=== PATIENT | female | born 1980 | race Caucasian/White ===

== ENCOUNTER 2019-12-17 11:31 | Outpatient (CLI) | payer OTHER, SELFPAY ==
--- NOTE | ~2019-12-17 | XR_ITS ---
EXAMINATION: XR hysterosalpingogram EXAM DATE: 12/17/2019 12:21 INDICATION: Infertility. TECHNIQUE: Hysterosalpingogram was performed by Dr. Lola Weinberg MD with fluoroscopic guidance. I was present to obtain fluoroscopic images. The DAP for this procedure was 0.8 Gycm2. FINDINGS: Top Cutter radiograph demonstrates an unremarkable pelvis. Fluoroscopic images demonstrates nor mal appearing endometrial cavity which has been cannulated. Upon injection of contrast, both fallopi an tubes opacify and are normal in appearance. There is free spillage bilaterally. Uterus is withou t evidence of synechia. IMPRESSION: Patent fallopian tubes. Reviewed, dictated and finalized at location A. IMPRESSION: Patent fallopian tubes.
--- NOTE | 2019-12-17 13:33 | PM.PROC ---
Procedure Note - Detailed Date of procedure: 12/17/19 Pre-op diagnosis: FEMALE INFERTILE Post-op diagnosis: same Procedure performed: HSG Description of procedure: Speculum was placed and cervix swabbed with Betadine. Catheter inserted and balloon inflated. Speculum removed. Per radiologist's instructions, dye injected through intracervical catheter. X ray showed bilateral patent tubes and normal uterine cavity per brief view at that time Anesthesia: none Surgeon: Lola Weinberg MD Estimated blood loss (mL): 0 Drains: No Packing: No Pathology: none sent Complications: No immediate complications Condition: stable Disposition: other (home) Findings: Bilateral patent tubes and normal uterine cavity (preliminary)
== END 2019-12-17 11:32 | disposition home or self-care (01) ==
PROVIDERS: Visit Provider Obstetrics & Gynecology
DX: N97.9 Female infertility, unspecified (principal)
CPT/HCPCS: 58340; 74740; Q9966

== ENCOUNTER 2020-02-11 09:59 | Outpatient (CLI) | payer OTHER, SELFPAY ==
[2020-02-11 11:03] LABS: Beta HCG Quantitative 12.99 mIU/ML
== END 2020-02-11 10:00 | disposition home or self-care (01) ==
LOC: ANHLAB 10:00
PROVIDERS: Visit Provider Obstetrics & Gynecology
DX: Z87.59 Personal history of other complications of pregnancy, childbirth and the puerperium (principal)
CPT/HCPCS: 36415; 84702

== ENCOUNTER 2021-04-25 10:35 | Outpatient (CLI) | payer OTHER, SELFPAY ==
--- NOTE | ~2021-04-25 | XR_ITS ---
EXAMINATION: XR hysterosalpingogram EXAM DATE: 04/25/2021 12:22 INDICATION: Irregular menstruation. TECHNIQUE: Hysterosalpingogram was performed by Dr. Hayden Cordova MD with fluoroscopic guidance. Rad iologist Leandro Brewer M.D. was present to obtain fluoroscopic images. Pulsed dose reduction fluorosco py was used with fluoroscopic time of 0.2 minutes. The DAP for this procedure was 0.5 Gycm2. A tota l of 23 images obtained for the exam. 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 Fluoroscopic images demonstrates nor mal appearing endometrial cavity which has been cannulated. Upon injection of contrast, both fallopi an tubes opacify and are normal in appearance. There is free spillage bilaterally. Uterus is withou t evidence of synechia. IMPRESSION: Patent fallopian tubes. Reviewed, dictated and finalized at location A. PUMPER IMPRESSION: Patent fallopian tubes.
[2021-04-25 11:39] LABS: Beta HCG Quantitative < 2.39 mIU/ML
--- NOTE | 2021-04-25 12:42 | W.PM.PROC2 ---
Procedure Note - Detailed Date of Procedure 04/25/21 Pre-op Diagnosis unexplained infertility Post-op Diagnosis same Procedure Performed Hysterosalpingogram Surgeon Hayden Cordova MD Anesthesia none Indications unexplained infertility Findings normal hysterosalpingogram Description of Procedure the patient was placed on the fluoroscopy table. A speculum was placed in the vagina. Cervix was grasped with a tenaculum. The catheter was placed the uterine cavity and the bulb was inflated. The speculum was removed with the angiocath still placed in the intrauterine cavity. Dye was then removed. The catheter. Fluoroscopic images obtained this process. Patient experienced some moderate to severe discomfort. The balloon of the catheter was deflated and the catheter was removed while the images were being obtained. The procedure was terminated. Patient tolerated the procedure well. There were no complications. Estimated Blood Loss 0 Complications No immediate complications Condition stable Disposition other
== END 2021-04-25 10:36 | disposition home or self-care (01) ==
LOC: ANHIMG 10:39
PROVIDERS: Visit Provider Obstetrics & Gynecology
DX: N92.6 Irregular menstruation, unspecified (principal)
CPT/HCPCS: 36415; 58340; 74740; 84702; Q9966

== ENCOUNTER 2021-05-04 14:20 | Outpatient (CLI) | payer OTHER, SELFPAY ==
--- NOTE | ~2021-05-04 | MM_ITS ---
EXAMINATION: MM screening charu BI w mary HISTORY: Screening TECHNIQUE: Craniocaudal and mediolateral oblique 3-D tomosynthesis images were obtained and synthetic 2-D images were generated. CAD analysis was submitted and interpreted. COMPARISON: No prior mammogram is available for comparison at this institution. BREAST PARENCHYMAL COMPOSITION: There are scattered areas of fibroglandular density. FINDINGS: There is no evidence of suspicious mass, calcification, or architectural distortion to sugg est malignancy in either breast. There has been no suspicious interval change. IMPRESSION: 1. No mammographic evidence of malignancy. 2. Recommend routine screening mammography in one year. BI-RADS Category 1: Negative Reviewed, dictated and finalized at location A. [employer]
== END 2021-05-04 14:21 | disposition home or self-care (01) ==
LOC: ANHIMG 14:22
PROVIDERS: PCP Family Medicine; Visit Provider Advanced Practice Midwife
DX: Z12.31 Encounter for screening mammogram for malignant neoplasm of breast (principal)
CPT/HCPCS: 77063; 77067

== ENCOUNTER 2021-07-23 11:29 | Outpatient (CLI) | payer OTHER, SELFPAY ==
[2021-07-23 12:54] LABS: Beta HCG Quantitative 80.53 mIU/ML
== END 2021-07-23 11:30 | disposition home or self-care (01) ==
LOC: ANHLAB 11:31
PROVIDERS: PCP Family Medicine; Visit Provider Obstetrics & Gynecology
DX: N91.2 Amenorrhea, unspecified (principal)
CPT/HCPCS: 36415; 84702

== ENCOUNTER 2021-07-25 10:51 | Outpatient (CLI) | payer OTHER, SELFPAY ==
[2021-07-25 12:13] LABS: Beta HCG Quantitative 407.31 mIU/ML
== END 2021-07-25 10:52 | disposition home or self-care (01) ==
LOC: ANHLAB 10:53
PROVIDERS: PCP Family Medicine; Visit Provider Obstetrics & Gynecology
DX: N91.2 Amenorrhea, unspecified (principal)
CPT/HCPCS: 36415; 84702

== ENCOUNTER 2021-07-27 12:17 | Outpatient (CLI) | payer OTHER, SELFPAY | END 2021-07-27 12:18 | disposition home or self-care (01) | LOC: ANHLAB 12:20 | PROVIDERS: PCP Family Medicine; Visit Provider Obstetrics & Gynecology | DX: Z31.0 Encounter for reversal of previous sterilization (principal) | CPT/HCPCS: 36415; 84702 ==

== ENCOUNTER 2021-07-30 13:13 | Outpatient (CLI) | payer OTHER, SELFPAY | END 2021-07-30 13:14 | disposition home or self-care (01) | LOC: ANHLAB 13:14 | PROVIDERS: PCP Family Medicine; Visit Provider Obstetrics & Gynecology | DX: Z31.0 Encounter for reversal of previous sterilization (principal) | CPT/HCPCS: 36415; 84702 ==

== ENCOUNTER 2021-08-01 12:12 | Outpatient (CLI) | payer OTHER, SELFPAY ==
[2021-08-01 13:06] LABS: Beta HCG Quantitative 315.55 mIU/ML
== END 2021-08-01 12:13 | disposition home or self-care (01) ==
LOC: ANHLAB 12:14
PROVIDERS: PCP Family Medicine; Visit Provider Obstetrics & Gynecology
DX: O20.0 Threatened abortion (principal)
CPT/HCPCS: 36415; 84702

== ENCOUNTER 2022-06-27 15:32 | Outpatient (CLI) | payer OTHER, SELFPAY ==
--- NOTE | ~2022-06-27 | MM_ITS ---
EXAMINATION: MM screening charu BI w mary HISTORY: Screening TECHNIQUE: Craniocaudal and mediolateral oblique 3-D tomosynthesis images were obtained and synthetic 2-D images were generated. CAD analysis was submitted and interpreted. COMPARISON: 05/04/2021 BREAST PARENCHYMAL COMPOSITION: There are scattered areas of fibroglandular density. FINDINGS: There is no evidence of suspicious mass, calcification, or architectural distortion to sugg est malignancy in either breast. There has been no suspicious interval change. IMPRESSION: 1. No mammographic evidence of malignancy. 2. Recommend routine screening mammography in one year. BI-RADS Category 1: Negative Reviewed, dictated and finalized at location A.
== END 2022-06-27 15:33 | disposition home or self-care (01) ==
PROVIDERS: PCP Family Medicine; Visit Provider Family Medicine
DX: Z12.31 Encounter for screening mammogram for malignant neoplasm of breast (principal)
CPT/HCPCS: 77063; 77067

== ENCOUNTER 2023-05-31 13:27 | Outpatient (RCR) | payer OTHER, SELFPAY | END 2023-08-27 23:59 | disposition home or self-care (01) | LOC: ANHLAB 13:27 | PROVIDERS: PCP Family Medicine; Visit Provider Obstetrics & Gynecology | DX: Z32.01 Encounter for pregnancy test, result positive (principal) | CPT/HCPCS: 36415; 84702 ==

== ENCOUNTER 2023-06-02 16:44 | Outpatient (CLI) | payer OTHER, SELFPAY | END 2023-06-02 16:45 | disposition home or self-care (01) | LOC: ANHLAB 16:46 | PROVIDERS: PCP Family Medicine; Visit Provider Obstetrics & Gynecology | DX: Z32.01 Encounter for pregnancy test, result positive (principal) | CPT/HCPCS: 36415; 84702 ==

== ENCOUNTER 2023-06-05 16:42 | Outpatient (RCR) | payer OTHER, SELFPAY | END 2023-09-03 23:59 | disposition home or self-care (01) | LOC: ANHLAB 16:42 | PROVIDERS: PCP Family Medicine; Visit Provider Obstetrics & Gynecology | DX: Z31.42 Aftercare following sterilization reversal (principal) | CPT/HCPCS: 36415; 84702 ==

== ENCOUNTER 2023-06-07 13:07 | Outpatient (CLI) | payer OTHER, SELFPAY | END 2023-06-07 13:08 | disposition home or self-care (01) | LOC: ANHLAB 13:10 | PROVIDERS: PCP Family Medicine; Visit Provider Obstetrics & Gynecology | DX: O36.80X9 Pregnancy with inconclusive fetal viability, other fetus (principal); Z3A.00 Weeks of gestation of pregnancy not specified | CPT/HCPCS: 36415; 84702 ==

== ENCOUNTER → 2023-07-04 14:45 | Day surgery (SDC) | payer OTHER, SELFPAY ==
[2023-07-04 09:54] VITALS: BMI 26.1
--- NOTE | 2023-07-04 09:57 | PC.NURSE ---
Report to the Outpatient Waiting Room, entrance under the green pavilion located off [facility], at time 1100 on date 07/04/23. Planned Procedure Time: 1300. Time changes happen often and if your time is changed the preop area will call you the afternoon before. - You and your visitor will be asked to self-screen and do not enter if you have any COVID symptoms. - A mask is optional within the hospital at this time. Patients may have clear liquids (water, carbonated beverages, clear teas, apple juice) until 3 hours prior to surgery with a maximum of 20 ounces. - No food from midnight until time of surgery Take the following medications with a SIP of water the morning of surgery: NONE DO NOT STOP ANY OF YOUR OTHER PRESCRIPTION MEDICATIONS PRIOR TO SURGERY ?EXCEPT THE FOLLOWING Medications to discontinue per physician: N/A - SURGERY TODAY Date to take last dose: N/A Please no make-up, nail moldovan, hairspray, perfume, deodorant, or body powder the day of surgery. No jewelry (including any body piercings) or valuables the day of surgery, leave them at home. Please take a shower or bath the night before, or the morning of, surgery with an antibacterial soap. Wear comfortable, loose fitting clothing. - Jewelry must be removed prior to entering the operating room. Rings and piercings that are not removed may be cut off. - The hospital will not accept responsibility for valuables. - Please leave all valuables, including medications, at home the day of surgery. If you are going home after surgery, a licensed transit driver must drive you home. - NO public transportation without another adult if you receive anesthesia. - We recommend that an adult stay with you for 24 hours following discharge. - We also recommend that you do not drive, make important decision, drink alcoholic beverages, or take any drugs that were not prescribed by your health care provider for at least 24 hours after your discharge time. Follow any additional instructions given to you from your surgeon. If you or anyone in your household have experienced Covid symptoms in the past week, please notify your surgeon or the nurse liaison at the phone number below for possible testing. Telephone instructions given to RAVI BREWSTER and asked if any additional questions and then verbalized understanding. Patient advised to call surgeon office or pre surgery nurse liaison [phone] if any additional questions.
[2023-07-04 11:55] VITALS: BP 106/63; PULSE 73; RESP 14; TEMP 37.1; O2SAT 100
[2023-07-04] MEDS: LACTATED RINGERS 1,000 ML 30 ML IV CONT (11:55)
[2023-07-04] MEDS: ACETAMINOPHEN 500 MG TABLET 1000 MG PO (11:55)
--- NOTE | 2023-07-04 11:59 | P.PNAN_ITS ---
Anes - Initial Pre Proc Eval Procedure: Operation Date: 07/04/23 13:00 Proposed Procedures p Suction Dilatation and Curettage - Hayden Cordova MD Date/Time: 07/04/23 11:59 Surgeon: Hayden Cordova MD Pre Op Diagnosis: missed AB Patient Data Age: 43 Gender: F Height: 1.65 m Weight: 71.22 kg Allergies Allergy/AdvReac Type Severity Reaction Status Date / Time No Known Allergies Allergy Verified 07/04/23 09:54 Home Medications Medication Instructions Recorded Confirmed Type clomiphene citrate 50 mg tablet 50 mg PO DAILY 5 days #5 tabs 11/03/19 11/03/19 Rx lactobacillus combo no.11 15 1 cap PO DAILY 11/03/19 History billion cell sprinkle capsule (Probiotic) multivitamin 1 cap PO DAILY 11/03/19 History omega-3 fatty acids 1,000 mg 1,000 mg PO DAILY 11/03/19 History capsule (Fish Oil Concentrate) Patient hx anesthesia problems: none Family hx anesthesia problems: none Results Review: All pre-operative results and documents have been reviewed as part of the pre- operative evaluation. [facility] Past Medical History Medical History (Updated 11/10/19 @ 15:01 by Lola WeinbergMD) delivery delivered X3 12/03/06 full term female 6lbs 11oz 07/02/04 full term male 6lbs 14oz 12/10/01 pre-term TWINS male 5lbs 07/24/99 full term female 6lbs 14oz Irritable bowel Mitral valve disorder Tubal reversal surgical follow up 05/07/19 Surgical History Surgical History H/O tubal ligation 12/03/06 [place] teeth removed Family History Family History Other Breast cancer Other Carcinoma of colon Grandparent Diabetes mellitus Father Heart attack Hypertension Hyperlipidemia Social History Social History Smoking status: Never smoker Alcohol intake: never Substance use: never Substance use type: does not use Living arrangements: with family Spiritual care concerns: No Anes - Eval Final PreProcedure Day of Procedure 07/04/23 11:59 Patient weight: overweight Heart: regular rate and rhythm Lungs: clear to auscultation Airway: Mallampati scale class II Neurological: alert and oriented Last oral intake: >/= 8 hours ASA classification: II Emergent: no Anesthetic plan: proceed Anesthesia type and monitoring: general GIVS and standard monitoring Results Review: All pre-operative results and documents have been reviewed as part of the pre- operative evaluation. Informed Consent: The patient's anesthetic plan and its attendant risks and benefits were discussed with the patient/family/POA. Questions were solicited and answers provided to the satisfaction of the patient/family/POA.
--- NOTE | 2023-07-04 12:42 | WPDHPUPDATE1 ---
History and Physical Update Update Date/Time: 07/04/23 12:42 History and Physical has been reviewed, including an updated exam of the patient. There are NO changes in the patient's condition. Risks, benefits, and alternatives have been discussed and questions answered. Patient agrees to proceed with procedure.
[2023-07-04 13:03] VITALS: BP 103/61; PULSE 83; O2SAT 93
--- NOTE | 2023-07-04 13:11 | P.OP_ITS ---
Procedure Note - Detailed Date of Procedure 07/04/23 Pre-op Diagnosis missed AB Post-op Diagnosis Same Procedure Performed Suction D&C Surgeon Hayden Cordova MD Anesthesia MAC Indications missed Findings normal-appearing vulva vagina and cervix to. Moderate amount of products conception within the uterus. 8 cm uterus Description of Procedure the patient was taken the operating room. She was prepped and draped in dorsal lithotomy position after induction of mac anesthesia. A speculum was placed in the vagina. Cervix grasped with tenaculum. The cervix was dilated to about 1 cm Using Padilla dilators. A 8. Faroese curved curette was used to perform suction D&C. The curette was introduced and vacuum was applied. The curette was removed over all surfaces of the intrauterine cavity multiple times. This was done until all the surfaces were clear and had the familiar grainy texture they can be felt through the instrument. A sharp curette was then used to curettage all the surfaces. The suction cup was then reapplied 1 more time to remove any debris. The instruments were removed. The speculum and tenaculum were removed. The patient tolerated the procedure well. She was taken recovery room stable condition. Estimated Blood Loss 50 Drains No Packing No Pathology Yes Complications No immediate complications Condition Stable Disposition PACU
[2023-07-04 13:30] VITALS: BP 104/73; PULSE 63; O2SAT 100
[2023-07-04 14:00] VITALS: BP 111/75; PULSE 62; O2SAT 100
[2023-07-04 14:30] VITALS: BP 110/70; PULSE 62
== END | disposition home or self-care (01) ==
LOC: ANHSURGERY 14:46
PROVIDERS: PCP Family Medicine; Visit Provider Obstetrics & Gynecology
PROC: (CPT 59820; principal; 2023-07-04 13:00)
DX: O02.1 Missed abortion (principal)
CPT/HCPCS: 59820; 36415; 85461; 86850; 86900; 86901; 88305; A9270; J1100; J2405; J2704; J7120

== ENCOUNTER 2023-08-29 14:15 | Outpatient (CLI) | payer OTHER, SELFPAY ==
--- NOTE | ~2023-08-29 | MM_ITS ---
EXAMINATION: MM screening charu BI w mary HISTORY: Screening TECHNIQUE: Craniocaudal and mediolateral oblique 3-D tomosynthesis images were obtained and synthetic 2-D images were generated. CAD analysis was submitted and interpreted. COMPARISON: Comparison to multiple prior studies sequentially, with oldest reviewed study dated 06/2021. BREAST PARENCHYMAL COMPOSITION: Not dense: There are scattered areas of fibroglandular density. FINDINGS: There is no evidence of suspicious mass, calcification, or architectural distortion to sugg est malignancy in either breast. There has been no suspicious interval change. IMPRESSION: 1. No mammographic evidence of malignancy. 2. Recommend routine screening mammography in one year. BI-RADS Category 1: Negative Reviewed, dictated and finalized at location B.
== END 2023-08-29 14:16 | disposition home or self-care (01) ==
LOC: ANHIMG 14:17
PROVIDERS: PCP Family Medicine; Visit Provider Obstetrics & Gynecology
DX: Z12.31 Encounter for screening mammogram for malignant neoplasm of breast (principal)
CPT/HCPCS: 77063; 77067

== ENCOUNTER 2024-10-13 11:19 | Outpatient (RCR) | payer OTHER, SELFPAY ==
[2024-10-11 13:14] LABS: Beta HCG Quantitative 1697.80 mIU/ML
[2024-10-13 16:44] LABS: Beta HCG Quantitative 2990.50 mIU/ML
== END 2025-01-09 23:59 | disposition home or self-care (01) ==
LOC: ANHLAB 11:19
PROVIDERS: PCP Family Medicine; Visit Provider Obstetrics & Gynecology
DX: N96 Recurrent pregnancy loss (principal)
CPT/HCPCS: 36415; 84144; 84702

== ENCOUNTER 2024-10-15 09:51 | Outpatient (CLI) | payer OTHER, SELFPAY ==
--- OUTSIDE RECORDS SUMMARY | 2024-10-15 09:58 | XMS_ITS ---
Author Name MARLO VERDIN Address [address] [place] [address] Phone [facility] Address [address] [place] [address] Phone Care Team Providers Care Service Team Leader Name Role Phone DO MARLO VERDIN Unavailable ALLERGIES, ADVERSE REACTIONS AND ALERTS Allergy Name Allergy Date Allergy Status Allergy Severity Allergy Reaction Acetaminophen, [RxNorm: 161] 05/14/2012 Current Mental Status Changes and Insomnia Oxycodone, [RxNorm: 7804] 05/14/2012 Current Mental Status Changes and Insomnia zoloft, [RxNorm: 76670] 12/06/2013 Current rash MEDICATIONS RxNorm Brand Name Prescription Ordered Value Order Unit Start Date Date Status Fill Status Indications 023111 Xopenex 1.25 mg/3 mL Solution for Nebuliza tion XopenexSi.25 mg/3 mL, Solution for Nebulization, Every 8 hours , Routine, Inhalation, Dispense #, 0 Refills Solutio n for Nebuliz ation 2011 Historic [id number] albutero l sulfate 90 mcg/actu ation HFA Aerosol Inhaler albuterol sulfateSi mcg/actuation, HFA Aerosol Inhaler, Every 4-6 hours as needed (# per day: 4.00), Routine, Inhalation, Dispense #, 0 Refills HFA Aerosol Inhaler 2011 Historic Multiple Vitamins tablet Multiple VitaminsSig: tablet, QD (# per day: 1.00), Routine, Oral, Dispense #, 0 Refills tablet 2011 Historic [id number] Vitamin B-12 5,000 mcg tablet, sublingu al Vitamin B-12Si,000 mcg, tablet, sublingual, QD (# per day: 1.00), Routine, Sublingual, Dispense #, 0 Refills tablet, subling ual 2011 Historic [id number] Benzac AC 5 % Gel Benzac ACSi %, Gel, Apply every day to affected areas, Routine, Topical, Dispense #, 0 Refills Gel 2011 Historic [id number] Combiven t Respimat 20-100 mcg/actu ation Aerosol Combivent RespimatSi-100 mcg/actuation, Aerosol, 2 puffs every 4 hours, PRN, Inhalation, 30 daysDispense #1, 0 Refills 1 Aerosol 2012 013 Historic [id number] Medrol (Paul) 4 mg tablets, dose pack Medrol (Paul)Si mg, tablets,dose pack, as directed, Routine, Oral, 5 daysDispense #1, 0 Refills 1 tablets ,dose pack 2012 013 Historic [id number] Augmenti n 875-125 mg tablet AugmentinSi-125 mg, tablet, BID (# per day: 2.00)BID, Routine, Oral, 14 daysDispense #28, 0 Refills 28 tablet 2012 013 Historic [id number] Combiven t Respimat 20-100 mcg/actu ation Aerosol Combivent RespimatSi-100 mcg/actuation, Aerosol, 1 puff four times per day, PRN, Inhalation, 30 daysDispense #1, 0 Refills 1 Aerosol 2012 013 Historic [id number] Ventolin HFA 90 mcg/actu ation HFA aerosol inhaler Ventolin HFASi mcg/actuation, HFA aerosol inhaler, two puff every 4 hours , PRN, inhalation, Dispense #1, 1 Refill 1 HFA aerosol inhaler 2013 014 Historic [id number] Singulai r 10 mg tablet SingulairSi mg, tablet, QD (# per day: 1.00), Routine, oral, 30 daysDispense #30, 2 Refills 30 tablet 2013 014 Historic [id number] ProAir HFA 90 mcg/actu ation HFA aerosol inhaler ProAir HFASi mcg/actuation, HFA aerosol inhaler, two puff every 4 hours, PRN, inhalation, Dispense #1, 0 Refills 1 HFA aerosol inhaler 2013 014 Historic [id number] predniso ne 10 mg tablet prednisoneSi mg, tablet, taper: 4 tablets per day for 3 days, then 3 tablets per day for 3 days, then 2 tablets per day for 3 days, then 1 tablet per day for 3 days, Routine, oral, 12 daysDispense #30, 0 Refills 30 tablet 2013 014 Historic [id number] Benzac AC 5 % Gel SIG: Benzac AC 5 % Gel, 0 days, Dispense #1 Tube, 0 RefillsDirecti ons: Apply daily to affected areas 1 Gel 2013 Historic [id number] Singulai r 10 mg tablet SIG: Singulair 10 mg tablet, 30 days, Dispense #30 Tablet, 5 RefillsDirecti ons: Take 1 oral tablet once a day 30 tablet 2013 Historic [id number] Zoloft 50 mg tablet SIG: Zoloft 50 mg tablet, days, Dispense #60 Tablet, 0 RefillsDirecti ons: take 0.5 tablet for at least 3 days then increase to 1 tablet, increase to 1.5 tablets if tolerable 60 tablet 2013 Historic [id number] doxycycl ine hyclate 100 mg tablet SIG: doxycycline hyclate 100 mg tablet, 30 days, Dispense #30 Tablet, 5 RefillsDirecti ons: Take 1 oral tablet once a day 30 tablet 2013 Historic [id number] Medrol (Paul) 4 mg tablets, dose pack SIG: Medrol (Paul) 4 mg tablets,dose pack, 5 days, Dispense #1 Pack, 0 RefillsDirecti ons: as directed 1 tablets ,dose pack 2013 Historic [id number] Lexapro 10 mg tablet SIG: Lexapro 10 mg tablet, 30 days, Dispense #30 Tablet, 1 RefillsDirecti ons: Take 1 oral tablet once a day 30 tablet 2013 Historic [id number] Singulai r 10 mg tablet SIG: Singulair 10 mg tablet, 30 days, Dispense #30 Tablet, 5 RefillsDirecti ons: Take 1 oral tablet once a day 30 tablet 2013 Historic [id number] Singulai r 10 mg tablet SIG: Singulair 10 mg tablet, 30 days, Dispense #30 Tablet, 5 RefillsDirecti ons: Take 1 oral tablet once a day 30 tablet 2014 Historic [id number] Ventolin HFA 90 mcg/actu ation HFA aerosol inhaler SIG: Ventolin HFA 90 mcg/actuation HFA aerosol inhaler, 0 days, Dispense #1 Inhaler, 0 RefillsDirecti ons: two puffs every 4 hours 1 HFA aerosol inhaler 2014 Historic [id number] clobetas ol 0.05 % cream SIG: clobetasol 0.05 % cream, days, Dispense #30 Gram, 0 RefillsDirecti ons: apply twice daily to upper abdomen as needed 30 cream 2014 Historic [id number] Augmenti n 875-125 mg tablet SIG: Augmentin 875-125 mg tablet, 14 days, Dispense #28 Tablet, 0 RefillsDirecti ons: Take 1 oral tablet 2 times a day 28 tablet 2014 015 Historic [id number] Singulai r 10 mg tablet SIG: Singulair 10 mg tablet, 30 days, Dispense #30 Tablet, 5 RefillsDirecti ons: Take 1 oral tablet once a day 30 tablet 2014 Historic [id number] Macrobid 100 mg capsule SIG: Macrobid 100 mg capsule, 5 days, Dispense #10 Capsule, 0 RefillsDirecti ons: Take 1 oral capsule 2 times a day 10 capsule 2014 Historic [id number] Medrol (Paul) 4 mg tablets, dose pack SIG: Medrol (Paul) 4 mg tablets,dose pack, 5 days, Dispense #1 Pack, 0 RefillsDirecti ons: as directed 1 tablets ,dose pack 2014 015 Historic [id number] monteluk ast 10 mg tablet SIG: montelukast 10 mg tablet, Dispense # 30, 5 RefillsDirecti ons: TAKE ONE TABLET BY MOUTH ONCE DAILY 30 tablet 2015 016 Historic [id number] Flonase Allergy Relief 50 mcg/actu ation spray,lowe spension SIG: Flonase Allergy Relief 50 mcg/actuation spray,suspensi on, 1 days, Dispense #1 [place], 0 RefillsDirecti ons: 2 squirts into each nostril daily 1 spray,s uspensi on 2015 Historic [id number] Vitamin D3 1,000 unit tablet SIG: Vitamin D3 1,000 unit tablet, 30 days, Dispense #30 Tablet, 0 RefillsDirecti ons: Take 1 oral tablet once a day 30 tablet 2015 Historic [id number] fluticas one 50 mcg/actu ation spray,lowe spension SIG: fluticasone 50 mcg/actuation spray,suspensi on, Dispense # 16, 2 RefillsDirecti ons: USE TWO SPRAY(S) IN EACH NOSTRIL ONCE DAILY 16 spray,s uspensi on 2015 016 Historic [id number] Wellbutr in XL 150 mg tablet extended release 24 hr SIG: Wellbutrin XL 150 mg tablet extended release 24 hr, 30 days, Dispense #30 Tablet, 1 RefillsDirecti ons: Take 1 oral tablet every morning 30 tablet extende d release 24 hr 2015 Historic [id number] monteluk ast 10 mg tablet SIG: montelukast 10 mg tablet, Dispense # 30, 5 RefillsDirecti ons: TAKE ONE TABLET BY MOUTH ONCE DAILY 30 tablet 2015 016 Historic [id number] Medrol (Paul) 4 mg tablets, dose pack SIG: Medrol (Paul) 4 mg tablets,dose pack, 5 days, Dispense #1 Pack, 0 RefillsDirecti ons: as directed 1 tablets ,dose pack 2015 Historic [id number] fluticas one 50 mcg/actu ation spray,lowe spension SIG: fluticasone 50 mcg/actuation spray,suspensi on, Dispense # 16, 1 RefillsDirecti ons: USE TWO SPRAY(S) IN EACH NOSTRIL ONCE DAILY 16 spray,s uspensi on 2015 016 Historic [id number] Temovate 0.05 % cream SIG: Temovate 0.05 % cream, 5 days, Dispense #10 Gram, 0 RefillsDirecti ons: apply to left neck twice a day 10 cream 2016 Historic [id number] clobetas ol 0.05 % cream SIG: clobetasol 0.05 % cream, days, Dispense #10 Gram, 0 RefillsDirecti ons: apply to left neck twice a day 10 cream 2016 Historic [id number] betameth asone valerate 0.1 % cream SIG: betamethasone valerate 0.1 % cream, 30 days, Dispense #15 Gram, 0 RefillsDirecti ons: Apply topically to left neck twice daily 15 cream 2016 Historic [id number] monteluk ast 10 mg tablet SIG: montelukast 10 mg tablet, 30 days, Dispense #30 Tablet, 5 RefillsDirecti ons: TAKE ONE TABLET BY MOUTH ONCE DAILY 30 tablet 2016 Historic B Complex 1 tablet SIG: B Complex 1 tablet, 30 days, Dispense #30 Tablet, 0 RefillsDirecti ons: Take 1 oral tablet once a day 30 tablet 2016 Historic [id number] Madeleine Allergy 180 mg tablet SIG: Madeleine Allergy 180 mg tablet, 30 days, Dispense #30 Tablet, 0 RefillsDirecti ons: Take 1 oral tablet once a day 30 tablet 2016 Historic calcium carb-mag ox-zinc gluc 333-133- 5 mg tablet SIG: calcium carb-mag ox-zinc gluc 333-133-5 mg tablet, 30 days, Dispense #30 Tablet, 0 RefillsDirecti ons: Take 1 oral tablet once a day 30 tablet 2016 Historic [id number] monteluk ast 10 mg tablet SIG: montelukast 10 mg tablet, Dispense # 30, 2 RefillsDirecti ons: TAKE ONE TABLET BY MOUTH ONCE DAILY 30 tablet 2017 018 Historic [id number] fluticas one 50 mcg/actu ation spray,lowe spension SIG: fluticasone 50 mcg/actuation spray,suspensi on, Dispense # 16, 1 RefillsDirecti ons: USE TWO SPRAY(S) IN EACH NOSTRIL ONCE DAILY 16 spray,s uspensi on 2017 018 Historic [id number] Adacel(T dap Adolesn/ Adult)(P F) 2 Lf-(2.5- 5-3-5 mcg)-5Lf /0.5 mL suspensi on SIG: Adacel(Tdap Adolesn/Adult) (PF) 2 Lf-(2.5-5-3-5 mcg)-5Lf/0.5 mL intramuscular suspension, 1 days, Dispense #1 Syringe, 0 RefillsDirecti ons: Inject 1 dose syringe via intramuscular one time 1 suspens ion 2017 Historic [id number] fluticas one 50 mcg/actu ation spray,lowe spension SIG: fluticasone 50 mcg/actuation spray,suspensi on, Dispense # 16, 1 RefillsDirecti ons: USE TWO SPRAY(S) IN EACH NOSTRIL ONCE DAILY 16 spray,s uspensi on 2017 018 Historic [id number] Augmenti n 875-125 mg tablet SIG: Augmentin 875-125 mg oral tablet, 42 days, Dispense #84 Tablet, 0 RefillsDirecti ons: Take 1 oral tablet 2 times a day 84 tablet 2017 019 Historic [id number] Ultram 50 mg tablet SIG: Ultram 50 mg oral tablet, 7 days, Dispense #20 Tablet, 0 RefillsDirecti ons: Take 1 oral tablet every 8 hours as needed for moderate to severe pain 20 tablet 2018 Historic [id number] Microges tin FE /20 (28) 1 mg-20 mcg (21)/75 mg (7) tablet SIG: Microgestin FE /20 (28) 1 mg-20 mcg (21)/75 mg (7) oral tablet, 30 days, Dispense #30 Tablet, 0 RefillsDirecti ons: Take 1 oral tablet once a day 30 tablet 2018 Historic [id number] Imitrex 50 mg tablet SIG: Imitrex 50 mg oral tablet, 10 days, Dispense #10 Tablet, 0 RefillsDirecti ons: Take 1 tablet by mouth at onset of headache, may repeat after 1 hour if headache still present; no more than 4 doses in 24 hours 10 tablet 2020 Historic [id number] Augmenti n 875-125 mg tablet SIG: Augmentin 875-125 mg oral tablet, 14 days, Dispense #28 Tablet, 0 RefillsDirecti ons: Take 1 oral tablet 2 times a day 28 tablet 2020 Historic [id number] Imitrex 50 mg tablet SIG: Imitrex 50 mg oral tablet, 10 days, Dispense #10 Tablet, 4 RefillsDirecti ons: Take 1 tablet by mouth at onset of headache, may repeat after 1 hour if headache still present; no more than 4 doses in 24 hours 10 tablet 2020 Historic Vitamin -- capsule SIG: Vitamin -- oral capsule, 30 days, Dispense #30 -, 0 RefillsDirecti ons: Take 1 oral capsule once daily 30 capsule 2022 Current [id number] triamcin olone acetonid e 0.1 % cream SIG: triamcinolone acetonide 0.1 % topical cream, 14 days, Dispense #30 Gram, 0 RefillsDirecti ons: Apply topical cream to affected areas as needed until resolution or up to 2 weeks 30 cream 2022 023 Historic [id number] meloxica m 15 mg tablet SIG: meloxicam 15 mg oral tablet, 30 days, Dispense #30 Tablet, 0 Refills, Directions: Take 1 oral tablet once a day 30 tablet 2023 Historic PROBLEMS Problem Code Problem Description Problem Status Problem Da te Problem End Date E78.5-HYPERLIPIDEMIA , UNSPECIFIED HYPERLIPIDEMIA, UNSPECIFIED Chronic 02/28/2015 F41.0-PANIC DISORDER [EPISODIC PAROXYSMAL ANXIETY] WITHOUT AGORAPHOBIA PANIC DISORDER [EPISODIC PAROXYSMAL ANXIETY] WITHOUT AGORAPHOBIA Chronic 02/28/2015 F41.1-GENERALIZED ANXIETY DISORDER GENERALIZED ANXIETY DISORDER Chronic 02/28/2015 F51.04-PSYCHOPHYSIOL OGIC INSOMNIA PSYCHOPHYSIOLOGIC INSOMNIA Chronic 02/28/2015 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 Chronic 02/28/2015 J45.20-MILD INTERMITTENT ASTHMA, UNCOMPLICATED MILD INTERMITTENT ASTHMA, UNCOMPLICATED Chronic 02/28/2015 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 Chronic 02/28/2015 E78.6-LIPOPROTEIN DEFICIENCY LIPOPROTEIN DEFICIENCY Chronic 02/28/2015 J30.9-ALLERGIC RHINITIS, UNSPECIFIED ALLERGIC RHINITIS, UNSPECIFIED Chronic 06/11/2016 E55.9-VITAMIN D DEFICIENCY, UNSPECIFIED VITAMIN D DEFICIENCY, UNSPECIFIED Chronic 03/26/2018 E53.8-DEFICIENCY OF OTHER SPECIFIED B GROUP VITAMINS DEFICIENCY OF OTHER SPECIFIED B GROUP VITAMINS Chronic 03/26/2018 M25.572-PAIN IN LEFT ANKLE AND JOINTS OF LEFT FOOT PAIN IN LEFT ANKLE AND JOINTS OF LEFT FOOT Chronic 07/22/2018 M25.552-PAIN IN LEFT HIP PAIN IN LEFT HIP Chronic 07/22/2018 M79.642-PAIN IN LEFT HAND PAIN IN LEFT HAND Chronic 07/22/2018 K90.54-JYZ-IZKLQJ GLUTEN SENSITIVITY NON-CELIAC GLUTEN SENSITIVITY Chronic 10/12/2018 Z91.018-ALLERGY TO OTHER FOODS ALLERGY TO OTHER FOODS Chronic 10/12/2018 M25.512-PAIN IN LEFT SHOULDER PAIN IN LEFT SHOULDER Chronic 03/29/2019 M25.551-PAIN IN RIGHT HIP PAIN IN RIGHT HIP Chronic 03/29/2019 R10.11-RIGHT UPPER QUADRANT PAIN RIGHT UPPER QUADRANT PAIN Chronic 04/28/2019 G43.109-MIGRAINE WITH AURA, NOT INTRACTABLE, WITHOUT STATUS MIGRAINOSUS MIGRAINE WITH AURA, NOT INTRACTABLE, WITHOUT STATUS MIGRAINOSUS Chronic 01/10/2021 M79.641-PAIN IN RIGHT HAND PAIN IN RIGHT HAND Chronic 04/08/2021 M19.041-Primary osteoarthritis, right hand Primary osteoarthritis, right hand Chronic 05/10/2021 M19.042-Primary osteoarthritis, left hand Primary osteoarthritis, left hand Chronic 05/10/2021 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, RIGHT HIP OTHER ARTICULAR CARTILAGE DISORDERS, RIGHT HIP Chronic 11/06/2021 H81.11-Benign paroxysmal vertigo, right ear Benign paroxysmal vertigo, right ear Chronic 11/11/2022 PROCEDURES Procedure Description Date Notes NO PROCEDURES PERFORMED ASSESSMENTS Assessment None PLAN OF TREATMENT Assessment Planned Activity LOINC Planned [facility] None CONSULTATION NOTE Note Author Date None HISTORY AND PHYSICAL NOTE Note Author Date None PROGRESS NOTE Note Author Date None DISCHARGE SUMMARY Note Author Date None CHIEF COMPLAINT AND REASON FOR VISIT FUNCTIONAL STATUS Functional or Cognitive Find ing None MENTAL STATUS Cognitive Finding None ENCOUNTERS Encounter Type Provider Diagnoses Start Date Location Disc harged to None SOCIAL HISTORY Social Status Observation Never Smoker Sex: Female CARE TEAM INFORMATION Service Team Leader Provider ID Role Location Phone MARLO VERDIN [id number] PHYSICIAN [address] [place] [address] INSURANCE PROVIDERS Payer Name Policy type / Coverage type Covered green party ID Policy [employer] [facility] Unavailable / Unknown [id number] SELF
--- OUTSIDE RECORDS SUMMARY | 2024-10-15 09:58 | XMS_ITS | Clinical Summary ---
Author Organization [facility] Address [address] [place], [address] [address] Phone Care Team Providers Care Yacht Rigger Name Role Phone ArnieWin em Valentin MATIAS Primary Care Provider [phone] Allergies Active Allergy Reactions Criticality Noted Date Comments Other Unknown 12/10/2016 Seasonal Allergies Penicillins Shortness of Breath 12/10/2016 Pt not sure of allergy but thinks had shortness of breath after taking pcn as a child. Sertraline Hcl Rash 12/10/2016 Medications montelukast (SINGULAIR) 10 MG Tablet Take 10 mg by mouth daily. Active Fluticasone Propionate (FLONASE NA) 2 Sprays by Nasal route daily. Active cetirizine (ZYRTEC ALLERGY) 10 MG Tablet Take 10 mg by mouth daily. Active vitamin D (CHOLECALCIFEROL ) 1000 UNIT Tablet Take 1,000 Units by mouth daily. Active B Complex Vitamins (VITAMIN B COMPLEX PO) Take by mouth. Active CALCIUM/MAGNESIU M/ZINC FORMULA PO Take by mouth. Active Loratadine (CLARITIN) 10 MG Capsule Take by mouth daily. Active Active Problems No known active problems Family History Medical History Relation Name Comments Cancer Father Bladder Colon Polyps Father High Cholesterol Father Hypertension Father Other-comment Father stomach ulcers No Known Problems Mother Cancer Sister Eye Relation Name Status Comments Father Alive Mother Alive Sister Social History Tobacco Use Types Packs/Day Years Used Date Smoking Tobacco: Never Smokeless Tobacco: Never Alcohol Use Standard Drinks/Week Comments No 0 (1 standard drink = 0.6 oz pur e alcohol) Comments No Sex and Gender Information Value Date Recorded Sex Assigned at Not on file Legal Sex Female 11:04 PM CDT Gender Identity Not on file Sexual Orientation Not on file 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 on file Not on file Not on file Last Filed Vital Signs Vital Sign Reading Time Taken Comments Blood Pressure 100/60 04/17/2021 1:02 PM [employer] Pulse 85 04/17/2021 1:02 PM [employer] Temperature 36.6 C (97.9 F) 04/17/2021 1:02 PM [employer] Respiratory Rate 16 04/17/2021 1:02 PM [employer] Oxygen Saturation 99% 04/17/2021 1:02 PM [employer] Inhaled Oxygen Concentration - - Weight 70.3 kg (155 lb) 04/17/2021 1:02 PM [employer] Height 165.1 cm (5' 5) 03/22/2018 11:41 AM [employer] Body Mass Index 25.79 03/22/2018 11:41 AM [employer] Plan of Treatment Health Maintenance Due Date Last Done Comments Hepatitis C Virus (HCV) Screening 1980 TdaP Immunization 1980 Human Papillomavirus (HPV) Immunization (1 - 3-dose series) 1995 Hepatitis B Immunization (1 of 3 - 19+ 3-dose series) 1999 Pap Smear 2001 Cervical Cancer Screening (CCS) 2010 HPV/Cotest 2010 SARS-COV-2 Immunization ( season) 2023 01/01/2021, 12/11/2020 Influenza Immunization (#1) 2024 04/19/2008 Respiratory Syncytial Virus (RSV) Immunization (Adult) (1 - 1-dose 75+ series) 2055 Meningococcal Immunization (ACWY) Aged Out No longer eligible b ased on patient's age to complete this topic Pneumococcal Immunization Combined Aged Out No longer eligible b ased on patient's age to complete this topic Rotavirus Immunization Aged Out No lo nger eligible based on patient's age to complete this topic Insurance MEDICAID [employer] Care Teams Yacht Rigger Relationship Specialty Start Date End Date Win Feng DO [address] [place] [id number] PCP - General Family Medicine 01/07/17
--- OUTSIDE RECORDS SUMMARY | 2024-10-15 09:58 | XMS_ITS | Data Portability ---
Author Organization MICAH BRIANRitesh Sterling Address [address] [facility] [place] [address] Care Team Providers Care Historian Research Assistant Name Role Phone JONY GEORGE Shiftman Assessment Encounter Date Assessment Date Assessment LastModified by Organization Details LastModified Time 07/29/2016 07/29/2016 discussed a variety of menstrual issues. 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 Most likely ovarian - driven, be it ovulation-rel ated or possible endometriosis . Will start OCPs after much discussion. Back in 4 mos to re-evaluate progress Not available 11/03/2018 16:33:06 12/10/2018 12/10/2018 Discussed 3 week hx of unusual vaginal DC white, then orange, clear, funny smell, etc will check Vag+ Not available 12/10/2018 15:10:42 Plan of Treatment Reminders Order Date Submit Date Provider Last Modified By Organization Details Last Modified Time Details Appointments ANY 30 2024 03:10P Ron TORRESNARCISA CYRUS, DO Not available Not available Not available Lab bacterial vaginosis + vaginitis panel, vaginal 2018 019 [facility], [address] [facility] [address] [facility] [address], [address], [place], [address], 12/14/2018 07:07:03 unlisted lab - igp, rfx aptima HPV ascu 2018 019 [facility], [address] [facility] [address], [address], [place], [address], 05/12/2018 07:13:33 pap, LB + reflex to HR HPV if ASC-U 2016 017 [facility], [address] [facility] [address], [address], [place], [address], 03/14/2017 15:14:01 Referral None recorded. Procedures None recorded. Surgeries None recorded. Imaging None recorded. Medication Orders Microgest in 24 FE 1 mg-20 mcg (24)/75 mg (4) tablet [address] [facility], [place], [address], 11/03/2018 16:33:18 Sprintec (28) 0.25 mg-0.035 mg tablet [address] [facility] [address], [place], [address], 07/29/2016 15:07:35 Patient TargetsNo targets recorded. Patient Instructions Encounter Date Encounter Id Patient Instructions Last Modified By Organization Details Last Modified Time 07/29/2016 [id number] painful menstrua l cramps: care instructions [email or web address] Not available 07/29/2016 15:10:52 11/03/2018 [id number] painful menstrua l cramps: care instructions Not available 11/03/2018 16:33:11 Reason for Referral None Reported. Results Created Date Observation Date Name Description Value Unit Range Abnormal Flag Note LastModifiedBy Organization Detail LastModifiedTime 03/11/20 17 03/14/2017 pap, IG + refle x HR HPV diagnosis: Svitlana RAMSEY MATTHEW FOR INTRA EPITH ELIAL ZEYNEP Ritter AND FOREIGN WILLIAM . Not Available [facility] ([facility]) [address] [place], [address], 03/14/2017 15:14:01 03/11/20 17 03/14/2017 pap, IG + refle x HR HPV specimen adequacy: Svitlana t Satis facto ry for evalu ation . Endoc ervic al and/o r squam ous metap lasti c cells (endo cervi eusebia compo nent) are prese nt. Not Available [facility] ([facility]) [address] [place], [address], 03/14/2017 15:14:01 03/11/20 17 03/14/2017 pap, IG + refle x HR HPV clinician provided ICD10: Svitlana funk Z01.4 19 Not Available [facility] ([facility]) [address] [place], [address], 03/14/2017 15:14:01 03/11/20 17 03/14/2017 pap, IG + refle x HR HPV performed by: Svitlana Perez, Cytot bisi funk (ASCP ) Not Available [facility] ([facility]) [address] [place], [address], 03/14/2017 15:14:01 03/11/20 17 03/14/2017 pap, IG + refle x HR HPV . . Not Available [facility] ([facility]) [address] [place], [address], 03/14/2017 15:14:01 03/11/20 17 03/14/2017 pap, IG + refle x HR HPV note: Commen t The Pap smear is a scree antoinette test desig artem to aid in the detec tion of isidro ligna nt and malig nant condi tions of the uteri ne cervi x. It is not a diagn ostic proce dure and shoul d not be used as the sole means of detec ting cervi eusebia cance r. Both false -posi tive and false -nega tive repor ts do occur . Not Available [facility] ([facility]) [address] [facility], [place], [address], 03/14/2017 15:14:01 03/11/20 17 03/14/2017 pap, IG + refle x HR HPV test methodology: Commen t This liqui d based ThinP rep(R ) pap test was scree artem with the use of an image guide steve armando. Not Available [facility] ([facility]) [address] [place], [address], 03/14/2017 15:14:01 03/11/20 17 03/14/2017 pap, IG + refle x HR HPV . Commen t The HPV DNA refle x crite alexa were not met with this speci men resul t there fore, no HPV testi ng was perfo rmed. Not Available [facility] ([facility]) [address] [facility], [place], [address], 03/14/2017 15:14:01 05/08/19 19 05/11/2018 pap, IG + refle x HR HPV diagnosis: Commen t NEGAT MATTHEW FOR INTRA EPITH ELIAL LESIO N OR MALIG NATALIIA . Not Available [facility] ([facility]) [address] [facility], [place], [address], 05/12/2018 07:13:33 05/08/19 19 05/11/2018 pap, IG + refle x HR HPV specimen adequacy: Commen t Satis facto ry for evalu ation . Endoc ervic al and/o r squam ous metap lasti c cells (endo cervi eusebia compo nent) are prese nt. Not Available [facility] ([facility]) [address] [place], [address], 05/12/2018 07:13:33 05/08/19 19 05/11/2018 pap, IG + refle x HR HPV clinician provided ICD10: Svitlana funk Z01.4 19 Not Available [facility] ([facility]) [address] [place], [address], 05/12/2018 07:13:33 05/08/19 19 05/11/2018 pap, IG + refle x HR HPV performed by: Steve Beatty (ASCP ) Not Available [facility] ([facility]) [address] [place], [address], 05/12/2018 07:13:33 05/08/19 19 05/11/2018 pap, IG + refle x HR HPV . . Not Available [facility] ([facility]) [address] [place], [address], 05/12/2018 07:13:33 05/08/1905/11/2018 pap, IG + refle x HR HPV note: Svitlana funk The Pap smear is a scree antoinette test desig artem to aid in the detec tion of isidro ligna nt and malig nant condi tions of the uteri ne cervi x. It is not a diagn ostic proce dure and shoul d not be used as the sole means of detec ting cervi eusebia cance r. Both false -posi tive and false -nega tive repor ts do occur . Not Available [facility] ([facility]) [address] [place], [address], 05/12/2018 07:13:33 05/08/19 19 05/11/2018 pap, IG + refle x HR HPV test methodology: Svitlana funk This liqui d based ThinP rep(R ) pap test was scree artem with the use of an image guide steve hernandez m. Not Available [facility] ([facility]) [address] [facility], [place], [address], 05/12/2018 07:13:33 05/08/1905/11/2018 pap, IG + refle x HR HPV . Commen t The HPV DNA refle x crite alxea were not met with this speci men resul t there fore, no HPV testi ng was perfo rmed. Not Available [facility] ([facility]) [address] [facility], [place], [address], 05/12/2018 07:13:33 12/11/1912/13/2018 bacte rial vagin osis + vagin itis panel , vagin al atopobium vaginae Low - 0 score Not Available [facility] ([facility]) [address] [place], [address], 12/14/2018 07:07:03 12/11/19 19 12/13/2018 bacte rial vagin osis + vagin itis panel , vagin al bvab 2 Low - 0 score Not Available [facility] ([facility]) [address] [place], [address], 12/14/2018 07:07:03 12/11/1912/13/2018 bacte rial vagin osis + vagin itis panel , vagin al megasphaera 1 Low - 0 score Calcu late total score by mireya g the 3 indiv idual bacte rial vagin osis (BV) marke r score s toget her. Total score is inter prete d as follo ws: Total score 0-1: Indic ates the absen ce of BV. Total score 2: Indet ermin ate for BV. Addit ional clini eusebia data shoul d be evalu ated to estab brian a diagn osis. Total score 3-6: Indic ates the prese nce of BV. This test was devel oped and its perfo rmanc e herbie cteri stics deter mined by [facility]. It has not been clear ed or appro sully by the Food and Drug Admin istra tion. The FDA has deter mined that such clear ance or appro louie is not neces keven. Not Available [facility] ([facility]) [address] [place], [address], 12/14/2018 07:07:03 12/11/1912/13/2018 bacte rial vagin osis + vagin itis panel , vagin al asha albicans, BAILEY Negati ve negati ve Not Available [facility] ([facility]) [address] [place], [address], 12/14/2018 07:07:03 12/11/1912/13/2018 bacte rial vagin osis + vagin itis panel , vagin al asha glabrata, BAILEY Negati ve negati ve This test was devel oped and its perfo rmanc e herbie cteri stics deter mined by [facility]. It has not been clear ed or appro sully by the Food and Drug Admin istra tion. The FDA has deter mined that such clear ance or appro louie is not neces keven. Not Available [facility] ([facility]) [address] [facility], [place], [address], 12/14/2018 07:07:03 12/11/1912/13/2018 bacte rial vagin osis + vagin itis panel , vagin al trich vag by BAILEY Negati ve negati ve Not Available [facility] ([facility]) [address] [place], [address], 12/14/2018 07:07:03 12/11/1912/13/2018 bacte rial vagin osis + vagin itis panel , vagin al chlamydia trachomatis, BAILEY Negati ve negati ve Not Available [facility] ([facility]) [address] [place], [address], 12/14/2018 07:07:03 12/11/19 19 12/13/2018 bacte rial vagin osis + vagin itis panel , vagin al neisseria gonorrhoeae, BAILEY Negati ve negati ve Not Available [facility] ([facility]) [address] [facility], [place], [address], 12/14/2018 07:07:03 Result Notes None recorded. Problems Name Problem SNOMED Code Status Onset Date Resolution Date Notes Provider Name and Address Organization Details Recorded Time Dysmenorrhea 320961486 Active CHANTAL Canales [facility] 6 14:36:30 Problem Notes None recorded. Procedures Surgical History Date Name Laterality Status Provider Name and Address Organization Details Recorded Time 9 Date of Last Pap Smear completed Kinga Cardona MA [facility] 05/12/2018 08:00:08 7 Tubal Ligation completed Kinga Cardona MA [facility] 08/25/2014 09:30:56 7 Caesarean Section completed Kinga Cardona MA [facility] 08/25/2014 09:30:56 2 Caesarean Section completed Kinga Cardona MA [facility] 08/25/2014 09:30:56 Imaging Results None recorded. Procedure Notes None recorded. Medical Equipment None Reported. Allergies Allergen ID Allergen Name Allergen Category Reaction Reaction Severity Criticality Documentation Date Start Date Code Code System Note Provider Name and Address Organization Details Recorded Time 948361 Zoloft medicatio n Not available Not available Not available 03/11/2017 96909 RxNorm CHANTAL Canales [place] [facility] 7 12:28:18 151600 Product containin g penicilli n (product) medicatio n Not available Not available Not available 03/11/2017 99887 8001 SNOMED CHANTAL Canales [facility] 7 12:28:33 Medications Name Sig Start Date Stop Date Status Note LastModified by Organization Details LastModified Time fluconazole 150 mg tablet Take 1 tablet by oral route for 1 day. active Not Available Not Available No t Available clobetasol 0.05 % topical cream active Not Available Not Availa ble Not Available sulfamethoxazole 800 mg-trimethoprim 160 mg tablet active Not Available Not Availabl e Not Available alprazolam 0.5 mg tablet active Not Available Not Available No t Available betamethasone valerate 0.1 % topical cream active Not Available Not Availabl e Not Available montelukast 10 mg tablet active Not Available Not Available No t Available methylprednisolo ne 4 mg tablets in a dose pack active Not Available Not Availab le Not Available fluticasone propionate 50 mcg/actuation nasal spray,suspension active Not Available Not Avail able Not Available amoxicillin 875 mg-potassium clavulanate 125 mg tablet active Not Available Not Available No t Available Ventolin HFA 90 mcg/actuation aerosol inhaler active Not Available Not Availa ble Not Available escitalopram 10 mg tablet active Not Available Not Available No t Available Sprintec (28) 0.25 mg-0.035 mg tablet Take 1 tablet every day by oral route. active Not Available Not Available No t Available bupropion HCl XL 150 mg 24 hr tablet, extended release active Not Available Not Available Not Available nitrofurantoin monohydrate/macr ocrystals 100 mg capsule active Not Available Not Available Not Available Aerospan 80 mcg/actuation HFA aerosol inhaler active Not Available Not Available Not Available Microgestin 24 FE 1 mg-20 mcg (24)/75 mg (4) tablet Take 1 tablet every day by oral route. 2018 active Not Available Not Available Not Avai lable Vitals Date Recorded Body height Body mass index (BMI) Body weight Systolic And Diastolic Provider Name and Address Organization Details Last Updated DateTime 05/08/2018 167.64 cm 26.2 kg/m2 68931.4 g 106/75 mm[Hg] Kinga Cardona [place] [facility] 05/08/2018 11:45:23 Date Recorded Body height Body weight Body mass index (BMI) Systolic And Diastolic Provider Name and Address Organization Details Last Updated DateTime 07/29/2016 167.64 cm 98794.41 g 25.2 kg/m2 106/76 mm[Hg] Kinga Cardona [place] [facility] 07/29/2016 14:48:39 Date Recorded Body height Body mass index (BMI) Body weight Systolic And Diastolic Provider Name and Address Organization Details Last Updated DateTime 11/03/2018 167.64 cm 26.4 kg/m2 79927.43 g 102/74 mm[Hg] Kinga Cardona MA [facility] 11/03/2018 16:05:06 Date Recorded Body height Body mass index (BMI) Body weight Systolic And Diastolic Provider Name and Address Organization Details Last Updated DateTime 12/10/2018 167.64 cm 26.5 kg/m2 08143.15 g 106/72 mm[Hg] Kinga Cardona MA [facility] 12/10/2018 14:56:21 Date Recorded Body height Body mass index (BMI) Body weight Systolic And Diastolic Provider Name and Address Organization Details Last Updated DateTime 03/11/2017 167.64 cm 24.9 kg/m2 94346.3 g 95/73 mm[Hg] Kinga Cardona MA [facility] 03/11/2017 12:27:00 Social History Question Answer Notes LastModified by Organizat ion Details LastModified Time Tobacco Smoking Status Never Smoker Kinga Cardona MA null, [facility] 08/25/2014 09:30:57 How Many Children Do You Have? 4 Information not available 08/25/2014 What Is Your Relationship Status? Information not available 08/25/2014 Sex: Unknown Functional Status Question Answer Note LastModified by Organization D etails LastModified Time What is your level of alcohol consumption? None Information not available 08/25/2014 Mental Status None recorded. Family History Nothing Reported. Medical History Condition Response Coronary Artery Disease N Blood Diseases N Kidney Cyst N Hyperthyroidism N Blood disorders N MRSA N Blood Transfusion N Emphysema N Blood Clots N COPD N Depression N Pneumonia N Peripheral Arterial Disease N Premature N Edema N TIA N Headaches/Migraines N Anxiety Disorder N Obesity N Infertility N Polyps N Acid Reflux (GERD) N Hematuria N Stroke N Neck Injury N Polio N Hospital Admission other than N Neurologic Disorder N Other Sleep Disorders N Rheumatoid Arthritis N Fibromyalgia N Abdominal Aortic Aneurysm Repair N Kidney Disease N Heart Conditions N Heart Disease/Heart Problems N Hospitalizations N Brain Tumors N Acne N Eating Disorder N Skin Problems N Constipation N Meningitis N Tuberculosis N Cerebral Palsy N Myocardial Infarction N Asthma N Substance Abuse N Peripheral Vascular Disease N Vertigo N Sleep Disorder N Cirrhosis N Pulmonary Embolism N Chicken Pox N Flomax Use Past or Present N Hematologic Disease N Anxiety/Depression N Thyroid Disease N Colon Cancer N Glaucoma N Lung Disease N Developmental or Behavioral Disorders N Bipolar N Pacemaker N Diverticulitis/Diverticulosis N Anesthesia Complications N Orthopedic Problems N Orthotics N Head Injury/Concussion N Congenital Anomalies N Patricia Bite N Chronic Kidney Disease N Endometriosis N Liver Disease N Dialysis N Schizophrenia N Speech Delay N Chronic Obstructive Pulmonary Disease N Parkinson's Disease N Thyroid Problems N GI Problems N Developmental Delay N Anemia N Immune System Disorder N Multiple Sclerosis N Colon Polyps N Heart Attack ([place]) N Diabetes N Cardiomyopathy N Blood Transfusions N Heart Problems/Murmur N Eye Trauma N Congestive Heart Failure (CHF) N Valvular Heart Disease N Hyperlipidemia N Double Vision N Abuse/Domestic Violence N Hepatitis B N Lupus N Epilepsy/Seizures N Reflux/GERD N Aneurysm N Bronchitis N Heart Disease N Hypertension N Pre-Eclampsia N Heart Failure N Other N Gout N High Blood Pressure N Atrial Fibrillation N Kidney Stones N Head Trauma/Injury N Congenital Heart Disease N Spine Problems N Gastrointestinal Disease N Lung Mass N Sinusitis N Obstructive Sleep Apnea N Muscle, Joint, or Bone Problems N Autoimmune disease N Vision or Eye Problems N Arthritis N Blood Clot N Cancer N Seasonal allergies N Leg or Foot Ulcers N Raynaud's Disease N Aortic Aneurysm N Arrhythmia N Headaches N Heart Problems N Ambloypia N Ear or Hearing Problems N Hyperparathyroidism N Migraines N Artificial Joints N Kidney or Bladder Problems N NSAID Use N Encephalitis N PTSD N Ulcers N Prostate Hypertrophy N Bleeding Disorder N AIDS/HIV N Urinary Tract Infection N Back Problems N Allergies N Atrial Flutter N GERD/Reflux N Hepatitis N Autism Spectrum Disorder (ASD) N Breast Cancer N Hernia N Hypothyroidism N Breast Problem N Genitourinary Disease N Deep Vein Thrombosis N Varicose Veins N Cystic Fibrosis N Hearing Loss N Developmental Problems N Carotid Disease N Vitamin D Deficiency N ADHD N Bladder or Kidney Problems N High Cholesterol N [place]iers N Valvular Abnormalities N Psychiatric/Mental Health Condition N Organ Transplant N Foot Deformity N Allergies/Hayfever N Dyslipidemia N Hyponatremia N Diabetic Eye Disease N Osteoporosis/Osteopenia N Back Pain N Proteinuria N Mental Illness N Neurological Problems N Ovarian Cancer N Bedwetting N Seizures/Epilepsy N Kidney Failure N Ocular trauma N Dementia N Diverticulitis N Sleep Apnea N Mental Problems N Warfarin Management N Osteoporosis N Gynecological History Statement/Question Response Menses Monthly Y Abnormal Pap N Date of Last Pap Smear 05/08/2018 Current Control Method Tubal Ligat ion LMP Definite Obstetrics History GPAL:G 4 P 3 1 0 5 Type Value Multiple Births 1 Full Term 3 Premature 1 Living 5 Total 4 Past Encounters Encounter ID Performer Location Encounter Start Date Encounter Closed Date Diagnosis/Indication Diagnosis SNOMED-CT Code Diagnosis ICD10 Code Diagnosis Note [id number] MD Brinda Phoenix ([facility]) [address] [facility] [place] [address] 08/29/2014 10:36:43 08/29/2014 17:13:38 Dysmenorrhea [id number] MD Brinda Phoenix ([facility]) [address] [facility] [place] [address] 11/28/2014 14:21:22 11/28/2014 15:15:32 Gynecologic examination [id number] MD Brinda Phoenix ([facility]) [address] [facility] [place] [address] 12/12/2015 14:22:46 12/12/2015 15:21:50 Gynecologic examination 33045299 Z01.681 [id number] MD Brinda Phoenix ([facility]) [address] [facility] [place] [address] 07/29/2016 14:42:50 07/30/2016 14:17:48 Dysmenorrhea 395865083 N94.6 [id number] MD Brinda Phoenix ([facility]) [address] [facility] [place] [address] 03/11/2017 11:48:41 03/11/2017 14:52:21 Body mass index 20-24 - normal 753552408 Z68.24 Gynecologi c examination 25340505 Z01.087 [id number] MD Brinda Phoenix 14 OB [address] [facility] [address] [place] [address] 05/08/2018 11:30:45 05/08/2018 15:52:35 Gynecologic examination 25061253 Z01.226 [id number] MD Brinda Phoenix 14 OB [address] [facility] [place] [place] [address] 11/03/2018 15:49:46 11/04/2018 08:41:03 Dysmenorrhea 350939767 N94.6 [id number] MD Brinda Phoenix 14 OB 4 [facility] [address] [place] [address] 12/10/2018 14:33:37 12/10/2018 16:08:03 Vaginal discharge 385004461 N89.8 Health Concerns Section Related Observation LastModified by Organization Detai ls LastModified Time None Recorded Concern Status LastModified by Organization Details LastModified Time None Recorded Advance Directives Directive None Recorded Payers Insurance Date Sequence Insurance Name Policy Number Policy Mancera Covered Member ID Mancera Member ID Guarantor Name 09/24/2024 1 [facility] (HMO) ILONEX Narcisa Tracy Ollenbittle [id number] Narcisa Tracy Ollenbittle 11/28/2014 1 [place] [employer] Narcisa Ollenbittle [id number] Narcisa Tracy Ollenbittle 09/24/2024 1 [facility] - DOS PRIOR TO 2020 (MEDICAID REPLACEMENT - HMO) Narcisa Ollenbittle [id number] Narcisa Tracy Ollenbittle Notes Date Note Type Note Provider Name and Address Organization Details Recorded Time 03/11/2017 text/html Annual GYNReport ed bypatient.Menstrua l cycle:Normal menses Urinary symptoms:No hematuria; No incontinence Vulva:No genital lesion Vagina:Normal vaginal discharge Breast:No breast pain; No breast lump; No nipple discharge Current Contraception:Tuba l ligation Sexual complaints:No sexual complaints; No pain during intercourse; Normal libido Menopausal Symptoms:No menopausal symptoms; Normal vaginal lubrication Psychological symptoms:No depression; No anxiety; No PMDD Jony George MD Attn: [address] [place], [address], [place] [facility] 03/11/2017 12:46:31 05/08/2018 text/html Annual GYNReport ed bypatient.Menstrua l cycle:Normal menses Urinary symptoms:No hematuria; No incontinence Vulva:No genital lesion Vagina:Normal vaginal discharge Breast:No breast pain; No breast lump; No nipple discharge Current Contraception:Tuba l ligation Sexual complaints:No sexual complaints; No pain during intercourse; Normal libido Menopausal Symptoms:No menopausal symptoms; Normal vaginal lubrication Psychological symptoms:No depression; No anxiety; No PMDD Jony George MD Attn: [address] [facility], [place], [address], [facility] 05/08/2018 12:06:13 OBGyn Episode Ob Episode Information Episode Created Date Number of Fetuses Patient Bloodtype Patient rh Status Prepregnancy Weight lbs Domestic Partner Domestic Partner Phone Father Name Binder Cutter Hand Status 08/26/19 15 1 CLOSED Fetus Data First Name Last Name Admitted to NICU Weight (g) Sex Living Outcome Pediatric Complications Fetus ID Race Codes Race Delivery Type 2975.56 352 M Full Term [id number] Hai Calculation Initial Hai Date Initial Exam Date Initial Exam Provider Initial Ultrasound Date Last Menstrual Period Date Ultra Sound Weeks Gestation 0 Eighteen To Twenty Week Hai Update Ultra Sound Date Fundal Height At Umbil Quickening Date Ultra Sound Latest Weeks Gestation Final Hai Confirmed By Final Hai Confirmed Date Final Hai Date Ultra Sound Latest Days Gestation 0 0 Menstrual History Last Menstrual Date Menses Monthly On Bcp Conception Prior Menses Frequency Hcg Plus Date Menarche Onset Age Delivery Information Delivery Date Delivery Type Labor Anesthesia Weeks Gestation Incision Type Labor Labor Length Hrs Delivered By Post Complications Tubal Sterilization Discharge Date Comments 5 Regional- idural 40 GT Discharge Information Feeding Method Contraceptive Method Maternal HG B and HCT Levels Ob Episode Information Episode Created Date Number of Fetuses Patient Bloodtype Patient rh Status Prepregnancy Weight lbs Domestic Partner Domestic Partner Phone Father Name Binder Cutter Hand Status 08/26/19 15 2 CLOSED Fetus Data First Name Last Name Admitted to NICU Weight (g) Sex Living Outcome Pediatric Complications Fetus ID Race Codes Race Delivery Type 2267.96 M Prematur e 51731 2267.96 M Prematur e 86460 Hai Calculation Initial Hai Date Initial Exam Date Initial Exam Provider Initial Ultrasound Date Last Menstrual Period Date Ultra Sound Weeks Gestation 0 Eighteen To Twenty Week Hai Update Ultra Sound Date Fundal Height At Umbil Quickening Date Ultra Sound Latest Weeks Gestation Final Hai Confirmed By Final Hai Confirmed Date Final Hai Date Ultra Sound Latest Days Gestation 0 0 Menstrual History Last Menstrual Date Menses Monthly On Bcp Conception Prior Menses Frequency Hcg Plus Date Menarche Onset Age Delivery Information Delivery Date Delivery Type Labor Anesthesia Weeks Gestation Incision Type Labor Labor Length Hrs Delivered By Post Complications Tubal Sterilization Discharge Date Comments 2 34 [address] in [place] Discharge Information Feeding Method Contraceptive Method Maternal HG B and HCT Levels Ob Episode Information Episode Created Date Number of Fetuses Patient Bloodtype Patient rh Status Prepregnancy Weight lbs Domestic Partner Domestic Partner Phone Father Name Binder Cutter Hand Status 08/26/19 15 1 CLOSED Fetus Data First Name Last Name Admitted to NICU Weight (g) Sex Living Outcome Pediatric Complications Fetus ID Race Codes Race Delivery Type 3120.71 296 F Full Term [id number] Vaginal Hai Calculation Initial Hai Date Initial Exam Date Initial Exam Provider Initial Ultrasound Date Last Menstrual Period Date Ultra Sound Weeks Gestation 0 Eighteen To Twenty Week Hai Update Ultra Sound Date Fundal Height At Umbil Quickening Date Ultra Sound Latest Weeks Gestation Final Hai Confirmed By Final Hai Confirmed Date Final Hai Date Ultra Sound Latest Days Gestation 0 0 Menstrual History Last Menstrual Date Menses Monthly On Bcp Conception Prior Menses Frequency Hcg Plus Date Menarche Onset Age Delivery Information Delivery Date Delivery Type Labor Anesthesia Weeks Gestation Incision Type Labor Labor Length Hrs Delivered By Post Complications Tubal Sterilization Discharge Date Comments 0 40 [place] in [place] Discharge Information Feeding Method Contraceptive Method Maternal HG B and HCT Levels Ob Episode Information Episode Created Date Number of Fetuses Patient Bloodtype Patient rh Status Prepregnancy Weight lbs Domestic Partner Domestic Partner Phone Father Name Binder Cutter Hand Status 08/26/19 15 2 DELETED Hai Calculation Initial Hai Date Initial Exam Date Initial Exam Provider Initial Ultrasound Date Last Menstrual Period Date Ultra Sound Weeks Gestation 0 Eighteen To Twenty Week Hai Update Ultra Sound Date Fundal Height At Umbil Quickening Date Ultra Sound Latest Weeks Gestation Final Hai Confirmed By Final Hai Confirmed Date Final Hai Date Ultra Sound Latest Days Gestation 0 0 Menstrual History Last Menstrual Date Menses Monthly On Bcp Conception Prior Menses Frequency Hcg Plus Date Menarche Onset Age Delivery Information Delivery Date Delivery Type Labor Anesthesia Weeks Gestation Incision Type Labor Labor Length Hrs Delivered By Post Complications Tubal Sterilization Discharge Date Comments 2 34 Discharge Information Feeding Method Contraceptive Method Maternal HG B and HCT Levels Ob Episode Information Episode Created Date Number of Fetuses Patient Bloodtype Patient rh Status Prepregnancy Weight lbs Domestic Partner Domestic Partner Phone Father Name Binder Cutter Hand Status 08/26/19 15 1 CLOSED Fetus Data First Name Last Name Admitted to NICU Weight (g) Sex Living Outcome Pediatric Complications Fetus ID Race Codes Race Delivery Type 2921.13 248 F Full Term Hai Calculation Initial Hai Date Initial Exam Date Initial Exam Provider Initial Ultrasound Date Last Menstrual Period Date Ultra Sound Weeks Gestation 0 Eighteen To Twenty Week Hai Update Ultra Sound Date Fundal Height At Umbil Quickening Date Ultra Sound Latest Weeks Gestation Final Hai Confirmed By Final Hai Confirmed Date Final Hai Date Ultra Sound Latest Days Gestation 0 0 Menstrual History Last Menstrual Date Menses Monthly On Bcp Conception Prior Menses Frequency Hcg Plus Date Menarche Onset Age Delivery Information Delivery Date Delivery Type Labor Anesthesia Weeks Gestation Incision Type Labor Labor Length Hrs Delivered By Post Complications Tubal Sterilization Discharge Date Comments 7 Regional-Ep idural GT Discharge Information Feeding Method Contraceptive Method Maternal HG B and HCT Levels
--- OUTSIDE RECORDS SUMMARY | 2024-10-15 09:59 | XMS_ITS | Clinical Summary ---
Author Organization [facility] Address [address] [place] [address] Care Team Providers Care Hat Copyist Name Role Phone Pia Fengbaltazar Moreau DO Primary Care Provider Source Comments [facility],non-owned Affiliates and Associated Physician Practices is amultiple site organization consisting of ambulatory clinics and hospital sitesin [place], [place], [place] and [place]. This disclosure is being madepursuant to the Care Everywhere program and may not contain all information available regarding this patient. Last updated 17.[facility] [employer] Allergies Active Allergy Reactions Criticality Noted Date Comments Penicillins Shortness of Breath High 12/10/2016 Pt not sure of allergy but thinks had shortness of breath after taking pcn as a child. Sertraline Rash Medium 04/05/2016 Medications * Be aware that medications may not be up to date on this document. Alwaysverify current medications with the patient. Flunisolide HFA (AEROSPAN) 80 MCG/ACT Inhale 4 puffs by mouth BID PRN. 1 Inhaler 3 7 Active Additional Information Patient not taking.Reported on 08/14/2017 albuterol HFA (PROVENTIL;VENT MULUGETA;PROAIR) 108 (90 BASE) MCG/ACT inhaler 2 puffs every 4-6 hours prn cough, wheeze, sob 7 Active fluticasone propionate (FLONASE) 50 MCG/ACT nasal spray [place] 1 spray into the nose 7 Active loratadine (CLARITIN) 10 MG tablet Take 10 mg by mouth Active montelukast (SINGULAIR) 10 MG tablet Take 10 mg by mouth 7 Active Fexofenadine HCl (ALBERTA PO) Active fluticasone propionate (FLONASE) 50 MCG/ACT nasal spray [place] 1 spray into each nostril BID. 1 bottles 5 7 Active albuterol HFA (PROVENTIL HFA) 108 (90 BASE) MCG/ACT inhaler 1 Inhaler 5 7 Active loratadine (CLARITIN) 10 MG tablet Take 10 mg by mouth. 7 Active montelukast (SINGULAIR) 10 MG tablet Take 10 mg by mouth DAILY. 30 tablet 5 7 Active Active Problems Problem Noted Date Diagnosed Date Mild persistent asthma, uncomplicated 10/13/2016 Allergic rhinitis due to pollen 10/13/2016 Family History Medical History Relation Name Comments Cancer - Bladder Father Hypertension Father Diabetes - Type 2 Maternal Grandmother Cancer - Other Sister Relation Name Status Comments Father Maternal Grandmother Sister Social History Tobacco Use Types Packs/Day Years Used Date Smoking Tobacco: Never Smokeless Tobacco: Never Alcohol Use Standard Drinks/Week Comments No 0 (1 standard drink = 0.6 oz pur e alcohol) Comments Unknown Sex and Gender Information Value Date Recorded Sex Assigned at Not on file 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 Gender Identity Not on file Sexual Orientation Not on file Last Filed Vital Signs Vital Sign Reading Time Taken Comments Blood Pressure 118/72 08/14/2017 9:34 AM CDT Pulse 87 08/14/2017 9:34 AM CDT Temperature 36.6 C (97.8 F) 08/14/2017 9:34 AM CDT Respiratory Rate - - Oxygen Saturation 97% 08/14/2017 9:34 AM CDT Inhaled Oxygen Concentration - - Weight 73 kg (161 lb) 08/14/2017 9:34 AM CDT Height 167.6 cm (5' 6) 08/14/2017 9:34 AM CDT Body Mass Index 25.99 08/14/2017 9:34 AM CDT Plan of Treatment Health Maintenance Due Date Last Done Comments LIPID TESTING 1980 MAMMOGRAM 1980 HIV SCREENING 1995 HEPATITIS C SCREENING 03/16/1998 DTAP/TDAP/TD VACCINES (1 - Tdap) 1999 HEPATITIS B VACCINE (1 of 3 - 19+ 3-dose series) 1999 PNEUMOCOCCAL VACCINE (1 of 2 - PCV) 1999 PAP SMEAR 2001 HPV VACCINE (1 - 3-dose SCDM series) 2007 COVID-19 VACCINE (2023-2 5 season) 2023 DEPRESSION SCREENING 03/31/2024 INFLUENZA VACCINE (#1) 2024 ZOSTER VACCINE (1 of 2) 2030 HIB VACCINE Aged Out No longer eligi ble based on patient's age to complete this topic MENINGOCOCCAL (Group B) VACC INE SHARED DECISION-MAKING Aged Out No longer eligibl e based on patient's age to complete this topic MENINGOCOCCAL GROUPS A/C/Y/W VACCINE Aged Out No longer eligible b ased on patient's age to complete this topic Insurance MEDICAID - OUT OF STATE [facility] SELF PAY NO INSURANCE Member Subscriber Plan / Payer (Ef fective for All Dates) Name:Narcisa Fernandes R Member ID:Not on file Relation to Subscriber:Not on file Name:NARCISA FERNANDES Subscriber ID:Not on file Address: [address] [place] [address] Payer ID:Not on file Group ID:Not on file Type:Self Pay Address: [place], [place] [facility] SELF PAY NO INSURANCE Member Subscriber Plan / Payer (Ef fective for All Dates) Name:Narcisa Fernandes R Member ID:Not on file Relation to Subscriber:Not on file Name:HARRYNARCISA ESTEVEZ Subscriber ID:Not on file Address: [address] [place] [address] Payer ID:Not on file Group ID:Not on file Type:Self Pay Address: [place], [place] [facility] SELF PAY NO INSURANCE Member Subscriber Plan / Payer (Ef fective for All Dates) Name:Narcisa Fernandes Member ID:Not on file Relation to Subscriber:Not on file Name:NARCISA FERNANDES Subscriber ID:Not on file Address: [address] [place] [address] Payer ID:Not on file Group ID:Not on file Type:Self Pay Address: [place], [place] Care Teams Hat Copyist Relationship Specialty Start Date End Date Win Feng DO [address] [place] [id number] PCP - General 02/05/16
--- OUTSIDE RECORDS SUMMARY | 2024-10-15 09:59 | XMS_ITS | Data Portability ---
Author Organization [facility] Address [address] [place] [address] Care Team Providers Care Shipping Assistant Name Role Phone MARLO VERDIN Primary Care Provider Assessment No assessment recorded. Plan of Treatment Reminders Order Date Submit Date Provider Last Modified By Organization Details Last Modified Time Details Appointments None recorded. Lab lupus anticoagula nt, plasma 2023 024 [facility] (Lab), [address] [place], [address], 4 13:39:12 anticardiol ipin igg+igm Ab, serum 2023 024 [facility] (Lab), [address] [facility], [place], [address], 4 13:39:10 beta-2 glycoprotei n 1 igm Ab, serum 2023 024 [facility] (Lab), [address] [facility], [place], [address], 4 13:39:11 beta-2 glycoprotei n 1 igg Ab, serum 2023 024 [facility] (Lab), [address] [place], [address], 4 13:39:11 prolactin, serum 2023 024 [facility] (Lab), [address], [place], [address], 4 13:39:08 TSH, serum or plasma 2023 024 [facility] (Lab), [address], [place], [address], 4 13:39:09 thyroid peroxidase (tpo) Ab, serum 2023 024 [facility] (Lab), [address], [place], [address], 4 13:39:10 Referral None recorded. Procedures None recorded. Surgeries None recorded. Imaging US, transvagina l [address], [address], [place], [address], 5 10:55:25 US, pelvis [address], [address], [place], [address], 4 21:33:29 US, transvagina l [address], [address], [place], [address], 4 21:33:29 US, transvagina l [address] [facility], [address], [facility], [place], [address], 4 17:09:28 Medication Orders None recorded. Patient TargetsNo targets recorded. Patient InstructionsNo instructions recorded. Reason for Referral None Reported. Results Created Date Observation Date Name Description Value Unit Range Abnormal Flag Note LastModifiedBy Organization Detail LastModifiedTime 11/10/19 24 11/10/2023 IMAGE GUIDE D PAP AND HPV REGAR DLESS image guided Pap, HPV regardless of Pap result SEE RESULT S BELOW CASE REPOR T: Cytol ogy Gynec ologi eusebia Repor t Case: [id number] Autho pio young Provi kamran: Jose Cordova MD Colle cted: 11/09 1712 Order ing Locat ion: [place] Patho log[facility] Recei sully: 11/10 0807 First Scree n: Lana Ely ret, CT Speci men: Tex curry Pap - Image d, Cervi x STATE MENT OF ADEQU ACY: Satis facto ry for evalu ation Trans forma tion zone compo nent prese nt ----- ----- ----- ----- ----- ----- ----- ----- ----- ----- ----- ----- ----- ----- ----- ----- ----- ---- FINAL DIAGN OSIS: Negat elle for Intra epith elial Lesio n or Trey byrd (NIL) . Elect ana lee d by Lana Ely ret, CT on 2023 at 5:35 AM ----- ----- ----- ----- ----- ----- ----- ----- ----- ----- ----- ----- ----- ----- ----- ----- ----- ---- HPV RESUL TS: HPV mRNA E6/E7 : No HPV mRNA Detec linette NOTE: This high risk HPV mRNA assay detec ts fourt een high- risk HPV types (16, 18, 31, 33, 35, 39, 45, 51, 52, 56, 58, 59, 66, 68) witho ut diffe renti ation . COMME NT: This speci men was revie wed by a Cytot echno logis t and/o r Patho logis t (as indic ated in this repor t) after evalu ation using the Thinp rep Imagi ng Syste m. CLINI EUSEBIA INFOR MATIO N: Menst rual Statu s: LMP (if appli cable ): Clini eusebia Histo ry/Pr eviou s Pap: Type of Neopl tony (if appli cable ): Signi fican t Clini eusebia Findi ngs: Other Histo ry: Hormo santo (if appli cable ): PAP EDUCA ABNER L NOTE: The Pap Test is a scree antoinette test with an inher ent false negat elle rate. Liqui d-bas ed sampl ing may decre ase, but will not elimi pedro, false negat elle resul ts. A negat elle resul t does not precl ude the prese nce and/o r devel opmen t of disea se, since the prese nce of abnor mal cells in the sampl e depen ds on the locat ion of the lesio n and sampl ing techn ique. Chika nued regul ar scree antoinette is the best metho d of cance r preve ntion . If repor linette cytol ogic findi ng do not corre late with physi eusebia and/o r histo rical findi ngs, furth er inves tigat ion is recom dioni d, as clini kahlil garner nted. Not Available [facility] (Lab) [address], [place], [address], 11/16/2023 06:38:43 11/10/19 24 11/10/2023 pregn siobhan test, urine HCG positi ve Not Available [facility] [address], [place], [address], 11/10/2023 16:05:46 11/17/19 24 11/17/2023 PROLA CTIN prolactin, total 13.70 NG/mL 4.79-2 3.30 This assay was perfo rmed using [employer] ratio n reage nts and test kits. Value s obtai artem with other assay metho ds or kits canno t be used inter jorgensen eably . Not Available [facility] (Lab) [address], [place], [address], 11/18/2023 13:39:08 11/17/19 24 11/17/2023 TSH, REFLE X FREE T4 TSH 1.68 uIU/m L 0.30-5 .33 Not Available [facility] (Lab) [address] [facility], [place], [address], 11/18/2023 13:39:09 11/17/19 24 11/17/2023 TPO ANTIB ABDIFATAH thyroperoxid ase antibodies 0.3 IU/mL 0.0-9. 0 Not Available [facility] (Lab) [address] [facility], [place], [address], 11/18/2023 13:39:09 11/17/19 24 11/17/2023 CARDI OLIPI N IGG/I GM ANTIB ODIES cardiolipin IgG <1.6 gpl_U /mL 0.0-19 .9 Not Available [facility] (Lab) [address] [facility], [place], [address], 11/18/2023 13:39:10 11/17/19 24 11/17/2023 CARDI OLIPI N IGG/I GM ANTIB ODIES cardiolipin IgG, qual Negati ve negati ve Not Available [facility] (Lab) [address] [place], [address], 11/18/2023 13:39:10 11/17/19 24 11/17/2023 CARDI OLIPI N IGG/I GM ANTIB ODIES cardiolipin IgM <1.5 mpl_U /mL 0.0-19 .9 Not Available [facility] (Lab) [address] [facility], [place], [address], 11/18/2023 13:39:10 11/17/19 24 11/17/2023 CARDI OLIPI N IGG/I GM ANTIB ODIES cardiolipin IgM, qual Negati ve negati ve Not Available [facility] (Lab) [address] [place], [address], 11/18/2023 13:39:10 11/17/19 24 11/17/2023 BETA- 2-GLY COPRO TEIN1 ANTIB ABDIFATAH IGG beta-2 glycoprotein I Ab, IgG <1.4 U/mL 0.0-19 .9 Not Available [facility] (Lab) [address] [place], [address], 11/18/2023 13:39:11 11/17/19 24 11/17/2023 BETA- 2-GLY COPRO TEIN1 ANTIB ABDIFATAH IGG beta-2 glycoprotein I Ab, IgG, qual Negati ve negati ve Not Available [facility] (Lab) [address], [place], [address], 11/18/2023 13:39:11 11/17/19 24 11/17/2023 BETA- 2-GLY COPRO TEIN1 ANTIB ABDIFATAH IGM beta-2 glycoprotein I Ab, IgM <1.5 U/mL 0.0-19 .9 Not Available [facility] (Lab) [address], [place], [address], 11/18/2023 13:39:11 11/17/19 24 11/17/2023 BETA- 2-GLY COPRO TEIN1 ANTIB ABDIFATAH IGM beta-2 glycoprotein I Ab, IgM, qual Negati ve negati ve Not Available [facility] (Lab) [address], [place], [address], 11/18/2023 13:39:11 11/17/19 24 11/17/2023 LUPUS ANTIC OAGUL ANT EVALU ATION lupus anticoagulan t Negati ve negati ve Not Available [facility] (Lab) [address], [place], [address], 11/18/2023 13:39:12 11/17/19 24 11/17/2023 LUPUS ANTIC OAGUL ANT EVALU ATION prothrombin time (PT) 11.1 secon ds 10.5-1 3.5 Not Available [facility] (Lab) [address], [place], [address], 11/18/2023 13:39:12 11/17/19 24 11/17/2023 LUPUS ANTIC OAGUL ANT EVALU ATION INR 1.0 . 0.8-1. 2 Not Available [facility] (Lab) [address] [facility], [place], [address], 11/18/2023 13:39:12 11/17/19 24 11/17/2023 LUPUS ANTIC OAGUL ANT EVALU ATION APTT 29.1 secon ds 24.8-3 8.4 Not Available [facility] (Lab) [address] [facility], [place], [address], 11/18/2023 13:39:12 11/17/19 24 11/17/2023 LUPUS ANTIC OAGUL ANT EVALU ATION thrombin time 13.8 secon ds 11.5-1 6.5 Not Available [facility] (Lab) [address] [facility], [place], [address], 11/18/2023 13:39:12 11/17/19 24 11/17/2023 LUPUS ANTIC OAGUL ANT EVALU ATION dilute brianna viper venom time (drvvt) test ratio 0.94 ratio <=1.19 Not Available [facility] (Lab) [address] [facility], [place], [address], 11/18/2023 13:39:12 11/17/19 24 11/17/2023 LUPUS ANTIC OAGUL ANT EVALU ATION silica clotting time (sct) test ratio 0.84 ratio <=1.16 Not Available [facility] (Lab) [address] [facility], [place], [address], 11/18/2023 13:39:12 11/17/19 24 11/17/2023 LUPUS ANTIC OAGUL ANT INTER PRETA TION lupus anticoagulan t interpretati on A lupus antico agulan t is not detect ed. Inter prete d By: Jaclyn cleary MD 2023 12:36 1. Negat elle resul ts do not rule out the prese nce of lupus antic oagul ant due to the limit ation of DRVVT and SCT senst iviti es. 2. Posit elle resul ts may confi rm the prese nce of lupus antic oagul ant but also may occur in cases with certa in inter ferin g subst ances such as antic oagul ant thera py. 3. Clini eusebia histo ry as well as other lab resul ts must be caref ully evalu ated befor e makin g a diagn osis. 4. If the Lupus Evalu ation is negat elle, and PTT or PT are prolo nged, mixin g studi es shoul d be sough t to inves tigat e facto r defic ienci es or inhib itors . If mixin g studi es are still prolo nged, it may indic ate the prese nce of an inhib itor other than lupus antic oagul ent, or it may sugge st false negat elle lupus antic oagul ant resul ts. Not Available [facility] (Lab) [address], [place], [address], 11/18/2023 13:39:13 03/29/20 24 03/29/2024 US, marina s No observ ation record ed. [email or web address] [facility] [address], [place], [address], 03/29/2024 18:24:34 03/29/20 24 03/29/2024 US, trans titoin al No observ ation record ed. [email or web address] [facility] [address], [place], [address], 03/29/2024 18:24:42 03/29/20 24 03/29/2024 US, pelvi s No observ ation record ed. [email or web address] [address] [facility], [place], [address], 04/01/2024 13:57:11 06/11/19 25 06/10/2024 US, trans vagin al No observ ation record ed. jillian [facility] [address], [place], [address], 06/10/2024 16:47:09 06/11/19 25 06/10/2024 US, trans vagin al No observ ation record ed. [email or web address] [address], [place], [address], 06/13/2024 23:18:08 Result Notes None recorded. Problems Name Problem SNOMED Code Status Onset Date Resolution Date Notes Provider Name and Address Organization Details Recorded Time Lesion of ovary Completed 201912/14/2020 Other ovarian cyst, left side;Victor Manuel rded Elsewhere : No Locati on: [facility] So urce: EHR Chron ic: N Practic e ID: [id number] Bill able Time: 02:00:00 PM Nuria ness [facility] 1 11:44:14 Uterine leiomyom a [id number] Completed 201912/14/2020 Leiomyoma of uterus, unspecifi ed;Record ed Elsewhere : No Locati on: [facility] So urce: EHR Chron ic: N Practic e ID: [id number] Bill able Time: 02:00:00 PM Nuria ness [facility] 1 11:44:16 Finding of menstrua l bleeding Completed 201905/02/2020 Excessive and frequent menstruat ion with regular cycle;Rec orded Elsewhere : No Locati on: [facility] So urce: EHR Chron ic: N Practic e ID: [id number] Bill able Time: 11:00:00 AM Arline ness [facility] 1 15:25:04 Reproduc tive care manageme nt Completed 201905/02/2020 Encounter for other procreati ve managemen t;Recorde d Elsewhere : No Locati on: [facility] So urce: EHR Chron ic: N Practic e ID: [id number] Bill able Time: 11:00:00 AM Arline ness [facility] 15:25:07 Urinary tract infectio us disease [id number] Completed 201905/02/2020 Urinary tract infection , site not specified ;Recorded Elsewhere : No Locati on: [facility] So urce: EHR Chron ic: N Practic e ID: [id number] Bill able Time: 11:45:00 AM Arline ness [facility] 15:25:09 Problem Notes None recorded. Procedures Surgical History Date Name Laterality Status Provider Name and Address Organization Details Recorded Time 2023 Date of Last Pap Smear completed Dariela [facility] 03/12/2024 15:18:44 2023 Date of Last Mammogram completed Dariela [facility] 11/10/2023 16:00:35 2023 DILATION & CURETTAGE (SURG) completed Yolis Raza [facility] 07/07/2023 18:01:19 2021 [facility] 10:16:26 2021 hysterosalpingography completed Arline Tejeda [facility] 05/01/2021 10:16:45 2020 artificial insemination completed Carolyn Tejeda [facility] 05/01/2021 10:16:23 2019 hysterosalpingography completed Arline Tejeda [facility] 05/01/2021 10:16:39 2018 open reversal of female sterilization completed Arline Tejeda [facility] 03/21/2021 18:17:23 2006 Tubal Ligation completed Arline Tejeda [facility] 06/08/2020 11:58:14 2006 section completed Arline Tejeda [facility] 06/03/2020 09:22:53 2004 section completed Arline Tejeda [facility] 06/03/2020 09:22:45 2001 section completed Arline Tejeda [facility] 06/03/2020 09:22:38 1989 Tonsillectomy completed Radha Maguire [facility] 10/21/2019 13:13:02 Imaging Results None recorded. Procedure Notes None recorded. Medical Equipment None Reported. Allergies No known drug allergies Medications Name Sig Start Date Stop Date Status Note LastModified by Organization Details LastModified Time doxycycline hyclate 100 mg capsule TAKE 1 CAPSULE BY MOUTH TWICE DAILY FOR 5 DAYS 03/02 completed Not Available Not Available Not Available nystatin 100,000 unit/gram topical ointment APPLY OINTMENT TOPICALLY TO AFFECTED AREA TWICE DAILY 07/02 completed Not Available Not Available Not Available clomiphene citrate 50 mg tablet TAKE 1 TABLET BY MOUTH ONCE DAILY FOR 5 DAYS ON DAYS 3 7 OF MENSTRUAL CYCLE 03/02 completed Not Available Not Available Not Available fluconazole 200 mg tablet TAKE 1 TABLET BY MOUTH EVERY OTHER DAY FOR 3 DOSES 03/12 completed Not Available Not Available Not Available meloxicam 15 mg tablet TAKE 1 TABLET BY MOUTH ONCE DAILY 03/12 completed Not Available Not Available Not Available Pregnyl 10,000 unit intramuscul ar solution Inject 1 unit by intramusc ular route as directed for 1 day. 11/06 completed Not Available Not Available Not Available sumatriptan 50 mg tablet 11/06 completed Not Available Not Available Not Available triamcinolo ne acetonide 0.1 % topical cream 03/19 completed Not Available Not Available Not Available nystatin-tr iamcinolone 100,000 unit/gram-0 .1 % topical ointment APPLY TO THE AFFECTED AREA(S) BY TOPICAL ROUTE 2 TIMES PER DAY x 7 days PRN 07/02 completed Not Available Not Available Not Available triamcinolo ne acetonide 0.1 % topical ointment APPLY A THIN LAYER OF OINTMENT TOPICALLY TO AFFECTED AREA TWICE DAILY 07/02 completed Not Available Not Available Not Available nystatin 100,000 unit/gram topical cream APPLY CREAM TOPICALLY TWICE DAILY 11/06 completed Not Available Not Available Not Available progesteron e micronized 200 mg capsule INSERT 1 CAPSULE VAGINALLY TWICE A DAY PEAK 3 12 12/14 completed Not Available Not Available Not Available letrozole 2.5 mg tablet TAKE 2 TABLETS BY MOUTH ONCE DAILY ON DAYS 5-9 OF CYCLE 11/06 completed Not Available Not Available Not Available methylpredn isolone 4 mg tablets in a dose pack USE DIRECTED 04/08 completed Not Available Not Available Not Available dicyclomine 10 mg capsule 10/17 completed Not Available Not Available Not Available progesteron e micronized 100 mg capsule Take 1 capsule every day by oral route as directed. 2024 active Not Available Not Available Not Avai lable Clotrimazol e-3 2 % vaginal cream Insert 1 applicato rful every day by vaginal route at bedtime for 3 days. 11/06 completed Not Available Not Available Not Available active Not Available Not Avai lable Not Available Novarel 5,000 unit intramuscul ar solution give 1 5,000 units into each hip 12/14 completed Not Available Not Available Not Available ID NOW COVID-19 Test Kit TEST DIRECTED 12/14 completed Not Available Not Available Not Available Vitals Date Recorded Body height Body mass index (BMI) Body weight Systolic And Diastolic Provider Name and Address Organization Details Last Updated DateTime 04/08/2024 162.56 cm 28 kg/m2 25380.56 g 118/78 mm[Hg] Dariela [facility] 04/08/2024 12:10:49 Date Recorded Body height Body mass index (BMI) Body weight Systolic And Diastolic Provider Name and Address Organization Details Last Updated DateTime 11/17/2023 162.56 cm 27.6 kg/m2 61843.37 g 111/75 mm[Hg] Dariela [facility] 11/17/2023 17:50:19 Date Recorded Body height Body mass index (BMI) Body weight Systolic And Diastolic Provider Name and Address Organization Details Last Updated DateTime 03/12/2024 162.56 cm 28 kg/m2 32932.56 g 113/75 mm[Hg] Dariela Kumar [facility] 03/12/2024 15:18:00 Social History Question Answer Notes LastModified by Organizat ion Details LastModified Time Tobacco Smoking Status Never Smoker Ron Boland grover, [facility] 05/28/2021 11:03:21 Do You Have An Advance Directive? No [email or web address] Information n ot available 05/01/2021 If You Are , What Was Your Level Of Alcohol Consumption Prior To ? None [email or web address] Information not available 05/28/2021 Are You Blind Or Do You Have Difficulty Seeing? No [email or web address] Information n ot available 06/03/2020 What Is Your Level Of Caffeine Consumption? Moderate [email or web address] Information not available 05/02/2020 In The 14 Days Before Symptom Onset, Have You Had Close Contact With A Laboratory-confirm ed COVID-19 While That Case Was Ill? No [email or web address] Information n ot available 06/03/2020 In The 14 Days Before Symptom Onset, Have You Had Close Contact With A Person Who Is Under Investigation For COVID-19 While That Person Was Ill? No [email or web address] Information not available 06/03/2020 Have You Been To An Area Known To Be High Risk For COVID-19? No [email or web address] Information not available 06/03/2020 Are You Deaf Or Do You Have Serious Difficulty Hearing? No [email or web address] Information not available 06/03/2020 What Type Of Diet Are You Following? REGULAR Information n ot available 06/03/2020 What Is The Highest Grade Or Level Of School You Have Completed Or The Highest Degree You Have Received? [id number] [email or web address] Information not available 05/01/2021 How Many Days Of Moderate To Strenuous Exercise, Like A Brisk Walk, Did You Do In The Last 7 Days? 2 [email or web address] Information not available 05/28/2021 On Those Days That You Engage In Moderate To Strenuous Exercise, How Many Minutes, On Average, Do You Exercise? 60 [email or web address] Information not available 05/28/2021 Are There Any Guns Present In Your Home? No [email or web address] Information not available 05/01/2021 Do You Use Your Seat Belt Or Car Seat Routinely? Yes [email or web address] Information not available 06/03/2020 Do You Have Smoke And Carbon Monoxide Detectors In Your Home? Yes [email or web address] Information not available 06/03/2020 How Much Tobacco Do You Smoke? No [email or web address] Information not available 05/01/2021 Do You Use Sunscreen Routinely? Yes Information not available 06/03/2020 Has Tobacco Cessation Counseling Been Provided? No [email or web address] Information not available 05/28/2021 Have You Used IV Drugs? No [email or web address] Information not available 05/01/2021 Do You Have Difficulty Walking Or Climbing Stairs? No Information not available 06/29/2021 Sex: Unknown Functional Status Question Answer Note LastModified by Organizat ion Details LastModified Time Do you use any illicit or recreational drugs? No [email or web address] Information not available 05/02/2020 Do you or have you ever used any other forms of tobacco or nicotine? No [email or web address] Information not available 05/28/2021 What is your level of alcohol consumption? None [email or web address] Information not available 05/02/2020 Are you able to walk? YESWOREST [email or web address] Information not available 06/03/2020 Are you able to care for yourself? Yes Information n ot available 06/29/2021 Do you have difficulty dressing or bathing? No Information not available 06/29/2021 What is your exercise level? Occasional [email or web address] Information not available 05/02/2020 Mental Status Question Answer Note LastModified by Organization D etails LastModified Time Do you feel stressed (tense, restless, nervous, or anxious, or unable to sleep at night)? [id number] [email or web address] Information not available 05/01/2021 Family History Relationship Description Onset Age of this Age Resolved Age Notes LastModified by Organization Details LastModified Time Father Hypercholest erolemia [email or web address] Not available 2019 13:11:19 Father Hypertensive disorder [email or web address] Not available 2019 13:11:31 Father Heart disease [email or web address] Not available 2019 13:11:38 Maternal Grandmother Diabetes mellitus [email or web address] Not available 2019 13:11:51 Paternal Grandmother Diabetes mellitus [email or web address] Not available 2019 13:11:51 Medical History Condition Response Allergies (Food, seasonal, environmental ) Y Other Y Breast Cancer N Drug/Latex Allergies/Reactions Y Blood Transfusion N Dermatologic Disorders N Lung Disease N Defects or Inherited Disease N Breast Problem N Gestational Diabetes N Hematologic disorders N Anesthesia Complications N History of STI N Deep Vein Thrombosis N Polycystic ovary syndrome N Anxiety Disorder Y Autoimmune disease N Arthritis N Infertility Y Polyps N Acid Reflux (GERD) N History of abnormal pap N Cancer N Stroke N Varicosities N Neurologic/Epilepsy N Endometriosis N High Cholesterol N Headaches Y Fibromyalgia N Kidney Disease N Heart Problems N Kidney or Bladder Problems N Thyroid Problems N GI Problems N Eating Disorder N Anemia N Art (IVF or FET) Y Psychiatric Illness N Ovarian Cancer N Diabetes N Pulmonary (TB, Asthma) N Hepatitis/Liver Disease N No Past Medical History N Eczema N Urinary Tract Infection N Abuse/Domestic Violence N Asthma Y Trauma/Violence N Depression/ depression N Heart Disease N Pre-Eclampsia N Hypertension N Osteoporosis N Thrombophilias N Gynecological History Statement/Question Response Abnormal Pap N Date of Last Mammogram 08/29/2023 Flow Moderate Date of LMP 03/15/2024 Was last menstrual period normal Y STIs/STDs N HPV Vaccine N Duration of Flow (days) 2 Current Control Method None Age at First Child 19 Are cycles usually normal Y Frequency of Cycle (Q days) 30 Sexually Active? Y Menses Monthly Y Age of first menstrual cycle 12 Date of Last Pap Smear 11/10/2023 Sexual Problems? N LMP Definite Obstetrics History GPAL:G 8 P 3 0 4 5 Type Value Multiple Births 1 Full Term 3 Spontaneous 4 Living 5 Total 8 Past Encounters Encounter ID Performer Location Encounter Start Date Encounter Closed Date Diagnosis/Indication Diagnosis SNOMED-CT Code Diagnosis ICD10 Code Diagnosis Note [id number] Carolyn Jones [facility] [place] [address] [address] 10/18/2019 14:47:42 10/18/2019 15:32:13 Pain in pelvis 02419395 R10.2 TVUS ordered test negative [id number] Z32.02 [id number] Sixto Cordova MD [facility] [address],[place] [address] 10/21/2019 12:26:15 10/21/2019 13:18:19 Pain in pelvis 48344289 R10.2 [id number] [facility] [address],[place] [address] 10/21/2019 12:26:47 11/03/2019 14:20:18 Pain in pelvis 95027364 R10.2 Here to f/u for TVUS. We reviewed results which require MD consult. She has switched her care to Dr. Gretchen Weinberg. These results were given to her staff & appts made to address this issue. Time spent in visit is a total of 15 mins with at least 50% of visit consisting of counseling and review of plan of care. [id number] Sixto Cordova MD [facility] [address],[place] [address] 11/11/2019 17:24:14 11/14/2019 23:05:41 Pain in pelvis [id number] R10.2 N97.9 [id number] Sixto Cordova MD [facility] [address],[place] [address] 03/02/2020 11:55:55 03/02/2020 13:34:50 Pain in pelvis 76190045 R10.2 N97.9 this patient is a 39-year-ol d female with a recent chemical . She has had tubal reanastomo sis. She has not felt well since the chemical . She has had pelvic pain. It is described in the notes. We agreed to repeat pelvic ultrasound and to discuss the results and possible treatment plan. [id number] Sixto Cordova MD [facility] [address],[place] [address] 03/13/2020 15:39:12 03/13/2020 16:08:37 Pain in pelvis [id number] R10.2 this patient is a 39-year-ol d female with a recent chemical . She has had tubal reanastomo sis. She has not felt well since the chemical . She has had pelvic pain. It is described in the notes. We agreed to repeat pelvic ultrasound and to discuss the results and possible treatment plan. [id number] Sixto Cordova MD [facility] [address],[place] [address] 03/13/2020 15:39:41 03/13/2020 16:44:43 Cyst of ovary [id number] N83.209 this patient is a 39-year-ol d female who presents for follow-up on pelvic pain. She had an episode of pelvic pain. It was subsequent to a recent chemical . The patient has tubal reanastomo sis and is trying to become . She has a 4.5 cm hemorrhagi c cyst on the right ovary. We reviewed those findings today. We discussed ovarian torsion she was given precaution s. She does not have any pain anymore. We spent 15 minutes face-to-fa ce. More than 50% was counseling . We talked about future . We talked about etiology, natural history, treatment of ovarian cysts and follicles. Will follow-up on the complex hemorrhagi c cyst in 8 weeks. I will see her after that. she intends to become soon as she can. She will need a ultrasound to confirm intrauteri ne gestation. [id number] Sixto Cordova MD [facility] [address],[place] [address] 04/27/2020 15:59:39 04/27/2020 17:33:40 Cyst of ovary 46101592 N83.209 Anovular menstruation 27 552366 N93.8 This patient is a 40-year-ol d female presents for follow-up on ovarian cyst. She had a 4 cm hemorrhagi c ovarian cyst. She had repeat ultrasound today. The cysts have resolved. Both ovaries appear normal. The patient is trying to get . We spent considerab le amount of time talking about the menstrual cycle, ovulation, ovulation induction, Intrauteri ne inseminati on. We discussed to complex issues. We reviewed ovarian cyst. We reviewed the menstrual cycle and ovulation. We reviewed cyst formation. 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 [id number] Sixto Cordova MD [facility] [address],[place] [address] 04/27/2020 16:00:48 04/27/2020 16:48:04 Cyst of right ovary [id number] N83.201 [id number] Gretchen Figueroa [facility] [address],[place] [address] 05/02/2020 15:00:06 05/04/2020 10:12:04 Trying to conceive [id number] Z31.9 [id number] Sixto Cordova MD [facility] [address],[place] [address] 06/02/2020 16:23:41 06/04/2020 21:38:12 Female infertility 9377629 N97.9 [id number] Sixto Cordova MD [facility] [address],[place] [address] 06/02/2020 18:17:13 06/04/2020 21:38:35 Female infertility [id number] N97.9 [id number] Gretchen Figueroa [facility] [address],[place] [address] 06/03/2020 08:32:09 06/04/2020 22:49:57 Artificial insemination [id number] Z31.83 35065 [place] Nieves [facility] [address],[place] [address] 12/14/2020 16:13:59 12/15/2020 15:07:18 Gynecologic examination 10506634 Z01.419 Z11.51 Suggested Calcium with Vitamin D 1200-1500m g daily. Patient advised to get an annual flu shot in the fall and she could obtain at [facility] or [facility] take care clinic. Also to obtain TDap vaccinatio n if you have not had one in the last 10 years. Recommend yearly mammograms . Encouraged monthly self breast exams. Encourage safe sexual practices, to use condoms and limit partners if not already in a monogamous relationsh ip. Engage in daily exercise of low impact aerobic exercise 45-60 minutes 4-5 times weekly. Avoid tobacco and illicit drugs as well as using moderation with alcohol intake less than 1-2 8 oz beverages daily. This lifestyle behavior pattern will lead to less health conditions and longer life span. If BMI greater than 25 weight watchers or dietary consult advised. Wants repeat hsg. All questions have been answered. Patient appears to understand informatio n, but if you have any questions please call or respond to this email. Female infertility 34053 08 N97.9 Pt has been seen by SP and specialist for infertilit y. Informed patient I do not manage infertilit y. Pt desires repeat hsg. Message sent to Gretchen. [id number] [facility] [address],[place] [address] 03/21/2021 17:59:43 03/26/2021 12:01:41 Irregular periods [id number] N92.6 [id number] Sixto Cordova MD [facility] [address],[place] [address] 04/26/2021 10:09:19 04/26/2021 10:10:18 [id number] Sixto Cordova MD [facility] [address],[place] [address] 04/30/2021 13:29:33 04/30/2021 14:26:28 Female infertility 3487101 N97.9 [id number] [facility] [address],[place] [address] 04/30/2021 16:52:18 04/30/2021 17:16:53 Trying to conceive [id number] Z31.9 [id number] Gretchen Figueroa [facility] [address] [place] [address] 05/01/2021 09:37:33 05/01/2021 10:38:44 Artificial insemination [id number] Z31.83 [id number] Sixto Cordova MD [facility] [address] [place] [address] 05/28/2021 11:02:56 05/28/2021 11:56:45 Female infertility 9306483 N97.9 [id number] Sixto Cordova MD [facility] [address],[place] [address] 06/07/2021 14:21:06 06/07/2021 14:49:59 Pain in pelvis 61897975 R10.2 this patient is a 39-year-ol d female with a recent chemical . She has had tubal reanastomo sis. She has not felt well since the chemical . She has had pelvic pain. It is described in the notes. We agreed to repeat pelvic ultrasound and to discuss the results and possible treatment plan. [id number] Gretchen Figueroa CNM [facility] [address],[place] [address] 06/29/2021 14:43:27 06/29/2021 15:53:38 Pain in pelvis 58502206 R10.2 [id number] Sixto Cordova MD [facility] [address],[place] [address] 06/29/2021 15:49:09 06/29/2021 15:54:32 Pain in pelvis 33510757 R10.2 this patient is a 39-year-ol d female with a recent chemical . She has had tubal reanastomo sis. She has not felt well since the chemical . She has had pelvic pain. It is described in the notes. We agreed to repeat pelvic ultrasound and to discuss the results and possible treatment plan. [id number] Sixto Cordova MD [facility] [address],[place] [address] 07/12/2021 14:55:51 07/12/2021 15:29:52 Pain in pelvis 24805193 R10.2 this patient is a 39-year-ol d female with a recent chemical . She has had tubal reanastomo sis. She has not felt well since the chemical . She has had pelvic pain. It is described in the notes. We agreed to repeat pelvic ultrasound and to discuss the results and possible treatment plan. [id number] Sixto Cordova MD [facility] [address],[place] [address] 07/23/2021 11:01:18 07/23/2021 15:25:15 Pain in pelvis 81342088 R10.2 This patient is a 41-year-ol d female presents for follow-up on pelvic pain. The patient had a positive test over the weekend. I reviewed pelvic pain whether. I reviewed her pelvic ultrasound . Patient had a recent chemical . She has concerns about the viability of the . We agreed to serial HCGs. We spent more than 15 minutes talking about pelvic pain, other treatment, evaluation , etiologies . We will follow-up on the serial HCGs. [id number] FIFI Jeronimo [facility] [address],[place] [address] 11/22/2021 15:57:31 11/22/2021 17:26:59 Urinary symptoms [id number] R39.9 Vaginitis 32754780 N76.0 Suspect yeastVagin itis panel sentUA today unremarkab leUrine hcg (-) todayTT currently, would only like safe medication optionsTak ing daily PNVWe discussed treatment optionsRx sentVulvar care guidelines discussed in-depth Time spent in visit is a total of 20 mins with at least 50% of visit consisting of counseling and review of plan of care. Irregular periods 800803 07 N92.6 Venereal d isease screening 139133263 Z11.3 [id number] Sixto Cordova MD [facility] [address],[place] [address] 06/24/2022 14:54:16 06/24/2022 15:34:53 Pain in pelvis 21475968 R10.2 N97.9 This patient is a 41-year-ol d female presents for follow-up on pelvic pain. The patient had a positive test over the weekend. I reviewed pelvic pain whether. I reviewed her pelvic ultrasound . Patient had a recent chemical . She has concerns about the viability of the . We agreed to serial HCGs. We spent more than 15 minutes talking about pelvic pain, other treatment, evaluation , etiologies . We will follow-up on the serial HCGs. [id number] Sixto Cordova MD [facility] [address],[place] [address] 07/08/2022 16:02:24 07/08/2022 17:26:18 Cyst of ovary 45874697 N83.209 this patient is a 42-year-ol d female presents for follow-up on ultrasound . She had a corpus luteum cyst on her ovary. It did not correspond temporally to her ovulation predictor kit. Reviewed images together. We talked about the findings. Talked about her menstrual cycle. Talked about her current menstrual cycle in detail. Talked about ovarian cyst-etiol ogy, natural history,, treatment. We spent 20 face-to-fa ce. More than 50% was counseling . She is discontinu ing fertility treatment [id number] Carolyn Jones [facility] [address],[place] [address] 11/06/2022 15:16:11 11/06/2022 15:42:44 Gynecologic examination 48914397 Z01.419 Suggested Calcium with Vitamin D 1200-1500m g daily. Patient advised to get an annual flu shot in the fall and she could obtain at [facility] or [facility] care clinic. Also to obtain TDap vaccinatio n if you have not had one in the last 10 years. Recommend yearly mammograms . Encouraged monthly self breast exams. Encourage safe sexual practices, to use condoms and limit partners if not already in a monogamous relationsh ip. Engage in daily exercise of low impact aerobic exercise 45-60 minutes 4-5 times weekly. Avoid tobacco and illicit drugs as well as using moderation with alcohol intake less than 1-2 8 oz beverages daily. This lifestyle behavior pattern will lead to less health conditions and longer life span. If BMI greater than 25 weight watchers or dietary consult advised. All questions have been answered. Patient appears to understand informatio n, but if you have any questions please call or respond to this email. Pap/hpv sentSTD Screen declinedGe netic Screen discussedC olon Screen naDexa Screen naRoutine Labs PCP Vaginitis 59887142 N76.0 Suspect yeast on examRx sent Screening mammography 24 514256 Z12.31 [id number] Carolyn Jones [facility] [address],[place] [address] 03/19/2023 17:55:20 03/19/2023 18:16:12 Vaginitis 34129495 N76.0 Suspect yeast on examIf recurrent issue will consider Boric acid vaginal regimenMig ht consider estrogen vagShaves- might be residual of that.Rx sent Reviewed VCG's, sheet given for additional home reference; Daily moisturize r. Time spent in visit is a total of 20 mins with at least 50% of visit consisting of counseling and review of plan of care. [id number] Sixto Cordova MD [facility] [address],[place] [address] 06/05/2023 16:23:19 06/05/2023 17:20:57 screening 563309930 Z36.87 Z3A.01 [id number] Sixto Cordova MD [facility] [address],[place] [address] 06/12/2023 16:00:04 06/12/2023 16:50:52 Uncertain viability of 052643388 O36.80X0 O02.81 Z3A.01 [id number] Sixto Cordova MD [facility] [address],[place] [address] 06/17/2023 12:30:58 06/17/2023 13:42:21 Uncertain viability of 010850613 O36.80X0 O02.81 Z3A.01 [id number] JW LAUREN MD [facility] [address],[place] [address] 06/17/2023 13:15:53 06/19/2023 13:36:50 Threatened miscarriage 72088044 O20.0 - hx of tubal reversal, no evidence of ectopic - Slow increase of hCG over 2 weeks- US today demonstrat es FP with continued cardiac activity, however no growth of CRL from 5 days ago- discussed concern for threatened miscarriag e- recommend repeat US in 2 weeks for further evaluation of early - return precaution s given [id number] Sixto Cordova MD [facility] [address],[place] [address] 07/03/2023 16:28:06 07/03/2023 16:58:54 Missed miscarriage 31696357 O02.1 Z3A.01 [id number] Sixto Cordova MD [facility] [address] [address] 07/03/2023 16:43:08 07/04/2023 04:56:03 Missed miscarriage 77079641 O02.1 This patient is a 43-year-ol d female with a missed miscarriag e who desires a suction D& C. We agreed to perform suction D&C. She understand s the risks, benefits, and alternativ es. She is completed informed consent process and is ready to proceed. [id number] Sixto Cordova MD [facility] [address] [address] 07/11/2023 14:39:04 07/11/2023 15:59:16 Missed miscarriage 97535328 O02.1 this patient presents for postop follow-up. She is 1 week postop from a suction D&C. She is recovering normally. Her bleeding is minimal. She has no foul-smell ing vaginal discharge. She denies any nausea, vomiting, fever, chills. We discussed contracept ion. We discussed future . She will follow up for a repeat test. [id number] Sixto Cordova MD [facility] [address] [address] 11/10/2023 15:36:33 11/10/2023 16:30:19 Amenorrhea 93958491 N91.2 Gynecologi c examination 30888359 Z01.419 Annual gynecologi eusebia exam performed. Patient will come back in a year unless there are new symptoms. Suggest Calcium with Vitamin D if not eating in diet. Patient advised to get annual flu shot. Recommend yearly physicals and preform monthly breast exams. Genetic testing is available for patients with family history of cancer. Engage in safe sexual practices, use condoms. Encouraged to have daily exercise. Avoid tobacco and illicit drugs, moderation of alcohol. If BMI greater than 25 dietary consult advised. If you have any questions please call or email. mammogram -done Pap smear- laboratory evaluation - [place] [id number] Sixto Cordova MD [facility] [address],[place] [address] 11/17/2023 17:11:32 11/18/2023 09:12:27 Recurrent miscarriage 928626554 N96 this patient is a 43-year-ol d female presents for follow-up on recurrent miscarriag e. We agreed to do the evaluation for recurrent miscarriag e. She has had multiple ultrasound s in the uterus appears to be normal. We are going to obtain the laboratory evaluation . We discussed causes of recurrent miscarriag e. We talked about the genetics. [id number] Sixto Cordova MD [facility] [address],[place] [address] 03/12/2024 14:58:17 03/12/2024 16:03:21 Pain in pelvis 74524830 R10.2 N97.9 This patient is a 41-year-ol d female presents for follow-up on pelvic pain. T agreed to obtain pelvic ultrasound and to discuss. Patient may have bleeding at the time of ovulation that causes her pain. I spent over 20 minutes on this patient's care in total. We discussed multiple issues. We including recurrent miscarriag e, genetic evaluation , progestero ne and baby aspirin. [id number] Sixto Cordova MD [facility] [address],[place] [address] 03/29/2024 17:46:38 03/30/2024 06:22:04 Pain in pelvis 16842627 R10.2 This patient is a 41-year-ol d female presents for follow-up on pelvic pain. T agreed to obtain pelvic ultrasound and to discuss. Patient may have bleeding at the time of ovulation that causes her pain. I spent over 20 minutes on this patient's care in total. We discussed multiple issues. We including recurrent miscarriag e, genetic evaluation , progestero ne and baby aspirin. [id number] Sixto Cordova MD [facility] [address],[place] [address] 04/08/2024 11:51:57 04/09/2024 05:54:19 Pain in pelvis 31498629 R10.2 Cyst of ovary 64082184 N 83.209 this patient is a 44-year-ol d female who presents for follow-up on pelvic ultrasound and pelvic pain. We reviewed the ultrasound together. We reviewed images. We reviewed the appearance of a ovarian cyst is present. We agreed that we needed follow-up on the ovarian cyst. We agreed to repeat ultrasound in 6 weeks. We talked about treatment and evaluation of pelvic pain in detail. Talked about treating medical treatments with presumptiv e diagnosis of female pelvic pain. We also talked about surgical evaluation . Spent over 30 minutes with the patient. We agreed to observe with repeat ultrasound the ovarian cyst. [id number] Sixto Cordova MD [facility] [address] [address] 06/10/2024 14:44:27 06/10/2024 15:40:12 Cyst of left ovary [id number] N83.202 Health Concerns Section Related Observation LastModified by Organization Detai ls LastModified Time None Recorded Concern Status LastModified by Organization Details LastModified Time None Recorded Advance Directives Directive N: Payers Insurance Date Sequence Insurance Name Policy Number Policy Mancera Covered Member ID Mancera Member ID Guarantor Name 04/28/2024 1 *SELF PAY* Je ssica Ollenbittle 05/25/2024 1 [place] Arin Ollenbittle [id number] Arin Ollenbittle 05/13/2024 1 [employer] [id number] Arin Ollenbittle [id number] Arin Ollenbittle 06/10/2024 1 [facility] (HMO) [place] Arin Ollenbittle [id number] Arin Ollenbittle 11/09/2023 1 [facility] PRIOR TO 09/28/2020 (MEDICAID REPLACEMENT - HMO) Arin Ollenbittle [id number] Arin Ollenbittle 05/25/2024 1 [facility] ON OR AFTER 09/28/20 (MEDICAID REPLACEMENT - HMO) Arin Ollenbittle [id number] Arin Ollenbittle Notes Date Note Type Note Provider Name and Address Organization Details Recorded Time 11/17/2023 text/html this patient is a 43-year-old female presents for follow-up on recurrent miscarriage. We agreed to do the evaluation for recurrent miscarriage. She has had multiple ultrasounds in the uterus appears to be normal. We are going to obtain the laboratory evaluation. We discussed causes of recurrent miscarriage. We talked about the genetics. Sixto Cordova MD [address], [place], [address], [facility] 11/17/2023 22:47:58 03/12/2024 text/html this patient is a 43-year-old female with pelvic pain. Patient has sharp unilateral pelvic pain at the time of ovulation. He has alternated sides but predominance on the left. Currently is on the right side. It is sharp and it has been present for 3 weeks. It is constant. It is not changed over time and intensity. Nothing is palliative and nothing is palliative. She denies any abnormal vaginal discharge. She denies any irregular vaginal bleeding. She denies any nausea, vomiting, fever, chills. Sixto Cordova MD [address], [place], [address], [facility] 03/12/2024 16:00:51 04/08/2024 text/html this patient is a 44-year-old female who presents for follow-up on pelvic ultrasound and pelvic pain. We reviewed the ultrasound together. We reviewed images. We reviewed the appearance of a ovarian cyst is present. We agreed that we needed follow-up on the ovarian cyst. We agreed to repeat ultrasound in 6 weeks. We talked about treatment and evaluation of pelvic pain in detail. Talked about treating medical treatments with presumptive diagnosis of female pelvic pain. We also talked about surgical evaluation. Spent over 30 minutes with the patient. We agreed to observe with repeat ultrasound the ovarian cyst. Sixto Cordova MD [address], [place], [address], [facility] 04/08/2024 19:12:28 OBGyn Episode Ob Episode Information Episode Created Date Number of Fetuses Patient Bloodtype Patient rh Status Prepregnancy Weight lbs Domestic Partner Domestic Partner Phone Father Name International Relations Teacher Status 10/18/19 20 1 CLOSED Fetus Data First Name Last Name Admitted to NICU Weight (g) Sex Living Outcome Pediatric Complications Fetus ID Race Codes Race Delivery Type 2919.77 1704 F Full Term 3007 Primary Hai Calculation Initial Hai Date Initial Exam [...] Complications Tubal Sterilization Discharge Date Comments 7 38 Discharge Information Feeding Method Contraceptive Method Maternal HG B and HCT Levels Ob Episode Information Episode Created Date Number of Fetuses Patient Bloodtype Patient rh Status Prepregnancy Weight lbs Domestic Partner Domestic Partner Phone Father Name International Relations Teacher Status 10/18/19 20 2 CLOSED Fetus Data First Name Last Name Admitted to NICU Weight (g) Sex Living Outcome Pediatric Complications Fetus ID Race Codes Race Delivery Type 2296.08 2704 M Prematur e 3005 Primary 2296.08 2704 M Prematur e 8318 Primary Hai Calculation Initial Hai Date Initial Exam [...] Tubal Sterilization Discharge Date Comments 2 34 true Discharge Information Feeding Method Contraceptive Method Maternal HG B and HCT Levels Ob Episode Information Episode Created Date Number of Fetuses Patient Bloodtype Patient rh Status Prepregnancy Weight lbs Domestic Partner Domestic Partner Phone Father Name International Relations Teacher Status 10/18/19 20 1 CLOSED Fetus Data First Name Last Name Admitted to NICU Weight (g) Sex Living Outcome Pediatric Complications Fetus ID Race Codes Race Delivery Type 2976.47 0704 M Full Term 3006 Repeat Hai Calculation Initial Hai Date Initial Exam [...] Complications Tubal Sterilization Discharge Date Comments 5 38 Discharge Information Feeding Method Contraceptive Method Maternal HG B and HCT Levels Ob Episode Information Episode Created Date Number of Fetuses Patient Bloodtype Patient rh Status Prepregnancy Weight lbs Domestic Partner Domestic Partner Phone Father Name International Relations Teacher Status 06/04/19 21 1 CLOSED Fetus Data First Name Last Name Admitted to NICU Weight (g) Sex Living Outcome Pediatric Complications Fetus ID Race Codes Race Delivery Type 3118.44 5 F Full Term 8319 Vaginal Delivery Hai Calculation Initial Hai Date Initial Exam [...] Complications Tubal Sterilization Discharge Date Comments 0 38 Discharge Information Feeding Method Contraceptive Method Maternal HG B and HCT Levels Ob Episode Information Episode Created Date Number of Fetuses Patient Bloodtype Patient rh Status Prepregnancy Weight lbs Domestic Partner Domestic Partner Phone Father Name International Relations Teacher Status 11/13/19 24 1 CLOSED Fetus Data First Name Last Name Admitted to NICU Weight (g) Sex Living Outcome Pediatric Complications Fetus ID Race Codes Race Delivery Type , Spontane ous 16443 Hai Calculation Initial Hai Date Initial Exam [...] Post Complications Tubal Sterilization Discharge Date Comments 4 Discharge Information Feeding Method Contraceptive Method Maternal HG B and HCT Levels Ob Episode Information Episode Created Date Number of Fetuses Patient Bloodtype Patient rh Status Prepregnancy Weight lbs Domestic Partner Domestic Partner Phone Father Name International Relations Teacher Status 07/03/19 24 1 CLOSED Fetus Data First Name Last Name Admitted to NICU Weight (g) Sex Living Outcome Pediatric Complications Fetus ID Race Codes Race Delivery Type , Spontane ous 79663 Hai Calculation Initial Hai Date Initial Exam [...] Post Complications Tubal Sterilization Discharge Date Comments 4 Discharge Information Feeding Method Contraceptive Method Maternal HG B and HCT Levels Ob Episode Information Episode Created Date Number of Fetuses Patient Bloodtype Patient rh Status Prepregnancy Weight lbs Domestic Partner Domestic Partner Phone Father Name International Relations Teacher Status 10/12/19 25 1 CLOSED Fetus Data First Name Last Name Admitted to NICU Weight (g) Sex Living Outcome Pediatric Complications Fetus ID Race Codes Race Delivery Type , Spontane ous [id number] Hai Calculation Initial Hai Date Initial Exam [...] Complications Tubal Sterilization Discharge Date Comments 2 Discharge Information Feeding Method Contraceptive Method Maternal HG B and HCT Levels
--- OUTSIDE RECORDS SUMMARY | 2024-10-15 09:59 | XMS_ITS | Referral Summary ---
Author Organization [facility] Address [address] [place] [address] Care Team Providers Care Marketing Programs Specialist Name Role Phone Arniemaria antonia Win Hanson DO Primary Care Provider [phone]- [phone] Christiana Scott PT Unavailable Unavailable Allergies Active Allergy Reactions Criticality Noted Date Comments Sertraline Rash Medium 12/06/2013 Medications multivitamin capsule Take 1 capsule by mouth daily Active letrozole (FEMARA) 2.5 mg tablet Take by mouth daily Active meloxicam (MOBIC) 15 mg tabletIndicatio ns:Right hip pain Take 1 tablet (15 mg total) by mouth daily 30 tablet 1 11/23/2021 Active Active Problems Problem Noted Date Diagnosed Date Female infertility 07/18/2021 History of reversal of tubal ligation 07/18/2021 Family history of colon cancer in father 021 Assessment & Plan (07/16/2020 10:13 AM CDT): Last colonoscopy 2011. Need colonoscopy for screening. Will schedule for this year. Dysmenorrhea 06/29/2020 Allergic rhinitis due to pollen 10/13/2016 Mild persistent asthma, uncomplicated 10/13/2016 Chronic fatigue syndrome 06/01/2009 Overview (07/04/2016): Chronic fatigue syndrome Generalized anxiety disorder 10/21/2008 Overview (07/05/2016): GENERALIZED ANXIETY DIS Daytime somnolence 03/28/2008 Overview (07/05/2016): daytime somnolence Resolved Problems Problem Noted Date Diagnosed Date Resolved Date Generalized abdominal pain 06/24/2019 1 Assessment & Plan (07/16/2020 10:17 AM CDT): Feels good now and no more pain. Can use Dicyclomine as needed. Assessment & Plan (06/24/2019 11:58 AM CDT): Pain that occurs in different areas. Pt says occurs most days and can be sharp but sometimes aching. It is intermittent. Pt denies correlation with food but thinks may get better after she has BM. She had colonoscopy in 2017 that was normal. She has had workup for gallbladder with US, CT, and HIDA scan that were all normal. Could be related to colonic spasms. Start probiotics and use dicyclomine prn abdominal pain. Keep food journal to see if she can pinpoint what foods cause the symptoms. Will f/u in several week to re-eval. Immunizations Immunization Administration Dates Next Due Influenza, Trivalent, IM (MDV) 04/19/2008 Social History Tobacco Use Types Packs/Day Years Used Date Smoking Tobacco: Never Smokeless Tobacco: Never Tobacco Cessation:Counseling Given: Not Answered Alcohol Use Standard Drinks/Week Comments Not Currently 0 (1 standard drink = 0.6 oz pur e alcohol) AUDIT-C Answer Date Recorded Q1: How often do you have a drink containing alcohol? Never 03/12/2024 Q2: How many drinks containi ng alcohol do you have on a typical day when you are drinking? Patient does not drink Q3: How often do you have si x or more drinks on one occasion? Never 03/12/2024 Comments No Sex and Gender Information Value Date Recorded Sex Assigned at Not on file Legal Sex Female 7:25 PM SALES PRODUCT MANAGER Gender Identity Not on file Sexual Orientation Not on file Last Filed Vital Signs Vital Sign Reading Time Taken Comments Blood Pressure 115/77 03/12/2024 3:15 PM SALES PRODUCT MANAGER Pulse 68 03/12/2024 3:15 PM SALES PRODUCT MANAGER Temperature 37.1 C (98.7 F) 09/30/2023 2:47 PM CDT Respiratory Rate 16 03/12/2024 3:15 PM SALES PRODUCT MANAGER Oxygen Saturation 98% 12/04/2023 2:32 PM CDT Inhaled Oxygen Concentration - - Weight 73.1 kg (161 lb 3.2 oz) 03/12/2024 3:15 P M SALES PRODUCT MANAGER Height 165.1 cm (5' 5) 03/12/2024 3:15 PM SALES PRODUCT MANAGER Body Mass Index 26.83 03/12/2024 3:15 PM SALES PRODUCT MANAGER Plan of Treatment Not on file Insurance [facility] Care Teams Marketing Programs Specialist Relationship Specialty Start Date End Date Win Feng DO PCP - General 01/06/09 Christiana Scott PT Physical Therapist Physical Therapy 02/04/24
--- OUTSIDE RECORDS SUMMARY | 2024-10-15 09:59 | XMS_ITS | Clinical Summary ---
Author Organization [facility] Address [address] [place] [address] Care Team Providers Care Starter Cup Powder Mixer Name Role Phone Arniemaria antonia Win Hanson DO Primary Care Provider +1- [phone] Christiana Scott PT Unavailable Unavailable Allergies Active [...] Next Due Influenza, Trivalent, IM (MDV) 04/19/2008 Surgical History Surgery Date Site/Laterality Comments SECTION 03/31/2006 - 03/30/2007 section TUBAL LIGATION 03/31/2006 - 03/30/2007 Bilateral tubal ligation TONSILLECTOMY 03/31/1989 - 03/30/1990 Tonsillectomy TONSILLECTOMY Tonsillectomy SECTION section SECTION TONSILLECTOMY Medical History Medical History Date Comments Migraines Family History Medical History Relation Name Comments Other Daughter Merlyn Congenital CMV; Cancer Father Heart disease Father Hypertension Father Other Father adenomatous col on polyps; Diabetes type II Maternal Grandmother Sue betes -Type II; Cancer Other 1 Family history of Cancer -; Diabetes Other 1 grandmother COPD Other 2 Family history of COPD; Hypertension Other 3 Family history of Hypertension; Heart disease Paternal Grandfather Heart disease; Diabetes type II Paternal Grandmother Sue betes -Type II; Cancer Sister 2 Cancer -; eye t umor Relation Name Status Comments Daughter Merlyn Rankin Maternal Grandmother Other 1 Other 2 Other 3 Paternal Grandfather Paternal Grandmother Sister 1 Alive Sister 2 Social History Tobacco Use Types Packs/Day Years [...] on file Legal Sex Female 7:25 PM PROTECTION MGR Gender Identity Not on file Sexual Orientation Not on file Obstetrics History Para Term AB IAB SAB Ectopic Multiple Livin g Live Births 5 4 3 1 1 1 1 5 5 Date Outcome GA Total Labor Labor/2nd/3rd Weight Sex Type Anes PTL Alysia A1 A5 Name Clin 000 Term 39w 0d F Vag-S pont Living 002 M Vag-S pont Living 002 M CS-Un spec Living 005 Term M CS-Un spec Living 007 Term F CS-Un spec Living 2019 SAB Comments:Chemical preg rochelle Last Filed Vital Signs Vital Sign Reading Time Taken Comments Blood Pressure 115/77 03/12/2024 3:15 PM PROTECTION MGR Pulse 68 03/12/2024 3:15 PM PROTECTION MGR Temperature 37.1 C (98.7 F) 09/30/2023 2:47 PM CDT Respiratory Rate 16 03/12/2024 3:15 PM PROTECTION MGR Oxygen Saturation 98% 12/04/2023 2:32 PM CDT Inhaled Oxygen Concentration - - Weight 73.1 kg (161 lb 3.2 oz) 03/12/2024 3:15 P M PROTECTION MGR Height 165.1 cm (5' 5) 03/12/2024 3:15 PM PROTECTION MGR Body Mass Index 26.83 03/12/2024 3:15 PM PROTECTION MGR Plan of Treatment Health Maintenance Due Date Last Done Comments Cervical Cancer Screening 1980 Depression Screening 1980 Hepatitis C Screening 1980 DTaP/Tdap/Td Vaccine (1 - Tdap) 1991 Varicella Vaccines (1 of 2 - 13+ 2-dose series) 1993 Hepatitis B Screening 1998 Regular Well Visit/Exam 18-64 1998 Pneumococcal vaccine <65 (1 of 2 - PCV) 1999 Zoster Vaccine (1 of 2) 1999 Covid-19 Vaccine (3 - Pfizer risk series) 01/29/2021 01/01/2021, 12/11/2020 Breast Cancer Screening-Mammogram 08/28/2024 08/29/2023, 05/10/2021 Influenza Vaccine (#1) 2024 04/19/2008 HPV Vaccines Aged Out No longer eligi ble based on patient's age to complete this topic Insurance [facility] Care Teams Starter Cup Powder Mixer Relationship Specialty Start Date End Date Win Feng DO PCP - General 01/06/09 Christiana Scott PT Physical Therapist Physical Therapy 02/04/24
[2024-10-15 11:04] LABS: Beta HCG Quantitative 3775.10 mIU/ML
== END 2024-10-15 09:52 | disposition home or self-care (01) ==
LOC: ANHLAB 09:56
PROVIDERS: PCP Family Medicine; Visit Provider Obstetrics & Gynecology
DX: O13.9 Gestational [pregnancy-induced] hypertension without significant proteinuria, unspecified trimester (principal); Z87.59 Personal history of other complications of pregnancy, childbirth and the puerperium; Z3A.00 Weeks of gestation of pregnancy not specified
CPT/HCPCS: 36415; 84702

== ENCOUNTER 2024-10-18 15:25 | Outpatient (CLI) | payer OTHER, SELFPAY ==
--- OUTSIDE RECORDS SUMMARY | 2024-10-18 15:30 | XMS_ITS | Continuity of Care Document ---
Author Organization [facility] [place] Address [address] [place] [address] Care Team Providers Care Chief Payroll Clerk Name Role Phone MARLO VERDIN Primary Care Provider [phone] Assessment No assessment recorded. Plan of Treatment Reminders Order Date Submit Date Provider Last Modified By Organization Details Last Modified Time Details Appointments U/S OB DATING/ VIABILI TY 2024 02:30P M ULTRASOUND Not available Not available Not available U/ OB DATING/ VIABILI TY 2024 01:00P M ULTRASOUND Not available Not available Not available Lab None recorde d. Referral None recorde d. Procedures None recorde d. Surgeries None recorde d. Imaging US, obstetr ic, transva ginal 2024 025 [email or web address] [place], [address], [place], [address], 10/18/2024 16:16:37 Medication Orders None recorde d. Patient TargetsNo targets recorded. Patient InstructionsNo instructions recorded. Reason for Referral None Reported. Results Created Date Observation Date Name Description Value Unit Range Abnormal Flag Note LastModifiedBy Organization Detail LastModifiedTime 10/19/19 25 US, obste tric, trans vagin al No observ ation record ed. [email or web address] [place] [address], [place], [address], 10/18/2024 16:11:50 10/19/19 25 10/18/2024 US, obste tric, trans vagin al No observ ation record ed. [email or web address], [place], [address], 10/18/2024 16:16:13 Result Notes None recorded. Problems Name Problem SNOMED Code Status Onset Date Resolution Date Notes Provider Name and Address Organization Details Recorded Time Lesion of ovary Completed 201912/14/2020 Other ovarian cyst, left side;Victor Manuel rded Elsewhere : No Locati on: [facility] So urce: EHR Chron ic: N Practic e ID: [id number] Bill able Time: 02:00:00 PM Nuria ness [facility] 1 11:44:14 Uterine leiomyom a [id number] Completed 201912/14/2020 Leiomyoma of uterus, unspecifi ed;Record ed Elsewhere : No Locati on: [facility] So urce: EHR Chron ic: N Practic e ID: [id number] Bill able Time: 02:00:00 PM Nuria ness [facility] 1 11:44:16 Finding of menstrua l bleeding Completed 201905/02/2020 Excessive and frequent menstruat ion with regular cycle;Rec orded Elsewhere : No Locati on: [facility] So urce: EHR Chron ic: N Practic e ID: [id number] Bill able Time: 11:00:00 AM Arline ness [facility] 1 15:25:04 Reproduc tive care manageme nt Completed 201905/02/2020 Encounter for other procreati ve managemen t;Recorde d Elsewhere : No Locati on: [facility] So urce: EHR Chron ic: N Practic e ID: [id number] Bill able Time: 11:00:00 AM Arline ness [facility] 1 15:25:07 Urinary tract infectio us disease [id number] Completed 201905/02/2020 Urinary tract infection , site not specified ;Recorded Elsewhere : No Locati on: [facility] So urce: EHR Chron ic: N Practic e ID: [id number] Bill able Time: 11:45:00 AM Arline ness [facility] 15:25:09 Problem Notes None recorded. Procedures Surgical History Date Name Laterality Status Provider Name and Address Organization Details Recorded Time 2023 Date of Last Pap Smear completed Dariela Kumar [facility] 03/12/2024 15:18:44 2023 Date of Last Mammogram completed Dariela Kumar [facility] 11/10/2023 16:00:35 2023 DILATION & CURETTAGE (SURG) completed Yolis Raza [facility] 07/07/2023 18:01:19 2021 artificial insemination completed Carolyn Tejeda [facility] 05/01/2021 10:16:26 2021 hysterosalpingography completed Arline Tejeda [facility] 05/01/2021 10:16:45 2020 artificial insemination completed Carolyn Tejeda [facility] 05/01/2021 10:16:23 2019 hysterosalpingography completed Arline Tejeda [facility] 05/01/2021 10:16:39 2018 open reversal of female sterilization completed Arline Tejeda [facility] 03/21/2021 18:17:23 2006 Tubal Ligation completed Arline Tejeda [facility] 06/08/2020 11:58:14 2006 section completed Arline Tejeda [facility] 06/03/2020 09:22:53 2004 section completed Arline Tejeda [facility] 06/03/2020 09:22:45 2001 section completed Arline Tejeda [facility] 06/03/2020 09:22:38 1989 Tonsillectomy completed Radha Maguire [facility] 10/21/2019 13:13:02 Imaging Results None recorded. [...] Not Available Not Available Not Available Vitals None Recorded Social History Question Answer Notes LastModified by Organizat ion Details LastModified Time Tobacco Smoking Status Never Smoker Ron ness, [facility] 05/28/2021 11:03:21 Do You Have An Advance Directive? No [email or web address] Information n ot available 05/01/2021 If You Are , What Was Your Level Of Alcohol Consumption Prior To ? None [email or web address] Information not available 05/28/2021 Are You Blind Or Do You Have Difficulty Seeing? No Information n ot available 06/03/2020 What Is Your Level Of Caffeine Consumption? Moderate [email or web address] Information not available 05/02/2020 In The 14 Days Before Symptom Onset, Have You Had Close Contact With A Laboratory-confirm ed COVID-19 While That Case Was Ill? No [email or web address] Information n ot available 06/03/2020 In The 14 Days Before Symptom Onset, Have You Had Close Contact With A Person Who Is Under Investigation For COVID-19 While That Person Was Ill? No [email or web address] Information not available 06/03/2020 Have You Been To An Area Known To Be High Risk For COVID-19? No Information not available 06/03/2020 Are You Deaf Or Do You Have Serious Difficulty Hearing? No [email or web address] Information not available 06/03/2020 What Type Of Diet Are You Following? REGULAR [email or web address] Information n ot available 06/03/2020 What Is The Highest Grade Or Level Of School You Have Completed Or The Highest Degree You Have Received? [id number] Information not available 05/01/2021 How Many Days Of Moderate To Strenuous Exercise, Like A Brisk Walk, Did You Do In The Last 7 Days? 2 [email or web address] Information not available 05/28/2021 On Those Days That You Engage In Moderate To Strenuous Exercise, How Many Minutes, On Average, Do You Exercise? 60 Information not available 05/28/2021 Are There Any Guns Present In Your Home? No [email or web address] Information not available 05/01/2021 Do You Use Your Seat Belt Or Car Seat Routinely? Yes [email or web address] Information not available 06/03/2020 Do You Have Smoke And Carbon Monoxide Detectors In Your Home? Yes [email or web address] Information not available 06/03/2020 How Much Tobacco Do You Smoke? No [email or web address] Information not available 05/01/2021 Do You Use Sunscreen Routinely? Yes [email or web address] Information not available 06/03/2020 Has Tobacco Cessation Counseling Been Provided? No [email or web address] Information not available 05/28/2021 Have You Used IV Drugs? No [email or web address] Information not available 05/01/2021 Do You Have Difficulty Walking Or Climbing Stairs? No Information not available 06/29/2021 Sex: Unknown Functional Status Question Answer Note LastModified by Organizat ion Details LastModified Time Do you use any illicit or recreational drugs? No [email or web address] Information not available 05/02/2020 Do you or have you ever used any other forms of tobacco or nicotine? No [email or web address] Information not available 05/28/2021 What is your level of alcohol consumption? None [email or web address] Information not available 05/02/2020 Are you able to walk? YESWOREST [email or web address] Information not available 06/03/2020 Are you able to care for yourself? Yes Information n ot available 06/29/2021 Do you have difficulty dressing or bathing? No Information not available 06/29/2021 What is your exercise level? Occasional [email or web address] Information not available 05/02/2020 Mental Status Question Answer Note LastModified by Organization D etails LastModified Time Do you feel stressed (tense, restless, nervous, or anxious, or unable to sleep at night)? [id number] [email or web address] Information not available 05/01/2021 Family History Relationship [...] SNOMED-CT Code Diagnosis ICD10 Code Diagnosis Note [id number] Sixto Cordova MD [place] [address] [address] 10/18/2024 15:31:26 10/18/2024 16:16:37 Uncertain viability of [id number] O36.80X0 O02.81 Z3A.01 Health Concerns Section Related Observation LastModified by Organization Detai ls LastModified Time None Recorded Concern Status LastModified by Organization Details LastModified Time None Recorded Payers Encounter Date Sequence Insurance Name Policy Number Policy [employer] Covered Member ID Mancera Member ID Guarantor Name 10/18/2024 1 [facility] ([facility]) [id number] Arin Infante [id number] Arin Infante OBGyn Episode No OBEpisode recorded.
--- OUTSIDE RECORDS SUMMARY | 2024-10-18 15:30 | XMS_ITS | Data Portability ---
Author Organization MICAH BRIANRitesh Sterling Address [address] [facility] [place] [address] Care Team Providers Care Plasma Processing Technician Name Role Phone JONY GEORGE Keeler Polygraph Operator Assessment Encounter Date Assessment Date Assessment LastModified by Organization Details LastModified Time 07/29/2016 07/29/2016 discussed a variety of menstrual issues. First day flooding, ovulatory pressure, PMS all hopefully to helped with some OCPs 9 y.o, daughter serious leg break at [employer] + 3 weeks ago Not available 07/29/2016 15:07:04 03/11/2017 03/11/2017 outside cutter hand exam normal - period returned to normal without OCPs after July visit daughter who broke leg on [employer] almost back to normal Not available 03/11/2017 12:46:08 05/08/2018 05/08/2018 outside cutter hand exam normal some painful ovulation and heavy first day of cycle may eventually have her try some OCPs ( has BTL) Oldest of 5 at [employer] - wants to work at [employer] Youngest (11) has autism Not available [...] vaginosis + vaginitis panel, vaginal 2018 019 [facility], [address], [address], [place], [address], 12/14/2018 07:07:03 unlisted lab - igp, rfx aptima HPV ascu 2018 019 [facility], [address], [address], [place], [address], 05/12/2018 07:13:33 pap, LB + reflex to HR HPV if ASC-U 2016 017 [facility], [address], [address], [place], [address], 03/14/2017 15:14:01 Referral None recorded. Procedures None recorded. Surgeries None recorded. Imaging None recorded. Medication Orders Microgest in 24 FE 1 mg-20 mcg (24)/75 mg (4) tablet 2018 019 [facility], [address], [place], [address], 11/03/2018 16:33:18 Sprintec (28) 0.25 mg-0.035 mg tablet 2016 017 [facility], [address], [place], [address], 07/29/2016 15:07:35 Patient TargetsNo targets recorded. Patient Instructions Encounter Date Encounter Id Patient Instructions Last Modified By Organization Details Last Modified Time 07/29/2016 [id number] painful menstrua l cramps: care instructions [email or web address] Not available 07/29/2016 15:10:52 11/03/2018 [id number] painful menstrua l cramps: care instructions Not available 11/03/2018 16:33:11 Reason for Referral None Reported. Results Created Date Observation Date Name Description Value Unit Range Abnormal Flag Note LastModifiedBy Organization Detail LastModifiedTime 03/11/20 17 03/14/2017 pap, IG + refle x HR HPV diagnosis: Sivtlana RAMSEY MATTHEW FOR INTRA EPITH ELIAL ZEYNEP Ritter AND FOREIGN WILLIAM . Not Available [facility] ([facility]) [address] [place], [address], 03/14/2017 15:14:01 03/11/20 17 03/14/2017 pap, IG + refle x HR HPV specimen adequacy: Svitlana t Satis facto ry for evalu ation . Endoc ervic al and/o r squam ous metap lasti c cells (endo cervi eusebia compo nent) are prese nt. Not Available [facility] ([facility]) [address] [place], [address], 03/14/2017 15:14:01 03/11/20 17 03/14/2017 pap, IG + refle x HR HPV clinician provided ICD10: Svitlana funk Z01.4 19 Not Available [facility] ([facility]) [address] [place], [address], 03/14/2017 15:14:01 03/11/20 17 03/14/2017 pap, IG + refle x HR HPV performed by: Svitlana Perez, Cytot bisi funk (ASCP ) Not Available [facility] ([facility]) [address] [place], [address], 03/14/2017 15:14:01 03/11/20 17 03/14/2017 pap, IG + refle x HR HPV . . Not Available [facility] ([facility]) [address] [place], [address], 03/14/2017 15:14:01 03/11/20 17 03/14/2017 pap, IG [...] ts do occur . Not Available [facility] ([facility]) [address] [facility], [place], [address], 03/14/2017 15:14:01 03/11/20 17 03/14/2017 pap, IG + refle x HR HPV test methodology: Commen t This liqui d based ThinP rep(R ) pap test was scree artem with the use of an image guide steve armando. Not Available [facility] ([facility]) [address] [place], [address], 03/14/2017 15:14:01 03/11/20 17 03/14/2017 pap, IG + refle x HR HPV . Commen t The HPV DNA refle x crite alexa were not met with this speci men resul t there fore, no HPV testi ng was perfo rmed. Not Available [facility] ([facility]) [address] [facility], [place], [address], 03/14/2017 15:14:01 05/08/19 19 05/11/2018 pap, IG + refle x HR HPV diagnosis: Commen t NEGAT MATTHEW FOR INTRA EPITH ELIAL LESIO N OR MALIG NATALIIA . Not Available [facility] ([facility]) [address] [facility], [place], [address], 05/12/2018 07:13:33 05/08/19 19 05/11/2018 pap, IG + refle x HR HPV specimen adequacy: Commen t Satis facto ry for evalu ation . Endoc ervic al and/o r squam ous metap lasti c cells (endo cervi eusebia compo nent) are prese nt. Not Available [facility] ([facility]) [address] [place], [address], 05/12/2018 07:13:33 05/08/19 19 05/11/2018 pap, IG + refle x HR HPV clinician provided ICD10: Svitlana funk Z01.4 19 Not Available [facility] ([facility]) [address] [place], [address], 05/12/2018 07:13:33 05/08/19 19 05/11/2018 pap, IG + refle x HR HPV performed by: Steve Beatty (ASCP ) Not Available [facility] ([facility]) [address] [place], [address], 05/12/2018 07:13:33 05/08/19 19 05/11/2018 pap, IG + refle x HR HPV . . Not Available [facility] ([facility]) [address] [place], [address], 05/12/2018 07:13:33 05/08/1905/11/2018 pap, IG + refle [...] ts do occur . Not Available [facility] ([facility]) [address] [place], [address], 05/12/2018 07:13:33 05/08/19 19 05/11/2018 pap, IG + refle x HR HPV test methodology: Svitlana funk This liqui d based ThinP rep(R ) pap test was scree artem with the use of an image guide steve hernandez m. Not Available [facility] ([facility]) [address] [facility], [place], [address], 05/12/2018 07:13:33 05/08/1905/11/2018 pap, IG + refle x HR HPV . Commen t The HPV DNA refle x crite alexa were not met with this speci men resul t there fore, no HPV testi ng was perfo rmed. Not Available [facility] ([facility]) [address] [facility], [place], [address], 05/12/2018 07:13:33 12/11/1912/13/2018 bacte rial vagin osis + vagin itis panel , vagin al atopobium vaginae Low - 0 score Not Available [facility] ([facility]) [address] [place], [address], 12/14/2018 07:07:03 12/11/19 19 12/13/2018 bacte rial vagin osis + vagin itis panel , vagin al bvab 2 Low - 0 score Not Available [facility] ([facility]) [address] [place], [address], 12/14/2018 07:07:03 12/11/1912/13/2018 bacte rial vagin osis [...] e herbie cteri stics deter mined by [employer]. It has not been clear ed or appro sully by the Food and Drug Admin istra tion. The FDA has deter mined that such clear ance or appro louie is not neces keven. Not Available [facility] ([facility]) [address] [place], [address], 12/14/2018 07:07:03 12/11/1912/13/2018 bacte rial vagin osis + vagin itis panel , vagin al asha albicans, BAILEY Negati ve negati ve Not Available [facility] ([facility]) [address] [place], [address], 12/14/2018 07:07:03 12/11/1912/13/2018 bacte rial vagin osis + vagin itis panel , vagin al asha glabrata, BAILEY Negati ve negati ve This test was devel oped and its perfo rmanc e herbie cteri stics deter mined by [employer]. It has not been clear ed or appro sully by the Food and Drug Admin istra tion. The FDA has deter mined that such clear ance or appro louie is not neces keven. Not Available [facility] ([facility]) [address] [facility], [place], [address], 12/14/2018 07:07:03 12/11/1912/13/2018 bacte rial vagin osis + vagin itis panel , vagin al trich vag by BAILEY Negati ve negati ve Not Available [facility] ([facility]) [address] [place], [address], 12/14/2018 07:07:03 12/11/1912/13/2018 bacte rial vagin osis + vagin itis panel , vagin al chlamydia trachomatis, BAILEY Negati ve negati ve Not Available [facility] ([facility]) [address] [place], [address], 12/14/2018 07:07:03 12/11/19 19 12/13/2018 bacte rial vagin osis + vagin itis panel , vagin al neisseria gonorrhoeae, BAILEY Negati ve negati ve Not Available [facility] ([facility]) [address] [facility], [place], [address], 12/14/2018 07:07:03 Result Notes None recorded. Problems Name Problem SNOMED Code Status Onset Date Resolution Date Notes Provider Name and Address Organization Details Recorded Time Dysmenorrhea 028531259 Active CHANTAL Canales [facility] 6 14:36:30 Problem Notes None recorded. Procedures Surgical History Date Name Laterality Status Provider Name and Address Organization Details Recorded Time 9 Date of Last Pap Smear completed Kinga Cardona MA [facility] 05/12/2018 08:00:08 7 Tubal Ligation completed Kinga Cardona MA [facility] 08/25/2014 09:30:56 7 Caesarean Section completed Kinga Cardona MA [facility] 08/25/2014 09:30:56 2 Caesarean Section completed Kinga Cardona MA [facility] 08/25/2014 09:30:56 Imaging Results None recorded. Procedure Notes None recorded. Medical Equipment None Reported. Allergies Allergen ID Allergen Name Allergen Category Reaction Reaction Severity Criticality Documentation Date Start Date Code Code System Note Provider Name and Address Organization Details Recorded Time 373643 Zoloft medicatio n Not available Not available Not available 03/11/2017 20593 RxNorm CHANTAL Canales [place] - [facility] 7 12:28:18 066519 Product containin g penicilli n (product) medicatio n Not available Not available Not available 03/11/2017 45346 8001 SNOMED CHANTAL Canales [facility] 7 12:28:33 Medications Name Sig Start [...] Updated DateTime 05/08/2018 167.64 cm 26.2 kg/m2 02892.4 g 106/75 mm[Hg] Kinga Cardona [place] [facility] 05/08/2018 11:45:23 Date Recorded Body height Body weight Body mass index (BMI) Systolic And Diastolic Provider Name and Address Organization Details Last Updated DateTime 07/29/2016 167.64 cm 16855.41 g 25.2 kg/m2 106/76 mm[Hg] Kinga Cardona [place] [facility] 07/29/2016 14:48:39 Date Recorded Body height Body mass index (BMI) Body weight Systolic And Diastolic Provider Name and Address Organization Details Last Updated DateTime 11/03/2018 167.64 cm 26.4 kg/m2 99506.43 g 102/74 mm[Hg] Kinga Cardona MA [facility] 11/03/2018 16:05:06 Date Recorded Body height Body mass index (BMI) Body weight Systolic And Diastolic Provider Name and Address Organization Details Last Updated DateTime 12/10/2018 167.64 cm 26.5 kg/m2 97083.15 g 106/72 mm[Hg] Kinga Cardona MA [facility] 12/10/2018 14:56:21 Date Recorded Body height Body mass index (BMI) Body weight Systolic And Diastolic Provider Name and Address Organization Details Last Updated DateTime 03/11/2017 167.64 cm 24.9 kg/m2 38843.3 g 95/73 mm[Hg] Kinga Cardona MA [facility] 03/11/2017 12:27:00 Social History Question Answer Notes LastModified by Organizat ion Details LastModified Time Tobacco Smoking Status Never Smoker Kinga Cardona MA null, [facility] 08/25/2014 09:30:57 How Many Children Do [...] N Kidney Cyst N Hyperthyroidism N Blood Transfusion N MRSA N Blood disorders N Emphysema N COPD N Blood Clots N Depression N Pneumonia N Peripheral Arterial [...] Sclerosis N Colon Polyps N Heart Attack ([place]) N Diabetes N Cardiomyopathy N Blood Transfusions [...] SNOMED-CT Code Diagnosis ICD10 Code Diagnosis Note [id number] MD Brinda Phoenix ([facility] [address]) [address] [place] [address] 08/29/2014 10:36:43 08/29/2014 17:13:38 Dysmenorrhea [id number] MD Brinda Phoenix ([facility] [address]) [address] [place] [address] 11/28/2014 14:21:22 11/28/2014 15:15:32 Gynecologic examination [id number] MD Brinda Phoenix ([facility] [address]) [address] [place] [address] 12/12/2015 14:22:46 12/12/2015 15:21:50 Gynecologic examination 41665065 Z01.825 [id number] MD Brinda Phoenix ([facility] [address]) [address] [place] [address] 07/29/2016 14:42:50 07/30/2016 14:17:48 Dysmenorrhea 023105614 N94.6 [id number] MD Brinda Phoenix ([facility] [address]) [address] [place] [address] 03/11/2017 11:48:41 03/11/2017 14:52:21 Body mass index 20-24 - normal 969908707 Z68.24 Gynecologi c examination [id number] Z01.484 [id number] MD Brinda Phoenix [address] [place] [address] 05/08/2018 11:30:45 05/08/2018 15:52:35 Gynecologic examination [id number] Z01.386 [id number] MD Brinda Phoenix [address] [place] [address] 11/03/2018 15:49:46 11/04/2018 08:41:03 Dysmenorrhea 160808197 N94.6 [id number] MD Brinda Phoenix 14 OB 4 [facility] [address] [place] [address] 12/10/2018 14:33:37 12/10/2018 16:08:03 Vaginal discharge 129547024 N89.8 Health Concerns Section Related Observation LastModified by Organization Detai ls LastModified Time None Recorded Concern Status LastModified by Organization Details LastModified Time None Recorded Advance Directives Directive None Recorded Payers Insurance Date Sequence Insurance Name Policy Number Policy Mancera Covered Member ID Mancera Member ID Guarantor Name 09/24/[address] [facility] (HMO) [employer] Narcisa Tracy Ollenbittle [id number] Narcisa Tracy Ollenbittle 11/28/2014 1 [place] [employer] Narcisa Ollenbittle [id number] Narcisa Tracy Ollenbittle 09/24/2024 1 [facility] - DOS PRIOR TO 2020 (MEDICAID REPLACEMENT - HMO) Narcisa Ollenbittle [id number] Narcisa Tracy Ollenbittle Notes Date Note Type [...] PMDD Jony George MD Attn: [address] [place], [address], [place] [facility] 03/11/2017 12:46:31 05/08/2018 text/html [...] Jony George MD Attn: [address] [facility], [place], [address], [facility] 05/08/2018 12:06:13 OBGyn Episode Ob Episode Information Episode Created Date Number of Fetuses Patient Bloodtype Patient rh Status Prepregnancy Weight lbs Domestic Partner Domestic Partner Phone Father Name Business Solution Analyst Status 08/26/19 15 1 CLOSED Fetus Data First Name Last Name Admitted to NICU Weight (g) Sex Living Outcome Pediatric Complications Fetus ID Race Codes Race Delivery Type 2975.56 352 M Full Term 53533 Hai Calculation Initial Hai Date Initial Exam [...] Domestic Partner Domestic Partner Phone Father Name Business Solution Analyst Status 08/26/19 15 2 CLOSED Fetus Data First Name Last Name Admitted to NICU Weight (g) Sex Living Outcome Pediatric Complications Fetus ID Race Codes Race Delivery Type 2267.96 M Prematur e 43821 2267.96 M Prematur e 94448 Hai Calculation Initial Hai Date Initial Exam [...] Domestic Partner Domestic Partner Phone Father Name Business Solution Analyst Status 08/26/19 15 1 CLOSED Fetus Data First Name Last Name Admitted to NICU Weight (g) Sex Living Outcome Pediatric Complications Fetus ID Race Codes Race Delivery Type 3120.71 296 F Full Term 74293 Vaginal Hai Calculation Initial Hai Date Initial [...] Domestic Partner Domestic Partner Phone Father Name Business Solution Analyst Status 08/26/19 15 2 DELETED Hai Calculation [...] Domestic Partner Domestic Partner Phone Father Name Business Solution Analyst Status 08/26/19 15 1 CLOSED Fetus Data [...]
--- OUTSIDE RECORDS SUMMARY | 2024-10-18 15:30 | XMS_ITS | Clinical Summary ---
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 Not on file Not on file Last Filed Vital Signs Vital Sign Reading Time Taken Comments Blood Pressure 100/60 04/17/2021 1:02 PM BUSPERSON Pulse 85 04/17/2021 1:02 PM BUSPERSON Temperature 36.6 C (97.9 F) 04/17/2021 1:02 PM BUSPERSON Respiratory Rate 16 04/17/2021 1:02 PM BUSPERSON Oxygen Saturation 99% 04/17/2021 1:02 PM BUSPERSON Inhaled Oxygen Concentration - - Weight 70.3 kg (155 lb) 04/17/2021 1:02 PM BUSPERSON Height 165.1 cm (5' 5) 03/22/2018 11:41 AM BUSPERSON Body Mass Index 25.79 03/22/2018 11:41 AM BUSPERSON Plan of Treatment Health Maintenance Due Date [...] Insurance MEDICAID [employer] Care Teams Babysitter Relationship Specialty Start Date End Date Win Feng DO [address] [place] [address] PCP - General Family Medicine 01/07/17
--- OUTSIDE RECORDS SUMMARY | 2024-10-18 15:30 | XMS_ITS | Clinical Summary ---
Author Organization [facility] Address [address] [place] [address] Care Team Providers Care Director Orange Name Role Phone Pia Fengbaltazar Moreau DO Primary Care Provider [phone] Source Comments [facility],non-owned Affiliates and Associated Physician Practices is amultiple site organization consisting of ambulatory clinics and hospital sitesin [place], [place], [place] and [place]. This disclosure is being madepursuant to the Care Everywhere program and may not contain all information available regarding this patient. Last updated 17.[facility] Allergies Active Allergy Reactions Criticality Noted Date [...] fluticasone propionate (FLONASE) 50 MCG/ACT nasal spray Benedicta 1 spray into the nose 7 Active loratadine (CLARITIN) 10 MG tablet Take 10 mg by mouth Active montelukast (SINGULAIR) 10 MG tablet Take 10 mg by mouth 7 Active Fexofenadine HCl (ALBERTA PO) Active fluticasone propionate (FLONASE) 50 MCG/ACT nasal spray Benedicta 1 spray into each nostril BID. 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 Gender Identity Not on file Sexual Orientation [...] topic Insurance MEDICAID - OUT OF STATE [facility] SELF PAY NO INSURANCE Member Subscriber Plan / Payer (Ef fective for All Dates) Name:Narcisa Fernandes R Member ID:Not on file Relation to Subscriber:Not on file Name:NARCISA FERNANDES Subscriber ID:Not on file Address: [address] [place] [address] Payer ID:Not on file Group ID:Not on file Type:Self Pay Address: [place], [place] [facility] SELF PAY NO INSURANCE Member Subscriber Plan / Payer (Ef fective for All Dates) Name:Narcisa Fernandes R Member ID:Not on file Relation to Subscriber:Not on file Name:HARRYNARCISA ESTEVEZ Subscriber ID:Not on file Address: [address] [place] [address] Payer ID:Not on file Group ID:Not on file Type:Self Pay Address: [place], [place] [facility] SELF PAY NO INSURANCE Member Subscriber Plan / Payer (Ef fective for All Dates) Name:Narcisa Fernandes Member ID:Not on file Relation to Subscriber:Not on file Name:NARCISA FERNANDES Subscriber ID:Not on file Address: [address] [place] [address] Payer ID:Not on file Group ID:Not on file Type:Self Pay Address: [place], [place] Care Teams Director Orange Relationship Specialty Start Date End Date Win Feng DO [address] [place] [id number] PCP - General 02/05/16
--- OUTSIDE RECORDS SUMMARY | 2024-10-18 15:30 | XMS_ITS | Clinical Summary ---
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 Gender Identity Not on file Sexual Orientation [...] Comments Blood Pressure 115/77 03/12/2024 3:15 PM TELEPHONE ANSWERING SERVICE OPERATOR Pulse 68 03/12/2024 3:15 PM TELEPHONE ANSWERING SERVICE OPERATOR Temperature 37.1 C (98.7 F) 09/30/2023 2:47 PM CDT Respiratory Rate 16 03/12/2024 3:15 PM TELEPHONE ANSWERING SERVICE OPERATOR Oxygen Saturation 98% 12/04/2023 2:32 PM CDT Inhaled Oxygen Concentration - - Weight 73.1 kg (161 lb 3.2 oz) 03/12/2024 3:15 P M TELEPHONE ANSWERING SERVICE OPERATOR Height 165.1 cm (5' 5) 03/12/2024 3:15 PM TELEPHONE ANSWERING SERVICE OPERATOR Body Mass Index 26.83 03/12/2024 3:15 PM TELEPHONE ANSWERING SERVICE OPERATOR Plan of Treatment Health Maintenance Due Date [...] patient's age to complete this topic Insurance [facility] Care Teams Photonic Laboratory Technician Relationship Specialty Start Date End Date Win Fneg DO PCP - General 01/06/09 Christiana Scott PT Physical Therapist Physical Therapy 02/04/24
--- OUTSIDE RECORDS SUMMARY | 2024-10-18 15:30 | XMS_ITS ---
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 Phone DO MARLO VERDIN Unavailable ALLERGIES, ADVERSE REACTIONS AND ALERTS Allergy Name Allergy Date Allergy Status Allergy Severity Allergy Reaction Acetaminophen, [RxNorm: 161] 05/14/2012 Current Mental Status Changes and Insomnia Oxycodone, [RxNorm: 7804] 05/14/2012 Current Mental Status Changes and Insomnia zoloft, [RxNorm: 83872] 12/06/2013 Current rash MEDICATIONS RxNorm Brand Name Prescription Ordered Value Order Unit Start Date Date Status Fill Status Indications 916316 Xopenex 1.25 mg/3 mL Solution for Nebuliza tion XopenexSi.25 mg/3 mL, Solution for Nebulization, Every 8 hours , Routine, Inhalation, Dispense #, 0 Refills Solutio n for Nebuliz ation 2011 Historic [id number] albutero l sulfate 90 mcg/actu ation HFA [...] 0 Refills tablet, subling ual 2011 Historic [id number] Benzac AC 5 % Gel Benzac ACSi %, Gel, Apply every day to affected areas, Routine, Topical, Dispense #, 0 Refills Gel 2011 Historic [id number] Combiven t Respimat 20-100 mcg/actu ation Aerosol Combivent RespimatSi-100 mcg/actuation, Aerosol, 2 puffs every 4 hours, PRN, Inhalation, 30 daysDispense #1, 0 Refills 1 Aerosol 2012 013 Historic [id number] Medrol (Paul) 4 mg tablets, dose pack Medrol (Paul)Si mg, tablets,dose pack, as directed, Routine, Oral, 5 daysDispense #1, 0 Refills 1 tablets ,dose pack 2012 013 Historic [id number] Augmenti n 875-125 mg tablet AugmentinSi-125 mg, tablet, BID (# per day: 2.00)BID, Routine, Oral, 14 daysDispense #28, 0 Refills 28 tablet 2012 013 Historic [id number] Combiven t Respimat 20-100 mcg/actu ation Aerosol Combivent RespimatSi-100 mcg/actuation, Aerosol, 1 puff four times per day, PRN, Inhalation, 30 daysDispense #1, 0 Refills 1 Aerosol 2012 013 Historic [id number] Ventolin HFA 90 mcg/actu ation HFA aerosol inhaler Ventolin HFASi mcg/actuation, HFA aerosol inhaler, two puff every 4 hours , PRN, inhalation, Dispense #1, 1 Refill 1 HFA aerosol inhaler 2013 014 Historic [id number] Singulai r 10 mg tablet SingulairSi mg, tablet, QD (# per day: 1.00), Routine, oral, 30 daysDispense #30, 2 Refills 30 tablet 2013 014 Historic [id number] ProAir HFA 90 mcg/actu ation HFA aerosol inhaler ProAir HFASi mcg/actuation, HFA aerosol inhaler, two puff every 4 hours, PRN, inhalation, Dispense #1, 0 Refills 1 HFA aerosol inhaler 2013 014 Historic [id number] predniso ne 10 mg tablet prednisoneSi mg, tablet, taper: 4 tablets per day for 3 days, then 3 tablets per day for 3 days, then 2 tablets per day for 3 days, then 1 tablet per day for 3 days, Routine, oral, 12 daysDispense #30, 0 Refills 30 tablet 2013 014 Historic [id number] Benzac AC 5 % Gel SIG: Benzac AC 5 % Gel, 0 days, Dispense #1 Tube, 0 RefillsDirecti ons: Apply daily to affected areas 1 Gel 2013 Historic [id number] Singulai r 10 mg tablet SIG: Singulair 10 mg tablet, 30 days, Dispense #30 Tablet, 5 RefillsDirecti ons: Take 1 oral tablet once a day 30 tablet 2013 Historic [id number] Zoloft 50 mg tablet SIG: Zoloft 50 mg tablet, days, Dispense #60 Tablet, 0 RefillsDirecti ons: take 0.5 tablet for at least 3 days then increase to 1 tablet, increase to 1.5 tablets if tolerable 60 tablet 2013 Historic [id number] doxycycl ine hyclate 100 mg tablet SIG: doxycycline hyclate 100 mg tablet, 30 days, Dispense #30 Tablet, 5 RefillsDirecti ons: Take 1 oral tablet once a day 30 tablet 2013 Historic [id number] Medrol (Paul) 4 mg tablets, dose pack SIG: Medrol (Paul) 4 mg tablets,dose pack, 5 days, Dispense #1 Pack, 0 RefillsDirecti ons: as directed 1 tablets ,dose pack 2013 Historic [id number] Lexapro 10 mg tablet SIG: Lexapro 10 mg tablet, 30 days, Dispense #30 Tablet, 1 RefillsDirecti ons: Take 1 oral tablet once a day 30 tablet 2013 Historic [id number] Singulai r 10 mg tablet SIG: Singulair 10 mg tablet, 30 days, Dispense #30 Tablet, 5 RefillsDirecti ons: Take 1 oral tablet once a day 30 tablet 2013 Historic [id number] Singulai r 10 mg tablet SIG: Singulair 10 mg tablet, 30 days, Dispense #30 Tablet, 5 RefillsDirecti ons: Take 1 oral tablet once a day 30 tablet 2014 Historic [id number] Ventolin HFA 90 mcg/actu ation HFA aerosol inhaler SIG: Ventolin HFA 90 mcg/actuation HFA aerosol inhaler, 0 days, Dispense #1 Inhaler, 0 RefillsDirecti ons: two puffs every 4 hours 1 HFA aerosol inhaler 2014 Historic [id number] clobetas ol 0.05 % cream SIG: clobetasol 0.05 % cream, days, Dispense #30 Gram, 0 RefillsDirecti ons: apply twice daily to upper abdomen as needed 30 cream 2014 Historic [id number] Augmenti n 875-125 mg tablet SIG: Augmentin 875-125 mg tablet, 14 days, Dispense #28 Tablet, 0 RefillsDirecti ons: Take 1 oral tablet 2 times a day 28 tablet 2014 015 Historic [id number] Singulai r 10 mg tablet SIG: Singulair 10 mg tablet, 30 days, Dispense #30 Tablet, 5 RefillsDirecti ons: Take 1 oral tablet once a day 30 tablet 2014 Historic [id number] Macrobid 100 mg capsule SIG: Macrobid 100 mg capsule, 5 days, Dispense #10 Capsule, 0 RefillsDirecti ons: Take 1 oral capsule 2 times a day 10 capsule 2014 Historic [id number] Medrol (Paul) 4 mg tablets, dose pack SIG: Medrol (Paul) 4 mg tablets,dose pack, 5 days, Dispense #1 Pack, 0 RefillsDirecti ons: as directed 1 tablets ,dose pack 2014 015 Historic [id number] monteluk ast 10 mg tablet SIG: montelukast 10 mg tablet, Dispense # 30, 5 RefillsDirecti ons: TAKE ONE TABLET BY MOUTH ONCE DAILY 30 tablet 2015 016 Historic [id number] Flonase Allergy Relief 50 mcg/actu ation spray,lowe spension SIG: Flonase Allergy Relief 50 mcg/actuation spray,suspensi on, 1 days, Dispense #1 [place], 0 RefillsDirecti ons: 2 squirts into each nostril daily 1 spray,s uspensi on 2015 Historic [id number] Vitamin D3 1,000 unit tablet SIG: Vitamin D3 1,000 unit tablet, 30 days, Dispense #30 Tablet, 0 RefillsDirecti ons: Take 1 oral tablet once a day 30 tablet 2015 Historic [id number] fluticas one 50 mcg/actu ation spray,lowe spension SIG: fluticasone 50 mcg/actuation spray,suspensi on, Dispense # 16, 2 RefillsDirecti ons: USE TWO SPRAY(S) IN EACH NOSTRIL ONCE DAILY 16 spray,s uspensi on 2015 016 Historic [id number] Wellbutr in XL 150 mg tablet extended release 24 hr SIG: Wellbutrin XL 150 mg tablet extended release 24 hr, 30 days, Dispense #30 Tablet, 1 RefillsDirecti ons: Take 1 oral tablet every morning 30 tablet extende d release 24 hr 2015 Historic [id number] monteluk ast 10 mg tablet SIG: montelukast 10 mg tablet, Dispense # 30, 5 RefillsDirecti ons: TAKE ONE TABLET BY MOUTH ONCE DAILY 30 tablet 2015 016 Historic [id number] Medrol (Paul) 4 mg tablets, dose pack SIG: Medrol (Paul) 4 mg tablets,dose pack, 5 days, Dispense #1 Pack, 0 RefillsDirecti ons: as directed 1 tablets ,dose pack 2015 Historic [id number] fluticas one 50 mcg/actu ation spray,lowe spension SIG: fluticasone 50 mcg/actuation spray,suspensi on, Dispense # 16, 1 RefillsDirecti ons: USE TWO SPRAY(S) IN EACH NOSTRIL ONCE DAILY 16 spray,s uspensi on 2015 016 Historic [id number] Temovate 0.05 % cream SIG: Temovate 0.05 % cream, 5 days, Dispense #10 Gram, 0 RefillsDirecti ons: apply to left neck twice a day 10 cream 2016 Historic [id number] clobetas ol 0.05 % cream SIG: clobetasol 0.05 % cream, days, Dispense #10 Gram, 0 RefillsDirecti ons: apply to left neck twice a day 10 cream 2016 Historic [id number] betameth asone valerate 0.1 % cream SIG: [...] once a day 30 tablet 2016 Historic [id number] Madeleine Allergy 180 mg tablet SIG: Madeleine [...] ONCE DAILY 30 tablet 2017 018 Historic [id number] fluticas one 50 mcg/actu ation spray,lowe spension SIG: fluticasone 50 mcg/actuation spray,suspensi on, Dispense # 16, 1 RefillsDirecti ons: USE TWO SPRAY(S) IN EACH NOSTRIL ONCE DAILY 16 spray,s uspensi on 2017 018 Historic [id number] Adacel(T dap Adolesn/ Adult)(P F) 2 Lf-(2.5- 5-3-5 mcg)-5Lf /0.5 mL suspensi on SIG: Adacel(Tdap Adolesn/Adult) (PF) 2 Lf-(2.5-5-3-5 mcg)-5Lf/0.5 mL intramuscular suspension, 1 days, Dispense #1 Syringe, 0 RefillsDirecti ons: Inject 1 dose syringe via intramuscular one time 1 suspens ion 2017 Historic [id number] fluticas one 50 mcg/actu ation spray,lowe spension SIG: fluticasone 50 mcg/actuation spray,suspensi on, Dispense # 16, 1 RefillsDirecti ons: USE TWO SPRAY(S) IN EACH NOSTRIL ONCE DAILY 16 spray,s uspensi on 2017 018 Historic [id number] Augmenti n 875-125 mg tablet SIG: Augmentin 875-125 mg oral tablet, 42 days, Dispense #84 Tablet, 0 RefillsDirecti ons: Take 1 oral tablet 2 times a day 84 tablet 2017 019 Historic [id number] Ultram 50 mg tablet SIG: Ultram 50 mg oral tablet, 7 days, Dispense #20 Tablet, 0 RefillsDirecti ons: Take 1 oral tablet every 8 hours as needed for moderate to severe pain 20 tablet 2018 Historic [id number] Microges tin FE /20 (28) 1 mg-20 mcg (21)/75 mg (7) tablet SIG: Microgestin FE /20 (28) 1 mg-20 mcg (21)/75 mg (7) oral tablet, 30 days, Dispense #30 Tablet, 0 RefillsDirecti ons: Take 1 oral tablet once a day 30 tablet 2018 Historic [id number] Imitrex 50 mg tablet SIG: Imitrex 50 mg oral tablet, 10 days, Dispense #10 Tablet, 0 RefillsDirecti ons: Take 1 tablet by mouth at onset of headache, may repeat after 1 hour if headache still present; no more than 4 doses in 24 hours 10 tablet 2020 Historic [id number] Augmenti n 875-125 mg tablet SIG: Augmentin 875-125 mg oral tablet, 14 days, Dispense #28 Tablet, 0 RefillsDirecti ons: Take 1 oral tablet 2 times a day 28 tablet 2020 Historic [id number] Imitrex 50 mg tablet SIG: Imitrex 50 [...] capsule once daily 30 capsule 2022 Current [id number] triamcin olone acetonid e 0.1 % cream SIG: triamcinolone acetonide 0.1 % topical cream, 14 days, Dispense #30 Gram, 0 RefillsDirecti ons: Apply topical cream to affected areas as needed until resolution or up to 2 weeks 30 cream 2022 023 Historic [id number] meloxica m 15 mg tablet SIG: meloxicam [...] HAND PAIN IN LEFT HAND Chronic 07/22/2018 K90.29-NSA-YQTUIV GLUTEN SENSITIVITY NON-CELIAC GLUTEN SENSITIVITY Chronic 10/12/2018 [...] Never Smoker Sex: Female 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
--- OUTSIDE RECORDS SUMMARY | 2024-10-18 15:30 | XMS_ITS | Data Portability ---
Author Organization [facility] [place] Address [address] [place] [address] [place] [address] Care Team Providers Care [employer] Foreman Name Role Phone MARLO VERDIN Primary Care Provider [phone] Assessment No assessment recorded. Plan of Treatment Reminders Order Date Submit Date Provider Last Modified By Organization Details Last Modified Time Details Appointments U/S OB DATING/ VIABILI TY 2024 02:30P M ULTRASOUND Not available Not available Not available U/S OB DATING/ VIABILI TY 2024 01:00P M ULTRASOUND Not available Not available Not available Lab None recorde d. Referral None recorde d. Procedures None recorde d. Surgeries None recorde d. Imaging US, obstetr ic, transva ginal 2024 025 [email or web address] [place], [address], [place], [address], 10/18/2024 16:16:37 US, transva ginal [email or web address], [address], [place], [address], 06/12/2024 10:55:25 US, pelvis 2023 024 [email or web address] [place], [address], [place], [address], 03/29/2024 21:33:29 US, transva ginal 2023 024 [email or web address] [place], [address], [address], [place], [address], 03/29/2024 21:33:29 Medication Orders None recorde d. Patient TargetsNo targets recorded. Patient InstructionsNo instructions recorded. Reason for Referral None Reported. Results Created Date Observation Date Name Description Value Unit Range Abnormal Flag Note LastModifiedBy Organization Detail LastModifiedTime 03/29/20 24 03/29/2024 US, pelvi s No observ ation record ed. [email or web address] [place] [address], [place], [address], 03/29/2024 18:24:34 03/29/20 24 03/29/2024 US, trans vagin al No observ ation record ed. [email or web address] [place] [address], [place], [address], 03/29/2024 18:24:42 03/29/20 24 03/29/2024 US, pelvi s No observ ation record ed. [email or web address] [address], [place], [address], 04/01/2024 13:57:11 06/11/19 25 06/10/2024 US, trans vagin al No observ ation record ed. [facility] [address], [place], [address], 06/10/2024 16:47:09 06/11/19 25 06/10/2024 US, trans vagin al No observ ation record ed. [email or web address] [address], [place], [address], 06/13/2024 23:18:08 10/19/19 US, obste tric, trans vagin al No observ ation record ed. [email or web address] [place] [address], [place], [address], 10/18/2024 16:11:50 10/19/19 25 10/18/2024 US, obste tric, trans vagin al No observ ation record ed. [email or web address], [place], [address], 10/18/2024 16:16:13 Result Notes None recorded. Problems Name Problem SNOMED Code Status Onset Date Resolution Date Notes Provider Name and Address Organization Details Recorded Time Lesion of ovary Completed 201912/14/2020 Other ovarian cyst, left side;Victor Manuel rded Elsewhere : No Locati on: [facility] So urce: EHR Chron ic: N Practic e ID: 0001 Bill able Time: 02:00:00 PM Nuria ness [facility] 1 11:44:14 Uterine leiomyom a [id number] Completed 201912/14/2020 Leiomyoma of uterus, unspecifi ed;Record ed Elsewhere : No Locati on: [facility] So urce: EHR Chron ic: N Practic e ID: [id number] Bill able Time: 02:00:00 PM Nuria ness [facility] 1 11:44:16 Finding of menstrua l bleeding Completed 201905/02/2020 Excessive and frequent menstruat ion with regular cycle;Rec orded Elsewhere : No Locati on: [facility] So urce: EHR Chron ic: N Practic e ID: [id number] Bill able Time: 11:00:00 AM Arline ness [facility] 1 15:25:04 Reproduc tive care manageme nt Completed 201905/02/2020 Encounter for other procreati ve managemen t;Recorde d Elsewhere : No Locati on: [facility] So urce: EHR Chron ic: N Practic e ID: 0001 Bill able Time: 11:00:00 AM Arline ness [facility] 1 15:25:07 Urinary tract infectio us disease [id number] Completed 201905/02/2020 Urinary tract infection , site not specified ;Recorded Elsewhere : No Locati on: [facility] So urce: EHR Chron ic: N Practic e ID: [id number] Bill able Time: 11:45:00 AM Arline ness [facility] 15:25:09 Problem Notes None recorded. Procedures Surgical History Date Name Laterality Status Provider Name and Address Organization Details Recorded Time 2023 Date of Last Pap Smear completed Dariela [facility] 03/12/2024 15:18:44 2023 Date of Last Mammogram completed Dariela [facility] 11/10/2023 16:00:35 2023 DILATION & CURETTAGE (SURG) completed Yolis Raza [facility] 07/07/2023 18:01:19 2021 artificial insemination completed Carolyn Tejeda [facility] 05/01/2021 10:16:26 2021 hysterosalpingography completed Arline Tejeda [facility] 05/01/2021 10:16:45 2020 artificial insemination completed Carolyn Tejeda [facility] 05/01/2021 10:16:23 2019 hysterosalpingography completed Arline Tejeda [facility] 05/01/2021 10:16:39 2018 open reversal of female sterilization completed Arline Tejeda [facility] 03/21/2021 18:17:23 2006 Tubal Ligation completed Arline Tejeda [facility] 06/08/2020 11:58:14 2006 section completed Arline Tejeda [facility] 06/03/2020 09:22:53 2004 section completed Arline Tejeda [facility] 06/03/2020 09:22:45 2001 section completed Arline Tejeda [facility] 06/03/2020 09:22:38 1989 Tonsillectomy completed Radha Maguire [facility] 10/21/2019 13:13:02 Imaging Results None recorded. [...] Updated DateTime 04/08/2024 162.56 cm 28 kg/m2 60200.56 g 118/78 mm[Hg] [facility] 04[facility] 12:10:49 Date Recorded Body height Body mass index (BMI) Body weight Systolic And Diastolic Provider Name and Address Organization Details Last Updated DateTime 03/12/2024 162.56 cm 28 kg/m2 02222.56 g 113/75 mm[Hg] Adriela [facility] 03/12/2024 15:18:00 Social History Question Answer Notes LastModified by Organizat ion Details LastModified Time Tobacco Smoking Status Never Smoker Ron ness [facility] 05/28/2021 11:03:21 Do You Have An Advance Directive? No [email or web address] Information n ot available 05/01/2021 If You Are , What Was Your Level Of Alcohol Consumption Prior To ? None Information not available 05/28/2021 Are You Blind Or Do You Have Difficulty Seeing? No [email or web address] Information n ot available 06/03/2020 What Is Your Level Of Caffeine Consumption? Moderate [email or web address] Information not available 05/02/2020 In The 14 Days Before Symptom Onset, Have You Had Close Contact With A Laboratory-confirm ed COVID-19 While That Case Was Ill? No [email or web address] Information n ot available 06/03/2020 In The 14 Days Before Symptom Onset, Have You Had Close Contact With A Person Who Is Under Investigation For COVID-19 While That Person Was Ill? No [email or web address] Information not available 06/03/2020 Have You Been To An Area Known To Be High Risk For COVID-19? No [email or web address] Information not available 06/03/2020 Are You Deaf Or Do You Have Serious Difficulty Hearing? No [email or web address] Information not available 06/03/2020 What Type Of Diet Are You Following? REGULAR [email or web address] Information n ot available 06/03/2020 What Is The Highest Grade Or Level Of School You Have Completed Or The Highest Degree You Have Received? [id number] [email or web address] Information not available 05/01/2021 How Many Days Of Moderate To Strenuous Exercise, Like A Brisk Walk, Did You Do In The Last 7 Days? 2 Information not available 05/28/2021 On Those Days That You Engage In Moderate To Strenuous Exercise, How Many Minutes, On Average, Do You Exercise? 60 [email or web address] Information not available 05/28/2021 Are There Any Guns Present In Your Home? No [email or web address] Information not available 05/01/2021 Do You Use Your Seat Belt Or Car Seat Routinely? Yes [email or web address] Information not available 06/03/2020 Do You Have Smoke And Carbon Monoxide Detectors In Your Home? Yes [email or web address] Information not available 06/03/2020 How Much Tobacco Do You Smoke? No [email or web address] Information not available 05/01/2021 Do You Use Sunscreen Routinely? Yes [email or web address] Information not available 06/03/2020 Has Tobacco Cessation Counseling Been Provided? No [email or web address] Information not available 05/28/2021 Have You Used IV Drugs? No [email or web address] Information not available 05/01/2021 Do You Have Difficulty Walking Or Climbing Stairs? No Information not available 06/29/2021 Sex: Unknown Functional Status Question Answer Note LastModified by Organizat ion Details LastModified Time Do you use any illicit or recreational drugs? No [email or web address] Information not available 05/02/2020 Do you or have you ever used any other forms of tobacco or nicotine? No [email or web address] Information not available 05/28/2021 What is your level of alcohol consumption? None [email or web address] Information not available 05/02/2020 Are you able to walk? YESWOREST Information not available 06/03/2020 Are you able to care for yourself? Yes Information n ot available 06/29/2021 Do you have difficulty dressing or bathing? No Information not available 06/29/2021 What is your exercise level? Occasional [email or web address] Information not available 05/02/2020 Mental Status Question Answer Note LastModified by Organization D etails LastModified Time Do you feel stressed (tense, restless, nervous, or anxious, or unable to sleep at night)? [id number] [email or web address] Information not available 05/01/2021 Family History Relationship [...] SNOMED-CT Code Diagnosis ICD10 Code Diagnosis Note [id number] Carolyn Jones [facility] [address],[facility] [address] 10/18/2019 14:47:42 10/18/2019 15:32:13 Pain in pelvis 92461900 R10.2 TVUS ordered test negative 844662049 Z32.02 [id number] Sixto Cordova MD [place] [address] [address] 10/21/2019 12:26:15 10/21/2019 13:18:19 Pain in pelvis 69089044 R10.2 [id number] Carolyn Jones [facility] [address],[place] [address] 10/21/2019 12:26:47 11/03/2019 14:20:18 Pain in pelvis 91272493 R10.2 Here to f/u for TVUS. We reviewed results which require MD consult. She has switched her care to Dr. Gretchen Weinberg. These results were given to her staff & appts made to address this issue. Time spent in visit is a total of 15 mins with at least 50% of visit consisting of counseling and review of plan of care. [id number] Sixto Cordova MD [place] [address],[place] [address] 11/11/2019 17:24:14 11/14/2019 23:05:41 Pain in pelvis 27979455 R10.2 N97.9 [id number] Sixto Cordova MD [place] [address],[place] [address] 03/02/2020 11:55:55 03/02/2020 13:34:50 Pain in pelvis 34853434 R10.2 N97.9 this patient is a 39-year-ol d female with a recent chemical . She has had tubal reanastomo sis. She has not felt well since the chemical . She has had pelvic pain. It is described in the notes. We agreed to repeat pelvic ultrasound and to discuss the results and possible treatment plan. [id number] MD Sukhwinder Marquez [address],[place] [address] 03/13/2020 15:39:12 03/13/2020 16:08:37 Pain in pelvis 54196323 R10.2 this patient is a 39-year-ol d female with a recent chemical . She has had tubal reanastomo sis. She has not felt well since the chemical . She has had pelvic pain. It is described in the notes. We agreed to repeat pelvic ultrasound and to discuss the results and possible treatment plan. [id number] Sixto Cordova MD [place] [address],[place] [address] 03/13/2020 15:39:41 03/13/2020 16:44:43 Cyst of ovary 06760619 N83.209 this patient is a 39-year-ol d [...] a ultrasound to confirm intrauteri ne gestation. 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 [id number] Sixto Cordova MD [place] [address] [address] 04/27/2020 16:00:48 04/27/2020 16:48:04 Cyst of right ovary 5522790063 [id number] N83.201 99986 Gretchen Figueroa CNM [place] [address] [address] 05/02/2020 15:00:06 05/04/2020 10:12:04 Trying to conceive 077608580 Z31.9 [id number] Sixto Cordova MD [place] [address],[place] [address] 06/02/2020 16:23:41 06/04/2020 21:38:12 Female infertility 6743235 N97.9 [id number] Sixto Cordova MD [place] [address],[place] [address] 06/02/2020 18:17:13 06/04/2020 21:38:35 Female infertility 7331318 N97.9 [id number] Gretchen Figueroa [facility] [address],[place] [address] 06/03/2020 08:32:09 06/04/2020 22:49:57 Artificial insemination 74957858 Z31.83 79005 [place] Nieves [facility] [address],[place] [address] 12/14/2020 16:13:59 12/15/2020 15:07:18 Gynecologic examination 47040281 Z01.419 Z11.51 Suggested Calcium with Vitamin D 1200-1500m g daily. Patient advised to get an annual flu shot in the fall and she could obtain at [facility] or [facility] care clinic. Also to obtain TDap vaccinatio [...] or respond to this email. Female infertility 21119 08 N97.9 Pt has been seen by SP and specialist for infertilit y. Informed patient I do not manage infertilit y. Pt desires repeat hsg. Message [facility]. [id number] [facility] [address],[place] [address] 03/21/2021 17:59:43 03/26/2021 12:01:41 Irregular periods 88791806 N92.6 [id number] Sixto Cordova MD [place] [address],[place] [address] 04/26/2021 10:09:19 04/26/2021 10:10:18 [id number] Sixto Cordova MD [place] [address],[place] [address] 04/30/2021 13:29:33 04/30/2021 14:26:28 Female infertility 0574181 N97.9 35540 [facility] [address],[place] [address] 04/30/2021 16:52:18 04/30/2021 17:16:53 Trying to conceive 454591252 Z31.9 [id number] Gretchen Figueroa [facility] [address],[place] [address] 05/01/2021 09:37:33 05/01/2021 10:38:44 Artificial insemination 36121823 Z31.83 [id number] Sixto Cordova MD [place] [address],[place] [address] 05/28/2021 11:02:56 05/28/2021 11:56:45 Female infertility 7495287 N97.9 [id number] Sixto Cordova MD [place] [address],[place] [address] 06/07/2021 14:21:06 06/07/2021 14:49:59 Pain in pelvis 49670919 R10.2 this patient is a 39-year-ol d female with a recent chemical . She has had tubal reanastomo sis. She has not felt well since the chemical . She has had pelvic pain. It is described in the notes. We agreed to repeat pelvic ultrasound and to discuss the results and possible treatment plan. [id number] Gretchen Figueroa CNM [place] [address],[place] [address] 06/29/2021 14:43:27 06/29/2021 15:53:38 Pain in pelvis 35264694 R10.2 [id number] Sixto Cordova MD [place] [address],[place] [address] 06/29/2021 15:49:09 06/29/2021 15:54:32 Pain in pelvis 36119344 R10.2 this patient is a 39-year-ol d female with a recent chemical . She has had tubal reanastomo sis. She has not felt well since the chemical . She has had pelvic pain. It is described in the notes. We agreed to repeat pelvic ultrasound and to discuss the results and possible treatment plan. [id number] Sixto Cordova MD [place] [address],[place] [address] 07/12/2021 14:55:51 07/12/2021 15:29:52 Pain in pelvis 11125350 R10.2 this patient is a 39-year-ol d female with a recent chemical . She has had tubal reanastomo sis. She has not felt well since the chemical . She has had pelvic pain. It is described in the notes. We agreed to repeat pelvic ultrasound and to discuss the results and possible treatment plan. [id number] Sixto Cordova MD [place] [address],[place] [address] 07/23/2021 11:01:18 07/23/2021 15:25:15 Pain in pelvis 09604580 R10.2 This patient is a 41-year-ol d [...] We will follow-up on the serial HCGs. [id number] Yoli SolitariolucilaFIFI [place] [address] [address] 11/22/2021 15:57:31 11/22/2021 17:26:59 Urinary symptoms 952607243 R39.9 Vaginitis 24267677 N76.0 Suspect yeastVagin itis panel sentUA today unremarkab leUrine hcg (-) todayTT currently, would only like safe medication optionsTak ing daily PNVWe discussed treatment optionsRx sentVulvar care guidelines discussed in-depth Time spent in visit is a total of 20 mins with at least 50% of visit consisting of counseling and review of plan of care. Irregular periods 950946 07 N92.6 Venereal d isease screening 397117941 Z11.3 [id number] Sixto Cordova MD [place] [address],[place] [address] 06/24/2022 14:54:16 06/24/2022 15:34:53 Pain in pelvis 52609266 R10.2 N97.9 This patient is a 41-year-ol [...] We will follow-up on the serial HCGs. [id number] Sixto Cordova MD [place] [address],[facility] [place] [address] 07/08/2022 16:02:24 07/08/2022 17:26:18 Cyst of ovary 54235618 N83.209 this patient is a 42-year-ol d [...] . She is discontinu ing fertility treatment [id number] Carolyn Jones , [facility] [address],[place] [address] 11/06/2022 15:16:11 11/06/2022 15:42:44 Gynecologic examination 46461308 Z01.419 Suggested Calcium with Vitamin D 1200-1500m g daily. Patient advised to get an annual flu shot in the fall and she could obtain at [facility] or [facility]. Also to obtain TDap vaccinatio n if [...] Screen naDexa Screen naRoutine Labs PCP Vaginitis 16686305 N76.0 Suspect yeast on examRx sent Screening mammography 24 392733 Z12.31 [id number] Carolyn Jones , [facility] [address],[facility] [place] [place] [address] 03/19/2023 17:55:20 03/19/2023 18:16:12 Vaginitis 98876012 N76.0 Suspect yeast on examIf recurrent issue will consider Boric acid vaginal regimenMig ht consider estrogen vagShaves- might be residual of that.Rx sent Reviewed VCG's, sheet given for additional home reference; Daily moisturize r. Time spent in visit is a total of 20 mins with at least 50% of visit consisting of counseling and review of plan of care. [id number] Sixto Cordova MD [place] [address],[place] [address] 06/05/2023 16:23:19 06/05/2023 17:20:57 screening 749966783 Z36.87 Z3A.01 [id number] MD Sukhwinder Marquez [address],[place] [address] 06/12/2023 16:00:04 06/12/2023 16:50:52 Uncertain viability of 744825736 O36.80X0 O02.81 Z3A.01 [id number] Sixto Cordova MD [place] [address],[place] [address] 06/17/2023 12:30:58 06/17/2023 13:42:21 Uncertain viability of 709271532 O36.80X0 O02.81 Z3A.01 [id number] JW LAUREN MD [place] [address],[place] [address] 06/17/2023 13:15:53 06/19/2023 13:36:50 Threatened miscarriage 44016178 O20.0 - hx of tubal reversal, no evidence of ectopic - Slow increase of hCG over 2 weeks- US today demonstrat es FP with continued cardiac activity, however no growth of CRL from 5 days ago- discussed concern for threatened miscarriag e- recommend repeat US in 2 weeks for further evaluation of early - return precaution s given [id number] Sixto Cordova MD [place] [address],[place] [address] 07/03/2023 16:28:06 07/03/2023 16:58:54 Missed miscarriage 77609698 O02.1 Z3A.01 [id number] Sixto Cordova MD [place] [address],[place] [address] 07/03/2023 16:43:08 07/04/2023 04:56:03 Missed miscarriage 48357633 O02.1 This patient is a 43-year-ol d female with a missed miscarriag e who desires a suction D& C. We agreed to perform suction D&C. She understand s the risks, benefits, and alternativ es. She is completed informed consent process and is ready to proceed. [id number] Sixto Cordova MD [place] [address] [address] 07/11/2023 14:39:04 07/11/2023 15:59:16 Missed miscarriage 30088920 O02.1 this patient presents for postop follow-up. She is 1 week postop from a suction D&C. She is recovering normally. Her bleeding is minimal. She has no foul-smell ing vaginal discharge. She denies any nausea, vomiting, fever, chills. We discussed contracept ion. We discussed future . She will follow up for a repeat test. [id number] Sixto Cordova MD [place] [address] [address] 11/10/2023 15:36:33 11/10/2023 16:30:19 Amenorrhea 52662253 N91.2 Gynecologi c examination 72127419 Z01.419 Annual gynecologi eusebia exam performed. Patient [...] -done Pap smear- laboratory evaluation - na [id number] Sixto Cordova MD [place] [address] [address] 11/17/2023 17:11:32 11/18/2023 09:12:27 Recurrent miscarriage 605516707 N96 this patient is a 43-year-ol d female presents for follow-up on recurrent miscarriag e. We agreed to do the evaluation for recurrent miscarriag e. She has had multiple ultrasound s in the uterus appears to be normal. We are going to obtain the laboratory evaluation . We discussed causes of recurrent miscarriag e. We talked about the genetics. [id number] Sixto Cordova MD [place] [address] [address] 03/12/2024 14:58:17 03/12/2024 16:03:21 Pain in pelvis 28694088 R10.2 N97.9 This patient is a 41-year-ol [...] evaluation , progestero ne and baby aspirin. [id number] Sixto Cordova MD [place] [address],[place] [address] 03/29/2024 17:46:38 03/30/2024 06:22:04 Pain in pelvis 08520138 R10.2 This patient is a 41-year-ol d [...] evaluation , progestero ne and baby aspirin. [id number] Sixto Cordova MD [place] [address],[place] [address] 04/08/2024 11:51:57 04/09/2024 05:54:19 Pain in pelvis 58900453 R10.2 Cyst of ovary 04166966 N 83.209 this patient is a 44-year-ol [...] observe with repeat ultrasound the ovarian cyst. [id number] MD Sukhwinder Marquez [address] [address] 06/10/2024 14:44:27 06/10/2024 15:40:12 Cyst of left ovary [id number] 0231744 N83.202 [id number] Sixto Cordova MD [place] [address] [address] 10/18/2024 15:31:26 10/18/2024 16:16:37 Uncertain viability of 860228023 O36.80X0 O02.81 Z3A.01 Health Concerns Section Related Observation LastModified by Organization Detai ls LastModified Time None Recorded Concern Status LastModified by Organization Details LastModified Time None Recorded Advance Directives Directive N: Payers Insurance Date Sequence Insurance Name Policy Number Policy Mancera Covered Member ID Mancera Member ID Guarantor Name 04/28/2024 1 *SELF PAY* Je ssica Ollenbittle 05/25/2024 1 [place] [employer] Arin Ollenbittle [id number] Arin Ollenbittle 05/13/2024 1 [employer] [id number] Arin Ollenbittle [id number] Arin Ollenbittle 10/16/2024 1 [facility] (HMO) ILONEX Arin Ollenbittle [id number] Arin Ollenbittle 11/09/2023 1 [facility] PRIOR TO 09/28/2020 (MEDICAID REPLACEMENT - HMO) Arin Ollenbittle [id number] Arin Ollenbittle 05/25/2024 1 [facility] ON OR AFTER 09/28/20 (MEDICAID REPLACEMENT - HMO) Arin Ollenbittle [id number] Arin Ollenbittle Notes Date Note Type Note Provider Name and Address Organization Details Recorded Time 03/12/2024 text/html this patient is a 43-year-old [...] chills. Sixto Cordova MD [address] [place], [address], [facility] 03/12/2024 16:00:51 04/08/2024 text/html this patient [...] cyst. Sixto Cordova MD [address] Fam, [place], [address], [facility] 04/08/2024 19:12:28 OBGyn Episode Ob Episode Information Episode Created Date Number of Fetuses Patient Bloodtype Patient rh Status Prepregnancy Weight lbs Domestic Partner Domestic Partner Phone Father Name Enrollment Processor Status 10/18/19 20 1 CLOSED Fetus Data [...] Domestic Partner Domestic Partner Phone Father Name Enrollment Processor Status 10/18/19 20 2 CLOSED Fetus Data [...] Domestic Partner Domestic Partner Phone Father Name Enrollment Processor Status 10/18/19 20 1 CLOSED Fetus Data [...] Domestic Partner Domestic Partner Phone Father Name Enrollment Processor Status 06/04/19 21 1 CLOSED Fetus Data [...] Domestic Partner Domestic Partner Phone Father Name Enrollment Processor Status 11/13/19 24 1 CLOSED Fetus Data First Name Last Name Admitted to NICU Weight (g) Sex Living Outcome Pediatric Complications Fetus ID Race Codes Race Delivery Type , Spontane ous [id number] Hai Calculation Initial Hai Date Initial Exam [...] Domestic Partner Domestic Partner Phone Father Name Enrollment Processor Status 07/03/19 24 1 CLOSED Fetus Data First Name Last Name Admitted to NICU Weight (g) Sex Living Outcome Pediatric Complications Fetus ID Race Codes Race Delivery Type , Spontane ous [id number] Hai Calculation Initial Hai Date Initial Exam [...] Domestic Partner Domestic Partner Phone Father Name Enrollment Processor Status 10/12/19 25 1 CLOSED Fetus Data First Name Last Name Admitted to NICU Weight (g) Sex Living Outcome Pediatric Complications Fetus ID Race Codes Race Delivery Type , Spontane ous [id number] Hai Calculation Initial Hai Date Initial Exam [...]
--- OUTSIDE RECORDS SUMMARY | 2024-10-18 15:30 | XMS_ITS | Referral Summary ---
Author Organization [facility] Address [address] [place] [address] Care Team Providers Care Date Pitter Name Role Phone Arniemaria antonia Win Hanson DO Primary Care Provider +1- [phone] Christiana Scott PT Unavailable Unavailable Allergies Active [...] on file Legal Sex Female 7:25 PM HAIR TINTER Gender Identity Not on file Sexual Orientation Not on file Last Filed Vital Signs Vital Sign Reading Time Taken Comments Blood Pressure 115/77 03/12/2024 3:15 PM HAIR TINTER Pulse 68 03/12/2024 3:15 PM HAIR TINTER Temperature 37.1 C (98.7 F) 09/30/2023 2:47 PM CDT Respiratory Rate 16 03/12/2024 3:15 PM HAIR TINTER Oxygen Saturation 98% 12/04/2023 2:32 PM CDT Inhaled Oxygen Concentration - - Weight 73.1 kg (161 lb 3.2 oz) 03/12/2024 3:15 P M HAIR TINTER Height 165.1 cm (5' 5) 03/12/2024 3:15 PM HAIR TINTER Body Mass Index 26.83 03/12/2024 3:15 PM HAIR TINTER Plan of Treatment Not on file Insurance [facility] Care Teams Date Pitter Relationship Specialty Start Date End Date Win Feng DO PCP - General 01/06/09 Christiana Scott PT Physical Therapist Physical Therapy 02/04/24
[2024-10-18 16:31] LABS: Beta HCG Quantitative 5323.40 mIU/ML
== END 2024-10-18 15:26 | disposition home or self-care (01) ==
PROVIDERS: PCP Family Medicine; Visit Provider Obstetrics & Gynecology
DX: O36.80X0 Pregnancy with inconclusive fetal viability, not applicable or unspecified (principal); Z3A.00 Weeks of gestation of pregnancy not specified; I10 Essential (primary) hypertension
CPT/HCPCS: 36415; 84702

== ENCOUNTER 2024-11-01 10:49 | Outpatient (RCR) | payer OTHER, SELFPAY ==
[2024-10-29 17:16] LABS: Beta HCG Quantitative 11832.00 mIU/ML
[2024-11-01 12:04] LABS: Beta HCG Quantitative 13667.00 mIU/ML
== END 2025-01-27 23:59 | disposition home or self-care (01) ==
LOC: ANHLAB 10:49
PROVIDERS: PCP Family Medicine; Visit Provider Obstetrics & Gynecology
DX: O36.80X0 Pregnancy with inconclusive fetal viability, not applicable or unspecified (principal); Z3A.00 Weeks of gestation of pregnancy not specified
CPT/HCPCS: 36415; 84702

== ENCOUNTER 2024-11-04 03:15 | Day surgery (SDC) | payer OTHER, SELFPAY ==
[2024-11-03 11:26] VITALS: BMI 25.0
--- NOTE | 2024-11-03 11:31 | PC.NURSE ---
Report to the Outpatient Waiting Room, entrance under the green pavilion located off [facility], at time _0800_ on date _[id number]_. Planned Procedure Time: _1000_.? Time changes happen often and if your time is changed the preop area will call you the afternoon before. - You and your visitor will be asked to self-screen and do not enter if you have any COVID symptoms. Please call surgeon if you need to reschedule. - A mask is optional within the hospital at this time. Patients may have clear liquids (water, carbonated beverages, clear teas, apple juice) until 3 hours prior to surgery with a maximum of 20 ounces. - No food from midnight until time of surgery and no smoking, or chewing tobacco (or any form of nicotine). No chewing gum, candy or mints. Take only the following medications with a SIP of water on the morning of surgery: ___None____ DO NOT STOP ANY OF YOUR OTHER PRESCRIPTION MEDICATIONS PRIOR TO SURGERY EXCEPT THE FOLLOWING Hold all vitamins and supplements for 3 days per anesthesiologist. Medications to discontinue per physician Date to take last dose Please no make-up, nail turkish, hairspray, perfume, deodorant, or body powder the day of surgery.? No jewelry (including any body piercings) or valuables the day of surgery, leave them at home.? Please take a shower or bath the night before, or the morning of, surgery with an antibacterial soap.? Wear comfortable, loose fitting clothing.? - Jewelry must be removed prior to entering the operating room.? Rings and piercings that are not removed may be cut off. - The hospital will not accept responsibility for valuables.? - Please leave all valuables, including medications, at home the day of surgery. If you are going home after surgery, a licensed tier truck driver must drive you home.? - NO public transportation without another adult if you receive anesthesia. - We recommend that an adult stay with you for 24 hours following discharge. - We also recommend that you do not drive, make important decision, drink alcoholic beverages, or take any drugs that were not prescribed by your health care provider for at least 24 hours after your discharge time. Follow any additional instructions given to you from your surgeon. Telephone instructions given to __Arin__and asked if any additional questions and then verbalized understanding. Patient advised to call surgeon office or pre surgery nurse liaison [phone] if any additional questions.
--- OUTSIDE RECORDS SUMMARY | 2024-11-04 03:17 | XMS_ITS | Clinical Summary ---
Author Organization 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 on file Not on file Not on file Last Filed Vital Signs Vital Sign Reading Time Taken Comments Blood Pressure 100/60 04/17/2021 1:02 PM AIR CONDITIONING COIL ASSEMBLER Pulse 85 04/17/2021 1:02 PM AIR CONDITIONING COIL ASSEMBLER Temperature 36.6 C (97.9 F) 04/17/2021 1:02 PM AIR CONDITIONING COIL ASSEMBLER Respiratory Rate 16 04/17/2021 1:02 PM AIR CONDITIONING COIL ASSEMBLER Oxygen Saturation 99% 04/17/2021 1:02 PM AIR CONDITIONING COIL ASSEMBLER Inhaled Oxygen Concentration - - Weight 70.3 kg (155 lb) 04/17/2021 1:02 PM AIR CONDITIONING COIL ASSEMBLER Height 165.1 cm (5' 5) 03/22/2018 11:41 AM AIR CONDITIONING COIL ASSEMBLER Body Mass Index 25.79 03/22/2018 11:41 AM AIR CONDITIONING COIL ASSEMBLER Plan of Treatment Health Maintenance Due Date Last Done Comments Hepatitis C Virus (HCV) Screening 1980 TdaP Immunization 1980 Hepatitis B Immunization (1 of 3 - 19+ 3-dose series) 1999 Pap Smear 2001 Human Papillomavirus (HPV) Immunization (1 - 3-dose SCDM series) 2007 Cervical Cancer Screening (CCS) 2010 HPV/Cotest 2010 [...] Insurance MEDICAID [employer] Care Teams Acetone Button Paster Relationship Specialty Start Date End Date Win Feng DO [address] [place] [address] PCP - General Family Medicine 01/07/17
--- OUTSIDE RECORDS SUMMARY | 2024-11-04 03:17 | XMS_ITS ---
Author Name MARLO VERDIN Address [address] [place] [address] Phone [facility] Address [address] [place] [address] Phone Care Team Providers Care Product Assurance Engineer Name Role Phone DO MARLO VERDIN Unavailable ALLERGIES, ADVERSE REACTIONS AND ALERTS Allergy Name Allergy Date Allergy Status Allergy Severity Allergy Reaction Acetaminophen, [RxNorm: 161] 05/14/2012 Current Mental Status Changes and Insomnia Oxycodone, [RxNorm: 7804] 05/14/2012 Current Mental Status Changes and Insomnia zoloft, [RxNorm: 92038] 12/06/2013 Current rash MEDICATIONS RxNorm Brand Name Prescription Ordered Value Order Unit Start Date Date Status Fill Status Indications 931390 Xopenex 1.25 mg/3 mL Solution for Nebuliza tion XopenexSi.25 mg/3 mL, Solution for Nebulization, Every 8 hours , Routine, Inhalation, Dispense #, 0 Refills Solutio n for Nebuliz ation 2011 Historic [id number] albutero l sulfate 90 mcg/actu ation HFA [...] 0 Refills tablet, subling ual 2011 Historic [id number] Benzac AC 5 % Gel Benzac ACSi %, Gel, Apply every day to affected areas, Routine, Topical, Dispense #, 0 Refills Gel 2011 Historic [id number] Combiven t Respimat 20-100 mcg/actu ation Aerosol Combivent RespimatSi-100 mcg/actuation, Aerosol, 2 puffs every 4 hours, PRN, Inhalation, 30 daysDispense #1, 0 Refills 1 Aerosol 2012 013 Historic [id number] Medrol (Paul) 4 mg tablets, dose pack Medrol (Paul)Si mg, tablets,dose pack, as directed, Routine, Oral, 5 daysDispense #1, 0 Refills 1 tablets ,dose pack 2012 013 Historic [id number] Augmenti n 875-125 mg tablet AugmentinSi-125 mg, tablet, BID (# per day: 2.00)BID, Routine, Oral, 14 daysDispense #28, 0 Refills 28 tablet 2012 013 Historic [id number] Combiven t Respimat 20-100 mcg/actu ation Aerosol Combivent RespimatSi-100 mcg/actuation, Aerosol, 1 puff four times per day, PRN, Inhalation, 30 daysDispense #1, 0 Refills 1 Aerosol 2012 013 Historic [id number] Ventolin HFA 90 mcg/actu ation HFA aerosol inhaler Ventolin HFASi mcg/actuation, HFA aerosol inhaler, two puff every 4 hours , PRN, inhalation, Dispense #1, 1 Refill 1 HFA aerosol inhaler 2013 014 Historic [id number] Singulai r 10 mg tablet SingulairSi mg, tablet, QD (# per day: 1.00), Routine, oral, 30 daysDispense #30, 2 Refills 30 tablet 2013 014 Historic [id number] ProAir HFA 90 mcg/actu ation HFA aerosol inhaler ProAir HFASi mcg/actuation, HFA aerosol inhaler, two puff every 4 hours, PRN, inhalation, Dispense #1, 0 Refills 1 HFA aerosol inhaler 2013 014 Historic [id number] predniso ne 10 mg tablet prednisoneSi mg, tablet, taper: 4 tablets per day for 3 days, then 3 tablets per day for 3 days, then 2 tablets per day for 3 days, then 1 tablet per day for 3 days, Routine, oral, 12 daysDispense #30, 0 Refills 30 tablet 2013 014 Historic [id number] Benzac AC 5 % Gel SIG: Benzac AC 5 % Gel, 0 days, Dispense #1 Tube, 0 RefillsDirecti ons: Apply daily to affected areas 1 Gel 2013 Historic [id number] Singulai r 10 mg tablet SIG: Singulair 10 mg tablet, 30 days, Dispense #30 Tablet, 5 RefillsDirecti ons: Take 1 oral tablet once a day 30 tablet 2013 Historic [id number] Zoloft 50 mg tablet SIG: Zoloft 50 mg tablet, days, Dispense #60 Tablet, 0 RefillsDirecti ons: take 0.5 tablet for at least 3 days then increase to 1 tablet, increase to 1.5 tablets if tolerable 60 tablet 2013 Historic [id number] doxycycl ine hyclate 100 mg tablet SIG: doxycycline hyclate 100 mg tablet, 30 days, Dispense #30 Tablet, 5 RefillsDirecti ons: Take 1 oral tablet once a day 30 tablet 2013 Historic [id number] Medrol (Paul) 4 mg tablets, dose pack SIG: Medrol (Paul) 4 mg tablets,dose pack, 5 days, Dispense #1 Pack, 0 RefillsDirecti ons: as directed 1 tablets ,dose pack 2013 Historic [id number] Lexapro 10 mg tablet SIG: Lexapro 10 mg tablet, 30 days, Dispense #30 Tablet, 1 RefillsDirecti ons: Take 1 oral tablet once a day 30 tablet 2013 Historic [id number] Singulai r 10 mg tablet SIG: Singulair 10 mg tablet, 30 days, Dispense #30 Tablet, 5 RefillsDirecti ons: Take 1 oral tablet once a day 30 tablet 2013 Historic [id number] Singulai r 10 mg tablet SIG: Singulair 10 mg tablet, 30 days, Dispense #30 Tablet, 5 RefillsDirecti ons: Take 1 oral tablet once a day 30 tablet 2014 Historic [id number] Ventolin HFA 90 mcg/actu ation HFA aerosol inhaler SIG: Ventolin HFA 90 mcg/actuation HFA aerosol inhaler, 0 days, Dispense #1 Inhaler, 0 RefillsDirecti ons: two puffs every 4 hours 1 HFA aerosol inhaler 2014 Historic [id number] clobetas ol 0.05 % cream SIG: clobetasol 0.05 % cream, days, Dispense #30 Gram, 0 RefillsDirecti ons: apply twice daily to upper abdomen as needed 30 cream 2014 Historic [id number] Augmenti n 875-125 mg tablet SIG: Augmentin 875-125 mg tablet, 14 days, Dispense #28 Tablet, 0 RefillsDirecti ons: Take 1 oral tablet 2 times a day 28 tablet 2014 015 Historic [id number] Singulai r 10 mg tablet SIG: Singulair 10 mg tablet, 30 days, Dispense #30 Tablet, 5 RefillsDirecti ons: Take 1 oral tablet once a day 30 tablet 2014 Historic [id number] Macrobid 100 mg capsule SIG: Macrobid 100 mg capsule, 5 days, Dispense #10 Capsule, 0 RefillsDirecti ons: Take 1 oral capsule 2 times a day 10 capsule 2014 Historic [id number] Medrol (Paul) 4 mg tablets, dose pack SIG: Medrol (Paul) 4 mg tablets,dose pack, 5 days, Dispense #1 Pack, 0 RefillsDirecti ons: as directed 1 tablets ,dose pack 2014 015 Historic [id number] monteluk ast 10 mg tablet SIG: montelukast 10 mg tablet, Dispense # 30, 5 RefillsDirecti ons: TAKE ONE TABLET BY MOUTH ONCE DAILY 30 tablet 2015 016 Historic [id number] Flonase Allergy Relief 50 mcg/actu ation spray,lowe spension SIG: Flonase Allergy Relief 50 mcg/actuation spray,suspensi on, 1 days, Dispense #1 [place], 0 RefillsDirecti ons: 2 squirts into each nostril daily 1 spray,s uspensi on 2015 Historic [id number] Vitamin D3 1,000 unit tablet SIG: Vitamin D3 1,000 unit tablet, 30 days, Dispense #30 Tablet, 0 RefillsDirecti ons: Take 1 oral tablet once a day 30 tablet 2015 Historic [id number] fluticas one 50 mcg/actu ation spray,lowe spension SIG: fluticasone 50 mcg/actuation spray,suspensi on, Dispense # 16, 2 RefillsDirecti ons: USE TWO SPRAY(S) IN EACH NOSTRIL ONCE DAILY 16 spray,s uspensi on 2015 016 Historic [id number] Wellbutr in XL 150 mg tablet extended release 24 hr SIG: Wellbutrin XL 150 mg tablet extended release 24 hr, 30 days, Dispense #30 Tablet, 1 RefillsDirecti ons: Take 1 oral tablet every morning 30 tablet extende d release 24 hr 2015 Historic [id number] monteluk ast 10 mg tablet SIG: montelukast 10 mg tablet, Dispense # 30, 5 RefillsDirecti ons: TAKE ONE TABLET BY MOUTH ONCE DAILY 30 tablet 2015 016 Historic [id number] Medrol (Paul) 4 mg tablets, dose pack SIG: Medrol (Paul) 4 mg tablets,dose pack, 5 days, Dispense #1 Pack, 0 RefillsDirecti ons: as directed 1 tablets ,dose pack 2015 Historic [id number] fluticas one 50 mcg/actu ation spray,lowe spension SIG: fluticasone 50 mcg/actuation spray,suspensi on, Dispense # 16, 1 RefillsDirecti ons: USE TWO SPRAY(S) IN EACH NOSTRIL ONCE DAILY 16 spray,s uspensi on 2015 016 Historic [id number] Temovate 0.05 % cream SIG: Temovate 0.05 % cream, 5 days, Dispense #10 Gram, 0 RefillsDirecti ons: apply to left neck twice a day 10 cream 2016 Historic [id number] clobetas ol 0.05 % cream SIG: clobetasol 0.05 % cream, days, Dispense #10 Gram, 0 RefillsDirecti ons: apply to left neck twice a day 10 cream 2016 Historic [id number] betameth asone valerate 0.1 % cream SIG: [...] once a day 30 tablet 2016 Historic [id number] Madeleine Allergy 180 mg tablet SIG: Madeleine [...] ONCE DAILY 30 tablet 2017 018 Historic [id number] fluticas one 50 mcg/actu ation spray,lowe spension SIG: fluticasone 50 mcg/actuation spray,suspensi on, Dispense # 16, 1 RefillsDirecti ons: USE TWO SPRAY(S) IN EACH NOSTRIL ONCE DAILY 16 spray,s uspensi on 2017 018 Historic [id number] Adacel(T dap Adolesn/ Adult)(P F) 2 Lf-(2.5- 5-3-5 mcg)-5Lf /0.5 mL suspensi on SIG: Adacel(Tdap Adolesn/Adult) (PF) 2 Lf-(2.5-5-3-5 mcg)-5Lf/0.5 mL intramuscular suspension, 1 days, Dispense #1 Syringe, 0 RefillsDirecti ons: Inject 1 dose syringe via intramuscular one time 1 suspens ion 2017 Historic [id number] fluticas one 50 mcg/actu ation spray,lowe spension SIG: fluticasone 50 mcg/actuation spray,suspensi on, Dispense # 16, 1 RefillsDirecti ons: USE TWO SPRAY(S) IN EACH NOSTRIL ONCE DAILY 16 spray,s uspensi on 2017 018 Historic [id number] Augmenti n 875-125 mg tablet SIG: Augmentin 875-125 mg oral tablet, 42 days, Dispense #84 Tablet, 0 RefillsDirecti ons: Take 1 oral tablet 2 times a day 84 tablet 2017 019 Historic [id number] Ultram 50 mg tablet SIG: Ultram 50 mg oral tablet, 7 days, Dispense #20 Tablet, 0 RefillsDirecti ons: Take 1 oral tablet every 8 hours as needed for moderate to severe pain 20 tablet 2018 Historic [id number] Microges tin FE /20 (28) 1 mg-20 mcg (21)/75 mg (7) tablet SIG: Microgestin FE /20 (28) 1 mg-20 mcg (21)/75 mg (7) oral tablet, 30 days, Dispense #30 Tablet, 0 RefillsDirecti ons: Take 1 oral tablet once a day 30 tablet 2018 Historic [id number] Imitrex 50 mg tablet SIG: Imitrex 50 mg oral tablet, 10 days, Dispense #10 Tablet, 0 RefillsDirecti ons: Take 1 tablet by mouth at onset of headache, may repeat after 1 hour if headache still present; no more than 4 doses in 24 hours 10 tablet 2020 Historic [id number] Augmenti n 875-125 mg tablet SIG: Augmentin 875-125 mg oral tablet, 14 days, Dispense #28 Tablet, 0 RefillsDirecti ons: Take 1 oral tablet 2 times a day 28 tablet 2020 Historic [id number] Imitrex 50 mg tablet SIG: Imitrex 50 [...] capsule once daily 30 capsule 2022 Current [id number] triamcin olone acetonid e 0.1 % cream SIG: triamcinolone acetonide 0.1 % topical cream, 14 days, Dispense #30 Gram, 0 RefillsDirecti ons: Apply topical cream to affected areas as needed until resolution or up to 2 weeks 30 cream 2022 023 Historic [id number] meloxica m 15 mg tablet SIG: meloxicam [...] HAND PAIN IN LEFT HAND Chronic 07/22/2018 K90.46-NHE-UHTAEW GLUTEN SENSITIVITY NON-CELIAC GLUTEN SENSITIVITY Chronic 10/12/2018 [...] Never Smoker Sex: Female CARE TEAM INFORMATION Product Assurance Engineer Provider ID Role Location Phone MARLO VERDIN [id number] PHYSICIAN [address] [place] [address] INSURANCE PROVIDERS Payer Name Policy type / Coverage type Covered libertarian ID Policy [employer] [facility] Unavailable / Unknown [id number] SELF
--- OUTSIDE RECORDS SUMMARY | 2024-11-04 03:17 | XMS_ITS | Clinical Summary ---
Author Organization [facility] Address [address] [place] [address] Care Team Providers Care Coffee Grower Name Role Phone Arniemaria antonia Win Hanson DO Primary Care Provider +1- [phone] Christiana Scott PT Unavailable Unavailable Allergies Active [...] on file Legal Sex Female 7:25 PM SURGICAL COORDINATOR Gender Identity Not on file Sexual Orientation [...] Comments Blood Pressure 115/77 03/12/2024 3:15 PM SURGICAL COORDINATOR Pulse 68 03/12/2024 3:15 PM SURGICAL COORDINATOR Temperature 37.1 C (98.7 F) 09/30/2023 2:47 PM CDT Respiratory Rate 16 03/12/2024 3:15 PM SURGICAL COORDINATOR Oxygen Saturation 98% 12/04/2023 2:32 PM CDT Inhaled Oxygen Concentration - - Weight 73.1 kg (161 lb 3.2 oz) 03/12/2024 3:15 P M SURGICAL COORDINATOR Height 165.1 cm (5' 5) 03/12/2024 3:15 PM SURGICAL COORDINATOR Body Mass Index 26.83 03/12/2024 3:15 PM SURGICAL COORDINATOR Plan of Treatment Health Maintenance Due Date Last Done Comments Cervical Cancer Screening 1980 Depression Screening 1980 Hepatitis C Screening 1980 DTaP/Tdap/Td Vaccine (1 - Tdap) 1991 Varicella Vaccines (1 of 2 - 13+ 2-dose series) 1993 Hepatitis B Screening 1998 Regular Well Visit/Exam 18-64 1998 Pneumococcal vaccine <65 (1 of 2 - PCV) 1999 Zoster Vaccine (1 of 2) 1999 HPV Vaccines (1 - 3-dose SCDM series) 2007 Covid-19 Vaccine (3 - Pfizer risk series) 01/29/2021 01/01/2021, 12/11/2020 Breast Cancer Screening-Mammogram 08/28/2024 024, 05/10/2021 Influenza Vaccine (#1) 2024 04/19/2008 Insurance [facility] Care Teams Coffee Grower Relationship Specialty Start Date End Date Win Feng DO PCP - General 01/06/09 Christiana Scott, PT Physical Therapist Physical Therapy 02/04/24
--- OUTSIDE RECORDS SUMMARY | 2024-11-04 03:17 | XMS_ITS | Clinical Summary ---
Author Organization [facility] Address [address] [place] [address] Care Team Providers Care Paper Machine Operator Name Role Phone Pia Fengbaltazar Moreau DO Primary Care Provider Source Comments [facility],non-owned Affiliates and Associated Physician Practices is amultiple site organization consisting of ambulatory clinics and hospital sitesin [place], [place], [place] and [place]. This disclosure is being madepursuant to the Care Everywhere program and may not contain all information available regarding this patient. Last updated 17.[facility] [employer] Allergies Active Allergy Reactions Criticality Noted Date [...] fluticasone propionate (FLONASE) 50 MCG/ACT nasal spray [place] 1 spray into the nose 7 Active loratadine (CLARITIN) 10 MG tablet Take 10 mg by mouth Active montelukast (SINGULAIR) 10 MG tablet Take 10 mg by mouth 7 Active Fexofenadine HCl (ALBERTA PO) Active fluticasone propionate (FLONASE) 50 MCG/ACT nasal spray [place] 1 spray into each nostril BID. 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 Gender Identity Not on file Sexual [...] topic Insurance MEDICAID - OUT OF STATE [facility] SELF PAY NO INSURANCE Member Subscriber Plan / Payer (Ef fective for All Dates) Name:Narcisa Fernandes R Member ID:Not on file Relation to Subscriber:Not on file Name:NARCISA FERNANDES Subscriber ID:Not on file Address: [address] [place] [address] Payer ID:Not on file Group ID:Not on file Type:Self Pay Address: [place], [place] [facility] SELF PAY NO INSURANCE Member Subscriber Plan / Payer (Ef fective for All Dates) Name:Narcisa Fernandes R Member ID:Not on file Relation to Subscriber:Not on file Name:HARRYNARCISA ESTEVEZ Subscriber ID:Not on file Address: [address] [place] [address] Payer ID:Not on file Group ID:Not on file Type:Self Pay Address: [place], [place] [facility] SELF PAY NO INSURANCE Member Subscriber Plan / Payer (Ef fective for All Dates) Name:Narcisa Fernandes Member ID:Not on file Relation to Subscriber:Not on file Name:NARCISA FERNANDES Subscriber ID:Not on file Address: [address] [place] [address] Payer ID:Not on file Group ID:Not on file Type:Self Pay Address: [place], [place] Care Teams Paper Machine Operator Relationship Specialty Start Date End Date Win Feng DO [address] [id number] PCP - General 02/05/16
[2024-11-04 09:15] VITALS: BP 103/66; PULSE 67; RESP 16; TEMP 36.2; O2SAT 100
[2024-11-04] MEDS: ACETAMINOPHEN 500 MG TABLET 1000 MG PO (09:15)
--- NOTE | 2024-11-04 09:47 | P.PNAN_ITS ---
Anes - Initial Pre Proc Eval Procedure: Operation Date: 11/04/24 10:00 Proposed Procedures p Suction Dilatation and Curettage - Sixto Cordova MD Date/Time: 11/04/24 09:47 Surgeon: Sixto Cordova MD Pre Op Diagnosis: missed AB Patient Data Age: 44 Gender: F Height: 1.68 m Weight: 70.5 kg Allergies Allergy/AdvReac Type Severity Reaction Status Date / Time No Known Allergies Allergy Verified 11/03/24 11:25 Home Medications ?Medication ?Instructions ?Recorded ?Confirmed ?Type vit no.95-ferrous 1 tablet PO DAILY 07/04/23 11/03/24 History fumarate 28 mg-folic acid 800 mcg tablet () Patient hx anesthesia problems: none Family hx anesthesia problems: none Results Review: All pre-operative results and documents have been reviewed as part of the pre- operative evaluation. [facility] Past Medical History Medical History delivery delivered X3 12/03/06 full term female 6lbs 11oz 07/02/04 full term male 6lbs 14oz 12/10/01 pre-term TWINS male 5lbs 07/24/99 full term female 6lbs 14oz Tubal reversal surgical follow up 05/07/19 Irritable bowel Mitral valve disorder Surgical History Surgical History [place] teeth removed H/O tubal ligation 12/03/06 Family History Family History Other Breast cancer Other Carcinoma of colon Grandparent Diabetes mellitus Father Heart attack Hypertension Hyperlipidemia Social History Social History Smoking status: Never smoker Alcohol intake: never Substance use: never Substance use type: does not use Living arrangements: with family Spiritual care concerns: No Anes - Eval Final PreProcedure Day of Procedure 11/04/24 09:47 Patient weight: normal Heart: regular rate and rhythm Lungs: clear to auscultation Airway: Mallampati scale class 1 Neurological: alert and oriented Last oral intake: >/= 8 hours ASA classification: II Emergent: no Anesthetic plan: proceed Anesthesia type and monitoring: general GIVS Results Review: All pre-operative results and documents have been reviewed as part of the pre- operative evaluation. Informed Consent: The patient's anesthetic plan and its attendant risks and benefits were discussed with the patient/family/POA. Questions were solicited and answers provided to the satisfaction of the patient/family/POA.
--- NOTE | 2024-11-04 09:55 | P.PNAN_ITS ---
Anes - Eval Final PreProcedure Day of Procedure 11/04/24 09:55 Patient weight: normal Heart: regular rate and rhythm Lungs: clear to auscultation Airway: Mallampati scale class II Neurological: alert and oriented Last oral intake: >/= 8 hours ASA classification: II Emergent: no Anesthetic plan: proceed Anesthesia type and monitoring: general GIVS and standard monitoring Results Review: All pre-operative results and documents have been reviewed as part of the pre- operative evaluation. Informed Consent: The patient's anesthetic plan and its attendant risks and benefits were discussed with the patient/family/POA. Questions were solicited and answers provided to the satisfaction of the patient/family/POA.
--- NOTE | 2024-11-04 09:58 | PM.IMHP ---
H&P: HPI History of Present Illness Date/Time: 11/04/24 09:58 Chief Complaint: Miscarriage Narrative: This patient is a 44-year-old female with missed miscarriage. We have agreed to perform suction D&C. She understands risks, benefits, and alternatives. She has completed informed consent process and is ready to proceed The patient understands the details of the procedure. The procedure has been explained in detail. She understands the risks. She understands that injuries may occur that result in hospitalization, more surgery, and severe illness. She understands risk of hemorrhage and infection. She denies any chest pain or shortness of breath. She denies any nausea, vomiting, fever, chills. Review of Systems Review of Systems: All systems reviewed & are unremarkable except as noted in HPI and below Constitutional: Constitutional: Denies chills, Denies fatigue, Denies fever(s) and Denies weakness Eyes: Eyes: Denies blurry vision, Denies change in vision, Denies loss of peripheral vision, Denies loss of vision, Denies other visual disturbances and Denies eye pain ENT: Denies vertigo, Denies dizziness, Denies hearing loss, Denies mouth pain, Denies nasal obstruction, Denies neck mass and Denies neck pain Cardiovascular: Cardiovascular: Denies chest pain, Denies diaphoresis, Denies syncope, Denies leg edema and Denies dyspnea Respiratory: Respiratory: Denies chest congestion, Denies cough, Denies hemoptysis, Denies dyspnea and Denies wheezing Gastrointestinal: Gastrointestinal: Denies abdominal pain, Denies constipation, Denies diarrhea, Denies nausea and Denies vomiting Genitourinary: Genitourinary: Denies hematuria, Denies change in libido, Denies nocturia, Denies genital lesions, Denies flank pain and Denies urinary urgency Musculoskeletal: Musculoskeletal: Denies abnormal gait, Denies back pain, Denies myalgias, Denies arthralgias, Denies joint swelling, Denies muscle weakness and Denies neck pain Integumentary/Breasts: Skin/Breast: Denies swelling, Denies breast pain, Denies breast mass, Denies dry skin, Denies nipple discharge, Denies unusual bruising and Denies jaundice Neurologic: Denies Neuro-related abnormal movements, Denies Abnormal speech present, Denies abnormal gait, Denies behavioral changes, Denies confusion, Denies vertigo, Denies dizziness, Denies syncope, Denies loss of vision, Denies memory loss, Denies convulsions and Denies weakness Psychiatric: Psychiatric: Denies abnormal sleep pattern, Denies behavioral changes, Denies change in libido, Denies confusion, Denies depression, Denies anhedonia and Denies memory loss Endocrine: Endocrine: Reports no additional endocrine complaints, Denies change in libido and Denies fatigue Hematologic/Lymphatic: Hematologic/Lymphatic: Reports no additional hematologic/lymphatic complaints Allergic/Immunologic: Allergic/Immunologic: Reports no additional allergic/immunologic complaints and Denies wheezing PMFSH Past Medical History Medical History (Updated 11/04/24 @ 09:59 by Sixto Cordova MD) delivery delivered X3 12/03/06 full term female 6lbs 11oz 07/02/04 full term male 6lbs 14oz 12/10/01 pre-term TWINS male 5lbs 07/24/99 full term female 6lbs 14oz Tubal reversal surgical follow up 05/07/19 Irritable bowel Mitral valve disorder Surgical History Surgical History [place] teeth removed H/O tubal ligation 12/03/06 Family History Family History Other Breast cancer Other Carcinoma of colon Grandparent Diabetes mellitus Father Heart attack Hypertension Hyperlipidemia Social History Social History Smoking status: Never smoker Alcohol intake: never Substance use: never Substance use type: does not use Living arrangements: with family Spiritual care concerns: No Meds Home Medications and Allergies Home Medications ?Medication ?Instructions ?Recorded ?Confirmed ?Type vit no.95-ferrous 1 tablet PO DAILY 07/04/23 11/03/24 History fumarate 28 mg-folic acid 800 mcg tablet () Allergies Allergy/AdvReac Type Severity Reaction Status Date / Time No Known Allergies Allergy Verified 11/03/24 11:25 Exam Const: General: cooperative, healthy appearing, comfortable and no acute distress Orientation/consciousness: oriented to person, oriented to place and oriented to time HENMT: Head: normal to inspection Ears: external ears normal Face/Nose/Sinus: Normal external nose present and normal facial exam Face and sinus: normal facial exam Eyes: General: appearance normal, both eyes and all related structures Neck: Neck: normal visual inspection, trachea midline and supple Resp: Auscultation: clear to auscultation bilaterally, no crackles, no rales, no rhonchi and no wheezes Cardio: Rate: regular rate Rhythm: regular rhythm Heart sounds: no click, no murmurs and no rubs GI: GI Palp: No abdominal tenderness, No Soft to palpation, No Tenderness to palpation present (GI) and No Palpable mass present Auscultation: normal bowel sounds Skin: General skin exam: normal color and no rashes or lesions noted Neuro: General: oriented to person, oriented to place and oriented to time Extrem: General: normal to inspection, no joint enlargement, no clubbing, cyanosis or edema, no pedal edema and no calf tenderness Psych: Appearance: grossly normal Mental Status: mental status grossly normal Speech and movement: Normal speech and movement present Assessment and Plan Assessment and plan (1) Missed : Code(s): O02.1 - Missed Status: Acute Plan This patient is a 44-year-old female with missed miscarriage. We have agreed to perform suction D&C. She understands risks, benefits, and alternatives. She has completed informed consent process and is ready to proceed
--- NOTE | 2024-11-04 09:59 | WPDHPUPDATE1 ---
History and Physical Update Update Date/Time: 11/04/24 09:59 History and Physical has been reviewed, including an updated exam of the patient. There are NO changes in the patient's condition. Risks, benefits, and alternatives have been discussed and questions answered. Patient agrees to proceed with procedure.
--- NOTE | 2024-11-04 10:34 | S_PTH ---
PATIENT: Arin Infante LOC: [facility] U#:[id number] AGE/SX: 44/F ROOM: RE11/04/[address]: Sixto Cordova MD : 1980 BED: DIS: 11/04/2024 SPEC #: [id number] RECD: 11/04/24 13:12 STATUS: CAROLANN REQ #: [id number] ZORAN: 11/04/24 10:[address]: Sixto Cordova DEPT: [facility] Surgical RECD BY: Kelsie Bravo ENTERED: 11/04/24 13:13 SP TYPE: Surgical OTHR DR: OPERATIONS MANAGER/COORDINATOR PHYSICIAN Tissues: A - Uterine Contents Procedures: Hematoxylin and Eosin Stain Gross and Microscopic Level 4
[2024-11-04] MEDS: LIDOCAINE 1% LOCAL INJ 10 ML VIAL INFILTRATE (10:36)
[2024-11-04] MEDS: KETOROLAC 30 MG/ML VIAL (*BKC) IV PUSH (10:37)
[2024-11-04 10:41] VITALS: BP 99/68; PULSE 80; RESP 14; O2SAT 100
[2024-11-04] MEDS: LACTATED RINGERS 1,000 ML 30 ML IV CONT (10:41)
--- NOTE | 2024-11-04 10:45 | W.PM.PROC2 ---
Procedure Note - Detailed Date of Procedure 11/04/24 Pre-op Diagnosis missed AB Post-op Diagnosis Same Procedure Performed Suction D&C, with hysteroscopy Surgeon Sixto Cordova MD Anesthesia MAC Indications missed Findings normal-appearing vulva vagina and cervix to. Moderate amount of products conception within the uterus. 8 cm uterus Description of Procedure the patient was taken the operating room. She was prepped and draped in dorsal lithotomy position after induction of mac anesthesia. A speculum was placed in the vagina. Cervix grasped with tenaculum. Cervix could not be passed with dilators. Hysteroscope was then brought in used to find the internal os of the cervix. Scope was passed through the internal os the cervix. The intrauterine cavity was examined. Cervix then could be dilated to about 1 cm Using Padilla dilators. A 8. Portuguese curved curette was used to perform suction D&C. The curette was introduced and vacuum was applied. The curette was removed over all surfaces of the intrauterine cavity multiple times. This was done until all the surfaces were clear and had the familiar grainy texture they can be felt through the instrument. A sharp curette was then used to curettage all the surfaces. The suction cup was then reapplied 1 more time to remove any debris. Hysteroscope was inserted in the endometrium was found to be clear of any products. The instruments were removed. The speculum and tenaculum were removed. The patient tolerated the procedure well. She was taken recovery room stable condition. Estimated Blood Loss 50 Drains No Packing No Pathology Yes Complications No immediate complications Condition Stable Disposition PACU
[2024-11-04 11:00] VITALS: BP 110/66; PULSE 61
--- NOTE | 2024-11-04 11:02 | SUR.PREOP ---
PT DOCUMENTED TO HAVE A+ BLOOD TYPE. DR CORRAL WAIVED THE RHOGAM.
[2024-11-04] MEDS: oxyCODONE HCL (*CRX) 5 MG TAB IR PO (11:27)
[2024-11-04 11:30] VITALS: BP 100/62; PULSE 60
[2024-11-04 11:40] VITALS: BP 102/62; PULSE 58
== END 2024-11-04 11:50 | disposition home or self-care (01) ==
PROVIDERS: Visit Provider Obstetrics & Gynecology
PROC: (CPT 59820; principal; 2024-11-04 10:00)
DX: O02.1 Missed abortion (principal)
CPT/HCPCS: 59820; 88305; A9270; J1100; J1885; J2003; J2250; J2405; J2704; J3010; J7120

== ENCOUNTER 2025-03-26 10:56 | Outpatient (CLI) | payer OTHER, SELFPAY ==
--- OUTSIDE RECORDS SUMMARY | 2025-03-26 11:11 | XMS_ITS | Continuity of Care Document ---
Author Organization MICAH Brinda POLANCO [facility] IM Address [address] [facility] [address] [place] [address] Care Team Providers Care Aeronautical Engineer Name Role Phone NARCISA BRIDGES Primary Care Provider NURA CORRAL Biazzi Nitrator Operator Assessment Encounter Date Assessment Date Assessment LastModified by Organization Details LastModified Time 02/17/2025 02/17/2025 Return as needed for routine care/annual visit [email or web address] Not available 02/17/2025 19:09:21 Plan of Treatment Reminders Order Date Submit Date Provider Last Modified By Organization Details Last Modified Time Details Appointments NEW PATIENT 30 2025 03:00P DAVID Chavez Not available Not available Not available Lab test, urine 2024 025 [email or web address] In-Office Order, Internal Use Only DO Not Attach Compendium DO Not Attach Compendium, Do Not Delete/merge, [id number] 02/17/2025 16:02:34 Referral None recorded. Procedures None recorded. Surgeries None recorded. Imaging None recorded. Medication Orders Pyridium 200 mg tablet 2024 025 [facility], [place], [address], 02/27/2025 05:02:37 fluconazo le 150 mg tablet 2024 025 [facility], [address], [place], [address], 02/25/2025 05:02:26 Patient TargetsNo targets recorded. Patient Instructions Encounter Date Encounter Id Patient Instructions Last Modified By Organization Details Last Modified Time 02/17/2025 [id number] I was present in the clinic to discuss this patient at the time of the visit. I agree with the documented assessment and plan Kat Juarez MD [email or web address] Not available 02/17/2025 16:29:03 Reason for Referral None Reported. Results Created Date Observation Date Name Description Value Unit Range Abnormal Flag Note LastModifiedBy Organization Detail LastModifiedTime 02/18/2002/17/2025 pregn siobhan test, urine HCG negati ve Not Available In-Office Order Internal Use Only DO Not Attach Compendium DO Not Attach Compendium, Do Not Delete/merge, [id number] 02/17/2025 15:37:24 Result Notes None recorded. Problems Name Problem SNOMED Code Status Onset Date Resolution Date Notes Provider Name and Address Organization Details Recorded Time Dysmenorrhea 433720096 Active Kinga ledesma MA null, [facility] 6 14:36:30 Problem Notes None recorded. Procedures Surgical History Date Name Laterality Status Provider Name and Address Organization Details Recorded Time 01/11/20 25 tuboplasty for sterilization reversal completed CHANTAL Banda [facility] 01/10/2025 14:22:23 03/12/20 24 Date of Last Pap Smear completed RENUKA Castellon [facility] 10/26/2024 16:27:04 11/10/19 24 Date of Last Mammogram completed RENUKA Castellon [facility] 10/26/2024 16:27:08 12/04/19 07 Tubal Ligation completed CHANTAL Fishman [facility] 08/25/2014 09:30:56 12/04/19 07 Caesarean Section completed CHANTAL Fishman [facility] 08/25/2014 09:30:56 12/11/19 02 Caesarean Section completed CHANTAL Fishman [facility] 08/25/2014 09:30:56 section completed CHANTAL Banda [facility] 01/10/2025 14:21:54 Imaging Results None recorded. Procedure Notes None recorded. Medical Equipment None Reported. Allergies Allergen ID Allergen Name Allergen Category Reaction Reaction Severity Criticality Documentation Date Start Date Code Code System Note Provider Name and Address Organization Details Recorded Time 407678 Zoloft medicatio n rash Not available unabletoasse 03/11/2017 85535 RxNorm Kayla Fontanez MA [facility], [facility] 5 16:08:47 [id number] Product containin g penicilli n (product) medicatio n dyspnea Not available Not available 03/11/20172016 40196 8001 SNOMED Pt not sure of aller gy but think s had short ness of breat h after takin g pcn as a child . Gloria Manzanares MD Attn: Accountin g,[address] [facility], [place], [address], [facility] 5 16:52:38 [id number] sertralin e medicatio n rash Not available [facility] 10/26/20242013 86800 RxNorm Gloria Manzanares MD Attn: Accountin g,[address] [facility], [place], [address], [facility] 5 16:52:45 Medications Name Sig Start Date Stop Date Status Note LastModified by Organization Details LastModified Time amoxicilli n 500 mg capsule TAKE 1 CAPSULE BY MOUTH THREE TIMES DAILY 12/07 completed Not Available Not Available Not Available cetirizine 10 mg tablet Take 1 tablet every day by oral route as needed. 2024 active Not Available Not Available Not Avai lable fluconazol e 150 mg tablet Take 1 tablet by oral route for 1 day. 02/25 completed Not Available Not Available Not Available fluconazol e 200 mg tablet TAKE 1 TABLET BY MOUTH EVERY OTHER DAY FOR 3 DOSES 10/26 completed pt is not taking 10/26/24 Not Available Not Available Not Available meloxicam 15 mg tablet TAKE 1 TABLET BY MOUTH ONCE DAILY 10/26 completed pt is not taking 10/26/24 Not Available Not Available Not Available prednisone 20 mg tablet TAKE 3 TABLETS DAILY FOR 3 DAYS, TAKE 2 TABLETS DAILY FOR 3 DAYS, THEN TAKE 1 TABLET DAILY FOR 3 DAYS 01/10 completed Not Available Not Available Not Available Pyridium 200 mg tablet Take 1 tablet 3 times a day by oral route for 3 days. 02/27 completed Not Available Not Available Not Available clobetasol 0.05 % topical cream 10/26 completed pt is not taking 10/26/24 Not Available Not Available Not Available sulfametho xazole 800 mg-trimeth oprim 160 mg tablet 10/26 completed pt is not taking 10/26/24 Not Available Not Available Not Available alprazolam 0.5 mg tablet 10/26 completed pt is not taking 10/26/24 Not Available Not Available Not Available betamethas one valerate 0.1 % topical cream 10/26 completed pt is not taking 10/26/24 Not Available Not Available Not Available cephalexin 500 mg capsule TAKE 1 CAPSULE BY MOUTH TWICE DAILY active Not Available Not Available No t Available estradiol 2 mg tablet TAKE 1 TABLET BY MOUTH ONCE DAILY active Not Available Not Available No t Available montelukas t 10 mg tablet 10/26 completed pt is not taking 10/26/24 Not Available Not Available Not Available methylpred nisolone 4 mg tablets in a dose pack USE DIRECTED 10/26 completed pt is not taking 10/26/24 Not Available Not Available Not Available fluticason e propionate 50 mcg/actuat ion nasal spray,susp ension USE 2 SPRAY(S) IN EACH NOSTRIL TWICE DAILY NEEDED FOR COUGH 12/24 completed Not Available Not Available Not Available amoxicilli n 875 mg-potassi um clavulanat e 125 mg tablet Take 1 tablet every 12 hours by oral route as directed for 5 days, for sinusiti s. 12/19 completed Not Available Not Available Not Available Ventolin HFA 90 mcg/actuat ion aerosol inhaler 10/26 completed pt is not taking 10/26/24 Not Available Not Available Not Available escitalopr am 10 mg tablet 10/26 completed pt is not taking 10/26/24 Not Available Not Available Not Available Sprintec (28) 0.25 mg-0.035 mg tablet Take 1 tablet every day by oral route. 10/26 completed pt is not taking 10/26/24 Not Available Not Available Not Available cyclobenza ella 5 mg tablet TAKE 1 TABLET BY MOUTH THREE TIMES DAILY NEEDED FOR BACK PAIN active Not Available Not Available No t Available bupropion HCl XL 150 mg 24 hr tablet, extended release 10/26 completed pt is not taking 10/26/24 Not Available Not Available Not Available nitrofuran toin monohydrat e/macrocry stals 100 mg capsule 10/26 completed pt is not taking 10/26/24 Not Available Not Available Not Available Cepacol Sore Throat (benzocain e-menthol) 15 mg-2.6 mg lozenges Take 1 lozenge every 2 hours by mucous route as needed for 5 days. 01/05 completed Not Available Not Available Not Available Aerospan 80 mcg/actuat ion HFA aerosol inhaler 10/26 completed pt is not taking 10/26/24 Not Available Not Available Not Available Microgesti n 24 FE 1 mg-20 mcg (24)/75 mg (4) tablet Take 1 tablet every day by oral route. 10/26 completed pt is not taking 10/26/24 Not Available Not Available Not Available Vitals Date Recorded Body height Body mass index (BMI) Body weight Body temperature Heart rate Respiratory rate Systolic And Diastolic Provider Name and Address Organization Details Last Updated DateTime 5 165.1 cm 22.3 kg/m2 36474.3 8 g 97.1 [degF] 76 /min 16 /min 112/74 mm[Hg] Soraida Martinez [place] [facility] 5 14:49:14 Social History Question Answer Notes LastModified by [email or web address] Details LastModified Time Tobacco Smoking Status Never Smoker Kinga Cardona MA null, [place] [facility] 08/25/2014 09:30:57 Do You Have An Advance Directive? No Information not available 01/10/2025 Are You Blind Or Do You Have Difficulty Seeing? No Information not available 01/10/2025 What Is Your Level Of Caffeine Consumption? Moderate 3 Cans Of Soda A Day. Information not available 01/10/2025 In The 14 Days Before Symptom Onset, Have You Had Close Contact With A Laboratory-confi rmed COVID-19 While That Case Was Ill? No Information not available 10/26/2024 In The 14 Days Before Symptom Onset, Have You Had Close Contact With A Person Who Is Under Investigation For COVID-19 While That Person Was Ill? No Information not available 10/26/2024 Have You Been To An Area Known To Be High Risk For COVID-19? No Information not available 10/26/2024 Are You Deaf Or Do You Have Serious Difficulty Hearing? No Information not available 01/10/2025 Are There Any Guns Present In Your Home? No Information not available 01/10/2025 What Was The Date Of Your Most Recent Tobacco Screening? 02/17/2025 Information not available 02/17/2025 How Many Children Do You Have? 5 5 Biological Children And 2 Foster Children Information not available 01/10/2025 What Is Your Relationship Status? Information not available 08/25/2014 Do You Use Your Seat Belt Or Car Seat Routinely? Yes Information not available 01/10/2025 Do You Have Smoke And Carbon Monoxide Detectors In Your Home? Yes Information not available 10/26/2024 Are You Passively Exposed To Smoke? No Information not available 01/10/2025 Do You Use Sunscreen Routinely? Yes Information not available 01/10/2025 Has Tobacco Cessation Counseling Been Provided? No Information not available 02/17/2025 On What Date Was Tobacco Cessation Counseling Provided? 10/26/2024 Information not available 10/26/2024 Sex: Female Functional Status Question Answer Note LastModified by Organizat ion Details LastModified Time Do you use any illicit or recreational drugs? No Information not available 10/26/2024 Do you or have you ever used any other forms of tobacco or nicotine? No Information not available 10/26/2024 What is your level of alcohol consumption? None Information not available 08/25/2014 Are you currently employed? No Information not available 10/26/2024 Are you able to care for yourself independently? Yes Information not available 01/10/2025 Mental Status Question Answer Note LastModified by Organization D etails LastModified Time Do you feel stressed (tense, restless, nervous, or anxious, or unable to sleep at night)? [id number] Information not available 01/10/2025 Family History Relationship Description Onset Age of this Age Resolved Age Notes LastModified by Organization Details LastModified Time Maternal Grandmother Diabetes mellitus [email or web address] Not available 10/26 16:28:23 Maternal Grandfather Diabetes mellitus [email or web address] Not available 10/26 16:28:23 Paternal Grandmother Diabetes mellitus [email or web address] Not available 10/26 16:28:23 Paternal Grandfather Diabetes mellitus [email or web address] Not available 10/26 16:28:23 Father Hypertensive disorder kstagnerma Not available 10/26 16:28:33 Father Malignant neoplasm of urinary bladder [email or web address] Not available 10/26 16:28:52 Father Myocardial infarction kstagnerma Not available 09/29 16:29:31 Notes:updated 10/26/24, , 01/07/25 Medical History Condition Response Coronary Artery Disease [...] Sclerosis N Colon Polyps N Heart Attack ([place]) N Diabetes N Cardiomyopathy N Blood Transfusions [...] N Osteoporosis N Gynecological History Statement/Question Response Abnormal Pap N Date of Last Mammogram 11/10/2023 Date of LMP 02/05/2025 Menses Monthly Y Date of Last Pap Smear 03/12/2024 Current Control Method Tubal Ligat ion LMP Unknown Obstetrics History GPAL:G 4 P 3 1 0 5 Type Value Multiple Births 1 Full Term 3 Premature 1 Living 5 Total 4 Immunizations Vaccine Type Date Status Note Provider Nam e and Address Organization Details Recorded Time COVID-19, mRNA, LNP-S, PF, 30 mcg/0.3 mL dose 12/11/2020 completed Not Available [facility] 5 14:44:35 COVID-19, mRNA, LNP-S, PF, 30 mcg/0.3 mL dose 01/01/2021 completed Not Available [facility] 5 14:44:35 Influenza, recombinant, quadrivalent, PF 02/03/2023 completed Not Available [facility] 14:44:35 COVID-19, mRNA, LNP-S, PF, 50 mcg/0.5 mL 02/12/2023 completed Not Available [facility] 5 14:44:35 Tdap 07/15/2023 completed Not Available [facility] 02/17/2025 14:44:35 Influenza, recombinant, trivalent, PF 01/18/2025 completed Not Available [facility] 2024 14:44:35 Past Encounters Encounter ID Performer Location Encounter Start Date Encounter Closed Date Diagnosis/Indication Diagnosis SNOMED-CT Code Diagnosis ICD10 Code Diagnosis IMO Codes Diagnosis Note [id number] MD Brinda Truong [address] Lilly [address] [place], [place] [address] [address] 02/17/2025 14:39:51 02/23/2025 12:49:29 Acute urinary tract infection 881393408 N39.0 [id number] Acute, resolvingW as dx with UTI in the hospital. Was reporting sx but since resolved. Only mild discomfort with urination and back discomfort also resolving. Does report some mild vaginal itching. Recommendi ng probiotics yogurt or kombucha. Neg test today. Plan- Continue full course of antibiotic s given- Give pyridium for urinary symptoms- Will give dose of fluconazol e 150mg for probable yeast infection- ED/return precaution s given if symptoms don't fully resolve or worsen Health Concerns Section Related Observation LastModified by Organization Detai ls LastModified Time None Recorded Concern Status LastModified by Organization Details LastModified Time None Recorded Payers Encounter Date Sequence Insurance Name Policy Number Policy [employer] Covered Member ID Mancera Member ID Guarantor Name 02/17/2025 1 [facility] (HMO) ILONEX Narcisa Infante [id number] Narcisa Infante Notes Date Note Type Note Provider Name and Address Organization Details Recorded Time 02/17/2025 text/html ROS as noted in the HPI A 44 y/o female presents for a hospital follow-up. Went to hospital on 02/14-02/15 diagnosed with a UTI d/c with cephalexlin 500 mg bid has 4 more days left. Upset stomach yesterday. But reports that it has resolved. Is able eat and drink. Still has some discomfort around right kidney area and some resolving burning with urination. ROS negative for fever, chills, headaches, vision changes, SOB, chest pain, N/V, constipation, diarrhea, dysuria, abnormal bruising, or abnormal joint pain. Kat Juarez MD Attn: Accounting,[address] [facility], [place], [address], [facility] 02/22/2025 11:24:25 OBGyn Episode No OBEpisode recorded.
--- OUTSIDE RECORDS SUMMARY | 2025-03-26 11:11 | XMS_ITS | Data Portability ---
Author Organization MICAH BRIANRitesh Address [address] [place] [address] Care Team Providers Care Logistics Clerk Name Role Phone NARCISA BRIDGES Primary Care Provider [phone] NURA CORRAL Final Inspector Assessment Encounter Date Assessment Date Assessment LastModified by Organization Details LastModified Time 12/24/2024 12/24/2024 I personally saw and examined pt w/resident. Documentation was reviewed, and I agree w/resident's note. Dr. Fuentes [email or web address] Not available 12/27/2024 07:04:16 01/10/2025 01/10/2025 Female patient with 6-year history of intermittent right flank pain following tubal reversal surgery, now experiencing worsening symptoms with movement and weight-bearing. Chronic right flank pain Assessment: 6-year history of intermittent right flank pain since tubal reversal surgery. Pain is sharp with movement, minimal at rest. Recent exacerbation with pain on every step and weight-bearing. No radiation or electric sensation. Unresponsive to NSAIDs, heat, or ice. Occasionally resolves after sleep. Previous orthopedic evaluation revealed lower back arthritis on X-ray, deemed unrelated to current symptoms. Differential diagnoses include muscle strain/spasm, post-surgical complication, retroperitoneal mass (less likely given longstanding nature), and referred pain from intra-abdominal pathology. Plan: - Prescribe cyclobenzaprine 5 mg PO at bedtime, may increase to 10 mg if needed - Advised not to drive while taking medication due to sedation risk - Limit use to 3 weeks - Apply lidocaine patch to affected area as needed - Refer to orthopedics for evaluation - Order CT scan of abdomen/pelvis to rule out retroperitoneal pathology - Follow up in 1-2 weeks if no update on referral Not available 03/11/2025 18:37:39 02/17/2025 02/17/2025 Return as needed for routine care/annual visit [email or web address] Not available 02/17/2025 19:09:21 Plan of Treatment Reminders Order Date Submit Date Provider Last Modified By Organization Details Last Modified Time Details Appointments NEW PATIENT 30 2025 03:00P Ron Sarkar, WRAPPER OPERATOR- Not available Not available Not available Lab test, urine 2024 025 [email or web address] In-Office Order, Internal Use Only DO Not Attach Compendium DO Not Attach Compendium, Do Not Delete/merge, [id number] 02/17/2025 16:02:34 rapid strep group A, throat 2024 025 [email or web address] In-Office Order, Internal Use Only DO Not Attach Compendium DO Not Attach Compendium, Do Not Delete/merge, [id number] 12/27/2024 00:57:46 rapid strep group A, throat 2024 025 In-Office Order, Internal Use Only DO Not Attach Compendium DO Not Attach Compendium, Do Not Delete/merge, [id number] 12/07/2024 13:02:26 CBC 2024 025 [facility], [address], [address], [place], [address], 10/27/2024 08:25:51 CMP, serum or plasma 2024 025 [facility], [address], [address], [place], [address], 10/27/2024 08:25:49 lipid panel, serum 2024 025 [facility], [address], [address], [place], [address], 10/27/2024 08:25:48 Referral orthopedi c surgeon referral 2024 025 ATHENAERICA Law MD, [address] [place], [address], 03/14/2025 11:35:40 Procedures None recorded. Surgeries None recorded. Imaging None recorded. Medication Orders Pyridium 200 mg tablet 2024 [facility], [address] [place] [address], [place], [address], 02/27/2025 05:02:37 fluconazo le 150 mg tablet 2024 [facility], [address] [place] [address], [place], [address], 02/25/2025 05:02:26 cyclobenz aprine 5 mg tablet 2024 [facility], [address] [place] [address], [place], [address], 01/10/2025 14:55:48 Cepacol Sore Throat (benzocai ne-mentho l) 15 mg-2.6 mg lozenges 2024 [facility], [address] [place] [address], [place], [address], 01/05/2025 05:01:54 Flonase Allergy Relief 50 mcg/actua tion nasal spray,charles pension 2024 [facility], [address] [place] [address], [place], [address], 12/24/2024 16:12:18 amoxicill in 875 mg-potass ium clavulana te 125 mg tablet 2024 [facility] [address], [address] [place] [address], [place], [address], 12/19/2024 05:02:41 Patient TargetsNo targets recorded. Patient Instructions Encounter Date Encounter Id Patient Instructions Last Modified By Organization Details Last Modified Time 10/26/2024 [id number] I was present in the clinic to discuss this patient at the time of the visit. I agree with the documented assessment and plan Gloria Manzanares MD [email or web address] Not available 10/26/2024 16:54:27 12/07/2024 [id number] sore throat: car e instructions Not available 12/07/2024 13:02:26 fatigue: care instructions [email or web address] Not available 12/07/2024 13:02:27 Dear patient, Thank you for visiting today. Here is a summary of the alarcon instructions: Medications: - If symptoms don't improve after today and tomorrow, start the prescribed antibiotic (875 mg twice a day for 5 days) - Use Flonase nasal spray: 2 sprays twice a day while sick - Continue taking Tylenol and ibuprofen as needed, alternating between them - You may continue taking vitamin D, vitamin C, and zinc supplements Home Care: - Drink lots of fluids to stay hydrated - Try warm water, hot tea with honey, or lozenges for sore throat relief Follow-up: - If symptoms do not improve after finishing the antibiotics, return to the clinic Monitoring: - Watch for worsening symptoms over the next 4 days Please reach out if you have any questions or concerns. Best Regards, Gloria Manzanares MD Family Medicine Not available 12/29/2024 20:30:55 01/10/2025 [id number] Dear patient, Thank you for visiting today. Here is a summary of the alarcon instructions: Medications: - Take cyclobenzaprine (muscle relaxer) 5 mg at night to start - You can take 10 mg at night if needed, but start with 5 mg - You can take 5 mg during the day if needed, but do not drive as it can make you very sleepy - Do not take for more than 3 weeks - Consider trying a lidocaine patch over the painful area for localized pain relief Imaging: - CT scan will be ordered to check for any masses or cysts in your internal organs Referrals: - spine specialist referral will be placed Follow-up: - Follow up if you don't hear back about the referral in a week or two - Call or send a portal message about the referral status - Return if the muscle relaxer doesn't help or if pain continues Please reach out if you have any questions or concerns. Best Regards, Gloria Manzanares MD Family Medicine Not available 03/11/2025 18:37:42 02/17/2025 [id number] I was present in the clinic to discuss this patient at the time of the visit. I agree with the documented assessment and plan Kat Juarez MD [email or web address] Not available 02/17/2025 16:29:03 Reason for Referral Orthopedic Surgeon Referral for Chronic low back pain Progressive Right Sided back pain, Has done conservative NSAIDS and PT last year, however sxs worsen Referring Physician: Gloria Manzanares Family Medicine, Encounter Date: 01/10/2025 Results Created Date Observation Date Name Description Value Unit Range Abnormal Flag Note LastModifiedBy Organization Detail LastModifiedTime 10/27/1910/27/2024 LIPID PANEL cholesterol, total 127 mg/dL 100-19 9 Not Available [facility] ([facility]) [address] [place], [address], 10/27/2024 08:25:48 10/27/1910/27/2024 LIPID PANEL triglyceride s 94 mg/dL 0-149 Not Available [facility] ([facility]) [address] [place], [address], 10/27/2024 08:25:48 10/27/1910/27/2024 LIPID PANEL HDL cholesterol 38 mg/dL >39 below low normal Not Available [facility] ([facility]) [address] [place], [address], 10/27/2024 08:25:48 10/27/1910/27/2024 LIPID PANEL VLDL cholesterol eusebia 18 mg/dL 5-40 Not Available [facility] ([facility]) [address] [place], [address], 10/27/2024 08:25:48 10/27/1910/27/2024 LIPID PANEL LDL chol calc ([facility]) 71 mg/dL 0-99 Not Available [facility] ([facility]) [address] [place], [address], 10/27/2024 08:25:48 10/27/19 25 10/27/2024 COMP. METAB OLIC PANEL (14) glucose 88 mg/dL 70-99 Not Available [facility] ([facility]) [address] [place], [address], 10/27/2024 08:25:49 10/27/19 25 10/27/2024 COMP. METAB OLIC PANEL (14) BUN 8 mg/dL 6-24 Not Available [facility] ([facility]) [address] [place], [address], 10/27/2024 08:25:49 10/27/19 25 10/27/2024 COMP. METAB OLIC PANEL (14) creatinine 0.66 mg/dL 0.57-1 .00 Not Available [facility] ([facility]) [address] [place], [address], 10/27/2024 08:25:49 10/27/19 25 10/27/2024 COMP. METAB OLIC PANEL (14) eGFR 111 mL/mi n/1.7 3 >59 Not Available [facility] ([facility]) [address] [place], [address], 10/27/2024 08:25:49 10/27/19 25 10/27/2024 COMP. METAB OLIC PANEL (14) BUN/creatini ne ratio 12 9-23 Not Available [facility] ([facility]) [address] [place], [address], 10/27/2024 08:25:49 10/27/19 25 10/27/2024 COMP. METAB OLIC PANEL (14) sodium 139 mmol/ L 134-14 4 Not Available [facility] ([facility]) [address] [place], [address], 10/27/2024 08:25:49 10/27/19 25 10/27/2024 COMP. METAB OLIC PANEL (14) potassium 3.8 mmol/ L 3.5-5. 2 Not Available [facility] ([facility]) [address] [place], [id number], 10/27/2024 08:25:49 10/27/19 25 10/27/2024 COMP. METAB OLIC PANEL (14) chloride 105 mmol/ L 96-106 Not Available [facility] ([facility]) [address] [place], [id number], 10/27/2024 08:25:49 10/27/19 25 10/27/2024 COMP. METAB OLIC PANEL (14) carbon dioxide, total 23 mmol/ L 20-29 Not Available [facility] ([facility]) [address] [place], [id number], 10/27/2024 08:25:49 10/27/19 25 10/27/2024 COMP. METAB OLIC PANEL (14) calcium 9.1 mg/dL 8.7-10 .2 Not Available [facility] ([facility]) [address] [place], [id number], 10/27/2024 08:25:49 10/27/19 25 10/27/2024 COMP. METAB OLIC PANEL (14) protein, total 6.2 g/dL 6.0-8. 5 Not Available [facility] ([facility] [address] [place], [id number], 10/27/2024 08:25:49 10/27/19 25 10/27/2024 COMP. METAB OLIC PANEL (14) albumin 4.1 g/dL 3.9-4. 9 Not Available [facility] ([facility]) [address] [place], [id number], 10/27/2024 08:25:49 10/27/19 25 10/27/2024 COMP. METAB OLIC PANEL (14) globulin, total 2.1 g/dL 1.5-4. 5 Not Available [facility] ([facility]) [address] [facility], [place], [address], 10/27/2024 08:25:49 10/27/19 25 10/27/2024 COMP. METAB OLIC PANEL (14) bilirubin, total 0.3 mg/dL 0.0-1. 2 Not Available [facility] ([facility]) [address] [facility], [place], [address], 10/27/2024 08:25:49 10/27/19 25 10/27/2024 COMP. METAB OLIC PANEL (14) alkaline phosphatase 57 IU/L 44-121 Not Available [facility] ([facility]) [address] [facility], [place], [address], 10/27/2024 08:25:49 10/27/19 25 10/27/2024 COMP. METAB OLIC PANEL (14) AST (SGOT) 14 IU/L 0-40 Not Available [facility] ([facility]) [address] [place], [address], 10/27/2024 08:25:49 10/27/19 25 10/27/2024 COMP. METAB OLIC PANEL (14) ALT (SGPT) 13 IU/L 0-32 Not Available [facility] ([facility]) [address] [place], [address], 10/27/2024 08:25:49 10/27/19 25 10/27/2024 CBC, PLATE LET, NO DIFFE RENTI AL WBC 7.2 x10e3 /uL 3.4-10 .8 Not Available [facility] ([facility]) [address] [place], [address], 10/27/2024 08:25:51 07/2910/27/2024 CBC, PLATE LET, NO DIFFE RENTI AL RBC 3.98 x10e6 /uL 3.77-5 .28 Not Available [facility] ([facility]) [address] [facility], [place], [address], 10/27/2024 08:25:51 10/27/1910/27/2024 CBC, PLATE LET, NO DIFFE RENTI AL hemoglobin 12.5 g/dL 11.1-1 5.9 Not Available [facility] ([facility]) [address] [facility], [place], [address], 10/27/2024 08:25:51 10/27/1910/27/2024 CBC, PLATE LET, NO DIFFE RENTI AL hematocrit 38.7 % 34.0-4 6.6 Not Available [facility] ([facility]) [address] [facility], [place], [address], 10/27/2024 08:25:51 10/27/1910/27/2024 CBC, PLATE LET, NO DIFFE RENTI AL MCV 97 fL 79-97 Not Available [facility] ([facility]) [address] [facility], [place], [address], 10/27/2024 08:25:51 10/27/1910/27/2024 CBC, PLATE LET, NO DIFFE RENTI AL MCH 31.4 pg 26.6-3 3.0 Not Available [facility] ([facility]) [address] [place], [address], 10/27/2024 08:25:51 10/27/1910/27/2024 CBC, PLATE LET, NO DIFFE RENTI AL MCHC 32.3 g/dL 31.5-3 5.7 Not Available [facility] ([facility]) [address] [facility], [place], [address], 10/27/2024 08:25:51 10/27/1910/27/2024 CBC, PLATE LET, NO DIFFE RENTI AL RDW 12.9 % 11.7-1 5.4 Not Available [facility] ([facility]) [address] [facility], [place], [address], 10/27/2024 08:25:51 10/27/19 25 10/27/2024 CBC, PLATE LET, NO DIFFE RENTI AL platelets 185 x10e3 /uL 150-45 0 Not Available [facility] ([facility]) [address] [facility], [place], [address], 10/27/2024 08:25:51 10/27/1910/26/2024 Chori ogona dotro pin.b eta subun it [Unit s/vol ume] in Serum or Plasm a B-HCG text: 0.0-4. 9 high This assay was perfo rmed using [employer] ratio n reage nts and test kits. Value s obtai artem with other assay metho ds or kits canno t be used inter jorgensen eably . Refer ence Range s: Non-p regna nt, preme nopau umesh women : 0.0-4 .9 mIU/m L Postm enopa usal women : 0.0-7 .0 mIU/m L Mary l Pregn siobhan: Gesta manuel l Age bHCG Conc. - mIU/m L 3 Weeks 5.8 - 71.7 4 Weeks 9.5 - 750 5 Weeks 217-7 138 6 Weeks 158 - 31,79 5 7 Weeks 3,697 - 162,5 63 8 Weeks 32,06 5 - 149,5 71 9 Weeks 63,80 3 - 151,4 10 10 Weeks 46,50 9 - 186,9 77 12 Weeks 27,83 2 - 210,6 12 14 Weeks 13,95 0 - 62,53 0 15 Weeks 12,03 9 - 70,97 1 16 Weeks 9,040 - 56,45 1 17 Weeks 8,175 - 55,86 8 18 Weeks 8,099 - 58,17 6 Not Available Not Available 12/07/2024 11:54:34 12/08/19 25 12/07/2024 rapid strep group A, throa t Strep negati ve Not Available In-Office Order Internal Use Only DO Not Attach Compendium DO Not Attach Compendium, Do Not Delete/merge, [id number] 12/07/2024 12:11:33 12/25/1912/24/2024 rapid strep group A, throa t Strep negati ve Not Available In-Office Order Internal Use Only DO Not Attach Compendium DO Not Attach Compendium, Do Not Delete/merge, [id number] 12/24/2024 16:15:20 02/18/2002/17/2025 pregn siobhan test, urine HCG negati ve Not Available In-Office Order Internal Use Only DO Not Attach Compendium DO Not Attach Compendium, Do Not Delete/merge, [id number] 02/17/2025 15:37:24 Result Notes None recorded. Problems Name Problem SNOMED Code Status Onset Date Resolution Date Notes Provider Name and Address Organization Details Recorded Time Dysmenorrhea [id number] Active Kinga ledesma MA null, [facility] 6 14:36:30 Problem Notes None recorded. Procedures Surgical History Date Name Laterality Status Provider Name and Address Organization Details Recorded Time 01/11/20 25 tuboplasty for sterilization reversal completed Kayla Fontanez MA [facility] 01/10/2025 14:22:23 03/12/20 24 Date of Last Pap Smear completed RENUKA Castellon [facility] 10/26/2024 16:27:04 11/10/19 24 Date of Last Mammogram completed RENUKA Castellon [facility] 10/26/2024 16:27:08 12/04/19 07 Tubal Ligation completed Kinga Cardona MA [facility] 08/25/2014 09:30:56 12/04/19 07 Caesarean Section completed Kinga Cardona MA [facility] 08/25/2014 09:30:56 12/11/19 02 Caesarean Section completed Kinga Cardona MA [facility] 08/25/2014 09:30:56 section completed Kayla Fontanez MA [facility] 01/10/2025 14:21:54 Imaging Results None recorded. Procedure Notes None recorded. Medical Equipment None Reported. Allergies Allergen ID Allergen Name Allergen Category Reaction Reaction Severity Criticality Documentation Date Start Date Code Code System Note Provider Name and Address Organization Details Recorded Time 132254 Zoloft medicatio n rash Not available [facility] 03/11/2017 99106 RxNorm Kayla Fontanez MA [facility], [facility] 5 16:08:47 502928 Product containin g penicilli n (product) medicatio n dyspnea Not available Not available 03/11/20172016 12591 8001 SNOMED Pt not sure of aller gy but think s had short ness of breat h after takin g pcn as a child . Gloria Manzanares MD Attn: Accountin g,[address] [place], [address], [facility] 5 16:52:38 213149 sertralin e medicatio n rash Not available [facility] 10/26/20242013 62317 RxNorm Gloria Manzanares MD Attn: Accountin g[address] [place], [address], [facility] 5 16:52:45 Medications Name Sig [...] height Body mass index (BMI) Body weight Respiratory rate Body temperature Heart rate Oxygen saturation Systolic And Diastolic Provider Name and Address Organization Details Last Updated DateTime 5 165.1 cm 26.1 kg/m2 38099 g 16 /min 98.4 [degF] 72 /min 98 % 100/64 mm[Hg] RENUKA Castellon [place] - [facility] 5 16:32:40 Date Recorded Body height Body mass index (BMI) Body weight Body temperature Respiratory rate Oxygen saturation Heart rate Systolic And Diastolic Provider Name and Address Organization Details Last Updated DateTime 5 165.1 cm 25.5 kg/m2 08275.6 3 g 97.2 [degF] 16 /min 99 % 81 /min 105/73 mm[Hg] Soraida Martinez [place] - [facility] 5 12:11:39 Date Recorded Body height Body mass index (BMI) Body weight Heart rate Body temperature Respiratory rate Oxygen saturation Systolic And Diastolic Provider Name and Address Organization Details Last Updated DateTime 5 165.1 cm 31.5 kg/m2 46764.7 1 g 86 /min 97.1 [degF] 16 /min 100 % 98/65 mm[Hg] Kayla Fontanez MA [facility] 5 16:15:03 Date Recorded Body height Body mass index (BMI) Body weight Oxygen saturation Heart rate Respiratory rate Body temperature Systolic And Diastolic Provider Name and Address Organization Details Last Updated DateTime 5 165.1 cm 24.4 kg/m2 07752.2 9 g 98 % 83 /min 16 /min 96.4 [degF] 104/72 mm[Hg] Kayla Fontanez MA [facility] 5 14:24:13 Date Recorded Body height Body mass index (BMI) Body weight Body temperature Heart rate Respiratory rate Systolic And Diastolic Provider Name and Address Organization Details Last Updated DateTime 5 165.1 cm 22.3 kg/m2 74983.3 8 g 97.1 [degF] 76 /min 16 /min 112/74 mm[Hg] Soraida Martinez MA [facility] 5 14:49:14 Social History Question Answer Notes LastModified by Organizat ion Details LastModified Time Tobacco Smoking Status Never Smoker Kinga Cardona MA [facility], [facility] 08/25/2014 09:30:57 Do You Have An Advance [...] anxious, or unable to sleep at night)? [id number] Information not available 01/10/2025 Family History Relationship [...] Sclerosis N Colon Polyps N Heart Attack ([place]) N Diabetes N Cardiomyopathy N Blood Transfusions [...] Immunizations Vaccine Type Date Status Note Provider Torey fernandes and Address Organization Details Recorded Time COVID-19, mRNA, LNP-S, PF, 30 mcg/0.3 mL dose 12/11/2020 completed Not Available [facility] 14:44:35 COVID-19, mRNA, LNP-S, PF, 30 mcg/0.3 mL dose 01/01/2021 completed Not Available [facility] 14:44:35 Influenza, recombinant, quadrivalent, PF 02/03/2023 completed Not Available [facility] 14:44:35 COVID-19, mRNA, LNP-S, PF, 50 mcg/0.5 mL 02/12/2023 completed Not Available [facility] 14:44:35 Tdap 07/15/2023 completed Not Available [facility] 02/17/2025 14:44:35 Influenza, recombinant, trivalent, PF 01/18/2025 completed Not Available [facility] 2024 14:44:35 Past Encounters Encounter ID Performer Location Encounter Start Date Encounter Closed Date Diagnosis/Indication Diagnosis SNOMED-CT Code Diagnosis ICD10 Code Diagnosis IMO Codes Diagnosis Note [id number] MD Sarbjit Phoenix ([facility] [address]) [address] [facility] [place] [address] 08/29/2014 10:36:43 08/29/2014 17:13:38 Dysmenorrhea [id number] MD Sarbjit Phoenix ([facility] [address]) [address] [facility] [place] [address] 11/28/2014 14:21:22 11/28/2014 15:15:32 Gynecologic examination [id number] [id number] MD Sarbjit Phoenix ([facility] [address]) [address] [facility] [place] [address] 12/12/2015 14:22:46 12/12/2015 15:21:50 Gynecologic examination 52502399 Z01.796 [id number] MD Sarbjit Phoenix ([facility] 205) [address] [facility] [place] [address] 07/29/2016 14:42:50 07/30/2016 14:17:48 Dysmenorrhea [id number] N94.6 [id number] MD Sarbjit Phoenix ([facility] 205) [address] [facility] [place] [address] 03/11/2017 11:48:41 03/11/2017 14:52:21 Body mass index 20-24 - normal 978392292 Z68.24 Gynecologi c examination 31517106 Z01.463 [id number] MD Sarbjit Phoenix 14 OB [address] [facility] [place] [address] 05/08/2018 11:30:45 05/08/2018 15:52:35 Gynecologic examination 22691863 Z01.456 [id number] MD Sarbjit Phoenix 14 OB [address] [facility] [place] [address] 11/03/2018 15:49:46 11/04/2018 08:41:03 Dysmenorrhea [id number] N94.6 [id number] Miguelangel Dill MD Sarbjit 14 OB [address] [facility] [place] [address] 12/10/2018 14:33:37 12/10/2018 16:08:03 Vaginal discharge 201716081 N89.8 [id number] MD Sarbjit Frederick 14 IM [address] [facility] [place] [address] 10/26/2024 16:10:44 11/08/2024 10:13:03 Overweight in adulthood with body mass index of 25 or more but less than 30 386116663 Z68.26 [id number] 26.1 General ex amination of patient 974418349 Z00.00 [id number] No concerns today.MELODIE - 0 PHQ-9 - 0Follows with PI[employer]O INSTRUCTOR, states she is UTD on PAP smear and mammogram. Will work on obtaining records. PlanCheck cbc, cmp, and lipid todayObtai n SPACE SCIENCES DIRECTOR recordsFol low-up in 1 year or sooner if needed [id number] MD Sarbjit Frederick 14 IM [address] [facility] [place] [address] 12/07/2024 11:52:29 12/30/2024 11:10:13 Sore throat 705584989 J02.9 39504 -See above plan Acute cough 7668624640 56942747 R05.9 [id number] -See above plan Acute rhinosinusitis 431 850224 J01.90 B96.89 [id number] Acute, uncomplica tedPatient presented with prolonged upper respirator y symptoms and suspected bacterial sinusitis. - Prescribed Flonase nasal spray for symptomati c relief- Prescribed Amoxicilli n 875 mg PO BID for potential bacterial infection- Recommende d continued OTC symptom management - Advised increased fluid intake- Instructed to follow up if symptoms persist after antibiotic course [id number] MD Sarbjit Barber 14 IM [address] [facility] [place] [address] 12/24/2024 15:56:53 12/27/2024 07:53:36 Sore throat 254545401 J02.9 41906 Acute-unco mplicated. -Give hx of improvemen t with augmentin then feeling worse, presence of rhinorrhea and post nasal drip and no evidence of tonsil enlargemen t or exudates, likely pt has a viral URTI.-Stre p throat done-negat ivePlan- Start sore throat lozenges- start cetirizine 10mg dly PRN [id number] MD Sarbjit Frederick 14 IM [address] [facility] [place] [address] 01/10/2025 14:03:58 03/14/2025 10:38:05 HIV screening declined 4277996974 85155 Z53.20 0567938054 Body mass index 20-24 - normal 315659084 Z68.24 58749355 BMI=24.4 Chronic low back pain 27 1609635 M54.50 G89.29 [id number] lidocainem [facility] relaxORTHO referCT Abd Pelvis- Review previous SPACE SCIENCES DIRECTOR images Influenza vaccination declined 037065565 Z28.21 54235533 [id number] MD Sarbjit Truong 14 IM [address] [facility] [place] [address] 1 02/17/2025 14:39:51 02/23/2025 12:49:29 Acute urinary tract infection [id number] N39.0 [id number] Acute, resolvingW as dx with UTI in [...] Member ID [employer] Member ID Guarantor Name 03/15/2025 1 [employer] (HMO) [employer] Narcisa Molina Ollenbittle [id number] Narcisa Molina Ollenbittle 10/26/2024 1 [place] [employer] [place] [employer] Narcisa Corneliuslenbittle [id number] Narcisa Molina Ollenbittle 10/26/2024 1 [facility] - DOS PRIOR TO 2020 (MEDICAID REPLACEMENT - HMO) Narcisa Reyesbittle [id number] Narcisa Molina Ollenbittle Notes Date Note Type Note Provider Name and Address Organization Details Recorded Time 10/26/2024 text/html ROS as noted in the HPI A 44 y/o female with no reported significant past medical history presents to establish care. Has no specific questions or concerns today. Did have a history of breathing problems that went away on it's own, reports that she is not on any inhalers now. She states that she is not taking any medications at this time. Follows with Dr. Tasha DIAZ for well women. Does not exercise but reports that she is very active at home. Reports well balanced diet.Denies any nicotine, etoh, or recreational drugs. Reports occasional caffeine soda use. 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 ROS negative for fever, chills, headaches, vision changes, SOB, chest pain, N/V, constipation, diarrhea, dysuria, increased urinary frequency, hematuria, abnormal bruising, or abnormal joint pain. Gloria Manzanares MD Attn: [address] [place], [address], [place] [facility] 11/07/2024 13:28:59 12/07/2024 text/html 44 yo F with PMH of COVID-19 in early October who presents with: Sore Throat The patient reports a 6-day history of severe sore throat, describing it as the worst throat I've ever had. Although the throat pain has improved slightly, it remains her most distressing symptom. Cough and Respiratory Symptoms Four days after the onset of throat pain, she developed a cough productive of green sputum. She also notes green nasal discharge and experiences some shortness of breath. Fatigue and Fever The patient describes feeling exhausted and experiencing intermittent low-grade fever, with a maximum temperature of 99.3 deg F, though this may be masked by her use of antipyretics. Prior Medical Context Prior to this acute exacerbation, the patient had been experiencing a milder illness since early October, coinciding with a COVID outbreak in her household. She reports having a faint line on her COVID test at that time, while other family members had more definitive positive results. Social and Family Context As a mother of 7 children, she lives with her spouse and family. Some family members have required antibiotics for sinus infections, and one of her children (who will be 2 years old in 3 weeks) had an ear infection. Self-Medication Efforts The patient has been self-medicating with ibuprofen, Tylenol, Mucinex, Sudafed, extra vitamin D, vitamin C, and zinc. She has also used cough drops for her sore throat but found them minimally effective. Gloria Manzanares MD Attn: [address] [place], [address], [facility] 12/29/2024 20:33:21 12/24/2024 text/html Pt is a 44yr old F presenting today with complaints of sorethroat. Pt says she still feels pain in her throat when she swallows. pain fluctuates and may range from moderate to severe and sometimes feels some tickle in her throat and tries to cough to clear it out but doesn't produce any sputum. denies any difficulty swallowing. positive hx of rhinorrhea and post nasal drip. pt was recently seen in the clinic on 12/07/2024 for similar symptom and had a neg strep throat and started on augmentin for 5days. Pt says that she felt better once she started antibiotics then she started feeling worse after day 3 of augmentin. Pt denies any chest pain or shortness of breath. pt denies nausea or vomiting or fever. Associated fatigue but no headaches. pt denies hx of heart burn or cigarette smoking. She had no order concerns. Odilon Fuentes MD Attn: [employer],[address] , [place], [address], [place] [facility] 12/27/2024 07:04:25 01/10/2025 text/html ROS as noted in the HPI History of Present Illness The patient is a female with a history of tubal reversal surgery who presents with chronic right-sided back pain that has been ongoing for 6 years since her surgery. The pain began immediately upon waking from the tubal reversal surgery in 2018, which involved a full incision similar to a section. The original surgeon attributed the pain to nerve damage from the surgery, though her primary care doctor disagreed, and no definitive cause has been identified. The pain is located in her right waist area and is characterized as sharp with movement. When she remains still, the pain is minimal and she describes it as something she can feel rather than actual pain. The pain becomes severe with movement, particularly when standing up or bearing weight on her right leg. This weight-bearing component is a new development that has emerged recently, as walking had not previously caused pain over the 6 years, but now every step hurts. The pain does not radiate and remains localized to the right flank area. She describes it as sharp or stabbing rather than electric, spasm-like, or burning. The pain follows an unpredictable pattern, coming and going without any identifiable triggers or relationship to activity level. Episodes can be debilitating where she cannot move, or moderate in intensity. Sometimes the pain resolves completely after a full night's sleep, while other times it persists for days regardless of rest. The unpredictable nature means it can disappear completely for months or up to a year before returning. Neither ice nor heat provides relief. For pain management, she takes either 2 extra-strength Tylenol twice daily or 600 milligrams of ibuprofen every 6 hours, sometimes using both on the same day, though she reports these medications are not very helpful. She previously tried physical therapy approximately 1-2 years ago while seeing an orthopedic doctor, but this was discontinued when her insurance changed. The orthopedic doctor had performed x-rays that showed some arthritis in her lower back. The patient has been trying to conceive for 6 years since her tubal reversal and has had 5 miscarriages, with the most recent loss occurring at the end of September. She undergoes frequent ultrasounds as part of her fertility care at [facility]. She has a history of fibroids and has had 2 D&C procedures. She denies any history of ectopic or abnormal pap smears. The pain significantly impacts her daily functioning, particularly her ability to care for her children, as she cannot pick them up during episodes. Medical History - History of fibroids - History of bladder cancer in father (smoking-related) - Five miscarriages over the past 6 years - Recent loss in September 2024 - Chronic back pain for 6 years following tubal reversal surgery, described as intermittent sharp pain in right flank area - Arthritis in lower back identified on previous x-rays Surgical History - Tubal reversal in 2019 with full incision similar to section, complicated by immediate postoperative back pain attributed by surgeon to nerve damage - Tubal ligation in 2006 performed during section - Two dilation and curettage (D&C) procedures - section in 2006 - section in 2004 - section in 2001 - Tonsillectomy in 1989 Medications and Supplements - Tylenol extra-strength by mouth twice a day as needed for back pain. - Not helping much. - Ibuprofen 600 mg by mouth every 6 hours as needed for back pain. - Not helping much. Takes at most every 6 hours. Family History - Father: History of bladder cancer attributed to smoking Social History - Substance Use: Denies tobacco use - Family Structure: Has children requiring care, mentions difficulty picking them up during pain episodes Review of Systems Musculoskeletal: Positive for chronic intermittent right flank/waist pain described as sharp with movement, worsening with weight bearing on right leg and walking. Negative for muscle spasms. Genitourinary: Positive for recent loss in September, negative for abnormal pap smears or history of ectopic . Gloria Manzanares MD Attn: [address] [place], [address], [place] [facility] 03/11/2025 18:38:31 02/17/2025 text/html ROS as noted in the [...] abnormal joint pain. Kat Juarez MD Attn: [employer] , [place], [address], [place] [facility] 02/22/2025 11:24:25 OBGyn Episode Ob Episode Information Episode Created Date Number of Fetuses Patient Bloodtype Patient rh Status Prepregnancy Weight lbs Domestic Partner Domestic Partner Phone Father Name [employer] Status 08/26/19 15 1 CLOSED Fetus Data First Name Last Name Admitted to NICU Weight (g) Sex Living Outcome Pediatric Complications Fetus ID Race Codes Race Delivery Type 2975.56 352 M Full Term 13460 Hai Calculation Initial Hai Date Initial Exam [...] Complications Tubal Sterilization Discharge Date Comments 5 Regional-Ep idural 40 GT Discharge Information Feeding Method Contraceptive Method Maternal HG B and HCT Levels Ob Episode Information Episode Created Date Number of Fetuses Patient Bloodtype Patient rh Status Prepregnancy Weight lbs Domestic Partner Domestic Partner Phone Father Name [employer] Status 08/26/19 15 2 CLOSED Fetus Data First Name Last Name Admitted to NICU Weight (g) Sex Living Outcome Pediatric Complications Fetus ID Race Codes Race Delivery Type 2267.96 M Prematur e 82068 2267.96 M Prematur e 32985 Hai Calculation Initial Hai Date Initial Exam [...] Domestic Partner Domestic Partner Phone Father Name [employer] Status 08/26/19 15 1 CLOSED Fetus Data First Name Last Name Admitted to NICU Weight (g) Sex Living Outcome Pediatric Complications Fetus ID Race Codes Race Delivery Type 3120.71 296 F Full Term 76085 Vaginal Hai Calculation Initial Hai Date Initial [...] Domestic Partner Domestic Partner Phone Father Name [employer] Status 08/26/19 15 2 DELETED Hai Calculation [...] Domestic Partner Domestic Partner Phone Father Name [employer] Status 08/26/19 15 1 CLOSED Fetus Data First Name Last Name Admitted to NICU Weight (g) Sex Living Outcome Pediatric Complications Fetus ID Race Codes Race Delivery Type 2921.13 248 F Full Term 82099 Hai Calculation Initial Hai Date Initial Exam [...]
--- OUTSIDE RECORDS SUMMARY | 2025-03-26 11:11 | XMS_ITS | Data Portability ---
Author Organization 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 Patient will come back in a year unless there are new symptoms. [email or web address] Not available 03/26/2025 10:51:53 Plan of Treatment Reminders Order Date Submit Date Provider Last Modified By Organization Details Last Modified Time Details Appointments [facility]-EST 2024 10:30A Ron CORDOVA MD Not available Not available Not available Robotic TLH 2024 12:00P Ron CORDOVA MD Not available Not available Not available SURG POST OP 2025 01:15P Ron CORDOVA MD Not available Not available Not available Lab None recorded. Referral None recorded. Procedures None recorded. Surgeries robotic assisted hysterect lynne with salpingec agustín (SURG) [address], [address] [place] [address], [address], 03/10/2025 14:24:19 salpingec agustín, laparosco pic (SURG) [address], [address] [place] [address] [place], [address], 11/30/2024 13:56:48 Imaging None recorded. Medication Orders estradiol 2 mg tablet 2024 025 [facility], [address], [place], [address], 03/10/2025 00:15:51 Patient TargetsNo targets recorded. Patient InstructionsNo instructions recorded. Reason for Referral None Reported. Results Created Date Observation Date Name Description Value Unit Range Abnormal Flag Note LastModifiedBy Organization Detail LastModifiedTime 10/27/1910/26/2024 BHCG, QUANT ITATI VE B-HCG 9372.0 mIU/m L 0.0-4. 9 high This assay was perfo [...] Weeks 8,099 - 58,17 6 Not Available [facility] (Lab) [address], [place], [address], 10/27/2024 05:45:43 10/19/1910/18/2024 US, obste tric, trans vagin al No observ ation record ed. [email or web address] [facility] [address], [place], [address], 10/18/2024 17:33:49 10/19/19 25 10/18/2024 US, obste tric, trans vagin al No observ ation record ed. [email or web address] [address], [place], [address], 10/20/2024 10:46:27 10/27/19 25 10/26/2024 US, obste tric, follo w-up No observ ation record ed. Loree [address], [place], [address], 11/04/2024 08:33:34 10/27/19 25 10/26/2024 US, obste tric, trans vagin al No observ ation [facility] [address], [place], [address], 10/26/2024 15:09:27 11/02/19 25 11/01/2024 US, obste tric, trans vagin al No observ ation record ed. [email or web address] [facility] [address], [place], [address], 11/01/2024 18:43:41 11/02/19 25 11/01/2024 US, obste tric, trans vagin al No observ ation record ed. [email or web address] [address], [place], [address], 11/01/2024 21:38:03 12/02/19 imagi ng/di agnos tic resul t No observ ation record ed. [id number] [facility] [address], [place], [address], 12/02/2024 09:13:22 Result Notes None recorded. Problems Name Problem SNOMED Code Status Onset Date Resolution Date Notes Provider Name and Address Organization Details Recorded Time Lesion of ovary Completed 201912/14/2020 Other ovarian cyst, left side;Victor Manuel rded Elsewhere : No Locati on: [facility] So urce: EHR Chron ic: N Practic e ID: [id number] Bill able Time: 02:00:00 PM Nuria Bowers [facility] 1 11:44:14 Uterine leiomyom a [id number] Completed 201912/14/2020 Leiomyoma of uterus, unspecifi ed;Record ed Elsewhere : No Locati on: [facility] So urce: EHR Chron ic: N Practic e ID: 0001 Bill able Time: 02:00:00 PM Nuria Bowers [facility] 1 11:44:16 Finding of menstrua l bleeding Completed 201905/02/2020 Excessive and frequent menstruat ion with regular cycle;Rec orded Elsewhere : No Locati on: [facility] So urce: EHR Chron ic: N Practic e ID: 0001 Bill able Time: 11:00:00 AM Arline Tejeda [facility] 1 15:25:04 Reproduc tive care manageme nt Completed 201905/02/2020 Encounter for other procreati ve managemen t;Recorde d Elsewhere : No Locati on: [facility] So urce: EHR Chron ic: N Practic e ID: 0001 Bill able Time: 11:00:00 AM Arline Tejeda [facility] 1 15:25:07 Urinary tract infectio us disease [id number] Completed 201905/02/2020 Urinary tract infection , site not specified ;Recorded Elsewhere : No Locati on: [facility] So urce: EHR Chron ic: N Practic e ID: 0001 Bill able Time: 11:45:00 AM Arline Tejeda [facility] 1 15:25:09 Problem Notes None recorded. Procedures Surgical History Date Name Laterality Status Provider Name and Address Organization Details Recorded Time 2024 DILATION & CURETTAGE (SURG) completed Gabrielle Marvin [facility] 12/28/2024 11:48:50 2023 Date of Last Pap Smear completed Dariela [facility] 03/12/2024 15:18:44 2023 Date of Last Mammogram completed Dariela [facility] 11/10/2023 16:00:35 2023 DILATION & CURETTAGE (SURG) completed Yolis Raza [facility] 07/07/2023 18:01:19 2021 artificial insemination completed Carolyn ortiz [facility] 05/01/2021 10:16:26 2021 hysterosalpingography completed Arline [facility] 05/01/2021 10:16:45 2020 artificial insemination completed Carolyn a [facility] 05/01/2021 10:16:23 2019 hysterosalpingography completed Arlineadam Tejeda [facility] 05/01/2021 10:16:39 2018 open reversal of female sterilization completed Arline Tejeda [facility] 03/21/2021 18:17:23 2006 Tubal Ligation completed Arline Tejeda [facility] 06/08/2020 11:58:14 2006 section completed Arline Tejeda [facility] 06/03/2020 09:22:53 2004 section completed Arline Tejeda [facility] 06/03/2020 09:22:45 2001 section completed Arline Tejeda [facility] 06/03/2020 09:22:38 1989 Tonsillectomy completed Radha Maguire [facility] 10/21/2019 13:13:02 Imaging Results None recorded. Procedure Notes None recorded. Medical Equipment None Reported. Allergies Allergen ID Allergen Name Allergen Category Reaction Reaction Severity Criticality Documentation Date Start Date Code Code System Note Provider Name and Address Organization Details Recorded Time 82526 sertralin e medicatio n rash Not available [facility] 03/02/20252013 32448 RxNorm Not Available [email or web address] - prod 5 15:07:52 18981 Product containin g penicilli n (product) medicatio n dyspnea Not available Not available 03/02/20252016 55714 8001 SNOMED Pt not sure of aller gy but think s had short ness of breat h after takin g pcn as a child . Not Available [email or web address] - prod 5 15:07:53 27896 Zoloft medicatio n rash Not available [facility] 03/02/2025 21919 RxNorm Not Available [email or web address] - prod 5 15:08:05 Medications Name Sig Start Date Stop Date Status Note LastModified by Organization Details LastModified Time amoxicillin 500 mg capsule TAKE 1 CAPSULE BY MOUTH THREE TIMES DAILY 03/09 completed Not Available Not Available Not Available doxycycline hyclate 100 mg capsule TAKE 1 CAPSULE BY MOUTH TWICE DAILY FOR 5 DAYS 03/02 completed Not Available Not Available Not Available nystatin 100,000 unit/gram topical ointment APPLY OINTMENT TOPICALLY TO AFFECTED AREA TWICE DAILY 07/02 completed Not Available Not Available Not Available fluconazole 150 mg tablet TAKE ONE TABLET BY MOUTH A ONE-TIME DOSE 03/09 completed Not Available Not Available Not Available [...] completed Not Available Not Available Not Available phenazopyri dine 200 mg tablet TAKE 1 TABLET BY MOUTH THREE TIMES DAILY FOR 3 DAYS 03/09 completed Not Available Not Available Not Available prednisone 20 mg tablet TAKE 3 TABLETS DAILY FOR 3 DAYS, TAKE 2 TABLETS DAILY FOR 3 DAYS, THEN TAKE 1 TABLET DAILY FOR 3 DAYS 03/09 completed Not Available Not Available Not Available [...] completed Not Available Not Available Not Available cephalexin 500 mg capsule TAKE 1 CAPSULE BY MOUTH TWICE DAILY FOR 11 DOSES 03/09 completed Not Available Not Available Not Available [...] completed Not Available Not Available Not Available estradiol 2 mg tablet TAKE 1 TABLET BY MOUTH ONCE DAILY active Not Available Not Available No t Available letrozole 2.5 mg tablet TAKE 2 TABLETS BY MOUTH ONCE DAILY ON DAYS 5-9 OF CYCLE 11/06 completed Not Available Not Available Not Available methylpredn isolone 4 mg tablets in a dose pack USE DIRECTED 04/08 completed Not Available Not Available Not Available fluticasone propionate 50 mcg/actuati on nasal spray,suspe nsion USE 2 SPRAY(S) IN EACH NOSTRIL TWICE DAILY NEEDED FOR COUGH 03/09 completed Not Available Not Available Not Available dicyclomine 10 mg capsule 10/17 completed Not Available Not Available Not Available progesteron e micronized 100 mg capsule Take 1 capsule every day by oral route as directed. 2024 active Not Available Not Available Not Avai lable amoxicillin 875 mg-potassiu m clavulanate 125 mg tablet TAKE 1 TABLET BY MOUTH EVERY 12 HOURS FOR 5 DAYS 03/08 completed Not Available Not Available Not Available cyclobenzap rine 5 mg tablet TAKE 1 TABLET BY MOUTH THREE TIMES DAILY NEEDED FOR BACK PAIN active Not Available Not Available No t Available Clotrimazol e-3 2 % vaginal cream Insert 1 applicato rful every day by vaginal route at bedtime for 3 days. 11/06 completed Not Available Not Available Not Available 03/09 completed Not Available Not Available Not Available Novarel 5,000 unit intramuscul ar solution give 1 5,000 units into each hip 12/14 completed Not Available Not Available Not Available ID NOW COVID-19 Test Kit TEST DIRECTED 12/14 completed Not Available Not Available Not Available Vitals Date Recorded Body height Body mass index (BMI) Body weight Systolic And Diastolic Provider Name and Address Organization Details Last Updated DateTime 11/17/2024 162.56 cm 27 kg/m2 91637.72 g 111/176 mm[Hg] Margot Patterson [facility] 11/17/2024 14:21:54 Date Recorded Body height Body mass index (BMI) Body weight Systolic And Diastolic Provider Name and Address Organization Details Last Updated DateTime 03/09/2025 162.56 cm 26.1 kg/m2 02296.04 g 119/80 mm[Hg] [facility] 03/09/2025 17:06:41 Date Recorded Body height Body mass index (BMI) Body weight Systolic And Diastolic Provider Name and Address Organization Details Last Updated DateTime 03/26/2025 162.56 cm 25.7 kg/m2 61076.86 g 114/81 mm[Hg] [facility] 03/26/2025 11:01:41 Social History Question Answer Notes LastModified by Organizat ion Details LastModified Time Tobacco Smoking Status Never Smoker Ron ness, [facility] 05/28/2021 11:03:21 Do You Have An Advance Directive? No [email or web address] Information n ot available 05/01/2021 If You Are , What Was Your Level Of Alcohol Consumption Prior To ? None [email or web address] Information not available 05/28/2021 Are You Blind Or Do You Have Difficulty Seeing? No [email or web address] Information n ot available 06/03/2020 What Is Your Level Of Caffeine Consumption? Moderate [email or web address] Information not available 05/02/2020 In The 14 Days Before Symptom Onset, Have You Had Close Contact With A Laboratory-confirm ed COVID-19 While That Case Was Ill? No [email or web address] Information n ot available 06/03/2020 In The 14 Days Before Symptom Onset, Have You Had Close Contact With A Person Who Is Under Investigation For COVID-19 While That Person Was Ill? No [email or web address] Information not available 06/03/2020 Have You Been To An Area Known To Be High Risk For COVID-19? No [email or web address] Information not available 06/03/2020 Are You Deaf Or Do You Have Serious Difficulty Hearing? No [email or web address] Information not available 06/03/2020 What Type Of Diet Are You Following? REGULAR [email or web address] Information n ot available 06/03/2020 What Is The Highest Grade Or Level Of School You Have Completed Or The Highest Degree You Have Received? [id number] [email or web address] Information not available 05/01/2021 How Many Days Of Moderate To Strenuous Exercise, Like A Brisk Walk, Did You Do In The Last 7 Days? 2 [email or web address] Information not available 05/28/2021 On Those Days That You Engage In Moderate To Strenuous Exercise, How Many Minutes, On Average, Do You Exercise? 60 [email or web address] Information not available 05/28/2021 Are There Any Guns Present In Your Home? No [email or web address] Information not available 05/01/2021 Do You Use Your Seat Belt Or Car Seat Routinely? Yes [email or web address] Information not available 06/03/2020 Do You Have Smoke And Carbon Monoxide Detectors In Your Home? Yes [email or web address] Information not available 06/03/2020 How Much Tobacco Do You Smoke? No [email or web address] Information not available 05/01/2021 Do You Use Sunscreen Routinely? Yes [email or web address] Information not available 06/03/2020 Has Tobacco Cessation Counseling Been Provided? No [email or web address] Information not available 05/28/2021 Have You Used IV Drugs? No [email or web address] Information not available 05/01/2021 Do You Have Difficulty Walking Or Climbing Stairs? No Information not available 06/29/2021 Sex: Unknown Functional Status Question Answer Note LastModified by Organizat ion Details LastModified Time Do you use any illicit or recreational drugs? No [email or web address] Information not available 05/02/2020 Do you or have you ever used any other forms of tobacco or nicotine? No Information not available 05/28/2021 What is your level of alcohol consumption? None [email or web address] Information not available 05/02/2020 Are you able to walk independently without assistance or assistive devices? YESWOREST [email or web address] Information not available 06/03/2020 Are you able to care for yourself independently? Yes Information not available 06/29/2021 Do you have difficulty dressing, bathing, grooming, or toileting? No Information not available 06/29/2021 What is your exercise level? Occasional [email or web address] Information not available 05/02/2020 Mental Status Question Answer Note LastModified by Organization D etails LastModified Time Do you feel stressed (tense, restless, nervous, or anxious, or unable to sleep at night)? [id number] [email or web address] Information not available 05/01/2021 Family History Relationship [...] (Food, seasonal, environmental ) Y Other Y Drug/Latex Allergies/Reactions Y Breast Cancer N Blood Transfusion N Dermatologic Disorders N Lung Disease N Defects or Inherited Disease N Breast Problem N Gestational Diabetes N Hematologic disorders N Anesthesia Complications N History of STI N Deep Vein Thrombosis N Polycystic ovary syndrome N Anxiety Disorder Y Autoimmune disease N Arthritis N Polyps N Infertility Y Acid Reflux (GERD) N History of abnormal pap N Cancer N Varicosities N Stroke N Neurologic/Epilepsy N Endometriosis N High Cholesterol N Fibromyalgia N Headaches Y Kidney Disease N Heart Problems N Thyroid Problems N Kidney or Bladder Problems N GI Problems N Eating Disorder [...] Mammogram 08/29/2023 Flow Moderate Date of LMP 03/08/2025 Was last menstrual period normal Y STIs/STDs [...] ICD10 Code Diagnosis IMO Codes Diagnosis Note [id number] Carolyn Jones [facility] [address] [address] 10/18/2019 14:47:42 10/18/2019 15:32:13 Pain in pelvis 04229189 R10.2 TVUS ordered test negative [id number] Z32.02 [id number] Sixto Cordova MD [facility] [address] [address] 10/21/2019 12:26:15 10/21/2019 13:18:19 Pain in pelvis 42640590 R10.2 [id number] [facility] [address],[place] [address] 10/21/2019 12:26:47 11/03/2019 14:20:18 Pain in pelvis 78962897 R10.2 Here to f/u for TVUS. We reviewed results which require MD consult. She has switched her care to Dr. Gretchen Weinberg. These results were given to her staff & appts made to address this issue. Time spent in visit is a total of 15 mins with at least 50% of visit consisting of counseling and review of plan of care. [id number] Sixto Cordova MD [facility] [address],[place] [address] 11/11/2019 17:24:14 11/14/2019 23:05:41 Pain in pelvis 69325236 R10.2 N97.9 [id number] Sixto Cordova MD [facility] [address],[place] [address] 03/02/2020 11:55:55 03/02/2020 13:34:50 Pain in pelvis 93102048 R10.2 N97.9 this patient is a 39-year-ol d female with a recent chemical . She has had tubal reanastomo sis. She has not felt well since the chemical . She has had pelvic pain. It is described in the notes. We agreed to repeat pelvic ultrasound and to discuss the results and possible treatment plan. [id number] Sixto Cordova MD [facility] [address],[place] [address] 03/13/2020 15:39:12 03/13/2020 16:08:37 Pain in pelvis 70090190 R10.2 this patient is a 39-year-ol d female with a recent chemical . She has had tubal reanastomo sis. She has not felt well since the chemical . She has had pelvic pain. It is described in the notes. We agreed to repeat pelvic ultrasound and to discuss the results and possible treatment plan. [id number] Sixto Cordova MD [facility] [address] [address] 03/13/2020 15:39:41 03/13/2020 16:44:43 Cyst of ovary 69289600 N83.209 this patient is a 39-year-ol d [...] a ultrasound to confirm intrauteri ne gestation. 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 [id number] Sixto Cordova MD [facility] [address] [address] 04/27/2020 16:00:48 04/27/2020 16:48:04 Cyst of right ovary [id number] N83.201 [id number] Gretchen Figueroa [facility] [address],[place] [address] 05/02/2020 15:00:06 05/04/2020 10:12:04 Trying to conceive 736546335 Z31.9 [id number] Sixto Cordova MD [facility] [address],[place] [address] 06/02/2020 16:23:41 06/04/2020 21:38:12 Female infertility 1556110 N97.9 16053 Sixto Cordova MD [facility] [address],[place] [address] 06/02/2020 18:17:13 06/04/2020 21:38:35 Female infertility 5926221 N97.9 [id number] Gretchen Figueroa [facility] [address],[place] [address] 06/03/2020 08:32:09 06/04/2020 22:49:57 Artificial insemination 20162238 Z31.83 [id number] Venice Nieves [facility] [address],[place] [address] 12/14/2020 16:13:59 12/15/2020 15:07:18 Gynecologic examination 76298615 Z01.419 Z11.51 Suggested Calcium with Vitamin D 1200-1500m g daily. Patient advised to get an annual flu shot in the fall and she could obtain at [facility] or [facility] clinic. Also to obtain TDap vaccinatio n [...] or respond to this email. Female infertility 52428 08 N97.9 Pt has been seen by SP and specialist for infertilit y. Informed patient I do not manage infertilit y. Pt desires repeat hsg. Message sent to Gretchen. [id number] Gretchen Figueroa [facility] [address],[place] [address] 03/21/2021 17:59:43 03/26/2021 12:01:41 Irregular periods 47922033 N92.6 [id number] Sixto Cordova MD [facility] [address],[place] [address] 04/26/2021 10:09:19 04/26/2021 10:10:18 [id number] Sixto Cordova MD [facility] [address],[place] [address] 04/30/2021 13:29:33 04/30/2021 14:26:28 Female infertility 4281516 N97.9 [id number] Gretchen Figueroa [facility] [address],[place] [address] 04/30/2021 16:52:18 04/30/2021 17:16:53 Trying to conceive 997115793 Z31.9 [id number] Gretchen Figueroa [facility] [address],[place] [address] 05/01/2021 09:37:33 05/01/2021 10:38:44 Artificial insemination 12186823 Z31.83 [id number] Sixto Cordova MD [facility] [address],[place] [address] 05/28/2021 11:02:56 05/28/2021 11:56:45 Female infertility 9261674 N97.9 [id number] Sixto Cordova MD [facility] [address],[place] [address] 06/07/2021 14:21:06 06/07/2021 14:49:59 Pain in pelvis 16761271 R10.2 this patient is a 39-year-ol d female with a recent chemical . She has had tubal reanastomo sis. She has not felt well since the chemical . She has had pelvic pain. It is described in the notes. We agreed to repeat pelvic ultrasound and to discuss the results and possible treatment plan. [id number] Gretchen Figueroa CNM [facility] [address],[place] [address] 06/29/2021 14:43:27 06/29/2021 15:53:38 Pain in pelvis 50232808 R10.2 [id number] Sixto Cordova MD [facility] [address],[place] [address] 06/29/2021 15:49:09 06/29/2021 15:54:32 Pain in pelvis 91321106 R10.2 this patient is a 39-year-ol d female with a recent chemical . She has had tubal reanastomo sis. She has not felt well since the chemical . She has had pelvic pain. It is described in the notes. We agreed to repeat pelvic ultrasound and to discuss the results and possible treatment plan. [id number] Sixto Cordova MD [facility] [address],[place] [address] 07/12/2021 14:55:51 07/12/2021 15:29:52 Pain in pelvis 44969308 R10.2 this patient is a 39-year-ol d female with a recent chemical . She has had tubal reanastomo sis. She has not felt well since the chemical . She has had pelvic pain. It is described in the notes. We agreed to repeat pelvic ultrasound and to discuss the results and possible treatment plan. [id number] Sixto Cordova MD [facility] [address],[place] [address] 07/23/2021 11:01:18 07/23/2021 15:25:15 Pain in pelvis 87751500 R10.2 This patient is a 41-year-ol d [...] We will follow-up on the serial HCGs. [id number] Yoli RobbinsFIFI [facility] [address] [address] 11/22/2021 15:57:31 11/22/2021 17:26:59 Urinary symptoms [id number] R39.9 Vaginitis 83381376 N76.0 Suspect yeastVagin itis panel sentUA today unremarkab leUrine hcg (-) todayTTC currently, would only like safe medication optionsTak ing daily PNVWe discussed treatment optionsRx sentVulvar care guidelines discussed in-depth Time spent in visit is a total of 20 mins with at least 50% of visit consisting of counseling and review of plan of care. Irregular periods 421169 07 N92.6 Venereal d isease screening 737540460 Z11.3 [id number] Sixto Cordova MD [facility] [address] [address] 06/24/2022 14:54:16 06/24/2022 15:34:53 Pain in pelvis 24136065 R10.2 N97.9 This patient is a 41-year-ol [...] We will follow-up on the serial HCGs. [id number] Sixto Cordova MD [facility] [address] [address] 07/08/2022 16:02:24 07/08/2022 17:26:18 Cyst of ovary [id number] N83.209 this patient is a 42-year-ol d [...] . She is discontinu ing fertility treatment [id number] Carolyn Jones [facility] [address] [address] 11/06/2022 15:16:11 11/06/2022 15:42:44 Gynecologic examination 89626896 Z01.419 Suggested Calcium with Vitamin D 1200-1500m g daily. Patient advised to get an annual flu shot in the fall and she could obtain at [facility] or [facility] care clinic. Also to obtain TDap vaccinatio [...] Screen naDexa Screen naRoutine Labs PCP Vaginitis 76711194 N76.0 Suspect yeast on examRx sent Screening mammography 24 463848 Z12.31 [id number] Carolyn Jones [facility] [address] [address] 03/19/2023 17:55:20 03/19/2023 18:16:12 Vaginitis [id number] N76.0 Suspect yeast on examIf recurrent issue will consider Boric acid vaginal regimenMig ht consider estrogen vagShaves- might be residual of that.Rx sent Reviewed VCG's, sheet given for additional home reference; Daily moisturize r. Time spent in visit is a total of 20 mins with at least 50% of visit consisting of counseling and review of plan of care. [id number] MD Sukhwinder Marquez [address],[place] [address] 06/05/2023 16:23:19 06/05/2023 17:20:57 screening [id number] Z36.87 Z3A.01 [id number] MD Sukhwinder Marquez [address],[place] [address] 06/12/2023 16:00:04 06/12/2023 16:50:52 Uncertain viability of [id number] O36.80X0 O02.81 Z3A.01 [id number] MD Sukhwinder Marquez [address],[place] [address] 06/17/2023 12:30:58 06/17/2023 13:42:21 Uncertain viability of [id number] O36.80X0 O02.81 Z3A.01 [id number] JW LAUREN MD [facility] [address],[place] [address] 06/17/2023 13:15:53 06/19/2023 13:36:50 Threatened miscarriage [id number] O20.0 - hx of tubal reversal, no evidence of ectopic - Slow increase of hCG over 2 weeks- US today demonstrat es FP with continued cardiac activity, however no growth of CRL from 5 days ago- discussed concern for threatened miscarriag e- recommend repeat US in 2 weeks for further evaluation of early - return precaution s given [id number] Sixto Cordova MD [facility] [address],[place] [address] 07/03/2023 16:28:06 07/03/2023 16:58:54 Missed miscarriage [id number] O02.1 Z3A.01 [id number] MD Sukhwinder Marquez [address],[place] [address] 07/03/2023 16:43:08 07/04/2023 04:56:03 Missed miscarriage [id number] O02.1 This patient is a 43-year-ol d female with a missed miscarriag e who desires a suction D& C. We agreed to perform suction D&C. She understand s the risks, benefits, and alternativ es. She is completed informed consent process and is ready to proceed. [id number] Sixto Cordvoa MD [facility] [address],[facility] [address] 07/11/2023 14:39:04 07/11/2023 15:59:16 Missed miscarriage [id number] O02.1 this patient presents for postop follow-up. She is 1 week postop from a suction D&C. She is recovering normally. Her bleeding is minimal. She has no foul-smell ing vaginal discharge. She denies any nausea, vomiting, fever, chills. We discussed contracept ion. We discussed future . She will follow up for a repeat test. [id number] Sixto Cordova MD [facility] [address],[facility] [address] 11/10/2023 15:36:33 11/10/2023 16:30:19 Amenorrhea [id number] N91.2 Gynecologi c examination [id number] Z01.419 Annual gynecologi eusebia exam performed. Patient [...] -done Pap smear- laboratory evaluation - na [id number] Sixto Cordova MD [facility] [address],[place] [address] 11/17/2023 17:11:32 11/18/2023 09:12:27 Recurrent miscarriage [id number] N96 this patient is a 43-year-ol d female presents for follow-up on recurrent miscarriag e. We agreed to do the evaluation for recurrent miscarriag e. She has had multiple ultrasound s in the uterus appears to be normal. We are going to obtain the laboratory evaluation . We discussed causes of recurrent miscarriag e. We talked about the genetics. [id number] Sixto Cordova MD [facility] [address],[facility] [address] 03/12/2024 14:58:17 03/12/2024 16:03:21 Pain in pelvis 73124680 R10.2 N97.9 This patient is a 41-year-ol [...] evaluation , progestero ne and baby aspirin. [id number] Sixto Cordova MD [facility] [address],[place] [address] 03/29/2024 17:46:38 03/30/2024 06:22:04 Pain in pelvis 40298746 R10.2 This patient is a 41-year-ol d [...] evaluation , progestero ne and baby aspirin. [id number] Sixto Cordova MD [facility] [address],[facility] [address] 04/08/2024 11:51:57 04/09/2024 05:54:19 Pain in pelvis 73569179 R10.2 Cyst of ovary 91650181 N 83.209 this patient is a 44-year-ol [...] observe with repeat ultrasound the ovarian cyst. [id number] MD Sukhwinder Marquez [address],[place] [address] 06/10/2024 14:44:27 06/10/2024 15:40:12 Cyst of left ovary [id number] N83.202 [id number] MD Sukhwinder Marquez [address],[place] [address] 10/18/2024 15:31:26 10/18/2024 16:16:37 Uncertain viability of 443258103 O36.80X0 O02.81 Z3A.01 92218866 [id number] MD Sukhwinder Marquez [address],[place] [address] 10/26/2024 12:29:20 10/26/2024 13:10:13 Uncertain viability of [id number] O36.80X0 O02.81 Z3A.01 [id number] Sixto Cordova MD [facility] [address],[place] [address] 11/01/2024 16:04:27 11/02/2024 09:02:02 Abnormal human chorionic gonadotropin 568729246 O02.81 O36.80X0 Z3A.01 0827635 [id number] MD Sukhwinder Marquez [address],[place] [address] 11/04/2024 08:42:01 11/05/2024 09:02:51 [id number] Sixto Cordova MD [facility] [address],[place] [address] 11/17/2024 14:12:42 11/17/2024 15:16:53 Missed miscarriage 89127640 O02.1 68198 this patient presents for postop follow-up. She is 1 week postop from a suction D&C. She is recovering normally. Her bleeding is minimal. She has no foul-smell ing vaginal discharge. She denies any nausea, vomiting, fever, chills. We discussed contracept ion. We discussed future . She will follow up for a repeat test. we discussed contracept ion. She would like sterilizat ion. We talked about salpingect lynne. The patient understand s the procedure. The procedure was described to the patient in great detail. the patient also understand s the risks. The risks were also explained in detail. She understand s that injuries May occur during surgery. She understand s these injuries can result in hospitaliz ation, more surgery, and severe illness. She understand s there is risk of hemorrhage and infection. We agreed to proceed with laparoscop ic bilateral salpingect lynne. I spent over 30 minutes on her care in total. [id number] Sixto Cordova MD [facility] [address],[place] [address] 12/01/2024 08:50:24 12/01/2024 19:00:04 [id number] Sixto Cordova MD [facility] [address],[place] [address] 03/09/2025 17:00:41 03/10/2025 08:41:44 Menopausal symptom 72060049 N95.1 1650910 Uterine leiomyoma 608200 05 D25.9 [id number] this patient is a 44-year-ol d female with symptoms of voiding dysfunctio n, urgency, she is evaluated by Urology and found to have a enlarged uterus impinging on her bladder. She has uterine fibroids. Her blood uterus is enlarged and anteverted on ultrasound s here in floor person. She would like to have definitive surgical treatment to restore her normal bladder function. We agreed to proceed with robotic assisted hysterecto my bilateral salpingect lynne. The patient understand s the procedure. The procedure was described to the patient in great detail. the patient also understand s the risks. The risks were also explained in detail. She understand s that injuries May occur during surgery. She understand s these injuries can result in hospitaliz ation, more surgery, and severe illness. She understand s there is risk of hemorrhage and infection. we also discussed hormone replacemen t therapy. She is menopausal symptoms. We considered measuring hormones. We also considered a trial of estradiol. We are going to start estradiol 2 mg. She understand s risks, benefits, and alternativ es. She is given instructio ns and precaution s. She was prescribed the medication . I spent over 30 minutes on this patient's care in total. Dysfunctio n of urinary bladder 78142508 N31.9 86613 [id number] Sixto Cordova MD [facility] [address],[place] [address] 03/26/2025 10:42:29 03/26/2025 11:18:56 Gynecologic examination 96568875 Z01.419 [id number] Annual gynecologi eusebia exam performed. Patient will [...] any questions please call or email. mammogram -order Pap smear- today laboratory evaluation - na Health Concerns Section Related Observation LastModified by Organization Detai ls LastModified Time None Recorded Concern Status LastModified by Organization Details LastModified Time None Recorded Advance Directives Directive N: Payers Insurance Date Sequence Insurance Name Policy Number Policy Mancera Covered Member ID Mancera Member ID Guarantor Name 04/28/2024 1 *SELF PAY* Alex Infante 05/25/2024 1 [place] [employer] Arin Infante [id number] Arin Olyesseniabitsofia 05/13/2024 1 [employer] [id number] Arin Ollenbitsofia [id number] Arin Ollenbittle 03/23/2025 1 [facility] (HMO) [place] Arin Infante [id number] Arin Ollenbittle 11/09/2023 1 [facility] - DOS PRIOR TO 2020 (MEDICAID REPLACEMENT - HMO) Arin Infante [id number] Arin Ollenbitsofia 05/25/2024 1 [facility] ON OR AFTER 09/28/20 (MEDICAID REPLACEMENT - HMO) Arin Infante [id number] Arin Infante Notes Date Note Type Note Provider Name and Address Organization Details Recorded Time 11/18/19 25 text/htm l this patient presents for postop follow-up. She is 1 week postop from a suction D&C. She is recovering normally. Her bleeding is minimal. She has no foul-smelling vaginal discharge. She denies any nausea, vomiting, fever, chills. We discussed contraception. We discussed future . She will follow up for a repeat test. we discussed contraception. She would like sterilization. We talked about salpingectomy. The patient understands the procedure. The procedure was described to the patient in great detail. the patient also understands the risks. The risks were also explained in detail. She understands that injuries May occur during surgery. She understands these injuries can result in hospitalization, more surgery, and severe illness. She understands there is risk of hemorrhage and infection. We agreed to proceed with laparoscopic bilateral salpingectomy. I spent over 30 minutes on her care in total. Dariela ness, [facility] 12/22/2024 18:23:14 03/09/20 25 text/htm l this patient is a 44-year-old female with symptoms of voiding dysfunction, urgency, she is evaluated by Urology and found to have a enlarged uterus impinging on her bladder. She has uterine fibroids. Her blood uterus is enlarged and anteverted on ultrasounds here in floor person. She would like to have definitive surgical treatment to restore her normal bladder function. We agreed to proceed with robotic assisted hysterectomy bilateral salpingectomy. The patient understands the procedure. The procedure was described to the patient in great detail. the patient also understands the risks. The risks were also explained in detail. She understands that injuries May occur during surgery. She understands these injuries can result in hospitalization, more surgery, and severe illness. She understands there is risk of hemorrhage and infection. we also discussed hormone replacement therapy. She is menopausal symptoms. We considered measuring hormones. We also considered a trial of estradiol. We are going to start estradiol 2 mg. She understands risks, benefits, and alternatives. She is given instructions and precautions. She was prescribed the medication. I spent over 30 minutes on this patient's care in total. Sixto Cordova MD [address], [place], [address], [facility] 03/09/2025 18:53:48 03/26/20 25 text/htm l Annual GYNReported by PatientHistoryFor history, patient reportsno gynecologic complaints.Genitourinary symptomsFor menstrual cycle, patient reportsnormal menses. For urinary symptoms, patient reportsno hematuriaandno incontinence. For vulva, patient reportsno genital lesion. For vagina, patient reportsnormal vaginal discharge.Breast symptomsFor breast, patient reportsno breast painandno breast lump.Endocrine symptomsFor sexual complaints, patient reportsno sexual complaintsandno pain during intercourse. For menopausal symptoms, patient reportsno menopausal symptoms.Psychological symptomsFor psychological symptoms, patient reportsdepressionandanxiety (txed).Preventative measuresFor preventive measures, patient reportsencourage self breast examinationandencourage regular exercise. Sixto Cordova MD [address], [place], [address], [facility] 03/26/2025 11:18:53 OBGyn Episode Ob Episode Information Episode Created Date Number of Fetuses Patient Bloodtype Patient rh Status Prepregnancy Weight lbs Domestic Partner Domestic Partner Phone Father Name Shackler Status 10/18/19 20 1 CLOSED Fetus Data [...] Domestic Partner Domestic Partner Phone Father Name Shackler Status 10/18/19 20 2 CLOSED Fetus Data [...] Domestic Partner Domestic Partner Phone Father Name Shackler Status 10/18/19 20 1 CLOSED Fetus Data [...] Domestic Partner Domestic Partner Phone Father Name Shackler Status 06/04/19 21 1 CLOSED Fetus Data [...] Domestic Partner Domestic Partner Phone Father Name Shackler Status 03/09/20 25 1 CLOSED Fetus Data First Name Last Name Admitted to NICU Weight (g) Sex Living Outcome Pediatric Complications Fetus ID Race Codes Race Delivery Type , Spontane ous 64398 Hai Calculation Initial Hai Date Initial Exam [...] Complications Tubal Sterilization Discharge Date Comments 5 Discharge Information Feeding Method Contraceptive Method Maternal HG B and HCT Levels Ob Episode Information Episode Created Date Number of Fetuses Patient Bloodtype Patient rh Status Prepregnancy Weight lbs Domestic Partner Domestic Partner Phone Father Name Shackler Status 11/13/19 24 1 CLOSED Fetus Data First Name Last Name Admitted to NICU Weight (g) Sex Living Outcome Pediatric Complications Fetus ID Race Codes Race Delivery Type , Spontane ous 17319 Hai Calculation Initial Hai Date Initial Exam [...] Domestic Partner Domestic Partner Phone Father Name Shackler Status 07/03/19 24 1 CLOSED Fetus Data First Name Last Name Admitted to NICU Weight (g) Sex Living Outcome Pediatric Complications Fetus ID Race Codes Race Delivery Type , Spontane ous 36132 Hai Calculation Initial Hai Date Initial Exam [...] Domestic Partner Domestic Partner Phone Father Name Shackler Status 10/12/19 25 1 CLOSED Fetus Data First Name Last Name Admitted to NICU Weight (g) Sex Living Outcome Pediatric Complications Fetus ID Race Codes Race Delivery Type , Spontane ous 33251 Hai Calculation Initial Hai Date Initial Exam [...]
--- OUTSIDE RECORDS SUMMARY | 2025-03-26 11:11 | XMS_ITS | Continuity of Care Document ---
Author Organization MICAH Sarbjit POLANCO [address] [place] [address] Care Team Providers Care Bus Washer Name Role Phone NARCISA BRIDGES Primary Care Provider NURA CORRAL Front Edger Assessment Encounter Date Assessment Date Assessment LastModified by Organization Details LastModified Time 01/10/2025 01/10/2025 Female patient with 6-year history [...] update on referral Not available 03/11/2025 18:37:39 Plan of Treatment Reminders Order Date Submit Date Provider Last Modified By Organization Details Last Modified Time Details Appointments NEW PATIENT 30 2025 03:00P M Opal Sarkar, GIANCARLO-BC Not available Not available Not available Lab None recorded. Referral orthopedi c surgeon referral 2024 MYRNA Law MD, [address] [place], [address], 03/14/2025 11:35:40 Procedures None recorded. Surgeries None recorded. Imaging None recorded. Medication Orders cyclobenz aprine 5 mg tablet 2024 [id number], [address] [facility], [place], [address], 01/10/2025 14:55:48 Patient TargetsNo targets recorded. Patient Instructions Encounter Date Encounter Id Patient Instructions Last Modified By Organization Details Last Modified Time 01/10/2025 [id number] Dear patient, Thank you for visiting today. [...] cysts in your internal organs Referrals: - field marketing specialist referral will be placed Follow-up: - [...] MD Family Medicine Not available 03/11/2025 18:37:42 Reason for Referral Orthopedic Surgeon Referral for Chronic low back pain Progressive Right Sided back pain, Has done conservative NSAIDS and PT last year, however sxs worsen Referring Physician: Gloria Manzanares, Family Medicine, Encounter Date: 01/10/2025 Results Created Date Observation Date Name Description Value Unit Range Abnormal Flag Note LastModifiedBy Organization Detail LastModifiedTime 12/25/19 25 12/24/2024 rapid strep group A, throa t Strep negati ve Not Available In-Office Order Internal Use Only DO Not Attach Compendium DO Not Attach Compendium, Do Not Delete/merge, [id number] 12/24/2024 16:15:20 Result Notes None recorded. Problems Name Problem SNOMED Code Status Onset Date Resolution Date Notes Provider Name and Address Organization Details Recorded Time Dysmenorrhea [id number] Active CHANTAL Canales [facility] 6 14:36:30 Problem Notes None recorded. Procedures Surgical History Date Name Laterality Status Provider Name and Address Organization Details Recorded Time 01/11/20 25 tuboplasty for sterilization reversal completed Kayla Fontanez MA [facility] 01/10/2025 14:22:23 03/12/20 24 Date of Last Pap Smear completed Jenny Liu Lizzeth [facility] 10/26/2024 16:27:04 11/10/19 24 Date of Last Mammogram completed RENUKA Castellon [facility] 10/26/2024 16:27:08 12/04/19 07 Tubal Ligation completed Kinga Cardona MA [facility] 08/25/2014 09:30:56 12/04/19 07 Caesarean Section completed Kinga Cardona MA [facility] 08/25/2014 09:30:56 12/11/19 02 Caesarean Section completed Kinga Cardona MA [facility] 08/25/2014 09:30:56 section completed Kayla Fontanez MA [facility] 01/10/2025 14:21:54 Imaging Results None recorded. Procedure Notes None recorded. Medical Equipment None Reported. Allergies Allergen ID Allergen Name Allergen Category Reaction Reaction Severity Criticality Documentation Date Start Date Code Code System Note Provider Name and Address Organization Details Recorded Time 107549 Zoloft medicatio n rash Not available unabletoasse 03/11/2017 47467 RxNorm CHANTAL Banda [place] [facility] 5 16:08:47 003888 Product containin g penicilli n (product) medicatio n dyspnea Not available Not available 03/11/20172016 95276 8001 SNOMED Pt not sure of aller gy but think s had short ness of breat h after [facility] as a child . Gloria Manzanares MD Attn: Maribel g,[address], [place], [address], [facility] 16:52:38 969968 sertralin e medicatio n rash Not available [facility] 10/26/20242013 42685 RxNorm Gloria Manzanares MD Attn: Maribel g,[address], [place], [address], [facility] 16:52:45 Medications Name Sig Start Date Stop [...] Updated DateTime 5 165.1 cm 24.4 kg/m2 80157.2 9 g 98 % 83 /min 16 /min 96.4 [degF] 104/72 mm[Hg] Kayla Fontanez MA [facility] 5 14:24:13 Date Recorded Body height Body mass index (BMI) Body weight Body temperature Heart rate Respiratory rate Systolic And Diastolic Provider Name and Address Organization Details Last Updated DateTime 5 165.1 cm 22.3 kg/m2 85553.3 8 g 97.1 [degF] 76 /min 16 /min 112/74 mm[Hg] Soraida Martinez MA [facility] 5 14:49:14 Social History Question Answer Notes LastModified by Organizat ion Details LastModified Time Tobacco Smoking Status Never Smoker Kinga Cardona MA [facility], [facility] 08/25/2014 09:30:57 Do You Have An Advance [...] anxious, or unable to sleep at night)? [id number] Information not available 01/10/2025 Family History Relationship [...] MRSA N Blood Transfusion N Emphysema N Depression N COPD N Blood Clots N Pneumonia N Peripheral Arterial Disease N Premature N Edema N TIA N Headaches/Migraines N Anxiety Disorder N Obesity N Polyps N Infertility N Acid Reflux (GERD) N Hematuria N Stroke N Neck Injury N Polio N Hospital Admission other than N Neurologic Disorder N Other Sleep Disorders N Rheumatoid Arthritis N Fibromyalgia N Abdominal Aortic Aneurysm Repair N Kidney Disease N Heart Conditions N Heart Disease/Heart Problems N Hospitalizations N Brain Tumors N Acne N Skin Problems N Eating Disorder N Meningitis N Constipation N Tuberculosis N Cerebral Palsy N Myocardial Infarction N Asthma N Substance Abuse N Peripheral Vascular Disease N Vertigo N Sleep Disorder N Cirrhosis N Pulmonary Embolism N Chicken Pox N Hematologic Disease N Flomax Use Past or Present N Anxiety/Depression N Thyroid Disease N Colon Cancer N Lung Disease N Glaucoma N Developmental or Behavioral Disorders N Bipolar N Pacemaker N Diverticulitis/Diverticulosis N Orthopedic Problems N Anesthesia Complications N Orthotics N Head Injury/Concussion N Congenital Anomalies N Patricia Bite N Chronic Kidney Disease N Endometriosis N Liver Disease N Schizophrenia N Dialysis N Speech Delay N Chronic Obstructive Pulmonary Disease N Parkinson's Disease N Thyroid Problems N GI Problems N Developmental Delay N Anemia N Multiple Sclerosis N Immune System Disorder N Colon Polyps N Heart Attack (CA) N Diabetes N Cardiomyopathy N Blood Transfusions N Heart Problems/Murmur N Eye Trauma N Congestive Heart Failure (CHF) N Valvular Heart Disease N Hyperlipidemia N Double Vision N Abuse/Domestic Violence N Hepatitis B N Lupus N Epilepsy/Seizures N Reflux/GERD N Aneurysm N Heart Disease N Bronchitis N Pre-Eclampsia N Hypertension N Heart Failure N Other N Gout [...] N Kidney Failure N Ocular trauma N Diverticulitis N Dementia N Sleep Apnea N Mental Problems N [...] mcg/0.3 mL dose 12/11/2020 completed Not Available [facility] 14:44:35 COVID-19, mRNA, LNP-S, PF, 30 mcg/0.3 mL dose 01/01/2021 completed Not Available [facility] 14:44:35 Influenza, recombinant, quadrivalent, PF 02/03/2023 completed Not Available [facility] 14:44:35 COVID-19, mRNA, LNP-S, PF, 50 mcg/0.5 mL 02/12/2023 completed Not Available [facility] 14:44:35 Tdap 07/15/2023 completed Not Available [facility] 02/17/2025 14:44:35 Influenza, recombinant, trivalent, PF 01/18/2025 completed Not Available [facility] 2024 14:44:35 Past Encounters Encounter ID Performer Location Encounter Start Date Encounter Closed Date Diagnosis/Indication Diagnosis SNOMED-CT Code Diagnosis ICD10 Code Diagnosis IMO Codes Diagnosis Note [id number] MD Sarbjit Barber [address] [place] [address] 12/24/2024 15:56:53 12/27/2024 07:53:36 Sore throat 353686453 J02.9 55932 Acute-unco mplicated. -Give hx of improvemen t with augmentin then feeling worse, presence of rhinorrhea and post nasal drip and no evidence of tonsil enlargemen t or exudates, likely pt has a viral URTI.-Stre p throat done-negat ivePlan- Start sore throat lozenges- start cetirizine 10mg dly PRN [id number] MD Sarbjit Frederick [address] [place] [address] 01/10/2025 14:03:58 03/14/2025 10:38:05 HIV screening declined 4225756597 75073 Z53.20 4700524728 Body mass index 20-24 - normal 413386717 Z68.24 70169777 BMI=24.4 Chronic low back pain 27 9823576 M54.50 G89.29 79567195 lidocainem [facility] relaxORTHO referCT Abd Pelvis- Review previous PROFESSIONAL NURSE images Influenza vaccination declined 457017117 Z28.21 47902711 Health Concerns Section Related Observation LastModified by Organization Detai ls LastModified Time None Recorded Concern Status LastModified by Organization Details LastModified Time None Recorded Payers Encounter Date Sequence Insurance Name Policy Number Policy [employer] Covered Member ID [employer] Member ID Guarantor Name 01/10/2025 1 [employer] (HMO) [employer] Narcisa Reyesbitsofia [id number] Narcisa Reyesdemetriosofia Notes Date Note Type Note Provider Name and Address Organization Details Recorded Time 01/10/2025 text/html ROS as noted in the HPI History of Present Illness The patient is a female with a history of tubal reversal surgery who presents with chronic right-sided back pain that has been ongoing for 6 years since her surgery. The pain began immediately upon waking from the tubal reversal surgery in 2019, which involved a full incision similar to [...] as part of her fertility care at [place]. She has a history of fibroids and [...] ectopic . Gloria Manzanares MD Attn: Accounting,[address] [facility], [place], [address], [place] 03/11/2025 18:38:31 02/17/2025 text/html ROS as noted [...] joint pain. Kat Juarez MD Attn: Accounting,[address] [facility], [place], [address], [facility] - [place] 02/22/2025 11:24:25 OBGyn Episode No OBEpisode recorded.
--- OUTSIDE RECORDS SUMMARY | 2025-03-26 11:11 | XMS_ITS | Clinical Summary ---
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 Encounters Date Type Department Care Team Description 02/14/2025 3:19 AM MILITARY SCIENCE TEACHER - 02/15/2025 2:10 PM MILITARY SCIENCE TEACHER Hospital Encounter [facility] [address] [place] [id number] Johnnie Ornelas MD Huynh, Kiet T., MD Kheirkhahan, Nazanin, MD Richards, Isaiah Alvarado Jr., MD Cross, Dyan Beard MD Hydroureteronephrosis (Primary Dx); Acute right-sided low back pain without sciatica; Acute pyelonephritis; Sepsis without acute organ dysfunction, due to unspecified organism (HCC); Acute cystitis with hematuria Discharge Disposition: Discharge to home or self care from Last 3 Months Immunizations Immunization Administration Dates Next Due Influenza, Trivalent, IM (MDV) 04/19/2008 Influenza, Unspecified 01/29/2025 Surgical History Surgery Date Site/Laterality Comments SECTION [...] polyps; Diabetes type II Maternal Grandmother Sue elder -Type II; Cancer Other 1 Family history of Cancer -; Diabetes Other 1 grandmother COPD Other 2 Family history of COPD; Hypertension Other 3 Family history of Hypertension; Heart disease Paternal Grandfather Heart disease; Diabetes type II Paternal Grandmother Sue elder -Type II; Cancer Sister 2 Cancer -; eye t umor Relation Name Status Comments Daughter Merlyn Father Maternal Grandmother Other 1 Other 2 Other [...] more drinks on one occasion? Never 03/12/2024 PHQ-2 Answer Date Recorded PHQ-2 Total Score (If total score is 3 or more points, staff should administer the PHQ-9) 0 02/14/2025 Personal Safety Answer Date Recorded Have you ever been in or are you currently in a harmful physical or emotional relationship or is someone making you feel afraid or unsafe? Denies 02/14/2025 Comments No Sex and Gender Information Value Date Recorded Sex Assigned at Not on file Legal Sex Female 7:25 PM MILITARY SCIENCE TEACHER Gender Identity Not on file Sexual Orientation [...] pont Living 002 M CS-Un spec Living 04/04/2 005 Term M CS-Un spec Living 007 Term F CS-Un spec Living 2019 SAB Comments:Chemical preg rochelle Last Filed Vital Signs Vital Sign Reading Time Taken Comments Blood Pressure 107/71 02/15/2025 8:02 AM MILITARY SCIENCE TEACHER Pulse 70 02/15/2025 8:02 AM MILITARY SCIENCE TEACHER Temperature 36.7 C (98.1 F) 02/15/2025 8:02 AM MILITARY SCIENCE TEACHER Respiratory Rate 16 02/15/2025 8:02 AM MILITARY SCIENCE TEACHER Oxygen Saturation 96% 02/15/2025 8:02 AM MILITARY SCIENCE TEACHER Inhaled Oxygen Concentration - - Weight 69.8 kg (153 lb 14.1 oz) 02/14/2025 8:00 AM MILITARY SCIENCE TEACHER Height 165.1 cm (5' 5) 02/14/2025 8:00 AM MILITARY SCIENCE TEACHER Body Mass Index 25.61 02/14/2025 8:00 AM MILITARY SCIENCE TEACHER Plan of Treatment Health Maintenance Due Date Last Done Comments Cervical Cancer Screening 1980 Hepatitis C Screening 1980 Varicella Vaccines (1 of 2 - 13+ 2-dose series) 1993 Hepatitis B Screening 1998 Regular Well Visit/Exam 18-64 1998 Pneumococcal vaccine <65 (1 of 2 - PCV) 1999 HPV Vaccines (1 - 3-dose SCDM series) 2007 Colon Cancer Screening-Colonoscopy 06/04/20212011 Breast Cancer Screening-Mammogram 08/28/2024 024, 05/10/2021 Covid-19 Vaccine ( - season) 11/29/202406/2020, 12/11/2020 Depression Screening 02/14/2026 02/14/2025 DTaP/Tdap/Td Vaccine (2 - Td or Tdap) 07/14/2033 Influenza Vaccine Completed 01/29/2025, , 04/19/2008 Procedures Procedure Name Priority Date/Time Associated Diagnosis Comments EGFR Routine 02/15/2025 4:05 AM MILITARY SCIENCE TEACHER DIFFERENTIAL AUTO Routine 02/15/2025 4:0 5 AM MILITARY SCIENCE TEACHER COMPREHENSIVE METABOLIC PANEL Routine 02/15/2025 4:05 AM MILITARY SCIENCE TEACHER CBC WITH AUTO DIFFERENTIAL Routine 02/15/2025 4:[address] UROGRAM ED Urgent/IP Urgent 02/14/2025 11:[address] ABDOMEN PELVIS WO CONTRAST ED 02/14/2025 4:14 AM MILITARY SCIENCE TEACHER EGFR STAT 02/14/2025 3:18 AM MILITARY SCIENCE TEACHER HCG, URINE, QUALITATIVE Timed 02/14/2025 3:18 AM MILITARY SCIENCE TEACHER URINALYSIS, MICROSCOPIC ONLY STAT 02/14/2025 3:18 AM MILITARY SCIENCE TEACHER DIFFERENTIAL AUTO STAT 02/14/2025 3:1 8 AM MILITARY SCIENCE TEACHER HCG, BLOOD, QUANTITATIVE STAT 02/14/2025 3:18 AM MILITARY SCIENCE TEACHER LIPASE STAT 02/14/2025 3:18 AM MILITARY SCIENCE TEACHER COMPREHENSIVE METABOLIC PANEL STAT 02/14/2025 3:18 AM MILITARY SCIENCE TEACHER CBC WITH AUTO DIFFERENTIAL STAT 02/14/2025 3:18 AM MILITARY SCIENCE TEACHER URINE CULTURE STAT 02/14/2025 3:18 AM MILITARY SCIENCE TEACHER URINALYSIS AND REFLEX TO MICROSCOPIC AND CULTURE STAT 02/14/2025 3:18 AM MILITARY SCIENCE TEACHER COLONOSCOPY 06/05/2011 12:00 AM MILITARY SCIENCE TEACHER from Last 3 Months or Most Recently Relevant to Health Maintenance Results * eGFR (02/15/2025 4:05 AM MILITARY SCIENCE TEACHER) eGFR >90 >=60 mL/min/1. 73 m2 Comment: Interpretive Data Reference Interval Normal >/= 90 mL/min/1.73m2 Mildly decreased* 60 - 89 mL/min/1.73m2 Mildly to moderately decreased 45 - 59 mL/min/1.73m2 Moderately to severely decreased 30 - 44 mL/min/1.73m2 Severely decreased 15 - 29 mL/min/1.73m2 Kidney Failure < 15 mL/min/1.73m2 *Relative to young adult level Estimated glomerular filtration rate is determined by the 2020 CKD-EPI equation recommended by the National Kidney Foundation (A Unifying Approach to GFR Estimation: Recommendations of the NKF-ASK Task Force on Reassessing the Inclusion of Race in Diagnosing Kidney Disease, JASN 2020). The CKD-EPI equation should not be used for patients with unstable renal function and has not been validated in children and those over 70. Current interpretive data was last reviewed 2021. Blood 02/15/2025 4:05 AM MILITARY SCIENCE TEACHER 02/15/2025 5:10 AM MILITARY SCIENCE TEACHER us Jonathan Whyte MD LAB BLOOD ORDERABLES Final Resu lt [facility] ([place]) 1 [facility] [place] [address] * Differential, auto (02/15/2025 4:05 AM MILITARY SCIENCE TEACHER) Neutrophil abs 3.54 1.50 - 6.50 K/cumm Imm gran abs 0.01 0.00 - 0.10 K/cumm [facility] ([place]) Lymphocyte abs 1.71 0.80 - 3.30 K/cumm [facility] ([place]) Monocyte abs 0.41 0.20 - 0.80 K/cumm [facility] ([place]) Eosinophil abs 0.13 0.00 - 0.50 K/cumm [facility] ([place]) Basophil abs 0.02 0.00 - 0.10 K/cumm [facility] ([place]) Neutrophil pct 60.9 % [facility] ([place]) Comment: Interpretive Data Percent cell count reference ranges are not reported, since discordance with absolute values may lead to misinterpretation of CBC data. Current Interpretive Data was last revised on 2017. Imm gran pct 0.2 % [facility] ([place]) Comment: Interpretive Data Percent cell count reference ranges are not reported, since discordance with absolute values may lead to misinterpretation of CBC data. Current Interpretive Data was last revised on 2017. Lymphocyte pct 29.4 % [facility] ([place]) Comment: Interpretive Data Percent cell count reference ranges are not reported, since discordance with absolute values may lead to misinterpretation of CBC data. Current Interpretive Data was last revised on 2017. Monocyte pct 7.0 % [facility] ([place]) Comment: Interpretive Data Percent cell count reference ranges are not reported, since discordance with absolute values may lead to misinterpretation of CBC data. Current Interpretive Data was last revised on 2017. Eosinophil pct 2.2 % [facility] ([place]) Comment: Interpretive Data Percent cell count reference ranges are not reported, since discordance with absolute values may lead to misinterpretation of CBC data. Current Interpretive Data was last revised on 2017. Basophil pct 0.3 % [facility] ([place]) Comment: Interpretive Data Percent cell count reference ranges are not reported, since discordance with absolute values may lead to misinterpretation of CBC data. Current Interpretive Data was last revised on 2017. Blood 02/15/2025 4:05 AM MILITARY SCIENCE TEACHER 02/15/2025 5:09 AM MILITARY SCIENCE TEACHER us Jonathan Whyte MD LAB BLOOD ORDERABLES Final Resu lt [facility] ([place]) 1 [facility] Department [place] [address] * (ABNORMAL) CBC with auto differential (02/15/2025 4:05 AM MILITARY SCIENCE TEACHER) WBC 5.82 3.80 - 9.90 K/cumm Hgb 11.1(L) 11.9 - 15.5 g/dL [facility] ([place]) Hct 33.1(L) 35.6 - 45.5 % [facility] ([place]) Plt 148(L) 150 - 400 K/cumm [facility] ([place]) MPV 12.6(H) 9.1 - 12.3 fL [facility] ([place]) RBC 3.50(L) 3.90 - 5.20 M/cumm [facility] ([place]) MCV 94.6 81.3 - 96.4 fL [facility] ([place]) MCH 31.7 27.1 - 33.3 pg [facility] ([place]) MCHC 33.5 32.3 - 35.7 g/dL [facility] ([place]) RDW CV 12.9 11.1 - 14.9 % [facility] ([place]) RDW SD 44.5 35.7 - 48.1 fL [facility] ([place]) NRBC abs 0.00 0.00 - 0.01 K/cumm [facility] Blood 02/15/2025 4:05 AM MILITARY SCIENCE TEACHER 02/15/2025 5:09 AM MILITARY SCIENCE TEACHER us Jonathan Whyte MD LAB BLOOD ORDERABLES Final Resu lt [facility] ([place]) 1 [facility] Department [place] [address] * (ABNORMAL) Comprehensive metabolic panel (02/15/2025 4:05 AM MILITARY SCIENCE TEACHER) Sodium 141 135 - 145 mmol/L Potassium, pl 3.6 3.3 - 4.9 mmol/L [facility] Chloride 109 97 - 110 mmol/L [facility]) CO2 26 22 - 32 mmol/L [facility] Anion gap 6 2 - 15 mmol/L [facility] BUN 8 6 - 25 mg/dL [facility] Creatinine 0.69 0.60 - 1.10 mg/dL [facility] ([place]) Glucose 90 70 - 199 mg/dL [facility] Comment: Interpretive Data Fasting glucose >/= 126 mg/dl is diagnostic for diabetes. Fasting is defined as no caloric intake for at least 8 hours. Fasting glucose between 100 mg/dl to 125 mg/dl is diagnostic of prediabetes. In a patient with classic symptoms of hyperglycemia or hyperglycemic crisis, a random glucose >/= 200 mg/dl is diagnostic for diabetes. In the absence of unequivocal hyperglycemia, results should be confirmed by repeat testing. The classification and Diagnosis of Diabetes Diabetes Care 2021; 46: S19-S40. Current interpretive data was last revised 2022. Calcium 8.6 8.5 - 10.3 mg/dL [facility] ([place]) Bilirubin, total 0.3 0.1 - 1.2 mg/dL [facility] ([place]) Protein, pl 5.3(L) 6.5 - 8.5 g/dL [facility] ([place]) Albumin 3.4(L) 3.5 - 5.0 g/dL [facility] ([place]) Alk phos 79 40 - 130 Units/L [facility] ([place]) ALT 29 7 - 45 Units/L [facility] ([place]) AST 27 10 - 45 Units/L [facility] ([place]) Blood 02/15/2025 4:05 AM MILITARY SCIENCE TEACHER 02/15/2025 5:10 AM MILITARY SCIENCE TEACHER us Jonathan Whyte MD LAB BLOOD ORDERABLES Final Resu lt [facility] ([place]) 1 [facility] Department [place] [address] * CT Urogram W Contrast No 3D (02/14/2025 11:38 AM MILITARY SCIENCE TEACHER) Anatomical Region Laterality Modality Body N/A Computed Tomogra phy 02/14/2025 11:5 2 AM MILITARY SCIENCE TEACHER Impressions 02/14/2025 11:52 AM MILITARY SCIENCE TEACHER Bilateral hydronephrosis with perinephric stranding greatest on the right remains nonspecific. Possible filling defects in the urinary bladder. Consider cystoscopy to exclude thrombus or debris. Electronically signed by: Dax Salinas M.D. Narrative 02/14/2025 11:52 AM MILITARY SCIENCE TEACHER EXAMINATION: CT UROGRAPHY WITH AND WITHOUT CONTRAST HISTORY: Abdominal and flank pain today. CT earlier today suggested hydronephrosis TECHNIQUE: CT urography of the abdomen and pelvis was performed prior to and following the intravenous administration of 75 mL Optiray 350 in the combined nephrographic and excretory phases according to a split bolus protocol. COMPARISON: 02/14/2025 CT abdomen pelvis, 01/19/2024 CT abdomen pelvis FINDINGS: UROGRAPHIC FINDINGS: Right Kidney: The right kidney is normal size. There are no focal lesions. No calculi are seen. Moderately severe hydronephrosis is identified similar to earlier same day exam. Induration surrounds the renal pelvis and proximal ureter in a similar fashion with proximal hydroureter. The distal ureter demonstrates subtle surrounding induration without distal hydroureter. No definite ureteral filling defect or marked wall thickening identified. Left Kidney: The left kidney is normal size. There are no focal lesions. No calculi are seen. Minimal hydronephrosis identified without hydroureter. The ureter is normal. The urothelium appears normal. Bladder: The bladder is normally distended. Lobular filling defects are identified posteriorly near midline over region measuring 3.0 x 1.1 cm on axial image 118 of series 7. These are nonspecific. They could represent blood clot or other noncalcified debris. Please correlate clinically. NON-UROGRAPHIC FINDINGS: Redemonstration hypodensity left ovary again suggesting small cyst. Previously described prominent lower uterine segment remains and remains nonspecific. Procedure Note Dax Salinas MD - 02/14/2025 EXAMINATION: CT UROGRAPHY WITH AND WITHOUT CONTRAST HISTORY: Abdominal and flank pain today. CT earlier today suggested hydronephrosis TECHNIQUE: CT urography of the abdomen and pelvis was performed prior to and following the intravenous administration of 75 mL Optiray 350 in the combined nephrographic and excretory phases according to a split bolus protocol. COMPARISON: 02/14/2025 CT abdomen pelvis, 01/19/2024 CT abdomen pelvis FINDINGS: UROGRAPHIC FINDINGS: Right Kidney: The right kidney is normal size. There are no focal lesions. No calculi are seen. Moderately severe hydronephrosis is identified similar to earlier same day exam. Induration surrounds the renal pelvis and proximal ureter in a similar fashion with proximal hydroureter. The distal ureter demonstrates subtle surrounding induration without distal hydroureter. No definite ureteral filling defect or marked wall thickening identified. Left Kidney: The left kidney is normal size. There are no focal lesions. No calculi are seen. Minimal hydronephrosis identified without hydroureter. The ureter is normal. The urothelium appears normal. Bladder: The bladder is normally distended. Lobular filling defects are identified posteriorly near midline over region measuring 3.0 x 1.1 cm on axial image 118 of series 7. These are nonspecific. They could represent blood clot or other noncalcified debris. Please correlate clinically. NON-UROGRAPHIC FINDINGS: Redemonstration hypodensity left ovary again suggesting small cyst. Previously described prominent lower uterine segment remains and remains nonspecific. IMPRESSION: Bilateral hydronephrosis with perinephric stranding greatest on the right remains nonspecific. Possible filling defects in the urinary bladder. Consider cystoscopy to exclude thrombus or debris. Electronically signed by: Dax Salinas M.D. [facility] [employer]EL[employer] IMG CT PROCEDURES F inal Result * CT Abdomen Pelvis WO Contrast (02/14/2025 4:14 AM MILITARY SCIENCE TEACHER) Anatomical Region Laterality Modality Body N/A Computed Tomogra phy 02/14/2025 4:21 AM MILITARY SCIENCE TEACHER Impressions 02/14/2025 4:21 AM MILITARY SCIENCE TEACHER Mild to moderate right hydroureteronephrosis with periureteral stranding suggesting upper tract infection. In the absence of urinary stone, mild interval worsening of right-sided uropathy from prior exam, and persistent left-sided uropathy, an underlying vesicoureteral abnormality such as reflux is possible. Consider outpatient urology consultation. Electronically signed by: Phillip Saavedra M.D. Narrative 02/14/2025 4:21 AM MILITARY SCIENCE TEACHER EXAMINATION: CT ABDOMEN PELVIS WO CONTRAST INDICATION: Female, 44 years old, Abdominal/flank pain, stone suspected COMPARISON(S): 01/19/2024 TECHNIQUE: CT acquisition of the abdomen and pelvis without contrast. Coronal and sagittal reformatted images provided. This exam was performed according to departmental dose-optimization program which includes automated exposure control, adjustment of the mA and/or kV according to patient size, and/or use of iterative reconstruction technique. FINDINGS: SUPPORT DEVICES: None. LOWER CHEST: No significant abnormality within the lower chest. ABDOMEN AND PELVIS: Lack of intravenous contrast limits evaluation of the abdominal and pelvic viscera and vascular structures. Liver: Unremarkable. Gallbladder and bile ducts: Unremarkable. Pancreas: Unremarkable. Spleen: Unremarkable. Adrenal glands: Unremarkable. Kidneys and ureters: Mild worsening of now mild to moderate right hydroureteronephrosis with urothelial wall thickening and periureteral stranding. No definitive urinary stone, with 2 small phleboliths near the course of the distal ureter. Mild left hydroureter is also present. Bladder: Normal. Reproductive organs: Unremarkable. GI tract: Normal caliber without wall thickening. Normal appendix. Vessels: Unremarkable. Lymph nodes: No obvious adenopathy. Peritoneum: No evidence of ascites, fluid collection, or free air. Abdominal wall: No significant hernia. MUSCULOSKELETAL: No acute osseous abnormality. Procedure Note Phillip Saavedra MD - 02/14/2025 EXAMINATION: CT ABDOMEN PELVIS WO CONTRAST INDICATION: Female, 44 years old, Abdominal/flank pain, stone suspected COMPARISON(S): 01/19/2024 TECHNIQUE: CT acquisition of the abdomen and pelvis without contrast. Coronal and sagittal reformatted images provided. This exam was performed according to departmental dose-optimization program which includes automated exposure control, adjustment of the mA and/or kV according to patient size, and/or use of iterative reconstruction technique. FINDINGS: SUPPORT DEVICES: None. LOWER CHEST: No significant abnormality within the lower chest. ABDOMEN AND PELVIS: Lack of intravenous contrast limits evaluation of the abdominal and pelvic viscera and vascular structures. Liver: Unremarkable. Gallbladder and bile ducts: Unremarkable. Pancreas: Unremarkable. Spleen: Unremarkable. Adrenal glands: Unremarkable. Kidneys and ureters: Mild worsening of now mild to moderate right hydroureteronephrosis with urothelial wall thickening and periureteral stranding. No definitive urinary stone, with 2 small phleboliths near the course of the distal ureter. Mild left hydroureter is also present. Bladder: Normal. Reproductive organs: Unremarkable. GI tract: Normal caliber without wall thickening. Normal appendix. Vessels: Unremarkable. Lymph nodes: No obvious adenopathy. Peritoneum: No evidence of ascites, fluid collection, or free air. Abdominal wall: No significant hernia. MUSCULOSKELETAL: No acute osseous abnormality. IMPRESSION: Mild to moderate right hydroureteronephrosis with periureteral stranding suggesting upper tract infection. In the absence of urinary stone, mild interval worsening of right-sided uropathy from prior exam, and persistent left-sided uropathy, an underlying vesicoureteral abnormality such as reflux is possible. Consider outpatient urology consultation. Electronically signed by: Phillip Hole, M.D. Johnnie Ornelas MD IMG CT PROCEDURES Final Resu lt * eGFR (02/14/2025 3:18 AM MILITARY SCIENCE TEACHER) eGFR >90 >=60 mL/min/1. 73 m2 Comment: Interpretive Data Reference Interval Normal >/= 90 mL/min/1.73m2 Mildly decreased* 60 - 89 mL/min/1.73m2 Mildly to moderately decreased 45 - 59 mL/min/1.73m2 Moderately to severely decreased 30 - 44 mL/min/1.73m2 Severely decreased 15 - 29 mL/min/1.73m2 Kidney Failure < 15 mL/min/1.73m2 *Relative to young adult level Estimated glomerular filtration rate is determined by the 2020 CKD-EPI equation recommended by the National Kidney Foundation (A Unifying Approach to GFR Estimation: Recommendations of the NKF-ASK Task Force on Reassessing the Inclusion of Race in Diagnosing Kidney Disease, JASN 2020). The CKD-EPI equation should not be used for patients with unstable renal function and has not been validated in children and those over 70. Current interpretive data was last reviewed 2021. Blood 02/14/2025 3:18 AM MILITARY SCIENCE TEACHER 02/14/2025 3:22 AM MILITARY SCIENCE TEACHER Johnnie Ornelas MD LAB BLOOD ORDERABLES Final R esult [facility] ([place]) 1 [facility] Department [place] [address] * (ABNORMAL) Differential, auto (02/14/2025 3:18 AM MILITARY SCIENCE TEACHER) Neutrophil abs 7.55(H) 1.50 - 6.50 K/cumm Imm gran abs 0.04 0.00 - 0.10 K/cumm [facility] ([place]) Lymphocyte abs 3.80(H) 0.80 - 3.30 K/cumm [facility] ([place]) Monocyte abs 1.05(H) 0.20 - 0.80 K/cumm [facility] ([place]) Eosinophil abs 0.18 0.00 - 0.50 K/cumm [facility] ([place]) Basophil abs 0.06 0.00 - 0.10 K/cumm [facility] ([place]) Neutrophil pct 59.5 % [facility] ([place]) Comment: Interpretive Data Percent cell count reference ranges are not reported, since discordance with absolute values may lead to misinterpretation of CBC data. Current Interpretive Data was last revised on 2017. Imm gran pct 0.3 % [facility] ([place]) Comment: Interpretive Data Percent cell count reference ranges are not reported, since discordance with absolute values may lead to misinterpretation of CBC data. Current Interpretive Data was last revised on 2017. Lymphocyte pct 30.0 % [facility] ([place]) Comment: Interpretive Data Percent cell count reference ranges are not reported, since discordance with absolute values may lead to misinterpretation of CBC data. Current Interpretive Data was last revised on 2017. Monocyte pct 8.3 % [facility] ([place]) Comment: Interpretive Data Percent cell count reference ranges are not reported, since discordance with absolute values may lead to misinterpretation of CBC data. Current Interpretive Data was last revised on 2017. Eosinophil pct 1.4 % [facility] ([place]) Comment: Interpretive Data Percent cell count reference ranges are not reported, since discordance with absolute values may lead to misinterpretation of CBC data. Current Interpretive Data was last revised on 2017. Basophil pct 0.5 % [facility] ([place]) Comment: Interpretive Data Percent cell count reference ranges are not reported, since discordance with absolute values may lead to misinterpretation of CBC data. Current Interpretive Data was last revised on 2017. Blood 02/14/2025 3:18 AM MILITARY SCIENCE TEACHER 02/14/2025 3:21 AM MILITARY SCIENCE TEACHER us Johnnie Ornelas MD LAB BLOOD ORDERABLES Final R esult [facility] ([place]) 1 [facility] Department [place] [address] * (ABNORMAL) Urinalysis reflex to microscopic and culture Urine (02/14/2025 3:18 AM MILITARY SCIENCE TEACHER) Color, ur Yellow Yellow Clarity, ur Turbid(A) Clear [facility] ([place]) Specific gravity, ur 1.006 1.003 - 1.030 [facility] ([place]) pH, urine 6.5 [facility] ([place]) Comment: Interpretive Data U rine pH is affected by diet, medications, systemic acid-base disturbances, and renal tubular function. pH may affect urinary stone formation. For example, urine pH below 6.0 may help reduce the tendency for calcium phosphate stones and pH greater than 6.0 may reduce the tendency for uric acid stone formation. Source: [facility] Current Interpretive Data was last revised on 2017 Protein, ur ql 1+(A) Negative [facility] ([place]) Glucose, ur ql Negative Negative [facility] ([place]) Ketones, ur Negative Negative [facility] ([place]) Bilirubin, ur Negative Negative [facility] ([place]) Blood, ur 3+(A) Negative [facility] ([place]) Urobilinogen, ur <2.0 <2.0 mg/dL [facility] ([place]) Nitrite, ur Negative Negative [facility] ([place]) Leukocyte esterase, ur 4+(A) Negative [facility] ([place]) UA reflex comment Reflex to microscopic UA will be performed. [facility] ([place]) Urine 02/14/2025 3:18 AM MILITARY SCIENCE TEACHER 02/14/2025 3:26 AM MILITARY SCIENCE TEACHER Johnnie Ornelas MD LAB MICROBIOLOGY - GENERAL O RDERABLES Final Result [facility] ([place]) 1 [facility] Department of Laboratories [place], [place] [id number] * (ABNORMAL) CBC with auto differential (02/14/2025 3:18 AM MILITARY SCIENCE TEACHER) WBC 12.68(H) 3.80 - 9.90 K/cumm Hgb 12.8 11.9 - 15.5 g/dL [facility] ([place]) Hct 37.3 35.6 - 45.5 % [facility] ([place]) Plt 202 150 - 400 K/cumm [facility] ([place]) MPV 11.6 9.1 - 12.3 fL [facility] ([place]) RBC 4.01 3.90 - 5.20 M/cumm [facility] ([place]) MCV 93.0 81.3 - 96.4 fL [facility] ([place]) MCH 31.9 27.1 - 33.3 pg [facility] ([place]) MCHC 34.3 32.3 - 35.7 g/dL [facility] ([place]) RDW CV 12.7 11.1 - 14.9 % [facility] ([place]) RDW SD 43.5 35.7 - 48.1 fL [facility] NRBC abs 0.00 0.00 - 0.01 K/cumm [facility] Blood 02/14/2025 3:18 AM MILITARY SCIENCE TEACHER 02/14/2025 3:21 AM MILITARY SCIENCE TEACHER Johnnie Ornelas MD LAB BLOOD ORDERABLES Final R esult Performing Organization Address [facility] [place]/[facility]/ZIP Co de Phone Number [facility] ([place]) 1 [facility] [place] [address] * hCG, urine, qualitative (02/14/2025 3:18 AM MILITARY SCIENCE TEACHER) HCG, ur Negative Negative Urine 02/14/2025 3:18 AM MILITARY SCIENCE TEACHER 02/14/2025 4:09 AM MILITARY SCIENCE TEACHER Johnnie Ornelas MD LAB URINE ORDERABLES Final R esult Performing Organization Address City/[facility]/ZIP Co de Phone Number [facility] ([place]) 1 [facility] [place] [address] * (ABNORMAL) Urinalysis, microscopic only (02/14/2025 3:18 AM MILITARY SCIENCE TEACHER) WBC, ur >50(A) 0 - 5 /HPF RBC, ur 21-50(A) 0 - 2 /HPF [facility] Epithelial cells, squamous, ur 1-5 0 - 5 /HPF [facility] ([place]) Bacteria, ur Trace(A) [facility] ([place]) Mucous, ur Present(A) [facility] ([place]) Sperm, ur Present(A) [facility] ([place]) Culture Reflex Comment Reflex to urine culture will be performed. [facility] ([place]) Urine 02/14/2025 3:18 AM MILITARY SCIENCE TEACHER 02/14/2025 3:26 AM MILITARY SCIENCE TEACHER us Johnnie Ornelas MD LAB URINE ORDERABLES Final R esult [facility] ([place]) 1 [facility] Department [place] [address] * (ABNORMAL) Urine culture Urine (02/14/2025 3:18 AM MILITARY SCIENCE TEACHER) Report Final Report: Greater than or equal to 100,000 colonies/mL of Escherichia coli Plus growth of clinically insignificant bacterial syed. (.) Comment:Testing performed by : [facility], 1 [facility] [place] [address] Organism ESCHERICHIA COLI [facility] ([place]) Organism PLUS GROWTH OF CLINICALLY INSIGNIFICANT SYED. [facility] ([place]) Urine 02/14/2025 3:18 AM MILITARY SCIENCE TEACHER 02/14/2025 5:53 AM MILITARY SCIENCE TEACHER Narrative [facility] ([place]) - 02/16/2025 10:56 AM MILITARY SCIENCE TEACHER Urine culture reflexed based upon urinalysis results. Testing performed by [facility] Microbiology Laboratory ([phone]) Organism Antibiotic Method Susceptibility Escherichia coli Ampicillin INTERPRETATION Susceptible Escherichia coli Cefazolin INTERPRETATION Susceptible Escherichia coli Nitrofurantoin INTERPRETATION Susceptible Escherichia coli Gentamicin INTERPRETATION Susceptible Escherichia coli Trimethoprim with Sulfamethoxazole IN TERPRETATION Susceptible Escherichia coli Meropenem INTERPRETATION Susceptible Escherichia coli Cefepime INTERPRETATION Susceptible Escherichia coli Ciprofloxacin INTERPRETATION Susceptible Escherichia coli Ceftazidime INTERPRETATION Susceptible Escherichia coli Ceftriaxone INTERPRETATION Susceptible Escherichia coli Piperacillin/Tazobactam INTERPRETATIO N Susceptible Escherichia coli Cephalexin INTERPRETATION Susceptible Escherichia coli Cefuroxime-axetil INTERPRETATION Susceptible Escherichia coli Cefdinir INTERPRETATION Susceptible Johnnie Ornelas MD LAB MICROBIOLOGY - GENERAL O RDERABLES Final Result Performing Organization Address [facility] [place]/[facility] de Phone Number [facility] ([place]) 1 [place] [address] * hCG, blood, quantitative (02/14/2025 3:18 AM MILITARY SCIENCE TEACHER) [facility] hCG, quant <5.0 0.0 - 5.0 IUnits/L Comment: Interpretive Data Male: < 5 IU/L Non- premenopausal Female: <5 IU/L The Ezequiel hCG Beta Quant assay procedure was used. Results from different manufacturers or methods may not be comparable. Serial testing should be performed using the same method. Interpretive Data was last revised on 2023 Blood 02/14/2025 3:18 AM MILITARY SCIENCE TEACHER 02/14/2025 3:21 AM MILITARY SCIENCE TEACHER Johnnie Ornelas MD LAB BLOOD ORDERABLES Final R esult Performing Organization Address [facility] Co de Phone Number [facility] ([place]) 1 [place] [address] * Lipase (02/14/2025 3:18 AM MILITARY SCIENCE TEACHER) [facility] Lipase 35 10 - 99 Units/L Blood 02/14/2025 3:18 AM MILITARY SCIENCE TEACHER 02/14/2025 3:21 AM MILITARY SCIENCE TEACHER Johnnie Ornelas MD LAB BLOOD ORDERABLES Final R esult Performing Organization Address [facility] [place]/[facility] Co de Phone Number [facility] ([place]) 1 [place] [address] * Comprehensive metabolic panel (02/14/2025 3:18 AM MILITARY SCIENCE TEACHER) [facility] Sodium 138 135 - 145 mmol/L Potassium, pl 3.3 3.3 - 4.9 mmol/L [facility] ([place]) Chloride 102 97 - 110 mmol/L [facility] ([place]) CO2 24 22 - 32 mmol/L [facility] ([place]) Anion gap 12 2 - 15 mmol/L [facility] ([place]) BUN 11 6 - 25 mg/dL [facility] ([place]) Creatinine 0.74 0.60 - 1.10 mg/dL [facility] ([place]) Glucose 113 70 - 199 mg/dL [facility] ([place]) Comment: Interpretive Data Fasting glucose >/= 126 mg/dl is diagnostic for diabetes. Fasting is defined as no caloric intake for at least 8 hours. Fasting glucose between 100 mg/dl to 125 mg/dl is diagnostic of prediabetes. In a patient with classic symptoms of hyperglycemia or hyperglycemic crisis, a random glucose >/= 200 mg/dl is diagnostic for diabetes. In the absence of unequivocal hyperglycemia, results should be confirmed by repeat testing. The classification and Diagnosis of Diabetes Diabetes Care 2021; 46: S19-S40. Current interpretive data was last revised 2022. Calcium 9.6 8.5 - 10.3 mg/dL [facility] ([place]) Bilirubin, total 0.4 0.1 - 1.2 mg/dL [facility] ([place]) Protein, pl 7.0 6.5 - 8.5 g/dL [facility] ([place]) Albumin 4.4 3.5 - 5.0 g/dL [facility] ([place]) Alk phos 80 40 - 130 Units/L [facility] ([place]) ALT 30 7 - 45 Units/L [facility] ([place]) AST 28 10 - 45 Units/L [facility] ([place]) Blood 02/14/2025 3:18 AM MILITARY SCIENCE TEACHER 02/14/2025 3:21 AM MILITARY SCIENCE TEACHER us Johnnie Ornelas MD LAB BLOOD ORDERABLES Final R esult [facility] ([place]) 1 [facility] [place] [address] * COLONOSCOPY (06/05/2011 12:00 AM MILITARY SCIENCE TEACHER) Anatomical Region Laterality Modality Other Narrative 06/05/2011 12:00 AM MILITARY SCIENCE TEACHER Ordered by an unspecified provider. Procedure Note Provider, MD Keanu - 06/05/2011 12:00 AM CST PROCEDURE REPORT Patient: NARCISA FERNANDES Account: [id number] Room No: : 1980 Patient Type: SDS Attend.: Joann Ortiz M.D. Admit Date: 06/05/2011 Dict.: Joann Ortiz M.D. Disch. Date:06/05/2011 NAME OF PROCEDURE: High risk screening for colon cancer. DATE OF PROCEDURE: June 05, 2011. INDICATION: Family history of colon cancer. PRIMARY CARE PHYSICIAN: Dr. Win Feng. BRIEF HISTORY AND PHYSICAL: The patient is a 31-year old white female.Her father had a history of colon cancer early stage removed endoscopically inhis mid 30s. Her sister has a history of colon polyps. Colonoscopy isbeing performed. PROCEDURE: Sedation was provided by the Anesthesia Service. The procedureof colonoscopy including indications and possible complications ofbleeding, infection and perforation requiring surgery were discussed with thepatient and consent was obtained. Rectal examination prior to colonoscopy was unremarkable. The scope was introduced into the rectum and advanced allthe way to the cecum which was identified by the ileocecal valve andappendiceal orifice. The terminal ileum was intubated and appeared normal. Theentire visualized colon was normal. No polyps and no mass lesions were noted.No inflammatory changes were noted. No diverticular changes were noted.The rectum on retroflexion view in the rectum was normal. IMPRESSION: Normal colonoscopy. RECOMMENDATIONS: Repeat colonoscopy for screening for colon cancer infive years. Zaire Teague/kelle TD: 06/06/2011 07:08 CC: Win Feng D.O. Authenticated by Joann Ortiz MD On 06/20/2011 04:22:46 PM Historical Provider ENDOSCOPY PROCEDURES [place] Result from Last 3 Months or Most Recently Relevant to Health Maintenance Insurance [facility] [employer] [place] Member Subscriber Plan / Payer (Ef fective 2024-Present) Name:Narcisa Fernandes Relation to Subscriber:Self Name:Narcisa Fernandes Payer ID:[id number] (NAIC) Group ID:[id number] Type:HEALTHCARE/EXCHANGE Address: [address] Advance Directives For more information, please contact: [phone] * Full Code (Latest Code Status on File) Date Activated Date Inactivated Comments 02/14/2025 1:33 PM 02/15/2025 6:15 PM Care Teams Soldering Machine Operator Relationship Specialty Start Date End Date Gloria Manzanares MD [address] [place] [address] [address] [address] PCP - General Family Medicine 10/26/24 Christiana Scott, PT Physical Therapist Physical Therapy 02/04/24
--- OUTSIDE RECORDS SUMMARY | 2025-03-26 11:11 | XMS_ITS ---
Author Name MARLO VERDIN Address [address] [place] [address] Phone [facility] Address [address] [place] [address] Phone Care Team Providers Care Charting Clerk Name Role Phone DO MARLO VERDIN Unavailable ALLERGIES, ADVERSE REACTIONS AND ALERTS Allergy Name Allergy Date Allergy Status Allergy Severity Allergy Reaction Acetaminophen, [RxNorm: 161] 05/14/2012 Current Mental Status Changes and Insomnia Oxycodone, [RxNorm: 7804] 05/14/2012 Current Mental Status Changes and Insomnia zoloft, [RxNorm: 14118] 12/06/2013 Current rash MEDICATIONS RxNorm Brand Name Prescription Ordered Value Order Unit Start Date Date Status Fill Status Indications 247666 Xopenex 1.25 mg/3 mL Solution for Nebuliza tion XopenexSi.25 mg/3 mL, Solution for Nebulization, Every 8 hours , Routine, Inhalation, Dispense #, 0 Refills Solutio n for Nebuliz ation 2011 Historic [id number] albutero l sulfate 90 mcg/actu ation HFA [...] 0 Refills tablet, subling ual 2011 Historic [id number] Benzac AC 5 % Gel Benzac ACSi %, Gel, Apply every day to affected areas, Routine, Topical, Dispense #, 0 Refills Gel 2011 Historic [id number] Combiven t Respimat 20-100 mcg/actu ation Aerosol Combivent RespimatSi-100 mcg/actuation, Aerosol, 2 puffs every 4 hours, PRN, Inhalation, 30 daysDispense #1, 0 Refills 1 Aerosol 2012 013 Historic [id number] Medrol (Paul) 4 mg tablets, dose pack Medrol (Paul)Si mg, tablets,dose pack, as directed, Routine, Oral, 5 daysDispense #1, 0 Refills 1 tablets ,dose pack 2012 013 Historic [id number] Augmenti n 875-125 mg tablet AugmentinSi-125 mg, tablet, BID (# per day: 2.00)BID, Routine, Oral, 14 daysDispense #28, 0 Refills 28 tablet 2012 013 Historic [id number] Combiven t Respimat 20-100 mcg/actu ation Aerosol Combivent RespimatSi-100 mcg/actuation, Aerosol, 1 puff four times per day, PRN, Inhalation, 30 daysDispense #1, 0 Refills 1 Aerosol 2012 013 Historic [id number] Ventolin HFA 90 mcg/actu ation HFA aerosol inhaler Ventolin HFASi mcg/actuation, HFA aerosol inhaler, two puff every 4 hours , PRN, inhalation, Dispense #1, 1 Refill 1 HFA aerosol inhaler 2013 014 Historic [id number] Singulai r 10 mg tablet SingulairSi mg, tablet, QD (# per day: 1.00), Routine, oral, 30 daysDispense #30, 2 Refills 30 tablet 2013 014 Historic [id number] ProAir HFA 90 mcg/actu ation HFA aerosol inhaler ProAir HFASi mcg/actuation, HFA aerosol inhaler, two puff every 4 hours, PRN, inhalation, Dispense #1, 0 Refills 1 HFA aerosol inhaler 2013 014 Historic [id number] predniso ne 10 mg tablet prednisoneSi mg, tablet, taper: 4 tablets per day for 3 days, then 3 tablets per day for 3 days, then 2 tablets per day for 3 days, then 1 tablet per day for 3 days, Routine, oral, 12 daysDispense #30, 0 Refills 30 tablet 2013 014 Historic [id number] Benzac AC 5 % Gel SIG: Benzac AC 5 % Gel, 0 days, Dispense #1 Tube, 0 RefillsDirecti ons: Apply daily to affected areas 1 Gel 2013 Historic [id number] Singulai r 10 mg tablet SIG: Singulair 10 mg tablet, 30 days, Dispense #30 Tablet, 5 RefillsDirecti ons: Take 1 oral tablet once a day 30 tablet 2013 Historic [id number] Zoloft 50 mg tablet SIG: Zoloft 50 mg tablet, days, Dispense #60 Tablet, 0 RefillsDirecti ons: take 0.5 tablet for at least 3 days then increase to 1 tablet, increase to 1.5 tablets if tolerable 60 tablet 2013 Historic [id number] doxycycl ine hyclate 100 mg tablet SIG: doxycycline hyclate 100 mg tablet, 30 days, Dispense #30 Tablet, 5 RefillsDirecti ons: Take 1 oral tablet once a day 30 tablet 2013 Historic [id number] Medrol (Paul) 4 mg tablets, dose pack SIG: Medrol (Paul) 4 mg tablets,dose pack, 5 days, Dispense #1 Pack, 0 RefillsDirecti ons: as directed 1 tablets ,dose pack 2013 Historic [id number] Lexapro 10 mg tablet SIG: Lexapro 10 mg tablet, 30 days, Dispense #30 Tablet, 1 RefillsDirecti ons: Take 1 oral tablet once a day 30 tablet 2013 Historic [id number] Singulai r 10 mg tablet SIG: Singulair 10 mg tablet, 30 days, Dispense #30 Tablet, 5 RefillsDirecti ons: Take 1 oral tablet once a day 30 tablet 2013 Historic [id number] Singulai r 10 mg tablet SIG: Singulair 10 mg tablet, 30 days, Dispense #30 Tablet, 5 RefillsDirecti ons: Take 1 oral tablet once a day 30 tablet 2014 Historic [id number] Ventolin HFA 90 mcg/actu ation HFA aerosol inhaler SIG: Ventolin HFA 90 mcg/actuation HFA aerosol inhaler, 0 days, Dispense #1 Inhaler, 0 RefillsDirecti ons: two puffs every 4 hours 1 HFA aerosol inhaler 2014 Historic [id number] clobetas ol 0.05 % cream SIG: clobetasol 0.05 % cream, days, Dispense #30 Gram, 0 RefillsDirecti ons: apply twice daily to upper abdomen as needed 30 cream 2014 Historic [id number] Augmenti n 875-125 mg tablet SIG: Augmentin 875-125 mg tablet, 14 days, Dispense #28 Tablet, 0 RefillsDirecti ons: Take 1 oral tablet 2 times a day 28 tablet 2014 015 Historic [id number] Singulai r 10 mg tablet SIG: Singulair 10 mg tablet, 30 days, Dispense #30 Tablet, 5 RefillsDirecti ons: Take 1 oral tablet once a day 30 tablet 2014 Historic [id number] Macrobid 100 mg capsule SIG: Macrobid 100 mg capsule, 5 days, Dispense #10 Capsule, 0 RefillsDirecti ons: Take 1 oral capsule 2 times a day 10 capsule 2014 Historic [id number] Medrol (Paul) 4 mg tablets, dose pack SIG: Medrol (Paul) 4 mg tablets,dose pack, 5 days, Dispense #1 Pack, 0 RefillsDirecti ons: as directed 1 tablets ,dose pack 2014 015 Historic [id number] monteluk ast 10 mg tablet SIG: montelukast 10 mg tablet, Dispense # 30, 5 RefillsDirecti ons: TAKE ONE TABLET BY MOUTH ONCE DAILY 30 tablet 2015 016 Historic [id number] Flonase Allergy Relief 50 mcg/actu ation spray,lowe spension SIG: Flonase Allergy Relief 50 mcg/actuation spray,suspensi on, 1 days, Dispense #1 [place], 0 RefillsDirecti ons: 2 squirts into each nostril daily 1 spray,s uspensi on 2015 Historic [id number] Vitamin D3 1,000 unit tablet SIG: Vitamin D3 1,000 unit tablet, 30 days, Dispense #30 Tablet, 0 RefillsDirecti ons: Take 1 oral tablet once a day 30 tablet 2015 Historic [id number] fluticas one 50 mcg/actu ation spray,lowe spension SIG: fluticasone 50 mcg/actuation spray,suspensi on, Dispense # 16, 2 RefillsDirecti ons: USE TWO SPRAY(S) IN EACH NOSTRIL ONCE DAILY 16 spray,s uspensi on 2015 016 Historic [id number] Wellbutr in XL 150 mg tablet extended release 24 hr SIG: Wellbutrin XL 150 mg tablet extended release 24 hr, 30 days, Dispense #30 Tablet, 1 RefillsDirecti ons: Take 1 oral tablet every morning 30 tablet extende d release 24 hr 2015 Historic [id number] monteluk ast 10 mg tablet SIG: montelukast 10 mg tablet, Dispense # 30, 5 RefillsDirecti ons: TAKE ONE TABLET BY MOUTH ONCE DAILY 30 tablet 2015 016 Historic [id number] Medrol (Paul) 4 mg tablets, dose pack SIG: Medrol (Paul) 4 mg tablets,dose pack, 5 days, Dispense #1 Pack, 0 RefillsDirecti ons: as directed 1 tablets ,dose pack 2015 Historic [id number] fluticas one 50 mcg/actu ation spray,lowe spension SIG: fluticasone 50 mcg/actuation spray,suspensi on, Dispense # 16, 1 RefillsDirecti ons: USE TWO SPRAY(S) IN EACH NOSTRIL ONCE DAILY 16 spray,s uspensi on 2015 016 Historic [id number] Temovate 0.05 % cream SIG: Temovate 0.05 % cream, 5 days, Dispense #10 Gram, 0 RefillsDirecti ons: apply to left neck twice a day 10 cream 2016 Historic [id number] clobetas ol 0.05 % cream SIG: clobetasol 0.05 % cream, days, Dispense #10 Gram, 0 RefillsDirecti ons: apply to left neck twice a day 10 cream 2016 Historic [id number] betameth asone valerate 0.1 % cream SIG: [...] once a day 30 tablet 2016 Historic [id number] Madeleine Allergy 180 mg tablet SIG: Madeleine [...] ONCE DAILY 30 tablet 2017 018 Historic [id number] fluticas one 50 mcg/actu ation spray,lowe spension SIG: fluticasone 50 mcg/actuation spray,suspensi on, Dispense # 16, 1 RefillsDirecti ons: USE TWO SPRAY(S) IN EACH NOSTRIL ONCE DAILY 16 spray,s uspensi on 2017 018 Historic [id number] Adacel(T dap Adolesn/ Adult)(P F) 2 Lf-(2.5- 5-3-5 mcg)-5Lf /0.5 mL suspensi on SIG: Adacel(Tdap Adolesn/Adult) (PF) 2 Lf-(2.5-5-3-5 mcg)-5Lf/0.5 mL intramuscular suspension, 1 days, Dispense #1 Syringe, 0 RefillsDirecti ons: Inject 1 dose syringe via intramuscular one time 1 suspens ion 2017 Historic [id number] fluticas one 50 mcg/actu ation spray,lowe spension SIG: fluticasone 50 mcg/actuation spray,suspensi on, Dispense # 16, 1 RefillsDirecti ons: USE TWO SPRAY(S) IN EACH NOSTRIL ONCE DAILY 16 spray,s uspensi on 2017 018 Historic [id number] Augmenti n 875-125 mg tablet SIG: Augmentin 875-125 mg oral tablet, 42 days, Dispense #84 Tablet, 0 RefillsDirecti ons: Take 1 oral tablet 2 times a day 84 tablet 2017 019 Historic [id number] Ultram 50 mg tablet SIG: Ultram 50 mg oral tablet, 7 days, Dispense #20 Tablet, 0 RefillsDirecti ons: Take 1 oral tablet every 8 hours as needed for moderate to severe pain 20 tablet 2018 Historic [id number] Microges tin FE /20 (28) 1 mg-20 mcg (21)/75 mg (7) tablet SIG: Microgestin FE /20 (28) 1 mg-20 mcg (21)/75 mg (7) oral tablet, 30 days, Dispense #30 Tablet, 0 RefillsDirecti ons: Take 1 oral tablet once a day 30 tablet 2018 Historic [id number] Imitrex 50 mg tablet SIG: Imitrex 50 mg oral tablet, 10 days, Dispense #10 Tablet, 0 RefillsDirecti ons: Take 1 tablet by mouth at onset of headache, may repeat after 1 hour if headache still present; no more than 4 doses in 24 hours 10 tablet 2020 Historic [id number] Augmenti n 875-125 mg tablet SIG: Augmentin 875-125 mg oral tablet, 14 days, Dispense #28 Tablet, 0 RefillsDirecti ons: Take 1 oral tablet 2 times a day 28 tablet 2020 Historic [id number] Imitrex 50 mg tablet SIG: Imitrex 50 [...] capsule once daily 30 capsule 2022 Current [id number] triamcin olone acetonid e 0.1 % cream SIG: triamcinolone acetonide 0.1 % topical cream, 14 days, Dispense #30 Gram, 0 RefillsDirecti ons: Apply topical cream to affected areas as needed until resolution or up to 2 weeks 30 cream 2022 023 Historic [id number] meloxica m 15 mg tablet SIG: meloxicam [...] HAND PAIN IN LEFT HAND Chronic 07/22/2018 K90.18-[id number] GLUTEN SENSITIVITY NON-CELIAC GLUTEN SENSITIVITY Chronic 10/12/2018 [...] Never Smoker Sex: Female CARE TEAM INFORMATION Charting Clerk Provider ID Role Location Phone MARLO VERDIN [id number] PHYSICIAN [address] [place] [address] INSURANCE PROVIDERS Payer Name Policy type / Coverage type Covered republican ID Policy [employer] [facility] Unavailable / Unknown [id number] SELF
--- OUTSIDE RECORDS SUMMARY | 2025-03-26 11:11 | XMS_ITS | Clinical Summary ---
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 Not on file Not on file Last Filed Vital Signs Vital Sign Reading Time Taken Comments Blood Pressure 100/60 04/17/2021 1:02 PM DECAL CUTTER Pulse 85 04/17/2021 1:02 PM DECAL CUTTER Temperature 36.6 C (97.9 F) 04/17/2021 1:02 PM DECAL CUTTER Respiratory Rate 16 04/17/2021 1:02 PM DECAL CUTTER Oxygen Saturation 99% 04/17/2021 1:02 PM DECAL CUTTER Inhaled Oxygen Concentration - - Weight 70.3 kg (155 lb) 04/17/2021 1:02 PM DECAL CUTTER Height 165.1 cm (5' 5) 03/22/2018 11:41 AM DECAL CUTTER Body Mass Index 25.79 03/22/2018 11:41 AM DECAL CUTTER Plan of Treatment Health Maintenance Due Date Last Done Comments Hepatitis C Virus (HCV) Screening 1980 TdaP Immunization 1980 Hepatitis B Immunization (1 of 3 - 19+ 3-dose series) 1999 Pap Smear 2001 Cervical Cancer Screening (CCS) 2010 HPV/Cotest 2010 Influenza Immunization (#1) 2024 04/19/2008 SARS-COV-2 Immunization ( season) 2024 01/01/2021, 12/11/2020 Respiratory Syncytial Virus (RSV) Immunization (Adult) (1 - 1-dose 75+ series) 2055 Human Papillomavirus (HPV) Immunization (No Doses Required) Completed Meningococcal Immunization (ACWY) Aged Out No longer eligible b ased on patient's age to complete this topic Pneumococcal Immunization Combined Aged Out No longer eligible b ased on patient's age to complete this topic Rotavirus Immunization Aged Out No lo nger eligible based on patient's age to complete this topic Insurance MEDICAID [employer] Care Teams Postmaster Relationship Specialty Start Date End Date Win Feng DO [address] [phone] PCP - General Family Medicine 01/07/17
--- OUTSIDE RECORDS SUMMARY | 2025-03-26 11:12 | XMS_ITS | Continuity of Care Document ---
Author Organization [facility] [place] Address [address] [place] [address] Care Team Providers Care C S S Representative Name Role Phone MARLO VERDIN Primary Care Provider Assessment Encounter Date Assessment Date Assessment LastModified by Organization Details LastModified Time 03/26/2025 03/26/2025 Annual gynecological exam performed. Patient will come back in a year unless there are new symptoms. [email or web address] Not available 03/26/2025 10:51:53 Plan of Treatment Reminders Order Date Submit Date Provider Last Modified By Organization Details Last Modified Time Details Appointments WE[facility]OM[facility]-ES T 2024 10:30A Ron CORDOVA MD Not available Not available Not available Robotic [facility] 2024 12:00P Ron CORDOVA MD Not available Not available Not available SURG POST OP 2025 01:15P Ron CORDOVA MD Not available Not available Not available Lab None recorded . Referral None recorded . Procedures None recorded . Surgeries None recorded . Imaging None recorded . Medication Orders None recorded . Patient TargetsNo targets recorded. Patient InstructionsNo instructions recorded. Reason for Referral None Reported. Problems Name Problem SNOMED Code Status Onset Date Resolution Date Notes Provider Name and Address Organization Details Recorded Time Lesion of ovary Completed 201912/14/2020 Other ovarian cyst, left side;Victor Manuel rded Elsewhere : No Locati on: [facility] So urce: EHR Chron ic: N Practic e ID: 0001 Bill able Time: 02:00:00 PM Nuria ness [facility] 09/16/202 1 11:44:14 Uterine leiomyom a [id number] Completed 201912/14/2020 Leiomyoma of uterus, unspecifi ed;Record ed Elsewhere : No Locati on: [facility] So urce: EHR Chron ic: N Practic e ID: 0001 Bill able Time: 02:00:00 PM Nuria Bowers grover [facility] 1 11:44:16 Finding of menstrua l bleeding Completed 201905/02/2020 Excessive and frequent menstruat ion with regular cycle;Rec orded Elsewhere : No Locati on: [facility] So urce: EHR Chron ic: N Practic e ID: 0001 Bill able Time: 11:00:00 AM Arline ness [facility] 1 15:25:04 Reproduc tive care manageme nt Completed 201905/02/2020 Encounter for other procreati ve managemen t;Recorde d Elsewhere : No Locati on: [facility] So urce: EHR Chron ic: N Practic e ID: 0001 Bill able Time: 11:00:00 AM Arline ness [facility] 1 15:25:07 Urinary tract infectio us disease [id number] Completed 201905/02/2020 Urinary tract infection , site not specified ;Recorded Elsewhere : No Locati on: [facility] So urce: EHR Chron ic: N Practic e ID: 0001 Bill able Time: 11:45:00 AM Arline ness [facility] 1 15:25:09 Problem Notes None recorded. Procedures Surgical History Date Name Laterality Status Provider Name and Address Organization Details Recorded Time 2024 DILATION & CURETTAGE (SURG) completed Gabrielle Marvin [facility] 12/28/2024 11:48:50 2023 Date of Last Pap Smear completed Dariela Kumar [facility] 03/12/2024 15:18:44 2023 Date of Last Mammogram completed Dariela Kumar [facility] 11/10/2023 16:00:35 2023 DILATION & CURETTAGE (SURG) completed Yolisantonia Raza [facility] 07/07/2023 18:01:19 2021 [facility] 10:16:26 2021 [facility]pingography [facility] 05/01/2021 10:16:45 2020 artificial insemination completed Carolyn a [facility] 05/01/2021 10:16:23 2019 [facility]pingography [facility] 05/01/2021 10:16:39 2018 open reversal of female sterilization completed Arline Tejeda [facility] 03/21/2021 18:17:23 2006 [facility]al [facility] 06/08/2020 11:58:14 2006 section [facility] 06/03/2020 09:22:53 2004 section completed Arline Tejeda [facility] 06/03/2020 09:22:45 2001 section completed Arline Tejeda [facility] 06/03/2020 09:22:38 1989 Tonsillectomy completed Radha Maguire [facility] 10/21/2019 13:13:02 Imaging Results None recorded. Procedure Notes None recorded. Medical Equipment None Reported. Allergies Allergen ID Allergen Name Allergen Category Reaction Reaction Severity Criticality Documentation Date Start Date Code Code System Note Provider Name and Address Organization Details Recorded Time 08307 sertralin e medicatio n rash Not available [facility] 03/02/20252013 19877 RxNorm Not Available noa - External Data Service - prod 5 15:07:52 96758 Product containin g penicilli n (product) medicatio n dyspnea Not available Not available 03/02/20252016 00614 8001 SNOMED Pt not sure of aller gy but think s had short ness of breat h after takin g pcn as a child . Not Available noa - External Data Service - prod 5 15:07:53 00401 Zoloft medicatio n rash Not available unabletoasse 03/02/2025 91952 RxNorm Not Available [employer] External Data Service - prod 15:08:05 Medications Name Sig Start Date Stop [...] Updated DateTime 03/26/2025 162.56 cm 25.7 kg/m2 92971.86 g 114/81 mm[Hg] Regina Barbosa [facility] 03/26/2025 11:01:41 Social History Question Answer Notes LastModified by Organizat ion Details LastModified Time Tobacco Smoking Status Never Smoker Ron ness [facility] 05/28/2021 11:03:21 Do You Have An Advance Directive? No [email or web address] Information n ot available 05/01/2021 If You Are , What Was Your Level Of Alcohol Consumption Prior To ? None [email or web address] Information not available 05/28/2021 Are You Blind Or Do You Have Difficulty Seeing? No [email or web address] Information n ot available 06/03/2020 What Is Your Level Of Caffeine Consumption? Moderate [email or web address] Information not available 05/02/2020 In The 14 Days Before Symptom Onset, Have You Had Close Contact With A Laboratory-confirm ed COVID-19 While That Case Was Ill? No [email or web address] Information n ot available 06/03/2020 In The 14 Days Before Symptom Onset, Have You Had Close Contact With A Person Who Is Under Investigation For COVID-19 While That Person Was Ill? No [email or web address] Information not available 06/03/2020 Have You Been To An Area Known To Be High Risk For COVID-19? No [email or web address] Information not available 06/03/2020 Are You Deaf Or Do You Have Serious Difficulty Hearing? No [email or web address] Information not available 06/03/2020 What Type Of Diet Are You Following? REGULAR [email or web address] Information n ot available 06/03/2020 What Is The Highest Grade Or Level Of School You Have Completed Or The Highest Degree You Have Received? [id number] Information not available 05/01/2021 How Many Days Of Moderate To Strenuous Exercise, Like A Brisk Walk, Did You Do In The Last 7 Days? 2 Information not available 05/28/2021 On Those Days That You Engage In Moderate To Strenuous Exercise, How Many Minutes, On Average, Do You Exercise? 60 [email or web address] Information not available 05/28/2021 Are There Any Guns Present In Your Home? No Information not available 05/01/2021 Do You Use Your Seat Belt Or Car Seat Routinely? Yes [email or web address] Information not available 06/03/2020 Do You Have Smoke And Carbon Monoxide Detectors In Your Home? Yes [email or web address] Information not available 06/03/2020 How Much Tobacco Do You Smoke? No [email or web address] Information not available 05/01/2021 Do You Use Sunscreen Routinely? Yes [email or web address] Information not available 06/03/2020 Has Tobacco Cessation Counseling Been Provided? No [email or web address] Information not available 05/28/2021 Have You Used IV Drugs? No [email or web address] Information not available 05/01/2021 Do You Have Difficulty Walking Or Climbing Stairs? No Information not available 06/29/2021 Sex: Unknown Functional Status Question Answer Note LastModified by Organizat ion Details LastModified Time Do you use any illicit or recreational drugs? No [email or web address] Information not available 05/02/2020 Do you or have you ever used any other forms of tobacco or nicotine? No Information not available 05/28/2021 What is your level of alcohol consumption? None Information not available 05/02/2020 Are you able to walk independently without assistance or assistive devices? YESWOREST [email or web address] Information not available 06/03/2020 Are you able to care for yourself independently? Yes Information not available 06/29/2021 Do you have difficulty dressing, bathing, grooming, or toileting? No Information not available 06/29/2021 What is your exercise level? Occasional [email or web address] Information not available 05/02/2020 Mental Status Question Answer Note LastModified by Organization D etails LastModified Time Do you feel stressed (tense, restless, nervous, or anxious, or unable to sleep at night)? [id number] [email or web address] Information not available 05/01/2021 Family History Relationship [...] ) Y Other Y Drug/Latex Allergies/Reactions Y Blood Transfusion N Breast Cancer N Dermatologic Disorders N Lung Disease N [...] ICD10 Code Diagnosis IMO Codes Diagnosis Note [id number] Sixto Cordova MD [place] [address] [address] 03/09/2025 17:00:41 03/10/2025 08:41:44 Menopausal symptom 08955757 N95.1 [id number] Uterine leiomyoma 641184 05 D25.9 [id number] this patient is a 44-year-ol d female with symptoms of voiding dysfunctio n, urgency, she is evaluated by Urology and found to have a enlarged uterus impinging on her bladder. She has uterine fibroids. Her blood uterus is enlarged and anteverted on ultrasound s here in [place]. She would like to have definitive surgical [...] in total. Dysfunctio n of urinary bladder [id number] N31.9 05429 [id number] Sixto Cordova MD [place] [address] [address] 03/26/2025 10:42:29 03/26/2025 11:18:56 Gynecologic examination 29774894 Z01.419 [id number] Annual gynecologi eusebia exam performed. Patient will [...] Member ID [employer] Member ID Guarantor Name 03/26/2025 1 [employer] ([facility]) [employer]a ReyesJohn[employer] Universitysofia [id number] Arincricket Infante Notes Date Note Type Note Provider Name and Address Organization Details Recorded Time 03/26/20 25 text/htm l Annual GYNReported by [...] exercise. Sixto Cordova MD [address], [place], [address], [facility] 03/26/2025 11:18:53 OBGyn Episode No OBEpisode recorded.
--- OUTSIDE RECORDS SUMMARY | 2025-03-26 11:12 | XMS_ITS | Continuity of Care Document ---
Author Organization [facility] Address [address] [place] [address] Care Team Providers Care Contracting Officer Name Role Phone MARLO VERDIN Primary Care [...] lynne with salpingec agustín (SURG) [address], [facility] [place] [address], [place], [address], 03/10/2025 14:24:19 Imaging None recorded. Medication Orders estradiol 2 mg tablet 2024 025 [facility], [address], [place], [address], 03/10/2025 00:15:51 Patient TargetsNo targets recorded. Patient InstructionsNo instructions recorded. Reason for Referral None Reported. Problems Name Problem SNOMED Code Status Onset Date Resolution Date Notes Provider Name and Address Organization Details Recorded Time Lesion of ovary Completed 201912/14/2020 Other ovarian cyst, left side;Victor Manuel rded Elsewhere : No Locati on: [facility] So urce: EHR Chron ic: N Practic e ID: 0001 Bill able Time: 02:00:00 PM Nuria Bowers [facility] 1 11:44:14 Uterine leiomyom a [id number] Completed 201912/14/2020 Leiomyoma of uterus, unspecifi ed;Record ed Elsewhere : No Locati on: [facility] So urce: EHR Chron ic: N Practic e ID: 0001 Bill able Time: 02:00:00 PM Nuria Bowers [facility] 1 11:44:16 Finding of menstrua l bleeding Completed 201905/02/2020 Excessive and frequent menstruat ion with regular cycle;Rec orded Elsewhere : No Locati on: [facility] So urce: EHR Chron ic: N Practic e ID: 0001 Bill able Time: 11:00:00 AM Arline Tejeda [facility] 1 15:25:04 Reproduc tive care manageme nt Completed 201905/02/2020 Encounter for other procreati ve managemen t;Recorde d Elsewhere : No Locati on: [facility] So urce: EHR Chron ic: N Practic e ID: 0001 Bill able Time: 11:00:00 AM Arline Tejeda [facility] 1 15:25:07 Urinary tract infectio us disease 71653310 Completed 201905/02/2020 Urinary tract infection , site not specified ;Recorded Elsewhere : No Locati on: [facility] So urce: EHR Chron ic: N Practic e ID: 0001 Bill able Time: 11:45:00 AM Arline Tejeda [facility] 1 15:25:09 Problem Notes None recorded. Procedures Surgical History Date Name Laterality Status Provider Name and Address Organization Details Recorded Time 2024 DILATION & CURETTAGE (SURG) completed Gabrielle Marvin [facility] 12/28/2024 11:48:50 2023 Date of Last Pap Smear completed Dariela [facility] 03/12/2024 15:18:44 2023 Date of Last Mammogram completed Dariela [facility] 11/10/2023 16:00:35 2023 DILATION & CURETTAGE (SURG) [facility] 07/07/2023 18:01:19 2021 artificial insemination completed Carolyn ortiz [facility] 05/01/2021 10:16:26 2021 hysterosalpingography completed Arline [facility] 05/01/2021 10:16:45 2020 artificial insemination completed Carolyn ortiz [facility] 05/01/2021 10:16:23 2019 hysterosalpingography completed [facility] 05/01/2021 10:16:39 2018 open reversal of female sterilization [facility] 03/21/2021 18:17:23 2006 Tubal Ligation completed Arline Tejeda [facility] 06/08/2020 11:58:14 2006 section completed Arline Tejeda [facility] 06/03/2020 09:22:53 2004 section completed Arline Tejeda [facility] 06/03/2020 09:22:45 2001 section completed Arline Tejeda [facility] 06/03/2020 09:22:38 1989 Tonsillectomy completed Radha OBRIEN [facility] 10/21/2019 13:13:02 Imaging Results None recorded. Procedure Notes None recorded. Medical Equipment None Reported. Allergies Allergen ID Allergen Name Allergen Category Reaction Reaction Severity Criticality Documentation Date Start Date Code Code System Note Provider Name and Address Organization Details Recorded Time 23557 sertralin e medicatio n rash Not available [facility] 03/02/20252013 58367 RxNorm Not Available [employer] - prod 5 15:07:52 07034 Product containin g penicilli n (product) medicatio n dyspnea Not available Not available 03/02/20252016 69722 8001 SNOMED Pt not sure of aller gy but think s had short ness of breat h after takin g pcn as a child . Not Available [employer] - prod 5 15:07:53 06398 Zoloft medicatio n rash Not [facility] 03/02/2025 98854 RxNorm Not Available [employer] - prod 5 15:08:05 Medications [...] Updated DateTime 03/09/2025 162.56 cm 26.1 kg/m2 66444.04 g 119/80 mm[Hg] Regina Barbosa [facility] 03/09/2025 17:06:41 Social History Question Answer Notes LastModified by Organizat ion Details LastModified Time Tobacco Smoking Status Never Smoker oRn Krystian ness [facility] 05/28/2021 11:03:21 Do You Have An Advance Directive? No [email or web address] Information n ot available 05/01/2021 If You Are , What Was Your Level Of Alcohol Consumption Prior To ? None [email or web address] Information not available 05/28/2021 Are You Blind Or Do You Have Difficulty Seeing? No [email or web address] Information n ot available 06/03/2020 What Is Your Level Of Caffeine Consumption? Moderate [email or web address] Information not available 05/02/2020 In The 14 Days Before Symptom Onset, Have You Had Close Contact With A Laboratory-confirm ed COVID-19 While That Case Was Ill? No [email or web address] Information n ot available 06/03/2020 In The 14 Days Before Symptom Onset, Have You Had Close Contact With A Person Who Is Under Investigation For COVID-19 While That Person Was Ill? No [email or web address] Information not available 06/03/2020 Have You Been To An Area Known To Be High Risk For COVID-19? No [email or web address] Information not available 06/03/2020 Are You Deaf Or Do You Have Serious Difficulty Hearing? No Information not available 06/03/2020 What Type Of Diet Are You Following? REGULAR [email or web address] Information n ot available 06/03/2020 What Is The Highest Grade Or Level Of School You Have Completed Or The Highest Degree You Have Received? HM00089-4 [email or web address] Information not available 05/01/2021 How Many Days Of Moderate To Strenuous Exercise, Like A Brisk Walk, Did You Do In The Last 7 Days? 2 [email or web address] Information not available 05/28/2021 On Those Days That You Engage In Moderate To Strenuous Exercise, How Many Minutes, On Average, Do You Exercise? 60 [email or web address] Information not available 05/28/2021 Are There Any Guns Present In Your Home? No [email or web address] Information not available 05/01/2021 Do You Use Your Seat Belt Or Car Seat Routinely? Yes Information not available 06/03/2020 Do You Have Smoke And Carbon Monoxide Detectors In Your Home? Yes [email or web address] Information not available 06/03/2020 How Much Tobacco Do You Smoke? No [email or web address] Information not available 05/01/2021 Do You Use Sunscreen Routinely? Yes [email or web address] Information not available 06/03/2020 Has Tobacco Cessation Counseling Been Provided? No [email or web address] Information not available 05/28/2021 Have You Used IV Drugs? No [email or web address] Information not available 05/01/2021 Do You Have Difficulty Walking Or Climbing Stairs? No Information not available 06/29/2021 Sex: Unknown Functional Status Question Answer Note LastModified by Organizat ion Details LastModified Time Do you use any illicit or recreational drugs? No [email or web address] Information not available 05/02/2020 Do you or have you ever used any other forms of tobacco or nicotine? No [email or web address] Information not available 05/28/2021 What is your level of alcohol consumption? None Information not available 05/02/2020 Are you able to walk independently without assistance or assistive devices? YESWOREST [email or web address] Information not available 06/03/2020 Are you able to care for yourself independently? Yes Information not available 06/29/2021 Do you have difficulty dressing, bathing, grooming, or toileting? No Information not available 06/29/2021 What is your exercise level? Occasional [email or web address] Information not available 05/02/2020 Mental Status Question Answer Note LastModified by Organization D etails LastModified Time Do you feel stressed (tense, restless, nervous, or anxious, or unable to sleep at night)? [id number] [email or web address] Information not available 05/01/2021 Family History Relationship [...] ICD10 Code Diagnosis IMO Codes Diagnosis Note [id number] Sixto Cordova MD [place] [address] [address] 03/09/2025 17:00:41 03/10/2025 08:41:44 Menopausal symptom 68327183 N95.1 1250732 Uterine leiomyoma 128574 05 D25.9 10463471 this patient is a 44-year-ol d female with symptoms of voiding dysfunctio n, urgency, she is evaluated by Urology and found to have a enlarged uterus impinging on her bladder. She has uterine fibroids. Her blood uterus is enlarged and anteverted on ultrasound s here in associate pathologist. She would like to have definitive surgical [...] in total. Dysfunctio n of urinary bladder [id number] N31.9 56121 Health Concerns Section Related Observation LastModified by Organization Detai ls LastModified Time None Recorded Concern Status LastModified by Organization Details LastModified Time None Recorded Payers Encounter Date Sequence Insurance Name Policy Number Policy [employer] Covered Member ID Mancera Member ID Guarantor Name 03/09/2025 1 [facility] ([facility] SHAKEEL Infante [id number] Arin Infante Notes Date Note Type Note Provider Name and Address Organization Details Recorded Time 03/09/2025 text/html this patient is a 44-year-old female with symptoms of voiding dysfunction, urgency, she is evaluated by Urology and found to have a enlarged uterus impinging on her bladder. She has uterine fibroids. Her blood uterus is enlarged and anteverted on ultrasounds here in associate pathologist. She would like to have definitive surgical [...] total. Sixto Cordova MD [address], [place], [address], [place] [facility] 03/09/2025 18:53:48 OBGyn Episode No OBEpisode recorded.
--- OUTSIDE RECORDS SUMMARY | 2025-03-26 11:12 | XMS_ITS | Clinical Summary ---
Author Organization [facility] Address [address] [place] [address] Care Team Providers Care Sustainment Logistics Analyst Name Role Phone Pia Fengbaltazar Moreau DO Primary Care Provider [phone] Source Comments [facility],non-owned Affiliates and Associated Physician Practices is amultiple site organization consisting of ambulatory clinics and hospital sitesin [place], [place], [place] and [place]. This disclosure is being madepursuant to the Care Everywhere program and may not contain all information available regarding this patient. Last updated [facility] Allergies Active Allergy Reactions Criticality Noted Date [...] fluticasone propionate (FLONASE) 50 MCG/ACT nasal spray Barto 1 spray into the nose 7 Active loratadine (CLARITIN) 10 MG tablet Take 10 mg by mouth Active montelukast (SINGULAIR) 10 MG tablet Take 10 mg by mouth 7 Active Fexofenadine HCl (ALBERTA PO) Active fluticasone propionate (FLONASE) 50 MCG/ACT nasal spray Barto 1 spray into each nostril BID. 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 Gender Identity Not on file Sexual Orientation [...] VACCINE (1 - 3-dose SCDM series) 2007 DEPRESSION SCREENING 03/31/2024 COVID-19 VACCINE ( - 2024-2 6 season) 2024 INFLUENZA VACCINE (#1) 2024 ZOSTER VACCINE (1 [...] this topic Insurance MEDICAID - OUT OF [facility] [place] [address] SELF PAY NO INSURANCE Member Subscriber Plan / Payer (Ef fective for All Dates) Name:Narcisa Fernandes R Member ID:Not on file Relation to Subscriber:Not on file Name:NARCISA FERNANDES Subscriber ID:Not on file (Home) Address: [address] [place] [address] Payer ID:Not on file Group ID:Not on file Type:Self Pay Address: [place], [place] [facility] SELF PAY NO INSURANCE Member Subscriber Plan / Payer (Ef fective for All Dates) Name:Narcisa Fernandes R Member ID:Not on file Relation to Subscriber:Not on file Name:NARCISA FERNANDES Subscriber ID:Not on file Address: [address] [place] [address] Payer ID:Not on file Group ID:Not on file Type:Self Pay Address: [place], [place] [facility] SELF PAY NO INSURANCE Member Subscriber Plan / Payer (Ef fective for All Dates) Name:Narcisa Fernandes R Member ID:Not on file Relation to Subscriber:Not on file Name:NARCISA FERNANDES Subscriber ID:Not on file Address: [address] [place] [address] Payer ID:Not on file Group ID:Not on file Type:Self Pay Address: [place], [place] [facility] SELF PAY NO INSURANCE Member Subscriber Plan / Payer (Ef fective for All Dates) Name:Narcisa Fernandes R Member ID:Not on file Relation to Subscriber:Not on file Name:DENANARCISA Subscriber ID:Not on file Address: [address] [place] [address] Payer ID:Not on file Group ID:Not on file Type:Self Pay Address: [place], [place] Care Teams Sustainment Logistics Analyst Relationship Specialty Start Date End Date Win Feng DO [address] [place] [id number] PCP - General 02/05/16
== END 2025-03-26 10:57 | disposition home or self-care (01) ==
LOC: ANHLAB 11:09
PROVIDERS: Visit Provider Obstetrics & Gynecology
DX: Z01.818 Encounter for other preprocedural examination (principal)
CPT/HCPCS: 36415; 86850; 86900; 86901